=== PATIENT | male | born 1955 | race American Indian/Alaskan Native ===

== ENCOUNTER 2016-09-28 12:39 | Observation (INO) | payer MEDICAID ==
[2016-09-28 12:40] VITALS: BMI 20.2
--- NOTE | 2016-09-28 14:39 | C.PDOC ---
History Of Present Illness 60 y/o male is sent to the ED from senior care for evaluation of urine leaking around right nephrostomy tube. Tube was reportedly placed by Dr. Bud Tabares for underlying cancer process. Patient denies chest pain, shortness of breath, abdominal pain, or fever. Time Seen by Provider: 09/28/16 13:43 Chief Complaint (Nursing): Male Genitourinary History Per: Patient History/Exam Limitations: no limitations Onset/Duration Of Symptoms: Persistent Current Symptoms Are (Timing): Still Present Recent travel outside of the [place]: No Additional History Per: [facility] Past Medical History Reviewed: Historical Data, Nursing Documentation, Vital Signs Vital Signs: Last Vital Signs Temp 98.2 F 09/28/16 17:28 Pulse 112 H 09/28/16 17:28 Resp 20 09/28/16 17:28 BP 105/77 09/28/16 17:28 Pulse Ox 100 09/28/16 18:13 - Medical History PMH: Back Problems, HTN, Malignancy (Prostate, Pancreatic), Chronic Kidney Disease, Chronic Pain (Back) Surgical History: No Surg Hx - [facility] Procedures CHANGE DRAINAGE DEVICE IN KIDNEY, EXTERNAL APPROACH (03/02/16) CYSTOSCOPY NEC (11/08/14) DILATION OF DUODENUM, ENDO (06/12/15) DILATION OF RIGHT URETER WITH INTRALUMINAL DEVICE, ENDO (06/12/15) DX ULTRASOUND NEC (10/22/14) INSERTION OF ENDOTRACHEAL AIRWAY INTO TRACHEA, VIA OPENING (08/30/15) INSERTION OF INFUSION DEV INTO SUP VENA CAVA, PERC APPROACH (08/30/15) INTRODUCTION OF NUTRITIONAL INTO PERIPH VEIN, PERC APPROACH (06/12/15) LYMPHATIC STRUCT BIOPSY (11/08/14) PERCU NEPHROSTM W/O FRAG (11/08/14) PERCUTAN NEEDLE BIOPSY OF PROSTATE (11/08/14) PERCUTANEOUS PYELOGRAM (01/18/15) REMOVE VAD RESERVOIR FROM UP EXTREM SUBCU/FASCIA, PERC (08/30/15) RESPIRATORY VENTILATION, GREATER THAN 96 CONSECUTIVE HOURS (08/30/15) TRANSFUSE NONAUT RED BLOOD CELLS IN PERIPH VEIN, PERC (06/12/15) URETERAL CATHETERIZATION (01/18/15) VACCINATION NEC (10/22/14) Family History: States: Unknown Family Hx - Social History Hx Tobacco Use: Yes Hx Alcohol Use: No Hx Substance Use: No - Immunization History Hx Tetanus Toxoid Vaccination: No Hx Influenza Vaccination: No Hx Pneumococcal Vaccination: No Review Of Systems Except As Marked, All Systems Reviewed And Found Negative. Constitutional: Negative for: Fever Cardiovascular: Negative for: Chest Pain Respiratory: Negative for: Shortness of Breath Gastrointestinal: Negative for: Abdominal Pain Genitourinary: Positive for: Other (urine leaking around right nephrostomy tube) Physical Exam - Physical Exam Appears: Non-toxic, No Acute Distress, Other (thin) Skin: Normal Color, Warm, Dry Head: Normacephalic, Other (bitemporal wasting) Eye(s): bilateral: Normal Inspection, PERRL, EOMI Oral Mucosa: Moist Neck: Normal ROM, Supple Chest: Symmetrical Cardiovascular: Rhythm Regular Respiratory: Normal Breath Sounds, No Rales, No Rhonchi, No Wheezing Gastrointestinal/Abdominal: Normal Exam, Soft, No Tenderness Back: Other (fentanyl patch; right nephrostomy tube in good position, foul smelling urine leaking) Extremity: Normal ROM, No Swelling Neurological/Psych: Oriented x3, Normal Speech, Normal Cognition ED Course And Treatment - Laboratory Results Result Diagrams: 09/28/16 14:06 09/28/16 16:04 Lab Interpretation: Abnormal (UA 71 WBC's) ECG: Interpreted By Me ECG Rhythm: Sinus Tachycardia ECG Interpretation: Abnormal Rate From EC O2 Sat by Pulse Oximetry: 100 (ra) Pulse Ox Interpretation: Normal - Radiology CXR: Interpreted by Me CXR Interpretation: Yes: Other (? small R effusion). No: Pnemothorax (or pneumonia) - Other Rad X-Ray, Abdomen X-Ray: Viewed By Me, Read By Radiologist (Soha Jones MD) Interpretation: IMPRESSION: Gaseous distension of the stomach. Nonspecific bowel gas pattern, with overall paucity of bowel gas within the mid to distal abdomen. Right nephro ureterostomy catheter. Stent re-identified within the mid abdomen. head CT X-Ray: Read By Radiologist (no acute findings.) KUB X-Ray: Interpreted by Me (good R nephrostomy tube placement.) Reevaluation Time: 17:54 Reassessment Condition: Improved - Physician Consult Information Outcome Of Conversation: 1415, and 1800: d/w Dr. Anirudh Gonzalez- PMD- ok to med/surg Obs. aware of hypocalcemia, will treat. 1350:d/w Dr. Bud Tabares- IR- plan for R nephrostomy tube replacement tomorrow (Wed 09/29) @ 11A Medical Decision Making Medical Decision Making: Plan: * Chest X-Ray * X-Ray, Abdomen * Blood Work * Urinalysis clogged R nephrostomy tube, good placement confirmed by KUB Case d/w Dr. Bud Tabares at 13:50, states will replace nephrostomy tube tomorrow with interventional radiology at 11 am. Case d/w Dr. Gonzalez at 14:15, agrees with plan. Hypocalcemia- may be related to neoplastic dz. repleation begun in ED Endocrine w/u in AM Disposition Doctor Will See Patient In The: Hospital Counseled Patient/Family Regarding: Studies Performed, Diagnosis - Disposition Disposition: HOSPITALIZED Disposition Time: 17:30 Condition: GOOD - Clinical Impression Clinical Impression: Obstructed nephrostomy tube, UTI (urinary tract infection), Hypocalcemia - Scribe Statement The provider has reviewed the documentation as recorded by the Scribe (Aury Liu) Provider Attestation: All medical record entries made by the Scribe were at my direction and personally dictated by me. I have reviewed the chart and agree that the record accurately reflects my personal performance of the history, physical exam, medical decision making, and the department course for this patient. I have also personally directed, reviewed, and agree with the discharge instructions and disposition.
--- NOTE | 2016-09-28 14:53 | RAD ---
HISTORY: KUB t confirm R nephrostomy placement COMPARISON: Abdominal radiograph performed 08/31/15, CT abdomen and pelvis with IV contrast performed 08/04/16 FINDINGS: Gaseous distension of the stomach. Nonspecific bowel gas pattern, with overall paucity of bowel gas within the mid to distal abdomen. Right nephro ureterostomy catheter. Stent re-identified within the mid abdomen, previously demonstrated to reside within the duodenum. Degenerative changes of the spine and bilateral hips/ pelvis. IMPRESSION: Gaseous distension of the stomach. Nonspecific bowel gas pattern, with overall paucity of bowel gas within the mid to distal abdomen. Right nephro ureterostomy catheter. Stent re-identified within the mid abdomen.
--- NOTE | 2016-09-28 16:11 | RAD ---
HISTORY: SOB COMPARISON: Chest x-ray performed 08/04/16 TECHNIQUE: Chest, one view. FINDINGS: Examination limited by habitus and patient obliquity. LUNGS: Right basilar atelectasis or infiltrate and small pleural effusion. Left basilar atelectasis. No definite pneumothorax. Please note that chest x-ray has limited sensitivity for the detection of pulmonary masses. CARDIOVASCULAR: Stable with prominence of the mediastinum and right peritracheal opacity, possibly tortuous vasculature exaggerated by patient obliquity. OSSEOUS STRUCTURES: Degenerative changes. Osseous demineralization. VISUALIZED UPPER ABDOMEN: Unremarkable. OTHER FINDINGS: None. IMPRESSION: Right basilar atelectasis or infiltrate and small pleural effusion. Left basilar atelectasis. Stable cardiomediastinal silhouette with prominence of the mediastinum and right peritracheal opacity, possibly tortuous vasculature exaggerated by patient obliquity.
[2016-09-28 16:15] LABS: CHLORIDE 111 mmol/L (98-107); POTASSIUM 3.2 mmol/L (3.6-5.2); SODIUM 133 mmol/L (132-148)
[2016-09-28 16:17] LABS: GFR AFRICAN-AMERICAN > 60; INR 1.2
[2016-09-28 16:18] LABS: ALB/GLOB RATIO 0.7 (1.0-2.1); ALKALINE PHOSPHATASE 52 U/L (38-126); ALT/SGPT 16 U/L (21-72); AST/SGOT 22 U/L (17-59); BILIRUBIN,TOTAL 0.5 mg/dL (0.2-1.3); BLOOD UREA NITROGEN 13 mg/dL (9-20); CARBON DIOXIDE 12 mmol/L (22-30)
[2016-09-28 16:21] LABS: URINE BACTERIA MOD (<OCC); URINE BILIRUBIN NEGATIVE (NEGATIVE); URINE BLOOD NEGATIVE (NEGATIVE); URINE COLOR Amber (YELLOW); URINE GLUCOSE (UA) NORMAL (Normal); URINE KETONE NEGATIVE (NEGATIVE); URINE LEUKOCYTE ESTERASE 3+ Leu/uL (Negative); URINE PROTEIN 3+ mg/dL (NEGATIVE); URINE TRIPLE PHOSPHATE CRYSTAL MOD /hpf (<OCC); URINE UROBILINOGEN NORMAL mg/dL (0.2-1.0); WBC URINE 71 /hpf (0-5)
[2016-09-28 16:32] LABS: GLUCOSE,RANDOM 46 mg/dL (75-110)
[2016-09-28 16:54] LABS: BASO % 0.6 % (0.0-2.0); EOS % 0.7 % (0.0-4.0); LYMPH # 0.2 K/uL (1.0-4.3); LYMPH % 4.1 % (20.0-40.0); MEAN CORPUSCULAR HEMOGLOBIN 30.7 pg (27.0-31.0); MEAN CORPUSCULAR HGB CONC 31.5 g/dL (33.0-37.0); MEAN PLATELET VOLUME 8.5 fL (7.2-11.7); MONO # 0.3 K/uL (0.0-0.8); RED CELL DISTRIBUTION WIDTH 17.5 % (11.5-14.5); WHITE BLOOD COUNT 5.4 K/uL (4.8-10.8)
[2016-09-28 16:55] LABS: MEAN CELL VOLUME 97.5 fL (80.0-94.0); PLATELET COUNT 224 K/uL (130-400)
[2016-09-28] MEDS ORDERED: cefTRIAXone IV 1 gm in Dextros 50 ML IV ONE (17:29)
[2016-09-28] MEDS ORDERED: Dextrose 50% SYRINGE Inj (50 ml) IV STA (17:29)
[2016-09-28] MEDS ORDERED: Dextrose 50% SYRINGE Inj (50 ml) ONE (17:32)
[2016-09-28] MEDS ORDERED: cefTRIAXone IV 1 gm in Dextros 50 ML IVPB ONE (17:36)
[2016-09-28 17:56] LABS: BASOPHIL 1 % (0-2); EOSINOPHIL 1 % (0-4); NEUTROPHIL 89 % (50-75); TOTAL CELLS COUNTED 100
[2016-09-28 17:57] LABS: LARGE PLATELETS PRESENT
[2016-09-28] MEDS ORDERED: Calcium Gluconate 4.65 MEQ in Dextrose 5% In Water 100 ML IV ONE (18:14)
[2016-09-28] MEDS: Sodium Chloride 0.9% 1,000 ML IV SCH (18:20)
[2016-09-28] MEDS ORDERED: Sodium Chloride 0.9% 1,000 ML ONE (18:22)
[2016-09-28] MEDS ORDERED: Home Med 1 UNIT (Meropenem [Merrem Iv] 1 GM) IVPB SCH (22:00)
[2016-09-28] MEDS: Meropenem 1 GM in Sodium Chloride 0.9% 100 ML IVPB SCH (22:34)
--- NOTE | 2016-09-28 23:02 | CP.PCM.HP ---
History of Present Illness - History of Present Illness History of Present Illness: 60-year-old male is sent to the ED from [facility] for evaluation of urine leaking around the right nephrostomy tube. Tube was reportedly placed by Dr. Bud Tabares for underlying cancer process. Patient denies chest pain, SOB, abdominal pain or fever. Present on Admission - Present on Admission Any Indicators Present on Admission: No Past Patient History - Infectious Disease Hx of Infectious Diseases: None - Past Medical History & Family History Past Medical History?: Yes - Past Social History Smoking Status: Former Smoker - CARDIAC Hx Hypertension: Yes - PULMONARY Hx Respiratory Disorders: No - NEUROLOGICAL Hx Neurological Disorder: No Hx Paralysis: No - HEENT Hx HEENT Problems: No - RENAL Hx Chronic Kidney Disease: Yes - ENDOCRINE/METABOLIC Hx Diabetes Mellitus Type 2: Yes (pt denies.) - HEMATOLOGICAL/ONCOLOGICAL Hx Cancer: Yes (Prostate, Stomach.) - INTEGUMENTARY Hx Dermatological Problems: No - MUSCULOSKELETAL/RHEUMATOLOGICAL Hx Falls: Yes - GASTROINTESTINAL Hx Gastrointestinal Disorders: Yes Other/Comment: Stomach Ca. - GENITOURINARY/GYNECOLOGICAL Hx Genitourinary Disorders: Yes Hx Prostate Cancer: Yes Hx Prostate Problems: Yes - PSYCHIATRIC Hx Substance Use: No - SURGICAL HISTORY Other/Comment: nephrostomy tube. - ANESTHESIA Hx Anesthesia: Yes Hx Anesthesia Reactions: No Hx Malignant Hyperthermia: No Meds Allergies/Adverse Reactions: Allergies Allergy/AdvReac Type Severity Reaction Status Date / Time No Known Allergies Allergy Verified 10/06/16 10:16 Results - Vital Signs Recent Vital Signs: Last Vital Signs Temp 98.6 F 09/28/16 18:51 Pulse 119 H 09/28/16 18:51 Resp 20 09/28/16 18:51 BP 102/72 09/28/16 18:51 Pulse Ox 99 09/28/16 18:51 - Labs Result Diagrams: 09/30/16 08:03 09/30/16 08:03 Labs: Laboratory Results - last 24 hr 09/28/16 09/28/16 18:07 18:54 POC Glucose (mg/dL) 64 L 94 Assessment & Plan (1) Abdominal pain Status: Acute Priority: Low (2) Abnormal PSA Status: Acute (3) Acute kidney injury Status: Acute Priority: Low (4) Bacteremia Status: Acute (5) CHF (congestive heart failure) Status: Acute (6) Cardiac arrest Status: Acute (7) Dehydration Status: Acute Priority: Low (8) Dyspnea Status: Acute (9) Encounter for dressing change or suture removal Status: Acute (10) GI bleed Status: Acute (11) Hypocalcemia Status: Acute (12) Hypoglycemia Status: Acute (13) Hypoglycemia Status: Acute (14) Hypokalemia Status: Acute (15) Hypomagnesemia Status: Acute (16) Hyponatremia Status: Acute (17) Hypotension Status: Acute (18) Hypotension Status: Acute (19) Hypothermia Status: Acute (20) Ileus, unspecified Status: Acute Priority: Low (21) Leg edema Status: Acute (22) Lymphadenopathy Status: Acute (23) Malfunction of nephrostomy tube Status: Acute (24) Medical assessment Status: Acute (25) Nephrostomy complication Status: Acute (26) Nephrostomy status Status: Acute (27) Nephrostomy tube displaced Status: Acute (28) Obstructed nephrostomy tube Status: Acute (29) Obstructive uropathy Status: Acute Priority: Medium (30) Pneumatosis intestinalis Status: Acute (31) Prophylactic measure Status: Acute (32) Prophylactic measure Status: Acute (33) Pyelonephritis Status: Acute (34) Renewing dressing Status: Acute (35) Respiratory distress Status: Acute (36) Sepsis Status: Acute (37) Septic shock Status: Acute (38) UTI (urinary tract infection) Status: Acute (39) UTI (urinary tract infection) Status: Acute (40) Vomiting Status: Acute (41) Yeast UTI Status: Acute (42) Duodenal obstruction, acquired Status: Chronic (43) Prostate cancer Status: Chronic Priority: Medium - Assessment and Plan (Free Text) Plan: Consult nephrology Clogged right nephrostomy tube KUB confirmed good placement of nephrostomy tube Dr. Farrell will replace nephrostomy tube tomorrow
[2016-09-28] MEDS ORDERED: Potassium Chloride 20 mEq ER Tab PO STA (23:05)
[2016-09-29] MEDS: Sodium Chloride 0.9% 1,000 ML IV SCH (03:25)
[2016-09-29] MEDS ORDERED: Dextrose 50% SYRINGE Inj (50 ml) IV PRN (03:36)
[2016-09-29] MEDS ORDERED: Glucagon Recombinant 1 mg Inj IM PRN (03:36)
[2016-09-29] MEDS: Meropenem 1 GM in Sodium Chloride 0.9% 100 ML IVPB SCH ×3 (05:30→21:47)
[2016-09-29] MEDS ORDERED: Dextrose 50% SYRINGE Inj (50 ml) IV STA ×3 (07:24→16:30)
[2016-09-29] MEDS ORDERED: Dextrose 5%/0.45% NS 1,000 ML IV SCH (07:30)
[2016-09-29 08:15] LABS: BASO % 0.3 % (0.0-2.0); EOS % 0.1 % (0.0-4.0); HEMATOCRIT 46.5 % (35.0-51.0); LYMPH # 0.2 K/uL (1.0-4.3); LYMPH % 1.6 % (20.0-40.0); MEAN CORPUSCULAR HEMOGLOBIN 30.4 pg (27.0-31.0); MEAN CORPUSCULAR HGB CONC 31.7 g/dL (33.0-37.0); MEAN PLATELET VOLUME 9.1 fL (7.2-11.7); MONO # 0.3 K/uL (0.0-0.8); MONO % 2.8 % (0.0-10.0); PLATELET COUNT 233 K/uL (130-400); WHITE BLOOD COUNT 9.8 K/uL (4.8-10.8)
[2016-09-29 08:26] LABS: POTASSIUM 5.1 mmol/L (3.6-5.2)
[2016-09-29 08:28] LABS: ALB/GLOB RATIO 0.8 (1.0-2.1); BILIRUBIN,TOTAL 0.5 mg/dL (0.2-1.3); CALCIUM 6.9 mg/dl (8.6-10.4); TOTAL PROTEIN 5.7 g/dL (6.3-8.3)
[2016-09-29 08:29] LABS: INR 1.4
[2016-09-29] MEDS ORDERED: EPOETIN ALFA 10,000 UNIT/ML ML SC SCH (10:00)
[2016-09-29] MEDS ORDERED: ENZALUTAMIDE 40 MG PO SCH (10:00)
[2016-09-29] MEDS ORDERED: Enoxaparin 40 mg Syringe SC SCH (10:00)
[2016-09-29 10:06] LABS: BASOPHIL 1 % (0-2); NEUTROPHIL 80 % (50-75); TOTAL CELLS COUNTED 100
[2016-09-29 10:08] LABS: LARGE PLATELETS PRESENT
[2016-09-29] MEDS: Lactobacillus Acidophilus 500 MU Cap PO SCH ×2 (10:27→17:41)
[2016-09-29] MEDS: Pantoprazole 40 mg EC Tab PO SCH (10:29)
[2016-09-29] MEDS ORDERED: Dextrose 5%/0.9% NS 1,000 ML IV ONE (11:26)
[2016-09-29] MEDS ORDERED: Dextrose 50% SYRINGE Inj (50 ml) ONE (11:30)
[2016-09-29] MEDS ORDERED: Propofol 10 mg/ml Inj (20 ML) ONE (12:36)
[2016-09-29] MEDS ORDERED: Iodixanol 320 MG/ML 100 ML BOTTLE IV ONE (12:51)
--- NOTE | 2016-09-29 12:59 | PCM.SURG1 ---
Surgeon's Initial Post Op Note - Surgeon's Notes Surgeon: Bud Tabares MD Textbook Associate: NONE Type of Anesthesia: IV Sedation Pre-Operative Diagnosis: Prostate cancer, leaking nephroureteral stent. Operative Findings: Obstructed NU stent, hydronephrosis. Post-Operative Diagnosis: Prostate cancer, leaking nephroureteral stent. Operation Performed: Right NU stent change. A new 8 fr NU stent placed. Specimen/Specimens Removed: none Estimated Blood Loss: EBL {In ML}: 0 Blood Products Given: N/A Drains Used: No Drains Post-Op Condition: Poor Date of Surgery/Procedure: 09/29/16 Time of Surgery/Procedure: 12:55
--- NOTE | 2016-09-29 14:43 | CARD ---
APPROVED REPORT EKG Measurement Heart [id number] <Conclusion> Sinus tachycardia Nonspecific T wave abnormality Abnormal ECG
--- NOTE | 2016-09-29 16:44 | CP.PCM.PN ---
Subjective - Date & Time of Evaluation Date of Evaluation: 09/29/16 Time of Evaluation: 10:40 - Subjective Subjective: clinically same Objective - Vital Signs/Intake and Output Vital Signs (last 24 hours): Temp Pulse Resp BP Pulse Ox 97.5 F L 121 H 21 87/63 L 86 L 09/29/16 15:00 09/29/16 15:00 09/29/16 15:00 09/29/16 15:00 09/29/16 15:00 Intake and Output: 09/29/16 09/29/16 06:59 18:59 Intake Total 1685 780 Output Total 0 0 Balance 1685 780 - Medications Medications: Current Medications Acetaminophen (Tylenol 325mg Tab) 650 mg PO Q4H PRN PRN Reason: Fever >100.4 F Enoxaparin Sodium (Lovenox) 40 mg SC DAILY [facility] Epoetin Florian (Procrit) 10,000 unit SC MWF [facility] Last Admin: 09/29/16 10:50 Dose: 10,000 unit Fentanyl (Duragesic) 1 patch TD Q72 [facility] Last Admin: 09/28/16 22:35 Dose: 1 patch Home Med (Enzalutamide [Xtandi]) 40 mg PO DAILY [facility] Meropenem 1 gm/ Sodium (Chloride) 100 mls @ 200 mls/hr IVPB Q8 [facility] Last Admin: 09/29/16 15:02 Dose: 200 mls/hr Dextrose/Sodium Chloride (Dextrose 5%/0.9% Ns 1000 Ml) 1,000 mls @ 80 mls/hr IV .[id number] ONE Stop: 09/29/16 23:55 Last Admin: 09/29/16 11:40 Dose: 80 mls/hr Lactobacillus Acidophilus (Bacid Acidophilus) 1 cap PO BID [facility] Last Admin: 09/29/16 10:27 Dose: Not Given Pantoprazole Sodium (Protonix Ec Tab) 40 mg PO DAILY [facility] Last Admin: 09/29/16 10:29 Dose: Not Given Tramadol HCl (Ultram) 50 mg PO Q8H PRN PRN Reason: Pain, moderate (4-7) - Labs Labs: 09/29/16 08:12 09/29/16 08:12 PT 16.0 SECONDS (9.7-12.2) H 09/29/16 08:12 INR 1.4 09/29/16 08:12 APTT 44 SECONDS (21-34) H 09/29/16 08:12 - Constitutional Appears: Well - Head Exam Head Exam: ATRAUMATIC, NORMAL INSPECTION, NORMOCEPHALIC - Eye Exam Eye Exam: EOMI, Normal appearance, PERRL Pupil Exam: NORMAL ACCOMODATION, PERRL - ENT Exam ENT Exam: Mucous Membranes Moist, Normal Exam - Neck Exam Neck Exam: Full ROM, Normal Inspection. absent: Lymphadenopathy - Respiratory Exam Respiratory Exam: Decreased Breath Sounds - Cardiovascular Exam Cardiovascular Exam: REGULAR RHYTHM, +S1, +S2 - GI/Abdominal Exam GI & Abdominal Exam: Soft, Diminished Bowel Sounds - Rectal Exam Rectal Exam: Deferred Assessment and Plan - Assessment and Plan (Free Text) Plan: gm negative kandace id pending conit as ordered
--- NOTE | 2016-09-29 19:03 | CP.PCM.CON ---
History of Present Illness - History of Present Illness History of Present Illness: 60 y/o male is [facility] ED [facility] for evaluation of urine leaking around right nephrostomy tube. Tube was reportedly placed by Dr. Bud Tabares for underlying cancer process. Patient denies chest pain, shortness of breath, abdominal pain, or fever. started on IV antibiotics rx to cont cultures pending urology on board hx of MDRO in the past T - Medical History PMH: Back Problems, HTN, Malignancy (Prostate, Pancreatic), Chronic Kidney Disease, Chronic Pain (Back) Surgical History: No Surg Hx Past Patient History - Infectious Disease Hx of Infectious Diseases: None - Past Medical History & Family History Past Medical History?: Yes - Past Social History Smoking Status: Former Smoker - CARDIAC Hx Hypertension: Yes - PULMONARY Hx Respiratory Disorders: No - NEUROLOGICAL Hx Neurological Disorder: No Hx Paralysis: No - HEENT Hx HEENT Problems: No - RENAL Hx Chronic Kidney Disease: Yes - ENDOCRINE/METABOLIC Hx Diabetes Mellitus Type 2: Yes (pt denies.) - HEMATOLOGICAL/ONCOLOGICAL Hx Cancer: Yes (Prostate, Stomach.) - INTEGUMENTARY Hx Dermatological Problems: No - MUSCULOSKELETAL/RHEUMATOLOGICAL Hx Falls: Yes - GASTROINTESTINAL Hx Gastrointestinal Disorders: Yes Other/Comment: Stomach Ca. - GENITOURINARY/GYNECOLOGICAL Hx Genitourinary Disorders: Yes Hx Prostate Cancer: Yes Hx Prostate Problems: Yes - PSYCHIATRIC Hx Substance Use: No - SURGICAL HISTORY Other/Comment: nephrostomy tube. - ANESTHESIA Hx Anesthesia: Yes Hx Anesthesia Reactions: No Hx Malignant Hyperthermia: No Meds Allergies/Adverse Reactions: Allergies Allergy/AdvReac Type Severity Reaction Status Date / Time No Known Allergies Allergy Verified 09/28/16 14:34 - Medications Medications: Current Medications Acetaminophen (Tylenol 325mg Tab) 650 mg PO Q4H PRN PRN Reason: Fever >100.4 F Enoxaparin Sodium (Lovenox) 40 mg SC DAILY [facility] Epoetin Florian (Procrit) 10,000 unit SC MWF [facility] Last Admin: 09/29/16 10:50 Dose: 10,000 unit Fentanyl (Duragesic) 1 patch TD Q72 [facility] Last Admin: 09/28/16 22:35 Dose: 1 patch Home Med (Enzalutamide [Xtandi]) 40 mg PO DAILY [facility] Meropenem 1 gm/ Sodium (Chloride) 100 mls @ 200 mls/hr IVPB Q8 [facility] Last Admin: 09/29/16 15:02 Dose: 200 mls/hr Dextrose/Sodium Chloride (Dextrose 5%/0.9% Ns 1000 Ml) 1,000 mls @ 80 mls/hr IV .[id number] ONE Stop: 09/29/16 23:55 Last Admin: 09/29/16 11:40 Dose: 80 mls/hr Lactobacillus Acidophilus (Bacid Acidophilus) 1 cap PO BID [facility] Last Admin: 09/29/16 17:41 Dose: 1 cap Pantoprazole Sodium (Protonix Ec Tab) 40 mg PO DAILY [facility] Last Admin: 09/29/16 10:29 Dose: Not Given Tramadol HCl (Ultram) 50 mg PO Q8H PRN PRN Reason: Pain, moderate (4-7) Results - Vital Signs Recent Vital Signs: Last Vital Signs Temp 97.5 F L 09/29/16 15:00 Pulse 121 H 09/29/16 17:19 Resp 21 09/29/16 15:00 BP 87/63 L 09/29/16 15:00 Pulse Ox 86 L 09/29/16 15:00 - Labs Result Diagrams: 09/29/16 08:12 09/29/16 08:12 Labs: Laboratory Results - last 24 hr 09/28/16 09/29/16 09/29/16 21:15 03:07 03:27 WBC RBC Hgb Hct MCV MCH MCHC RDW Plt Count MPV Neut % (Auto) Lymph % (Auto) [place] % (Auto) Eos % (Auto) Baso % (Auto) Neut # Lymph # [place] # Eos # Baso # Neutrophils % (Manual) Band Neutrophils % Lymphocytes % (Manual) Monocytes % (Manual) Basophils % (Manual) Platelet Estimate Large Platelets Poikilocytosis (manual Anisocytosis (manual) Fortescue Cells PT INR APTT Sodium Potassium Chloride Carbon Dioxide Anion Gap BUN Creatinine Est GFR ( Amer) Est GFR (Non-Af Amer) POC Glucose (mg/dL) 86 65 76 Random Glucose Calcium Total Bilirubin AST ALT Alkaline Phosphatase Total Protein Albumin Globulin Albumin/Globulin Ratio 09/29/16 09/29/16 09/29/16 07:05 08:09 08:12 WBC 9.8 D RBC 4.84 Hgb 14.7 Hct 46.5 MCV 96.0 H MCH 30.4 MCHC 31.7 L RDW 17.0 H Plt Count 233 MPV 9.1 Neut % (Auto) 95.2 H Lymph % (Auto) 1.6 L [place] % (Auto) 2.8 Eos % (Auto) 0.1 Baso % (Auto) 0.3 Neut # 9.3 H Lymph # 0.2 L [place] # 0.3 Eos # 0.0 Baso # 0.0 Neutrophils % (Manual) 80 H Band Neutrophils % 13 H* Lymphocytes % (Manual) 1 L Monocytes % (Manual) 5 Basophils % (Manual) 1 Platelet Estimate Normal Large Platelets Present Poikilocytosis (manual Slight Anisocytosis (manual) Slight [place] Cells Slight PT 16.0 H INR 1.4 APTT 44 H Sodium 128 L Potassium 5.1 Chloride 98 Carbon Dioxide 18 L Anion Gap 17 BUN 22 H Creatinine 1.7 H Est GFR ( Amer) 50 Est GFR (Non-Af Amer) 41 POC Glucose (mg/dL) 68 138 H Random Glucose 112 H Calcium 6.9 L Total Bilirubin 0.5 AST 12 L D ALT 12 L D Alkaline Phosphatase 96 Total Protein 5.7 L Albumin 2.6 L D Globulin 3.1 Albumin/Globulin Ratio 0.8 L 09/29/16 09/29/16 09/29/16 11:13 11:57 13:24 WBC RBC Hgb Hct MCV MCH MCHC RDW Plt Count MPV Neut % (Auto) Lymph % (Auto) [place] % (Auto) Eos % (Auto) Baso % (Auto) Neut # Lymph # [place] # Eos # Baso # Neutrophils % (Manual) Band Neutrophils % Lymphocytes % (Manual) Monocytes % (Manual) Basophils % (Manual) Platelet Estimate Large Platelets Poikilocytosis (manual Anisocytosis (manual) Fortescue Cells PT INR APTT Sodium Potassium Chloride Carbon Dioxide Anion Gap BUN Creatinine Est GFR ( Amer) Est GFR (Non-Af Amer) POC Glucose (mg/dL) 55 L 101 100 Random Glucose Calcium Total Bilirubin AST ALT Alkaline Phosphatase Total Protein Albumin Globulin Albumin/Globulin Ratio 09/29/16 09/29/16 09/29/16 16:04 16:24 17:11 WBC RBC Hgb Hct MCV MCH MCHC RDW Plt Count MPV Neut % (Auto) Lymph % (Auto) [place] % (Auto) Eos % (Auto) Baso % (Auto) Neut # Lymph # [place] # Eos # Baso # Neutrophils % (Manual) Band Neutrophils % Lymphocytes % (Manual) Monocytes % (Manual) Basophils % (Manual) Platelet Estimate Large Platelets Poikilocytosis (manual Anisocytosis (manual) Fortescue Cells PT INR APTT Sodium Potassium Chloride Carbon Dioxide Anion Gap BUN Creatinine Est GFR ( Amer) Est GFR (Non-Af Amer) POC Glucose (mg/dL) 66 65 116 H Random Glucose Calcium Total Bilirubin AST ALT Alkaline Phosphatase Total Protein Albumin Globulin Albumin/Globulin Ratio
[2016-09-29] MEDS ORDERED: Meropenem 500 MG in Sodium Chloride 0.9% 100 ML IVPB SCH (22:00)
[2016-09-30 01:14] VITALS: O2SAT 98
[2016-09-30] MEDS: Meropenem 1 GM in Sodium Chloride 0.9% 100 ML IVPB SCH (05:32)
[2016-09-30 08:16] LABS: BASO % 0.4 % (0.0-2.0); EOS # 0.1 K/uL (0.0-0.7); EOS % 1.3 % (0.0-4.0); LYMPH # 0.3 K/uL (1.0-4.3); LYMPH % 3.6 % (20.0-40.0); MEAN CELL VOLUME 96.4 fL (80.0-94.0); MEAN CORPUSCULAR HEMOGLOBIN 30.5 pg (27.0-31.0); MEAN CORPUSCULAR HGB CONC 31.7 g/dL (33.0-37.0); MEAN PLATELET VOLUME 8.6 fL (7.2-11.7); MONO # 0.4 K/uL (0.0-0.8); MONO % 4.3 % (0.0-10.0); PLATELET COUNT 214 K/uL (130-400); RED CELL DISTRIBUTION WIDTH 17.3 % (11.5-14.5); WHITE BLOOD COUNT 8.7 K/uL (4.8-10.8)
[2016-09-30 08:32] LABS: CHLORIDE 104 mmol/L (98-107); POTASSIUM 4.5 mmol/L (3.6-5.2); SODIUM 130 mmol/L (132-148)
[2016-09-30 08:35] LABS: ALB/GLOB RATIO 0.8 (1.0-2.1); ALKALINE PHOSPHATASE 99 U/L (38-126); ALT/SGPT 10 U/L (21-72); AST/SGOT 16 U/L (17-59); BILIRUBIN,TOTAL 0.4 mg/dL (0.2-1.3); BLOOD UREA NITROGEN 21 mg/dL (9-20); CALCIUM 6.3 mg/dl (8.6-10.4); CARBON DIOXIDE 17 mmol/L (22-30); GFR AFRICAN-AMERICAN > 60; GLUCOSE,RANDOM 64 mg/dL (75-110); TOTAL PROTEIN 5.7 g/dL (6.3-8.3)
[2016-09-30 09:53] LABS: EOSINOPHIL 1 % (0-4); NEUTROPHIL 83 % (50-75); TOTAL CELLS COUNTED 100
[2016-09-30 09:54] LABS: LARGE PLATELETS PRESENT
[2016-09-30] MEDS: Lactobacillus Acidophilus 500 MU Cap PO SCH (10:41)
[2016-09-30] MEDS: Pantoprazole 40 mg EC Tab PO SCH (10:41)
--- NOTE | 2016-09-30 11:11 | CP.PCM.PN ---
Subjective - Date & Time of Evaluation Date of Evaluation: 09/30/16 Time of Evaluation: 09:45 - Subjective Subjective: Medicine Note- Dr. Gonzalez's service Patient was seen and examined at bedside. Patient reports no acute complaints today. Patient states that he was told he would be going back to [facility] today. No events overnight, per nursing. Objective - Vital Signs/Intake and Output Vital Signs (last 24 hours): Temp Pulse Resp BP Pulse Ox 97.7 F 100 H 22 91/67 L 98 09/30/16 07:49 09/30/16 07:49 09/30/16 07:49 09/30/16 07:49 09/30/16 07:49 Intake and Output: 09/30/16 09/30/16 06:59 18:59 Intake Total 1500 Output Total 205 Balance 1295 - Medications Medications: Current Medications Acetaminophen (Tylenol 325mg Tab) 650 mg PO Q4H PRN PRN Reason: Fever >100.4 F Enoxaparin Sodium (Lovenox) 40 mg SC DAILY [facility] Epoetin Florian (Procrit) 10,000 unit SC MWF [facility] Last Admin: 09/29/16 10:50 Dose: 10,000 unit Fentanyl (Duragesic) 1 patch TD Q72 [facility] Last Admin: 09/28/16 22:35 Dose: 1 patch Home Med (Enzalutamide [Xtandi]) 40 mg PO DAILY [facility] Meropenem 1 gm/ Sodium (Chloride) 100 mls @ 100 mls/hr IVPB Q8 [facility] Last Admin: 09/30/16 05:32 Dose: 100 mls/hr Lactobacillus Acidophilus (Bacid Acidophilus) 1 cap PO BID [facility] Last Admin: 09/30/16 10:41 Dose: 1 cap Pantoprazole Sodium (Protonix Ec Tab) 40 mg PO DAILY [facility] Last Admin: 09/30/16 10:41 Dose: 40 mg Tramadol HCl (Ultram) 50 mg PO Q8H PRN PRN Reason: Pain, moderate (4-7) - Labs Labs: 09/30/16 08:03 09/30/16 08:03 PT 16.0 SECONDS (9.7-12.2) H 09/29/16 08:12 INR 1.4 09/29/16 08:12 APTT 44 SECONDS (21-34) H 09/29/16 08:12 - Constitutional Appears: Non-toxic, No Acute Distress - Head Exam Head Exam: ATRAUMATIC, NORMAL INSPECTION, NORMOCEPHALIC - Eye Exam Pupil Exam: NORMAL ACCOMODATION, PERRL - ENT Exam ENT Exam: Mucous Membranes Moist - Respiratory Exam Respiratory Exam: Clear to Ausculation Bilateral, NORMAL BREATHING PATTERN. absent: Prolonged Expiratory Phase, Rales, Rhonchi, Wheezes - Cardiovascular Exam Cardiovascular Exam: REGULAR RHYTHM, +S1, +S2 - GI/Abdominal Exam GI & Abdominal Exam: Distended, Firm, Normal Bowel Sounds - Extremities Exam Extremities Exam: Normal Capillary Refill, Pedal Edema - Neurological Exam Neurological Exam: Alert, Awake, Oriented x3 - Psychiatric Exam Psychiatric exam: Normal Affect, Normal Mood - Skin Skin Exam: Dry, Intact, Normal Color, Warm Assessment and Plan - Assessment and Plan (Free Text) Assessment: Leaking Nephrostomy Consult Uro- Dr. Wilman Durant s/p nephrostomy change by IR on 09/29/16 Continue Meropenem 500mg IVPB Q8h UTI Consult ID- Dr. Garrison Started on Meropenem 1gm Q8h PAOLA on 09/29/16 Continue Florastor 1 cap PO BID Prostate Ca On Tramadol 50mg PO Q8h Fentanyl 50mcg Q72h Chronic anemia Secondary to kidney disease Procrit [id number] SC MWF Hgb Stable Prophylactic Measure Lovenox 40mg SC Daily Protonix 40mg PO Daily As per Dr. Anirudh Gonzalez, patient is to be discharged to [facility]. Patient is to continue Meropenem 1gm Q8h for 5 additional days.
[2016-09-30] MEDS: Cefepime IV 1 gm in Dextrose 50 ML IVPB SCH ×2 (14:39→14:41)
--- NOTE | 2016-09-30 16:37 | CP.PCM.PN ---
Subjective - Date & Time of Evaluation Date of Evaluation: 09/30/16 Time of Evaluation: 07:00 - Subjective Subjective: no new complaints rx in progress Objective - Vital Signs/Intake and Output Vital Signs (last 24 hours): Temp Pulse Resp BP Pulse Ox 97.7 F 100 H 22 91/67 L 98 09/30/16 07:49 09/30/16 07:49 09/30/16 07:49 09/30/16 07:49 09/30/16 07:49 Intake and Output: 09/30/16 09/30/16 06:59 18:59 Intake Total 1500 Output Total 205 Balance 1295 - Medications Medications: Current Medications Acetaminophen (Tylenol 325mg Tab) 650 mg PO Q4H PRN PRN Reason: Fever >100.4 F Enoxaparin Sodium (Lovenox) 40 mg SC DAILY [facility] Epoetin Florian (Procrit) 10,000 unit SC MWF [facility] Last Admin: 09/29/16 10:50 Dose: 10,000 unit Fentanyl (Duragesic) 1 patch TD Q72 [facility] Last Admin: 09/28/16 22:35 Dose: 1 patch Home Med (Enzalutamide [Xtandi]) 40 mg PO DAILY [facility] Cefepime HCl (Maxipime Iv 1 Gm Premix) 50 mls @ 100 mls/hr IVPB Q12H [facility] Last Admin: 09/30/16 14:41 Dose: 100 mls/hr Lactobacillus Acidophilus (Bacid Acidophilus) 1 cap PO BID [facility] Last Admin: 09/30/16 10:41 Dose: 1 cap Pantoprazole Sodium (Protonix Ec Tab) 40 mg PO DAILY [facility] Last Admin: 09/30/16 10:41 Dose: 40 mg Tramadol HCl (Ultram) 50 mg PO Q8H PRN PRN Reason: Pain, moderate (4-7) - Labs Labs: 09/30/16 08:03 09/30/16 08:03 PT 16.0 SECONDS (9.7-12.2) H 09/29/16 08:12 INR 1.4 09/29/16 08:12 APTT 44 SECONDS (21-34) H 09/29/16 08:12 - Constitutional Appears: Non-toxic, Cachectic, Chronically Ill - Head Exam Head Exam: NORMOCEPHALIC - Eye Exam Eye Exam: absent: Scleral icterus - ENT Exam ENT Exam: Mucous Membranes Dry - Neck Exam Neck Exam: absent: Lymphadenopathy - Respiratory Exam Respiratory Exam: Decreased Breath Sounds - Cardiovascular Exam Cardiovascular Exam: REGULAR RHYTHM - GI/Abdominal Exam GI & Abdominal Exam: Distended, Soft Assessment and Plan (1) Obstructed nephrostomy tube Status: Acute (2) UTI (urinary tract infection) Status: Acute
--- NOTE | 2016-09-30 16:57 | CP.PCM.PN ---
Subjective - Date & Time of Evaluation Date of Evaluation: 09/30/16 Time of Evaluation: 11:00 - Subjective Subjective: awake, alert, NAD. Objective - Vital Signs/Intake and Output Vital Signs (last 24 hours): Temp Pulse Resp BP Pulse Ox 97.7 F 100 H 22 91/67 L 98 09/30/16 07:49 09/30/16 07:49 09/30/16 07:49 09/30/16 07:49 09/30/16 07:49 Intake and Output: 09/30/16 09/30/16 06:59 18:59 Intake Total 1500 Output Total 205 Balance 1295 - Medications Medications: Current Medications Acetaminophen (Tylenol 325mg Tab) 650 mg PO Q4H PRN PRN Reason: Fever >100.4 F Enoxaparin Sodium (Lovenox) 40 mg SC DAILY [facility] Epoetin Florian (Procrit) 10,000 unit SC MWF [facility] Last Admin: 09/29/16 10:50 Dose: 10,000 unit Fentanyl (Duragesic) 1 patch TD Q72 [facility] Last Admin: 09/28/16 22:35 Dose: 1 patch Home Med (Enzalutamide [Xtandi]) 40 mg PO DAILY [facility] Cefepime HCl (Maxipime Iv 1 Gm Premix) 50 mls @ 100 mls/hr IVPB Q12H [facility] Last Admin: 09/30/16 14:41 Dose: 100 mls/hr Lactobacillus Acidophilus (Bacid Acidophilus) 1 cap PO BID [facility] Last Admin: 09/30/16 10:41 Dose: 1 cap Pantoprazole Sodium (Protonix Ec Tab) 40 mg PO DAILY [facility] Last Admin: 09/30/16 10:41 Dose: 40 mg Tramadol HCl (Ultram) 50 mg PO Q8H PRN PRN Reason: Pain, moderate (4-7) - Labs Labs: 09/30/16 08:03 09/30/16 08:03 PT 16.0 SECONDS (9.7-12.2) H 09/29/16 08:12 INR 1.4 09/29/16 08:12 APTT 44 SECONDS (21-34) H 09/29/16 08:12 Assessment and Plan - Assessment and Plan (Free Text) Assessment: Patiient is discharge back to half-way on iv cefepime 1gm q12h fror 7days as per DR Garrison. D/W DR Lilia Gonzalez.
[2016-09-30 17:25] VITALS: BP 106/71; PULSE 106; RESP 20; TEMP 98
[2016-10-01] MEDS ORDERED: ENZALUTAMIDE 40 MG PO SCH (10:00)
== END 2016-09-30 17:25 ==
LOC: C.ER 12:39 → C.9E 17:33 → UNDOADMOB 18:00 → C.3T 18:41
PROVIDERS: ADMIT Internal Medicine Nephrology; ATTEND Internal Medicine Nephrology
DX: N99.522 Malfunction of incontinent external stoma of urinary tract (principal); C61 Malignant neoplasm of prostate; N13.30 Unspecified hydronephrosis; I12.9 Hypertensive chronic kidney disease with stage 1 through stage 4 chronic kidney disease, or unspecified chronic kidney disease; N39.0 Urinary tract infection, site not specified; N18.9 Chronic kidney disease, unspecified
CPT/HCPCS: 36415; 50435; 71010; 74000; 75984; 80053; 81001; 82948; 84484; 85025; 85610; 85730; 87086; 87181; 93005; 94770; 96360; 97110; 97162; 99285; C2617; G0378; G8978; G8979; J0610; J0692; J0696; J1644; J2001; J2185; J2405; J2704; J3010; J7040; J7042; Q4081; Q9967

== ENCOUNTER 2016-10-01 15:42 | Emergency (ER) | payer MEDICAID ==
[2016-10-01 15:43] VITALS: BMI 20.2
[2016-10-01 15:57] VITALS: RESP 20
--- NOTE | 2016-10-01 16:29 | C.PDOC ---
History Of Present Illness The patient, a 60 y/o male, presents to the ED via EMS after being sent from his long term for evaluation of a leaking urostomy site. Patient has a history of prostate cancer and had his tube replaced a few days ago. Since then , patient has been experiencing mild leakage. Patient denies fever, chills, abdominal pain. Time Seen by Provider: 10/01/16 16:02 Chief Complaint (Nursing): Male Genitourinary History Per: Patient History/Exam Limitations: no limitations Onset/Duration Of Symptoms: Hrs Current Symptoms Are (Timing): Still Present Quality Of Discomfort: denies: "Pain" Associated Symptoms: denies: Fever, Chills Additional History Per: Patient, Prison Past Medical History Reviewed: Historical Data, Nursing Documentation, Vital Signs Vital Signs: Last Vital Signs Temp 97.6 F 10/01/16 15:53 Pulse 102 H 10/01/16 15:53 Resp 20 10/01/16 15:53 BP 96/67 L 10/01/16 15:53 Pulse Ox 97 10/01/16 18:33 - Medical History PMH: Back Problems, HTN, Malignancy (Prostate, Pancreatic), Chronic Kidney Disease, Chronic Pain (Back) Denies: Peripheral Edema Surgical History: No Surg Hx Denies: Pacemaker - [facility] Procedures CHANGE DRAINAGE DEVICE IN KIDNEY, EXTERNAL APPROACH (03/02/16) CYSTOSCOPY NEC (11/08/14) DILATION OF DUODENUM, ENDO (06/12/15) DILATION OF RIGHT URETER WITH INTRALUMINAL DEVICE, ENDO (06/12/15) DX ULTRASOUND NEC (10/22/14) INSERTION OF ENDOTRACHEAL AIRWAY INTO TRACHEA, VIA OPENING (08/30/15) INSERTION OF INFUSION DEV INTO SUP VENA CAVA, PERC APPROACH (08/30/15) INTRODUCTION OF NUTRITIONAL INTO PERIPH VEIN, PERC APPROACH (06/12/15) LYMPHATIC STRUCT BIOPSY (11/08/14) PERCU NEPHROSTM W/O FRAG (11/08/14) PERCUTAN NEEDLE BIOPSY OF PROSTATE (11/08/14) PERCUTANEOUS PYELOGRAM (01/18/15) REMOVE VAD RESERVOIR FROM UP EXTREM SUBCU/FASCIA, PERC (08/30/15) RESPIRATORY VENTILATION, GREATER THAN 96 CONSECUTIVE HOURS (08/30/15) TRANSFUSE NONAUT RED BLOOD CELLS IN PERIPH VEIN, PERC (06/12/15) URETERAL CATHETERIZATION (01/18/15) VACCINATION NEC (10/22/14) Family History: States: Unknown Family Hx - Social History Hx Tobacco Use: Yes Hx Alcohol Use: No Hx Substance Use: No - Immunization History Hx Tetanus Toxoid Vaccination: No Hx Influenza Vaccination: No Hx Pneumococcal Vaccination: No Review Of Systems Except As Marked, All Systems Reviewed And Found Negative. Constitutional: Negative for: Fever, Chills Gastrointestinal: Negative for: Abdominal Pain Genitourinary: Positive for: Other (+leaking urostomy site ) Physical Exam - Physical Exam Appears: Non-toxic, No Acute Distress Skin: Normal Color, Warm, Dry Head: Atraumatic, Normacephalic, Other (+bitemporal wasting ) Eye(s): bilateral: Normal Inspection Oral Mucosa: Moist Neck: Supple Chest: Symmetrical, No Deformity, No Tenderness Cardiovascular: Rhythm Regular, No Murmur Respiratory: Normal Breath Sounds, No Rales, No Rhonchi, No Wheezing Gastrointestinal/Abdominal: No Soft (firm ), Distention, No Guarding, No Rebound , Other (+urine is draining properly into urostomy bag. no foul smell noted. ) Back: Normal Inspection, No Vertebral Tenderness, No Paraspinal Tenderness Extremity: Normal ROM, Capillary Refill (less than 2 seconds ) Neurological/Psych: Oriented x3, Normal Speech, Normal Cognition Gait: Steady ED Course And Treatment O2 Sat by Pulse Oximetry: 97 (on RA) Pulse Ox Interpretation: Normal - Physician Consult Information Outcome Of Conversation: d/w Dr. Bud Tabares- IR- @ [phone], recommends he will d/w pt on Tuesday to plan for cathter replacement on Tuesday. Medical Decision Making Medical Decision Making: nephrostomy tube prob leaking around cath at the skin. otherwide cath draining properly. Disposition Doctor Will See Patient In The: Office Counseled Patient/Family Regarding: Studies Performed, Diagnosis - Disposition Referrals: Bud Tabares MD [Staff Provider] - Gee Gonzalez MD [Staff Provider] - Disposition: HOME/ ROUTINE Disposition Time: 16:28 Condition: GOOD Additional Instructions: Call to d/w Dr. Tabares on Tuesday to plan for replacement of the Urostomy tube on Tuesday. Instructions: Nephrostomy Tube Care (ED) - Clinical Impression Clinical Impression: Nephrostomy complication - Scribe Statement The provider has reviewed the documentation as recorded by the Scribe (Carleen Gonzalez) Provider Attestation: All medical record entries made by the Scribe were at my direction and personally dictated by me. I have reviewed the chart and agree that the record accurately reflects my personal performance of the history, physical exam, medical decision making, and the department course for this patient. I have also personally directed, reviewed, and agree with the discharge instructions and disposition.
[2016-10-01 19:26] VITALS: BP 102/73; PULSE 73; TEMP 98.7; O2SAT 95
== END 2016-10-01 20:15 | disposition home or self-care (01) ==
LOC: C.ER 15:42
DX: N99.522 Malfunction of incontinent external stoma of urinary tract (principal); Y84.8 Other medical procedures as the cause of abnormal reaction of the patient, or of later complication, without mention of misadventure at the time of the procedure

== ENCOUNTER 2016-10-06 10:05 | Inpatient (IN) | payer MEDICAID ==
[2016-10-06 10:18] VITALS: BMI 26.6
[2016-10-06] MEDS ORDERED: Dextrose 50% SYRINGE Inj (50 ml) IV STA ×4 (11:06→18:20)
[2016-10-06] MEDS ORDERED: Dextrose 50% SYRINGE Inj (50 ml) ONE ×3 (11:07→18:18)
[2016-10-06] MEDS ORDERED: Glucagon Recombinant 1 mg Inj ONE (11:09)
[2016-10-06 11:36] LABS: BASO % 1.3 % (0.0-2.0); EOS # 0.1 K/uL (0.0-0.7); HEMATOCRIT 43.7 % (35.0-51.0); LYMPH # 0.5 K/uL (1.0-4.3); LYMPH % 16.2 % (20.0-40.0); MEAN CELL VOLUME 95.6 fL (80.0-94.0); MEAN CORPUSCULAR HEMOGLOBIN 30.1 pg (27.0-31.0); MEAN CORPUSCULAR HGB CONC 31.5 g/dL (33.0-37.0); MEAN PLATELET VOLUME 8.5 fL (7.2-11.7); MONO # 0.3 K/uL (0.0-0.8); MONO % 10.4 % (0.0-10.0); NRBC % 0.4 % (0.0-2.0); RED CELL DISTRIBUTION WIDTH 17.2 % (11.5-14.5); WHITE BLOOD COUNT 3.1 K/uL (4.8-10.8)
[2016-10-06 11:39] LABS: VENOUS BLOOD GAS BASE EXCESS -13.9 mmol/L (0.0-2.0); VENOUS BLOOD GAS PCO2 32 mmHg (40-60); VENOUS BLOOD PH 7.21 (7.32-7.43)
[2016-10-06 11:44] LABS: INR 1.5
--- NOTE | 2016-10-06 12:23 | RAD ---
HISTORY: Sepsis Patient COMPARISON: 09/28/2016 FINDINGS: LUNGS: Hazy opacities the lung bases right greater than left. PLEURA: Layering pleural effusion on the right moderate to large in size. Small effusion on the left. CARDIOVASCULAR: Suboptimal evaluation. OSSEOUS STRUCTURES: The osseous structures demonstrate degenerative changes. VISUALIZED UPPER ABDOMEN: Upper abdomen is suboptimally evaluated. OTHER FINDINGS: None. IMPRESSION: Hazy opacity in the lung bases right greater than left. Pleural effusion right greater than left.
[2016-10-06 12:26] LABS: CHLORIDE 106 mmol/L (98-107)
[2016-10-06 12:27] LABS: POTASSIUM 4.3 mmol/L (3.6-5.2); SODIUM 131 mmol/L (132-148)
[2016-10-06 12:29] LABS: ALB/GLOB RATIO 0.8 (1.0-2.1); ALKALINE PHOSPHATASE 107 U/L (38-126); ALT/SGPT 14 U/L (21-72); AST/SGOT 16 U/L (17-59); BILIRUBIN,TOTAL 0.4 mg/dL (0.2-1.3); BLOOD UREA NITROGEN 27 mg/dL (9-20); CARBON DIOXIDE 17 mmol/L (22-30); GFR AFRICAN-AMERICAN > 60; GLUCOSE,RANDOM 126 mg/dL (75-110); TOTAL PROTEIN 5.1 g/dL (6.3-8.3)
[2016-10-06 12:30] LABS: CALCIUM 6.3 mg/dl (8.6-10.4); MAGNESIUM 1.9 mg/dL (1.6-2.3); PHOSPHOROUS 3.5 mg/dL (2.5-4.5)
[2016-10-06] MEDS ORDERED: cefTRIAXone IV 1 gm in Dextros 50 ML IVPB ONE (13:09)
--- NOTE | 2016-10-06 13:17 | C.PDOC ---
History Of Present Illness 60 y/o male sent from same day surgery for change in mental status. alf and transportation states patient was brought to same day surgery for nephrostomy tube replacement, on arrival patient continued to have change in mental status so they brought him to the ED for evaluation. On arrival to ED, pt was found to be hypothermic at 91 degrees with BGL <20. 2 amps of D50 given IV with positive result. No reported fever from skilled nursing. Chief Complaint (Nursing): Altered Mental Status History Per: Patient History/Exam Limitations: no limitations Onset/Duration Of Symptoms: Hrs Current Symptoms Are (Timing): Better Severity: Moderate Recent travel outside of the [place]: No Past Medical History Reviewed: Historical Data, Nursing Documentation, Vital Signs Vital Signs: Last Vital Signs Temp 95.3 F L 10/06/16 16:00 Pulse 100 H 10/06/16 16:54 Resp 20 10/06/16 16:54 BP 102/69 10/06/16 16:54 Pulse Ox 99 10/06/16 16:54 - Medical History PMH: Back Problems, HTN, Malignancy (Prostate, Pancreatic), Chronic Kidney Disease, Chronic Pain (Back) - [facility] Procedures CHANGE DRAINAGE DEVICE IN KIDNEY, EXTERNAL APPROACH (03/02/16) CYSTOSCOPY NEC (11/08/14) DILATION OF DUODENUM, ENDO (06/12/15) DILATION OF RIGHT URETER WITH INTRALUMINAL DEVICE, ENDO (06/12/15) DX ULTRASOUND NEC (10/22/14) INSERTION OF ENDOTRACHEAL AIRWAY INTO TRACHEA, VIA OPENING (08/30/15) INSERTION OF INFUSION DEV INTO SUP VENA CAVA, PERC APPROACH (08/30/15) INTRODUCTION OF NUTRITIONAL INTO PERIPH VEIN, PERC APPROACH (06/12/15) LYMPHATIC STRUCT BIOPSY (11/08/14) PERCU NEPHROSTM W/O FRAG (11/08/14) PERCUTAN NEEDLE BIOPSY OF PROSTATE (11/08/14) PERCUTANEOUS PYELOGRAM (01/18/15) REMOVE VAD RESERVOIR FROM UP EXTREM SUBCU/FASCIA, PERC (08/30/15) RESPIRATORY VENTILATION, GREATER THAN 96 CONSECUTIVE HOURS (08/30/15) TRANSFUSE NONAUT RED BLOOD CELLS IN PERIPH VEIN, PERC (06/12/15) URETERAL CATHETERIZATION (01/18/15) VACCINATION NEC (10/22/14) Family History: States: Unknown Family Hx - Social History Hx Tobacco Use: Yes Hx Alcohol Use: No Hx Substance Use: No - Immunization History Hx Tetanus Toxoid Vaccination: No Hx Influenza Vaccination: No Hx Pneumococcal Vaccination: No Review Of Systems Except As Marked, All Systems Reviewed And Found Negative. Constitutional: Negative for: Fever Neurological: Positive for: Altered Mental Status Physical Exam - Physical Exam Appears: Non-toxic, No Acute Distress, Other (thin) Skin: No Warm (cool to touch), Dry, No Rash Head: Atraumatic, Normacephalic Chest: Symmetrical Cardiovascular: Rhythm Regular, No Murmur Respiratory: Normal Breath Sounds, No Accessory Muscle Use, No Rales, No Rhonchi , No Wheezing Gastrointestinal/Abdominal: Normal Exam, Soft, No Tenderness, Other (right nephrostomy tube) Extremity: Bilateral: Atraumatic Neurological/Psych: Other (Altered prior to D50, post administration patient awake and alert. ) ED Course And Treatment - Laboratory Results Result Diagrams: 10/06/16 11:31 10/06/16 12:08 O2 Sat by Pulse Oximetry: 100 (on room air) Pulse Ox Interpretation: Normal Medical Decision Making Medical Decision Making: Plan: EKG, labs, CXR, dextrose, gentamicin, UA, swallow test Spoke to Anirudh Gonzalez, will be admitted to tele/obs under his service. Disposition - Disposition Disposition: HOSPITALIZED Disposition Time: 12:50 Condition: FAIR - Clinical Impression Clinical Impression: UTI (urinary tract infection), Sepsis, Hypothermia, Hypoglycemia - Scribe Statement The provider has reviewed the documentation as recorded by the Rob Ann Provider Attestation: All medical record entries made by the Rob were at my direction and personally dictated by me. I have reviewed the chart and agree that the record accurately reflects my personal performance of the history, physical exam, medical decision making, and the department course for this patient. I have also personally directed, reviewed, and agree with the discharge instructions and disposition.
[2016-10-06 13:35] LABS: RBC URINE 45 /hpf (0-3); URINE BACTERIA RARE (<OCC); URINE BILIRUBIN NEGATIVE (NEGATIVE); URINE BLOOD 3+ (NEGATIVE); URINE COLOR Amber (YELLOW); URINE GLUCOSE (UA) NORMAL (Normal); URINE KETONE NEGATIVE (NEGATIVE); URINE LEUKOCYTE ESTERASE 3+ Leu/uL (Negative); URINE PROTEIN 1+ mg/dL (NEGATIVE); URINE URIC ACID CRYSTALS OCC /hpf (<OCC); URINE UROBILINOGEN NORMAL mg/dL (0.2-1.0); WBC URINE 295 /hpf (0-5)
[2016-10-06 14:30] LABS: VENOUS BLOOD GAS BASE EXCESS -13.7 mmol/L (0.0-2.0); VENOUS BLOOD GAS PCO2 37 mmHg (40-60); VENOUS BLOOD PH 7.18 (7.32-7.43)
[2016-10-06] MEDS ORDERED: Sodium Chloride 23.4% 38.5 MEQ in Dextrose 10% In Water 1,000 ML IV SCH (18:30)
[2016-10-06] MEDS: Vancomycin 125 MG/5 ML SOLN (ORAL/RECTAL) PO SCH ×2 (18:55→23:50)
--- NOTE | 2016-10-06 19:01 | CP.PCM.HP ---
History of Present Illness - History of Present Illness History of Present Illness: 60-year-old male sent from same day surgery for change in mental status. retirement and transportation states patient was brought to same-day surgery for nephrostomy tube replacement, on arrival patient continued to have a change in mental status so they brought him to the ED for evaluation. On arrival to ED , patient was found to be hypothermic at 91F with BGL less than 20. 2 ampules of D50 given IV with positive result. No reported fever from correction. Present on Admission - Present on Admission Any Indicators Present on Admission: No Past Patient History - Infectious Disease Hx of Infectious Diseases: C.diff - Past Medical History & Family History Past Medical History?: Yes - Past Social History Smoking Status: Former Smoker - CARDIAC Hx Hypertension: Yes - PULMONARY Hx Respiratory Disorders: No - NEUROLOGICAL Hx Neurological Disorder: No Hx Paralysis: No - HEENT Hx HEENT Problems: No - RENAL Hx Chronic Kidney Disease: Yes - ENDOCRINE/METABOLIC Hx Endocrine Disorders: Yes Hx Diabetes Mellitus Type 2: Yes (pt denies.) - HEMATOLOGICAL/ONCOLOGICAL Hx Blood Disorders: Yes Hx Blood Transfusions: Yes Hx Blood Transfusion Reaction: No Hx Cancer: Yes (Prostate, Stomach.) - INTEGUMENTARY Hx Dermatological Problems: No - MUSCULOSKELETAL/RHEUMATOLOGICAL Hx Falls: No - GASTROINTESTINAL Hx Gastrointestinal Disorders: Yes Other/Comment: Stomach Ca. - GENITOURINARY/GYNECOLOGICAL Hx Genitourinary Disorders: Yes Hx Prostate Cancer: Yes Hx Prostate Problems: Yes - PSYCHIATRIC Hx Substance Use: No - SURGICAL HISTORY Hx Surgeries: Yes Other/Comment: nephrostomy tube. - ANESTHESIA Hx Anesthesia: Yes Hx Anesthesia Reactions: No Hx Malignant Hyperthermia: No Meds Allergies/Adverse Reactions: Allergies Allergy/AdvReac Type Severity Reaction Status Date / Time No Known Allergies Allergy Verified 10/06/16 10:16 Physical Exam - Constitutional Appears: Well - Head Exam Head Exam: ATRAUMATIC, NORMAL INSPECTION, NORMOCEPHALIC - Eye Exam Eye Exam: EOMI, Normal appearance, PERRL Pupil Exam: NORMAL ACCOMODATION, PERRL - ENT Exam ENT Exam: Mucous Membranes Moist, Normal Exam - Neck Exam Neck exam: Positive for: Normal Inspection - Respiratory Exam Respiratory Exam: Clear to Auscultation Bilateral, NORMAL BREATHING PATTERN - Cardiovascular Exam Cardiovascular Exam: REGULAR RHYTHM, +S1, +S2 - GI/Abdominal Exam GI & Abdominal Exam: Diminished Bowel Sounds, Soft - Rectal Exam Rectal Exam: Deferred Results - Vital Signs Recent Vital Signs: Last Vital Signs Temp 95.3 F L 10/06/16 16:00 Pulse 104 H 10/06/16 18:00 Resp 17 10/06/16 18:00 BP 102/72 10/06/16 18:00 Pulse Ox 100 10/06/16 18:10 - Labs Result Diagrams: 10/09/16 06:19 10/09/16 06:19 Labs: Laboratory Results - last 24 hr 10/06/16 10/06/16 10/06/16 13:18 14:25 17:45 pO2 32 VBG pH 7.18 L* VBG pCO2 37 L VBG HCO3 12.8 VBG Total CO2 14.9 L VBG O2 Sat (Calc) 53.4 VBG Base Excess -13.7 L VBG Potassium 3.7 Sodium 133.0 Chloride 107.0 Glucose 154 H Lactate 1.5 Crit Value Called To anupam [place] d Crit Value Called By Fabricio bee,jonatan Crit Value Read Back Y Blood Gas Notified Time 1435 POC Glucose (mg/dL) 31 L* Venous Blood Potassium 3.7 Urine Color Agnes Urine Clarity Hazy Urine pH 5.0 Ur Specific [place] 1.013 Urine Protein 1+ H Urine Glucose (UA) Normal Urine Ketones Negative Urine Blood 3+ H Urine Nitrate Positive H Urine Bilirubin Negative Urine Urobilinogen Normal Ur Leukocyte Esterase 3+ H Urine WBC (Auto) 295 H Urine RBC (Auto) 45 H Ur Squamous Epith Cells < 1 Uric Acid Crystals Occ H Urine Bacteria Rare 10/06/16 10/06/16 18:14 18:39 pO2 VBG pH VBG pCO2 VBG HCO3 VBG Total CO2 VBG O2 Sat (Calc) VBG Base Excess VBG Potassium Sodium Chloride Glucose Lactate Crit Value Called To Crit Value Called By Crit Value Read Back Blood Gas Notified Time POC Glucose (mg/dL) 33 L* 133 H Venous Blood Potassium Urine Color Urine Clarity Urine pH Ur Specific [place] Urine Protein Urine Glucose (UA) Urine Ketones Urine Blood Urine Nitrate Urine Bilirubin Urine Urobilinogen Ur Leukocyte Esterase Urine WBC (Auto) Urine RBC (Auto) Ur Squamous Epith Cells Uric Acid Crystals Urine Bacteria Assessment & Plan (1) Abdominal pain Status: Acute Priority: Low (2) Abnormal PSA Status: Acute (3) Acute kidney injury Status: Acute Priority: Low (4) Bacteremia Status: Acute (5) CHF (congestive heart failure) Status: Acute (6) Cardiac arrest Status: Acute (7) Dehydration Status: Acute Priority: Low (8) Dyspnea Status: Acute (9) Encounter for dressing change or suture removal Status: Acute (10) GI bleed Status: Acute (11) Hypocalcemia Status: Acute (12) Hypoglycemia Status: Acute (13) Hypoglycemia Status: Acute (14) Hypokalemia Status: Acute (15) Hypomagnesemia Status: Acute (16) Hyponatremia Status: Acute (17) Hypotension Status: Acute (18) Hypotension Status: Acute (19) Hypothermia Status: Acute (20) Ileus, unspecified Status: Acute Priority: Low (21) Leg edema Status: Acute (22) Lymphadenopathy Status: Acute (23) Malfunction of nephrostomy tube Status: Acute (24) Medical assessment Status: Acute (25) Nephrostomy complication Status: Acute (26) Nephrostomy status Status: Acute (27) Nephrostomy tube displaced Status: Acute (28) Obstructed nephrostomy tube Status: Acute (29) Obstructive uropathy Status: Acute Priority: Medium (30) Pneumatosis intestinalis Status: Acute (31) Prophylactic measure Status: Acute (32) Prophylactic measure Status: Acute (33) Pyelonephritis Status: Acute (34) Renewing dressing Status: Acute (35) Respiratory distress Status: Acute (36) Sepsis Status: Acute (37) Septic shock Status: Acute (38) UTI (urinary tract infection) Status: Acute (39) UTI (urinary tract infection) Status: Acute (40) Vomiting Status: Acute (41) Yeast UTI Status: Acute (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
[2016-10-06] MEDS ORDERED: HYDROmorphone 1 mg/ml ISec IVP PRN (21:32)
[2016-10-07] MEDS: Vancomycin 125 MG/5 ML SOLN (ORAL/RECTAL) PO SCH ×3 (06:41→17:24)
[2016-10-07 07:42] LABS: CHLORIDE 102 mmol/L (98-107); POTASSIUM 4.2 mmol/L (3.6-5.2); SODIUM 129 mmol/L (132-148)
[2016-10-07 07:44] LABS: ALB/GLOB RATIO 0.8 (1.0-2.1); ALKALINE PHOSPHATASE 141 U/L (38-126); AST/SGOT 17 U/L (17-59); BILIRUBIN,TOTAL 0.5 mg/dL (0.2-1.3); CARBON DIOXIDE 17 mmol/L (22-30); GFR AFRICAN-AMERICAN > 60; TOTAL PROTEIN 5.6 g/dL (6.3-8.3)
[2016-10-07 07:45] LABS: ALT/SGPT 11 U/L (21-72); BLOOD UREA NITROGEN 26 mg/dL (9-20); CALCIUM 6.3 mg/dl (8.6-10.4); GLUCOSE,RANDOM 173 mg/dL (75-110); MAGNESIUM 1.9 mg/dL (1.6-2.3); PHOSPHOROUS 3.1 mg/dL (2.5-4.5)
[2016-10-07 08:06] LABS: THYROID STIMULATING HORMONE 3.86 mIU/L (0.46-4.68)
[2016-10-07] MEDS ORDERED: Pantoprazole 40 mg EC Tab PO SCH (10:00)
[2016-10-07] MEDS: Cefepime 1 GM in Sodium Chloride 0.9% 100 ML IVPB SCH (10:40)
[2016-10-07] MEDS: Pantoprazole 40 mg EC Tab PO SCH (10:40)
[2016-10-07] MEDS: Enoxaparin 40 mg Syringe SC SCH (17:05)
--- NOTE | 2016-10-07 17:20 | CP.PCM.PN ---
Subjective - Date & Time of Evaluation Date of Evaluation: 10/07/16 Time of Evaluation: 14:40 - Subjective Subjective: clinically same Objective - Vital Signs/Intake and Output Vital Signs (last 24 hours): Temp Pulse Resp BP Pulse Ox 98 F 102 H 18 100/76 95 10/07/16 15:40 10/07/16 15:40 10/07/16 15:40 10/07/16 15:40 10/07/16 15:40 Intake and Output: 10/07/16 10/07/16 06:59 18:59 Intake Total 50 1170 Output Total 50 80 Balance 0 1090 - Medications Medications: Current Medications Enoxaparin Sodium (Lovenox) 40 mg SC DAILY [facility] Last Admin: 10/07/16 17:05 Dose: 40 mg Hydromorphone HCl (Dilaudid) 1 mg IVP Q8H PRN PRN Reason: Pain, moderate (4-7) Last Admin: 10/06/16 21:47 Dose: 1 mg Cefepime HCl 1 gm/ Sodium (Chloride) 100 mls @ 100 mls/hr IVPB DAILY [facility] Last Admin: 10/07/16 10:40 Dose: 100 mls/hr Dextrose (Dextrose 10% In Water) 500 mls @ 60 mls/hr IV .Q8H20M [facility] Stop: 10/08/16 01:19 Last Admin: 10/07/16 17:00 Dose: 60 mls/hr Metronidazole (Flagyl) 500 mg PO Q8 [facility] Last Admin: 10/07/16 16:09 Dose: 500 mg Pantoprazole Sodium (Protonix Ec Tab) 40 mg PO DAILY [facility] Last Admin: 10/07/16 10:40 Dose: 40 mg Vancomycin HCl (Vancocin (Oral Or Rectal Use)) 250 mg PO Q6H [facility] Last Admin: 10/07/16 14:50 Dose: 250 mg - Labs Labs: 10/07/16 07:05 PT 17.6 SECONDS (9.7-12.2) H 10/06/16 11:31 INR 1.5 10/06/16 11:31 APTT 79 SECONDS (21-34) H 10/06/16 11:31 - Constitutional Appears: Well - Head Exam Head Exam: ATRAUMATIC, NORMAL INSPECTION, NORMOCEPHALIC - Eye Exam Eye Exam: EOMI, Normal appearance, PERRL Pupil Exam: NORMAL ACCOMODATION, PERRL - ENT Exam ENT Exam: Mucous Membranes Moist, Normal Exam - Neck Exam Neck Exam: Full ROM, Normal Inspection. absent: Lymphadenopathy - Respiratory Exam Respiratory Exam: Decreased Breath Sounds - Cardiovascular Exam Cardiovascular Exam: REGULAR RHYTHM, +S1, +S2 - GI/Abdominal Exam GI & Abdominal Exam: Soft, Diminished Bowel Sounds - Rectal Exam Rectal Exam: Deferred Assessment and Plan (1) Abdominal pain Status: Acute (2) Abnormal PSA Status: Acute (3) Acute kidney injury Status: Acute (4) Bacteremia Status: Acute (5) CHF (congestive heart failure) Status: Acute (6) Cardiac arrest Status: Acute (7) Dehydration Status: Acute (8) Dyspnea Status: Acute (9) Encounter for dressing change or suture removal Status: Acute (10) GI bleed Status: Acute (11) Hypocalcemia Status: Acute (12) Hypoglycemia Status: Acute (13) Hypoglycemia Status: Acute (14) Hypokalemia Status: Acute (15) Hypomagnesemia Status: Acute (16) Hyponatremia Status: Acute (17) Hypotension Status: Acute (18) Hypotension Status: Acute (19) Hypothermia Status: Acute (20) Ileus, unspecified Status: Acute (21) Leg edema Status: Acute (22) Lymphadenopathy Status: Acute (23) Malfunction of nephrostomy tube Status: Acute (24) Medical assessment Status: Acute (25) Nephrostomy complication Status: Acute (26) Nephrostomy status Status: Acute (27) Nephrostomy tube displaced Status: Acute (28) Obstructed nephrostomy tube Status: Acute (29) Obstructive uropathy Status: Acute (30) Pneumatosis intestinalis Status: Acute (31) Prophylactic measure Status: Acute (32) Prophylactic measure Status: Acute (33) Pyelonephritis Status: Acute (34) Renewing dressing Status: Acute (35) Respiratory distress Status: Acute (36) Sepsis Status: Acute (37) Septic shock Status: Acute (38) UTI (urinary tract infection) Status: Acute (39) UTI (urinary tract infection) Status: Acute (40) Vomiting Status: Acute (41) Yeast UTI Status: Acute (42) Duodenal obstruction, acquired Status: Chronic (43) Prostate cancer Status: Chronic - Assessment and Plan (Free Text) Plan: Continue same Antibiotics Dr. Nair Labs reviewed [employer] Attorney consult Dietitian referral
--- NOTE | 2016-10-08 00:35 | CON ---
DATE: 10/07/2016 LOCATION: ICU room 10. HISTORY OF PRESENT ILLNESS: This is a 60-year-old male with known history of metastatic prostate car cinoma admitted here for altered mental status related to marked symptomatic hypoglycemia and associa rika hypothermia, and is now being referred for endocrine evaluation and management. PAST MEDICAL HISTORY: As mentioned above, history of metastatic prostate carcinoma and was actually being admitted for nephrostomy tube replacement, but, because of altered mental status and increasing confusion and agitation, was admitted to the acute medical floor and ICU for closer evaluation and m anagement. History of hypertensive cardiovascular disease and dyslipidemia, history of multiple epis odes of bacteremia and infections including ESBL, producing Escherichia coli and also C. difficile co litis, history of multiple admissions for obstructive uropathy and recurrent urinary tract infections . FAMILY HISTORY: Positive for hypertension and heart disease. SOCIAL HISTORY: The patient is a long-term resident at this time, but has a very supportive famil y otherwise, previous remote history of smoking as noted. REVIEW OF SYSTEMS: Not possible at this time, but, as per the staff, has been noted to have increasi ng hypersomnolence and lethargy with generalized body weakness and episodic dizziness and lightheaded ness, worse on the day of admission. No chest pains or palpitations or PNDs. His oral intake has be en variable and suboptimal with nausea, dyspepsia and diffuse, vague abdominal pain and pelvic pain a nd also has lower back pain and diffuse polymyalgia as noted. PHYSICAL EXAMINATION: GENERAL: This is a male in no apparent distress. VITAL SIGNS: Blood pressure of 110/70, pulse of 100 beats per minute and regular, temperature 95, re spirations 20, height is 5 feet 8 inches, weight is 145 pounds. HEENT: Head normocephalic. Eyes anicteric with pink conjunctivae. Fundoscopy not possible at this time. Ears, nose and throat otherwise normal. NECK: Supple. Thyroid gland is normal size. No carotid bruits. No cervical adenopathy. CARDIOPULMONARY: Some adynamic precordium. S1, S2 is rapid and regular. LUNGS: Show scattered rhonchi. ABDOMEN: Flat, soft with positive bowel sounds. EXTREMITIES: No peripheral edema. Pulses are +2 bilaterally. LABORATORY DATA: The initial chemistries showed a BUN of 27, sodium 131, potassium 4.3, chloride 106 , CO2 17, glucose 126 and creatinine 1.3. The initial glucose was less than 20 and has had recurrent hypoglycemic episodes with glucose values ranging from 31 to 33 and 93 mg/dL. Albumin level is 2.4, calcium is 6.3. ASSESSMENT: This is a 60-year-old male with marked symptomatic hypoglycemia related to possible live r metastases and impaired glycol enterolysis and gluconeogenesis contributing to the hypoglycemia wit h also concomitant undernutrition and suboptimal meal portions at this time. He has significant meta static prostate carcinoma as noted thereof. Moreover, we also have to exclude any underlying hypoadr enalism with mental status with mets to the adrenal gland, which would also contribute to hypoadrenal ism from hypocortisolism. PLAN OF MANAGEMENT: We will start him on dextrose D10W infusion to run 60 mL per hour and switch him over to D5 and half normal saline at 100 mL per hour because of persistent prerenal azotemia and deh ydration and spurious hyponatremia as noted. We will obtain serial chemistries and supplement accord ingly as needed. We will also obtain a baseline serum cortisol and ACTH level with a T4 and TSH valu e as ordered. A hemoglobin A1c will be done to confirm his prior glycemic control and will also cons ider enteral tube feedings or peripheral hyperalimentation as indicated. Palliative care would be hi ghly recommended at this time also. We will follow and advise accordingly. Keira Dolan MD cc: [phone] TT: 10/08/2016 00:34:58 Confirmation # [id number] Dictation # [id number] odilia
[2016-10-08] MEDS: Dextrose 5%/0.45% NS 1,000 ML IV SCH ×2 (01:26→14:30)
[2016-10-08] MEDS: Vancomycin 125 MG/5 ML SOLN (ORAL/RECTAL) PO SCH ×4 (05:57→19:05)
[2016-10-08 06:24] LABS: POTASSIUM 4.9 mmol/L (3.6-5.2)
[2016-10-08 06:27] LABS: ALB/GLOB RATIO 0.8 (1.0-2.1); BILIRUBIN,TOTAL 0.7 mg/dL (0.2-1.3); TOTAL PROTEIN 5.3 g/dL (6.3-8.3)
[2016-10-08 06:57] LABS: THYROID STIMULATING HORMONE 3.56 mIU/L (0.46-4.68)
[2016-10-08 07:24] LABS: CORTISOL AM 15.3 ug/dL (4.46-22.7)
[2016-10-08 07:28] LABS: CA 19-9 25.7 U/mL (0-37)
[2016-10-08] MEDS: Cefepime 1 GM in Sodium Chloride 0.9% 100 ML IVPB SCH (10:03)
[2016-10-08] MEDS: Pantoprazole 40 mg EC Tab PO SCH (10:04)
[2016-10-08] MEDS ORDERED: Lidocaine 2% Inj (20ml) ONE (10:09)
[2016-10-08] MEDS ORDERED: Iodixanol 320 MG/ML 100 ML BOTTLE IV ONE (10:09)
[2016-10-08] MEDS ORDERED: Dextrose 50% SYRINGE Inj (50 ml) ONE ×2 (10:34→16:38)
[2016-10-08] MEDS ORDERED: Dextrose 50% SYRINGE Inj (50 ml) IV STA ×2 (10:35→16:48)
[2016-10-08] MEDS ORDERED: Midazolam 2 MG/2 ML VIAL ONE (11:53)
[2016-10-08] MEDS ORDERED: Iodixanol 320 MG/ML 200 ML BOTTLE IV ONE (12:01)
[2016-10-08] MEDS ORDERED: Propofol 10 mg/ml Inj (20 ML) ONE (12:03)
--- NOTE | 2016-10-08 12:28 | PCM.SURG1 ---
Surgeon's Initial Post Op Note - Surgeon's Notes Surgeon: Bud Tabares MD Customs Compliance Director: NONE Type of Anesthesia: IV Sedation Pre-Operative Diagnosis: Right Nephroureteral stent change, nephrostogram. Operative Findings: Hydronephrostis, ureteral filling defect probably mass. Post-Operative Diagnosis: Right Nephroureteral stent change, nephrostogram. Operation Performed: Nephrouretera stent change, nephrostogram. Specimen/Specimens Removed: NONE Estimated Blood Loss: EBL {In ML}: 0 Blood Products Given: N/A Drains Used: No Drains Post-Op Condition: Fair Date of Surgery/Procedure: 10/08/16 Time of Surgery/Procedure: 12:20
[2016-10-08] MEDS: Enoxaparin 40 mg Syringe SC SCH (15:35)
--- NOTE | 2016-10-08 18:28 | CP.PCM.PN ---
Subjective - Date & Time of Evaluation Date of Evaluation: 10/08/16 Time of Evaluation: 15:40 - Subjective Subjective: clinically same Objective - Vital Signs/Intake and Output Vital Signs (last 24 hours): Temp Pulse Resp BP Pulse Ox 98 F 117 H 18 89/53 L 98 10/08/16 16:00 10/08/16 18:10 10/08/16 18:10 10/08/16 18:11 10/08/16 18:12 Intake and Output: 10/08/16 10/08/16 06:59 18:59 Intake Total 1260 1240 Output Total 300 520 Balance 960 720 - Medications Medications: Current Medications Dextrose (Dextrose 50% Inj) 50 ml IV ACHS [facility] Enoxaparin Sodium (Lovenox) 40 mg SC DAILY [facility] Last Admin: 10/08/16 15:35 Dose: 40 mg Hydromorphone HCl (Dilaudid) 1 mg IVP Q8H PRN PRN Reason: Pain, moderate (4-7) Last Admin: 10/06/16 21:47 Dose: 1 mg Cefepime HCl 1 gm/ Sodium (Chloride) 100 mls @ 100 mls/hr IVPB DAILY [facility] Last Admin: 10/08/16 10:03 Dose: 100 mls/hr Dextrose/Sodium Chloride (Dextrose 5%/0.45% Ns 1000 Ml) 1,000 mls @ 100 mls/hr IV .Q10H [facility] Last Admin: 10/08/16 14:30 Dose: 100 mls/hr Metronidazole (Flagyl) 500 mg PO Q8 [facility] Last Admin: 10/08/16 15:35 Dose: 500 mg Pantoprazole Sodium (Protonix Ec Tab) 40 mg PO DAILY [facility] Last Admin: 10/08/16 10:04 Dose: 40 mg Vancomycin HCl (Vancocin (Oral Or Rectal Use)) 250 mg PO Q6H [facility] Last Admin: 10/08/16 15:35 Dose: 250 mg - Labs Labs: 10/08/16 06:05 PT 17.6 SECONDS (9.7-12.2) H 10/06/16 11:31 INR 1.5 10/06/16 11:31 APTT 79 SECONDS (21-34) H 10/06/16 11:31 - Constitutional Appears: Well - Head Exam Head Exam: ATRAUMATIC, NORMAL INSPECTION, NORMOCEPHALIC - Eye Exam Eye Exam: EOMI, Normal appearance, PERRL Pupil Exam: NORMAL ACCOMODATION, PERRL - ENT Exam ENT Exam: Mucous Membranes Moist, Normal Exam - Neck Exam Neck Exam: Full ROM, Normal Inspection. absent: Lymphadenopathy - Respiratory Exam Respiratory Exam: Decreased Breath Sounds - Cardiovascular Exam Cardiovascular Exam: REGULAR RHYTHM, +S1, +S2 - GI/Abdominal Exam GI & Abdominal Exam: Soft, Diminished Bowel Sounds - Rectal Exam Rectal Exam: Deferred Assessment and Plan (1) Abdominal pain Status: Acute (2) Abnormal PSA Status: Acute (3) Acute kidney injury Status: Acute (4) Bacteremia Status: Acute (5) CHF (congestive heart failure) Status: Acute (6) Cardiac arrest Status: Acute (7) Dehydration Status: Acute (8) Dyspnea Status: Acute (9) Encounter for dressing change or suture removal Status: Acute (10) GI bleed Status: Acute (11) Hypocalcemia Status: Acute (12) Hypoglycemia Status: Acute (13) Hypoglycemia Status: Acute (14) Hypokalemia Status: Acute (15) Hypomagnesemia Status: Acute (16) Hyponatremia Status: Acute (17) Hypotension Status: Acute (18) Hypotension Status: Acute (19) Hypothermia Status: Acute (20) Ileus, unspecified Status: Acute (21) Leg edema Status: Acute (22) Lymphadenopathy Status: Acute (23) Malfunction of nephrostomy tube Status: Acute (24) Medical assessment Status: Acute (25) Nephrostomy complication Status: Acute (26) Nephrostomy status Status: Acute (27) Nephrostomy tube displaced Status: Acute (28) Obstructed nephrostomy tube Status: Acute (29) Obstructive uropathy Status: Acute (30) Pneumatosis intestinalis Status: Acute (31) Prophylactic measure Status: Acute (32) Prophylactic measure Status: Acute (33) Pyelonephritis Status: Acute (34) Renewing dressing Status: Acute (35) Respiratory distress Status: Acute (36) Sepsis Status: Acute (37) Septic shock Status: Acute (38) UTI (urinary tract infection) Status: Acute (39) UTI (urinary tract infection) Status: Acute (40) Vomiting Status: Acute (41) Yeast UTI Status: Acute (42) Duodenal obstruction, acquired Status: Chronic (43) Prostate cancer Status: Chronic - Assessment and Plan (Free Text) Plan: Continue vancomycin cefepime Flagyl Consults on board IV fluids Awaiting culture reports Monitor fluid input output Hemato-oncology consult
[2016-10-08] MEDS ORDERED: Dextrose 50% SYRINGE Inj (50 ml) IV SCH (22:00)
[2016-10-09] MEDS: Vancomycin 125 MG/5 ML SOLN (ORAL/RECTAL) PO SCH ×3 (00:23→18:30)
[2016-10-09] MEDS ORDERED: Dextrose 50% SYRINGE Inj (50 ml) IV PRN (02:00)
[2016-10-09 06:25] LABS: HEMATOCRIT 42.1 % (35.0-51.0); MEAN CELL VOLUME 94.5 fL (80.0-94.0); MEAN CORPUSCULAR HEMOGLOBIN 30.2 pg (27.0-31.0); MEAN CORPUSCULAR HGB CONC 31.9 g/dL (33.0-37.0); RED CELL DISTRIBUTION WIDTH 17.4 % (11.5-14.5); WHITE BLOOD COUNT 5.9 K/uL (4.8-10.8)
[2016-10-09 06:43] LABS: CHLORIDE 102 mmol/L (98-107)
[2016-10-09 06:44] LABS: SODIUM 128 mmol/L (132-148)
[2016-10-09 06:45] LABS: POTASSIUM 4.6 mmol/L (3.6-5.2)
[2016-10-09 06:47] LABS: ALB/GLOB RATIO 0.7 (1.0-2.1); ALKALINE PHOSPHATASE 121 U/L (38-126); AST/SGOT 29 U/L (17-59); BILIRUBIN,TOTAL 0.4 mg/dL (0.2-1.3); BLOOD UREA NITROGEN 22 mg/dL (9-20); CARBON DIOXIDE 14 mmol/L (22-30); GFR AFRICAN-AMERICAN > 60; GLUCOSE,RANDOM 70 mg/dL (75-110); TOTAL PROTEIN 5.4 g/dL (6.3-8.3)
[2016-10-09 06:55] LABS: ALT/SGPT < 6 U/L (21-72); CALCIUM 5.8 mg/dl (8.6-10.4)
[2016-10-09] MEDS: Enoxaparin 40 mg Syringe SC SCH (10:36)
[2016-10-09] MEDS: Pantoprazole 40 mg EC Tab PO SCH (10:36)
[2016-10-09] MEDS: Cefepime 1 GM in Sodium Chloride 0.9% 100 ML IVPB SCH (10:37)
--- NOTE | 2016-10-09 10:51 | PN ---
DATE: 10/09/2016 LOCATION: ICU room 10. SUBJECTIVE: This is a 60-year-old male with metastatic prostate carcinoma and diffuse abdominal pain , underwent a nephrostomy replacement procedure and is also now being followed closely for metabolic management because of persistent symptomatic hypoglycemia. There are also episodic bouts of neurogly copenia and hyper adrenergic manifestations related to the aforementioned hypoglycemic episodes relie callie by D50 bolus injections and D10W dextrose infusions as given. His latest glucose levels have ran ged from 107 to 111 and 128 mg/dL. It went down to 46 at bedtime last night. The latest chemistry s howed a BUN of 22, sodium 128, potassium 4.6, chloride 102, CO2 is 14. Glucose is 70 and creatinine is 1.2 with a calcium level is 5.8 and albumin level of 2.3 and corrected calcium of 7.3 mg/dL. So a t this time, we will continue the D10W dextrose infusion as given to temporarily raise his glucose le vels to a more optimal goal as noted. However, he may need long-term enteral and/or PEG/gastrostomy tube feedings to optimize his caloric and protein requirements. We will discuss with the primary phy sician regarding the aforementioned plan of care. We will follow. Keira Dolan MD cc: [phone] TT: 10/09/2016 10:50:25 Confirmation # [id number] Dictation # [id number] [place]
--- NOTE | 2016-10-09 14:21 | CP.PCM.PN ---
Subjective - Date & Time of Evaluation Date of Evaluation: 10/09/16 Time of Evaluation: 15:00 - Subjective Subjective: clinically same Objective - Vital Signs/Intake and Output Vital Signs (last 24 hours): Temp Pulse Resp BP Pulse Ox 97.7 F 119 H 19 100/69 97 10/09/16 08:00 10/09/16 08:00 10/09/16 08:00 10/09/16 08:00 10/09/16 08:00 Intake and Output: 10/09/16 10/09/16 06:59 18:59 Intake Total 160 1300 Output Total 500 1550 Balance -340 -250 - Medications Medications: Current Medications Dextrose (Dextrose 50% Inj) 50 ml IV Q4H PRN PRN Reason: blood sugar less than 70 Enoxaparin Sodium (Lovenox) 40 mg SC DAILY [facility] Last Admin: 10/09/16 10:36 Dose: 40 mg Hydromorphone HCl (Dilaudid) 1 mg IVP Q8H PRN PRN Reason: Pain, moderate (4-7) Last Admin: 10/06/16 21:47 Dose: 1 mg Cefepime HCl 1 gm/ Sodium (Chloride) 100 mls @ 100 mls/hr IVPB DAILY [facility] Last Admin: 10/09/16 10:37 Dose: 100 mls/hr Dextrose (Dextrose 10% In Water) 500 mls @ 60 mls/hr IV .Q8H20M [facility] Last Admin: 10/09/16 04:45 Dose: 60 mls/hr Metronidazole (Flagyl) 500 mg PO Q8 [facility] Last Admin: 10/09/16 06:15 Dose: 500 mg Pantoprazole Sodium (Protonix Ec Tab) 40 mg PO DAILY [facility] Last Admin: 10/09/16 10:36 Dose: 40 mg Vancomycin HCl (Vancocin (Oral Or Rectal Use)) 250 mg PO Q6H [facility] Last Admin: 10/09/16 06:15 Dose: 250 mg - Labs Labs: 10/09/16 06:19 10/09/16 06:19 PT 17.6 SECONDS (9.7-12.2) H 10/06/16 11:31 INR 1.5 10/06/16 11:31 APTT 79 SECONDS (21-34) H 10/06/16 11:31 - Constitutional Appears: Well - Head Exam Head Exam: ATRAUMATIC, NORMAL INSPECTION, NORMOCEPHALIC - Eye Exam Eye Exam: EOMI, Normal appearance, PERRL Pupil Exam: NORMAL ACCOMODATION, PERRL - ENT Exam ENT Exam: Mucous Membranes Moist, Normal Exam - Neck Exam Neck Exam: Full ROM, Normal Inspection. absent: Lymphadenopathy - Respiratory Exam Respiratory Exam: Decreased Breath Sounds - Cardiovascular Exam Cardiovascular Exam: REGULAR RHYTHM, +S1 - GI/Abdominal Exam GI & Abdominal Exam: Soft, Diminished Bowel Sounds - Rectal Exam Rectal Exam: Deferred Assessment and Plan (1) Abdominal pain Status: Acute (2) Abnormal PSA Status: Acute (3) Acute kidney injury Status: Acute (4) Bacteremia Status: Acute (5) CHF (congestive heart failure) Status: Acute (6) Cardiac arrest Status: Acute (7) Dehydration Status: Acute (8) Dyspnea Status: Acute (9) Encounter for dressing change or suture removal Status: Acute (10) GI bleed Status: Acute (11) Hypocalcemia Status: Acute (12) Hypoglycemia Status: Acute (13) Hypoglycemia Status: Acute (14) Hypokalemia Status: Acute (15) Hypomagnesemia Status: Acute (16) Hyponatremia Status: Acute (17) Hypotension Status: Acute (18) Hypotension Status: Acute (19) Hypothermia Status: Acute (20) Ileus, unspecified Status: Acute (21) Leg edema Status: Acute (22) Lymphadenopathy Status: Acute (23) Malfunction of nephrostomy tube Status: Acute (24) Medical assessment Status: Acute (25) Nephrostomy complication Status: Acute (26) Nephrostomy status Status: Acute (27) Nephrostomy tube displaced Status: Acute (28) Obstructed nephrostomy tube Status: Acute (29) Obstructive uropathy Status: Acute (30) Pneumatosis intestinalis Status: Acute (31) Prophylactic measure Status: Acute (32) Prophylactic measure Status: Acute (33) Pyelonephritis Status: Acute (34) Renewing dressing Status: Acute (35) Respiratory distress Status: Acute (36) Sepsis Status: Acute (37) Septic shock Status: Acute (38) UTI (urinary tract infection) Status: Acute (39) UTI (urinary tract infection) Status: Acute (40) Vomiting Status: Acute (41) Yeast UTI Status: Acute (42) Duodenal obstruction, acquired Status: Chronic (43) Prostate cancer Status: Chronic - Assessment and Plan (Free Text) Assessment: Continue same DVT prophylaxis Consults on board Meds reviewed Labs next a.m.
--- NOTE | 2016-10-09 21:57 | CP.PCM.CON ---
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 The patient was found to be hypothermic and hypoglycemic on arrival and require D50 and antibiotics. He is currently feeling better. In regards to his prostate cancer, he has been receiving Zytiga 1000mg daily with prednisone 5mg BID. 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 Past surgical history: None Family history: Denies hematologic and oncologic problems Social history: Denies tobacco, alcohol, and illiicit drug use. Allergies: NKA Review of systems: All remaining review of systems including HEENT, cardiovascular, respiratory, gastrointestinal, genitourinary, musculoskeletal, dermatologic, neurologic, and psychiatric are negative unless mentioned in the HPI. Past Patient History - Infectious Disease Hx of Infectious Diseases: C.diff - Past Medical History & Family History Past Medical History?: Yes - Past Social History Smoking Status: Former Smoker - CARDIAC Hx Hypertension: Yes - PULMONARY Hx Respiratory Disorders: No - NEUROLOGICAL Hx Neurological Disorder: No Hx Paralysis: No - HEENT Hx HEENT Problems: No - RENAL Hx Chronic Kidney Disease: Yes - ENDOCRINE/METABOLIC Hx Endocrine Disorders: Yes Hx Diabetes Mellitus Type 2: Yes (pt denies.) - HEMATOLOGICAL/ONCOLOGICAL Hx Blood Disorders: Yes Hx Blood Transfusions: Yes Hx Blood Transfusion Reaction: No Hx Cancer: Yes (Prostate, Stomach.) - INTEGUMENTARY Hx Dermatological Problems: No - MUSCULOSKELETAL/RHEUMATOLOGICAL Hx Falls: No - GASTROINTESTINAL Hx Gastrointestinal Disorders: Yes Other/Comment: Stomach Ca. - GENITOURINARY/GYNECOLOGICAL Hx Genitourinary Disorders: Yes Hx Prostate Cancer: Yes Hx Prostate Problems: Yes - PSYCHIATRIC Hx Substance Use: No - SURGICAL HISTORY Hx Surgeries: Yes Other/Comment: nephrostomy tube. - ANESTHESIA Hx Anesthesia: Yes Hx Anesthesia Reactions: No Hx Malignant Hyperthermia: No Meds Allergies/Adverse Reactions: Allergies Allergy/AdvReac Type Severity Reaction Status Date / Time No Known Allergies Allergy Verified 10/06/16 10:16 - Medications Medications: Current Medications Dextrose (Dextrose 50% Inj) 50 ml IV Q4H PRN PRN Reason: blood sugar less than 70 Last Admin: 10/09/16 18:06 Dose: 50 ml Enoxaparin Sodium (Lovenox) 40 mg SC DAILY [facility] Last Admin: 10/09/16 10:36 Dose: 40 mg Hydromorphone HCl (Dilaudid) 1 mg IVP Q8H PRN PRN Reason: Pain, moderate (4-7) Last Admin: 10/06/16 21:47 Dose: 1 mg Cefepime HCl 1 gm/ Sodium (Chloride) 100 mls @ 100 mls/hr IVPB DAILY [facility] Last Admin: 10/09/16 10:37 Dose: 100 mls/hr Dextrose (Dextrose 10% In Water) 500 mls @ 60 mls/hr IV .Q8H20M [facility] Last Admin: 10/09/16 17:59 Dose: 60 mls/hr Metronidazole (Flagyl) 500 mg PO Q8 [facility] Last Admin: 10/09/16 06:15 Dose: 500 mg Pantoprazole Sodium (Protonix Ec Tab) 40 mg PO DAILY [facility] Last Admin: 10/09/16 10:36 Dose: 40 mg Vancomycin HCl (Vancocin (Oral Or Rectal Use)) 250 mg PO Q6H [facility] Last Admin: 10/09/16 06:15 Dose: 250 mg Physical Exam - Head Exam Head Exam: ATRAUMATIC - Eye Exam Eye Exam: Normal appearance - ENT Exam ENT Exam: Mucous Membranes Dry - Respiratory Exam Respiratory Exam: NORMAL BREATHING PATTERN - Cardiovascular Exam Cardiovascular Exam: +S1, +S2 - GI/Abdominal Exam GI & Abdominal Exam: Normal Bowel Sounds - Extremities Exam Extremities exam: Positive for: normal inspection - Neurological Exam Neurological exam: Oriented x3 - Psychiatric Exam Psychiatric exam: Normal Affect, Normal Mood - Skin Skin Exam: Warm Results - Vital Signs Recent Vital Signs: Last Vital Signs Temp 98.5 F 10/09/16 15:28 Pulse 123 H 10/09/16 15:28 Resp 20 10/09/16 15:28 BP 94/67 L 10/09/16 15:28 Pulse Ox 95 10/09/16 15:28 - Labs Result Diagrams: 10/09/16 06:19 10/09/16 06:19 Labs: Laboratory Results - last 24 hr 10/08/16 10/08/16 10/08/16 20:30 22:27 23:24 WBC RBC Hgb Hct MCV MCH MCHC RDW Plt Count MPV Sodium Potassium Chloride Carbon Dioxide Anion Gap BUN Creatinine Est GFR ( Amer) Est GFR (Non-Af Amer) POC Glucose (mg/dL) 46 L 128 H Random Glucose Calcium Total Bilirubin AST ALT Alkaline Phosphatase Total Protein Albumin Globulin Albumin/Globulin Ratio C. difficile Ag & Toxin Negative 10/09/16 10/09/16 10/09/16 02:00 05:57 06:19 WBC 5.9 D RBC 4.45 Hgb 13.4 Hct 42.1 MCV 94.5 H MCH 30.2 MCHC 31.9 L RDW 17.4 H Plt Count 195 MPV 9.0 Sodium 128 L Potassium 4.6 Chloride 102 Carbon Dioxide 14 L Anion Gap 17 BUN 22 H Creatinine 1.2 Est GFR ( Amer) > 60 Est GFR (Non-Af Amer) > 60 POC Glucose (mg/dL) 111 H 107 Random Glucose 70 L Calcium 5.8 L* Total Bilirubin 0.4 AST 29 ALT < 6 L D Alkaline Phosphatase 121 Total Protein 5.4 L Albumin 2.3 L Globulin 3.1 Albumin/Globulin Ratio 0.7 L C. difficile Ag & Toxin 10/09/16 10/09/16 10:46 18:01 WBC RBC Hgb Hct MCV MCH MCHC RDW Plt Count MPV Sodium Potassium Chloride Carbon Dioxide Anion Gap BUN Creatinine Est GFR ( Amer) Est GFR (Non-Af Amer) POC Glucose (mg/dL) 82 61 L Random Glucose Calcium Total Bilirubin AST ALT Alkaline Phosphatase Total Protein Albumin Globulin Albumin/Globulin Ratio C. difficile Ag & Toxin Assessment & Plan (1) Prostate cancer Assessment and Plan: castrate resistant LN and bone metastasis will restart prednisone 5mg BID as he has been on steroids chronically with Zytiga repeat PSA outpatient treatment Thank you for this interesting consult. Status: Chronic Priority: Medium
[2016-10-10] MEDS: Vancomycin 125 MG/5 ML SOLN (ORAL/RECTAL) PO SCH ×4 (00:30→17:28)
[2016-10-10] MEDS: Pantoprazole 40 mg EC Tab PO SCH (10:07)
[2016-10-10] MEDS: Cefepime 1 GM in Sodium Chloride 0.9% 100 ML IVPB SCH (10:07)
[2016-10-10] MEDS: Enoxaparin 40 mg Syringe SC SCH (10:07)
--- NOTE | 2016-10-10 11:41 | CP.PCM.PN ---
Subjective - Date & Time of Evaluation Date of Evaluation: 10/10/16 Time of Evaluation: 13:00 - Subjective Subjective: clinically same Objective - Vital Signs/Intake and Output Vital Signs (last 24 hours): Temp Pulse Resp BP Pulse Ox 98.1 F 111 H 20 76/61 L 98 10/10/16 07:00 10/10/16 07:00 10/10/16 07:00 10/10/16 07:00 10/10/16 07:00 Intake and Output: 10/10/16 10/10/16 06:59 18:59 Intake Total 1500 Output Total 1230 Balance 270 - Medications Medications: Current Medications Dextrose (Dextrose 50% Inj) 50 ml IV Q4H PRN PRN Reason: blood sugar less than 70 Last Admin: 10/09/16 18:06 Dose: 50 ml Enoxaparin Sodium (Lovenox) 40 mg SC DAILY [facility] Last Admin: 10/10/16 10:07 Dose: 40 mg Hydromorphone HCl (Dilaudid) 1 mg IVP Q8H PRN PRN Reason: Pain, moderate (4-7) Last Admin: 10/06/16 21:47 Dose: 1 mg Cefepime HCl 1 gm/ Sodium (Chloride) 100 mls @ 100 mls/hr IVPB DAILY [facility] Last Admin: 10/10/16 10:07 Dose: 100 mls/hr Dextrose (Dextrose 10% In Water) 500 mls @ 60 mls/hr IV .Q8H20M [facility] Last Admin: 10/10/16 10:57 Dose: 60 mls/hr Metronidazole (Flagyl) 500 mg PO Q8 [facility] Last Admin: 10/10/16 06:18 Dose: 500 mg Pantoprazole Sodium (Protonix Ec Tab) 40 mg PO DAILY [facility] Last Admin: 10/10/16 10:07 Dose: 40 mg Prednisone (Prednisone Tab) 5 mg PO BID [facility] Last Admin: 10/10/16 10:07 Dose: 5 mg Vancomycin HCl (Vancocin (Oral Or Rectal Use)) 250 mg PO Q6H [facility] Last Admin: 10/10/16 06:18 Dose: 250 mg - Labs Labs: 10/09/16 06:19 10/09/16 06:19 PT 17.6 SECONDS (9.7-12.2) H 10/06/16 11:31 INR 1.5 10/06/16 11:31 APTT 79 SECONDS (21-34) H 10/06/16 11:31 - Constitutional Appears: Well - Head Exam Head Exam: ATRAUMATIC, NORMAL INSPECTION, NORMOCEPHALIC - Eye Exam Eye Exam: EOMI, Normal appearance, PERRL Pupil Exam: NORMAL ACCOMODATION, PERRL - ENT Exam ENT Exam: Mucous Membranes Moist, Normal Exam - Neck Exam Neck Exam: Full ROM, Normal Inspection. absent: Lymphadenopathy - Respiratory Exam Respiratory Exam: Decreased Breath Sounds - Cardiovascular Exam Cardiovascular Exam: REGULAR RHYTHM, +S1, +S2 - GI/Abdominal Exam GI & Abdominal Exam: Soft, Diminished Bowel Sounds - Rectal Exam Rectal Exam: Deferred Assessment and Plan (1) Abdominal pain Status: Acute (2) Abnormal PSA Status: Acute (3) Acute kidney injury Status: Acute (4) Bacteremia Status: Acute (5) CHF (congestive heart failure) Status: Acute (6) Cardiac arrest Status: Acute (7) Dehydration Status: Acute (8) Dyspnea Status: Acute (9) Encounter for dressing change or suture removal Status: Acute (10) GI bleed Status: Acute (11) Hypocalcemia Status: Acute (12) Hypoglycemia Status: Acute (13) Hypoglycemia Status: Acute (14) Hypokalemia Status: Acute (15) Hypomagnesemia Status: Acute (16) Hyponatremia Status: Acute (17) Hypotension Status: Acute (18) Hypotension Status: Acute (19) Hypothermia Status: Acute (20) Ileus, unspecified Status: Acute (21) Leg edema Status: Acute (22) Lymphadenopathy Status: Acute (23) Malfunction of nephrostomy tube Status: Acute (24) Medical assessment Status: Acute (25) Nephrostomy complication Status: Acute (26) Nephrostomy status Status: Acute (27) Nephrostomy tube displaced Status: Acute (28) Obstructed nephrostomy tube Status: Acute (29) Obstructive uropathy Status: Acute (30) Pneumatosis intestinalis Status: Acute (31) Prophylactic measure Status: Acute (32) Prophylactic measure Status: Acute (33) Pyelonephritis Status: Acute (34) Renewing dressing Status: Acute (35) Respiratory distress Status: Acute (36) Sepsis Status: Acute (37) Septic shock Status: Acute (38) UTI (urinary tract infection) Status: Acute (39) UTI (urinary tract infection) Status: Acute (40) Vomiting Status: Acute (41) Yeast UTI Status: Acute (42) Duodenal obstruction, acquired Status: Chronic (43) Prostate cancer Status: Chronic - Assessment and Plan (Free Text) Plan: Labs noted Continue as ordered Continue antibiotics Consults on board
--- NOTE | 2016-10-10 12:32 | PN ---
DATE: 10/10/2016 ENDO FOLLOWUP NOTE LOCATION: ICU, room 10. SUBJECTIVE: This is a 60-year-old male with recent symptomatic hypoglycemia and associated neuroglyc openic and hyperadrenergic manifestations of the same, despite a ____ satisfactory oral intake, and i s now being followed closely for metabolic management. He also has metastatic prostate carcinoma and continues to have very poor and variable oral intake at this time. He has received multiple D50 brittany us injections for glucose levels below 60, and has ongoing dextrose D10W infusion to optimize his georgette oric and protein requirements thereof. However, the dextrose infusion should only be a temporizing m easure to control his glycemic profile on the inpatient. LABORATORY DATA: His latest chemistries showed a BUN of 22, sodium 128, potassium 4.6, chloride 102. CO2 is 14. Glucose is 70, and creatinine is 1.2. His calcium is 5.8 with an albumin of 2.3, and a corrected calcium of 7.5 mg/dL. So at this time, we will continue the dextrose infusion with D10W running at 60 mL per hour, but if l ow-normal glycemic levels persist, then we will highly recommend enteral tube feedings if again agree d upon by him or his advance order by his medical proxy and advanced directives as noted thereof. We will follow and advise accordingly. Keira Dolan MD cc: [phone] TT: 10/10/2016 12:31:58 Confirmation # [id number] Dictation # [id number] jn
[2016-10-11] MEDS: Vancomycin 125 MG/5 ML SOLN (ORAL/RECTAL) PO SCH ×4 (00:15→17:57)
[2016-10-11] MEDS: Enoxaparin 40 mg Syringe SC SCH (09:16)
[2016-10-11] MEDS: Pantoprazole 40 mg EC Tab PO SCH (09:16)
[2016-10-11] MEDS: Cefepime 1 GM in Sodium Chloride 0.9% 100 ML IVPB SCH (10:00)
--- NOTE | 2016-10-11 15:42 | CP.PCM.PN ---
Subjective - Date & Time of Evaluation Date of Evaluation: 10/11/16 Time of Evaluation: 15:42 - Subjective Subjective: 60 Y/O MALE SEEN AND EXAMINED BY DR Anirudh BRAVO, PT ADMITTED FOR PROSTATE CANCER, NEPHROSTOMY TUBE EXCHANGE, AMS, SEPSIS, BCX2 NEGATIVE, PT D/C TO [facility] PER DR BRAVO, MED REC DONE, FLAGYL AND CEFEPIME CONTINUE FOR 7 MORE DAYS, PT CLEARED FOR D/C PER DR LOPEZ AND DR DR MIRZA. PT STABLE, RESP EASY AND UNLABORED. NAD Objective - Vital Signs/Intake and Output Vital Signs (last 24 hours): Temp Pulse Resp BP Pulse Ox 97.3 F L 103 H 20 92/65 L 100 10/11/16 07:15 10/11/16 11:45 10/11/16 07:15 10/11/16 07:15 10/11/16 07:15 Intake and Output: 10/11/16 10/11/16 06:59 18:59 Intake Total 1920 Output Total 2550 Balance -630 - Medications Medications: Current Medications Dextrose (Dextrose 50% Inj) 50 ml IV Q4H PRN PRN Reason: blood sugar less than 70 Last Admin: 10/09/16 18:06 Dose: 50 ml Enoxaparin Sodium (Lovenox) 40 mg SC DAILY [facility] Last Admin: 10/11/16 09:16 Dose: 40 mg Cefepime HCl 1 gm/ Sodium (Chloride) 100 mls @ 100 mls/hr IVPB DAILY [facility] Last Admin: 10/11/16 10:00 Dose: 100 mls/hr Dextrose (Dextrose 10% In Water) 500 mls @ 60 mls/hr IV .Q8H20M [facility] Last Admin: 10/11/16 03:00 Dose: Not Given Metronidazole (Flagyl) 500 mg PO Q8 [facility] Last Admin: 10/11/16 13:23 Dose: 500 mg Pantoprazole Sodium (Protonix Ec Tab) 40 mg PO DAILY [facility] Last Admin: 10/11/16 09:16 Dose: 40 mg Prednisone (Prednisone Tab) 5 mg PO BID [facility] Last Admin: 10/11/16 09:16 Dose: 5 mg Vancomycin HCl (Vancocin (Oral Or Rectal Use)) 250 mg PO Q6H [facility] Last Admin: 10/11/16 13:00 Dose: 250 mg - Labs Labs: 10/09/16 06:19 10/09/16 06:19 PT 17.6 SECONDS (9.7-12.2) H 10/06/16 11:31 INR 1.5 10/06/16 11:31 APTT 79 SECONDS (21-34) H 10/06/16 11:31
[2016-10-11 15:47] VITALS: BP 101/69; TEMP 99.1
[2016-10-11 16:05] VITALS: RESP 20; O2SAT 95
--- NOTE | 2016-10-11 16:24 | PN ---
DATE: 10/11/2016 ROOM: 654 This is a 60-year-old male with recent symptomatic hypoglycemia and associated neuroglycopenic and hy peradrenergic manifestations of the same with ongoing dextrose infusion as noted thereof. His oral i ntake is still quite variable, but has improved accordingly and the latest glucose levels have ranged from 121-123 and 124 mg/dL. His latest chemistries include a BUN of 22, sodium 128, potassium 4.6, chloride 102, CO2 of 14, glucose 70 and creatinine 1.2. His glucose values have ranged from 82-107 a nd 111 mg/dL. His PSA level done was extremely elevated at 1410 units as noted. So, at this time, we will continue the frequent small feedings and preferably a high protein food pre ference than a high carbohydrate food preference accordingly, especially upon discharge, which is sheridan ng planned for today as noted. He has metastatic prostate carcinoma and is being planned for possibl e discharge and even possible hospice care on the outpatient. We will follow and advise accordingly. Keira Dolan MD cc: [phone] TT: 10/11/2016 16:23:36 Confirmation # [id number] Dictation # [id number]
[2016-10-11 16:47] VITALS: PULSE 109
--- NOTE | 2016-10-11 18:01 | CP.PCM.PN ---
Subjective - Date & Time of Evaluation Date of Evaluation: 10/11/16 Time of Evaluation: 13:00 - Subjective Subjective: clinically same Objective - Vital Signs/Intake and Output Vital Signs (last 24 hours): Temp Pulse Resp BP Pulse Ox 99.1 F 109 H 20 101/69 95 10/11/16 15:37 10/11/16 16:45 10/11/16 15:37 10/11/16 15:37 10/11/16 15:37 Intake and Output: 10/11/16 10/11/16 06:59 18:59 Intake Total 1920 980 Output Total 2550 1350 Balance -630 -370 - Medications Medications: Current Medications Dextrose (Dextrose 50% Inj) 50 ml IV Q4H PRN PRN Reason: blood sugar less than 70 Last Admin: 10/09/16 18:06 Dose: 50 ml Enoxaparin Sodium (Lovenox) 40 mg SC DAILY [facility] Last Admin: 10/11/16 09:16 Dose: 40 mg Cefepime HCl 1 gm/ Sodium (Chloride) 100 mls @ 100 mls/hr IVPB DAILY [facility] Last Admin: 10/11/16 10:00 Dose: 100 mls/hr Metronidazole (Flagyl) 500 mg PO Q8 [facility] Last Admin: 10/11/16 13:23 Dose: 500 mg Pantoprazole Sodium (Protonix Ec Tab) 40 mg PO DAILY [facility] Last Admin: 10/11/16 09:16 Dose: 40 mg Prednisone (Prednisone Tab) 5 mg PO BID [facility] Last Admin: 10/11/16 17:57 Dose: 5 mg Vancomycin HCl (Vancocin (Oral Or Rectal Use)) 250 mg PO Q6H [facility] Last Admin: 10/11/16 13:00 Dose: 250 mg - Labs Labs: 10/09/16 06:19 10/09/16 06:19 PT 17.6 SECONDS (9.7-12.2) H 10/06/16 11:31 INR 1.5 10/06/16 11:31 APTT 79 SECONDS (21-34) H 10/06/16 11:31 - Constitutional Appears: Well - Head Exam Head Exam: ATRAUMATIC, NORMAL INSPECTION, NORMOCEPHALIC - Eye Exam Eye Exam: EOMI, Normal appearance, PERRL Pupil Exam: NORMAL ACCOMODATION, PERRL - ENT Exam ENT Exam: Mucous Membranes Moist, Normal Exam - Neck Exam Neck Exam: Full ROM, Normal Inspection. absent: Lymphadenopathy - Respiratory Exam Respiratory Exam: Decreased Breath Sounds - Cardiovascular Exam Cardiovascular Exam: REGULAR RHYTHM, +S1, +S2 - GI/Abdominal Exam GI & Abdominal Exam: Soft, Diminished Bowel Sounds - Rectal Exam Rectal Exam: Deferred Assessment and Plan (1) Abdominal pain Status: Acute (2) Abnormal PSA Status: Acute (3) Acute kidney injury Status: Acute (4) Bacteremia Status: Acute (5) CHF (congestive heart failure) Status: Acute (6) Cardiac arrest Status: Acute (7) Dehydration Status: Acute (8) Dyspnea Status: Acute (9) Encounter for dressing change or suture removal Status: Acute (10) GI bleed Status: Acute (11) Hypocalcemia Status: Acute (12) Hypoglycemia Status: Acute (13) Hypoglycemia Status: Acute (14) Hypokalemia Status: Acute (15) Hypomagnesemia Status: Acute (16) Hyponatremia Status: Acute (17) Hypotension Status: Acute (18) Hypotension Status: Acute (19) Hypothermia Status: Acute (20) Ileus, unspecified Status: Acute (21) Leg edema Status: Acute (22) Lymphadenopathy Status: Acute (23) Malfunction of nephrostomy tube Status: Acute (24) Medical assessment Status: Acute (25) Nephrostomy complication Status: Acute (26) Nephrostomy status Status: Acute (27) Nephrostomy tube displaced Status: Acute (28) Obstructed nephrostomy tube Status: Acute (29) Obstructive uropathy Status: Acute (30) Pneumatosis intestinalis Status: Acute (31) Prophylactic measure Status: Acute (32) Prophylactic measure Status: Acute (33) Pyelonephritis Status: Acute (34) Renewing dressing Status: Acute (35) Respiratory distress Status: Acute (36) Sepsis Status: Acute (37) Septic shock Status: Acute (38) UTI (urinary tract infection) Status: Acute (39) UTI (urinary tract infection) Status: Acute (40) Vomiting Status: Acute (41) Yeast UTI Status: Acute (42) Duodenal obstruction, acquired Status: Chronic (43) Prostate cancer Status: Chronic - Assessment and Plan (Free Text) Plan: Patient cleared for discharge Continue antibiotics Discharge to [facility] Nephrostomy tube care Continue home medications Physical therapy
--- NOTE | 2016-10-11 18:09 | CARD ---
APPROVED REPORT EKG Measurement Heart [id number] CO 118P54 [id number] <Conclusion> Sinus tachycardia Low voltage QRS Nonspecific T wave abnormality Abnormal ECG
--- NOTE | 2016-10-18 08:23 | PN ---
DATE: 10/08/2016 ___ glucose levels ____ as noted. We will continue ____ hypoalimentation to optimize ____ supplem ent accordingly ____ Keira Dolan MD cc: [phone] TT: 10/08/2016 18:41:04 Confirmation # [id number] Dictation # [id number]
--- NOTE | 2016-10-18 23:29 | CARD ---
APPROVED REPORT EKG Measurement Heart [id number] SD 122P48 [id number] <Conclusion> Sinus tachycardia Low voltage QRS Nonspecific T wave abnormality Prolonged QT Abnormal ECG
== END 2016-10-11 22:15 | DRG 320 ==
LOC: C.ER 10:05 → C.9E 13:01 → C.9I 15:09 → C.6T 10-09 14:36
PROVIDERS: ADMIT Internal Medicine Nephrology; ATTEND Internal Medicine Nephrology
PROC: BT01ZZZ Plain Radiography of Right Kidney (ICD-10-PCS; 2016-10-08)
PROC: 0T25X0Z Change Drainage Device in Kidney, External Approach (ICD-10-PCS; principal; 2016-10-08 12:00)
DX: N39.0 Urinary tract infection, site not specified (principal); C77.9 Secondary and unspecified malignant neoplasm of lymph node, unspecified; C79.51 Secondary malignant neoplasm of bone; N13.30 Unspecified hydronephrosis; E11.22 Type 2 diabetes mellitus with diabetic chronic kidney disease; E11.649 Type 2 diabetes mellitus with hypoglycemia without coma; N18.9 Chronic kidney disease, unspecified; C61 Malignant neoplasm of prostate; R41.82 Altered mental status, unspecified; I12.9 Hypertensive chronic kidney disease with stage 1 through stage 4 chronic kidney disease, or unspecified chronic kidney disease; R68.0 Hypothermia, not associated with low environmental temperature

== ENCOUNTER 2016-11-12 11:28 | Inpatient (IN) | payer MEDICAID ==
[2016-11-12 11:28] VITALS: BMI 26.6
[2016-11-12] MEDS ORDERED: Piperacill/Tazo 3.375gm in Dex 3.375 GM/50 ML BAG IVPB STA (11:52)
[2016-11-12] MEDS ORDERED: Vancomycin 1 gm/NS 200 ml 1 GM/200 ML BAG IVPB STA (11:52)
--- NOTE | 2016-11-12 11:52 | C.PDOC ---
History Of Present Illness 61 y/o male sent to ED from assisted for evaluation of low blood pressure. Pt reports feeling dizzy this morning and chest pain yesterday (none today). Pt also reports intermittent diarrhea. Denies cough, fever, vomiting, SOB, headache or any other complaints. Time Seen by Provider: 11/12/16 11:51 History Per: Patient History/Exam Limitations: no limitations Onset/Duration Of Symptoms: Hrs Current Symptoms Are (Timing): Still Present Severity: Mild Recent travel outside of the [place]: No Past Medical History Reviewed: Historical Data, Nursing Documentation, Vital Signs Vital Signs: Last Vital Signs Temp 96.2 F L 11/13/16 07:00 Pulse 102 H 11/13/16 08:30 Resp 20 11/13/16 07:00 BP 90/60 L 11/13/16 07:00 Pulse Ox 100 11/13/16 07:00 - Medical History PMH: Back Problems, HTN, Malignancy (Prostate, Pancreatic), Chronic Kidney Disease, Chronic Pain (Back) - [facility] Procedures CHANGE DRAINAGE DEVICE IN KIDNEY, EXTERNAL APPROACH (10/06/16) CYSTOSCOPY NEC (11/08/14) DILATION OF DUODENUM, ENDO (06/12/15) DILATION OF RIGHT URETER WITH INTRALUMINAL DEVICE, ENDO (06/12/15) DX ULTRASOUND NEC (10/22/14) INSERTION OF ENDOTRACHEAL AIRWAY INTO TRACHEA, VIA OPENING (08/30/15) INSERTION OF INFUSION DEV INTO SUP VENA CAVA, PERC APPROACH (08/30/15) INTRODUCTION OF NUTRITIONAL INTO PERIPH VEIN, PERC APPROACH (06/12/15) LYMPHATIC STRUCT BIOPSY (11/08/14) PERCU NEPHROSTM W/O FRAG (11/08/14) PERCUTAN NEEDLE BIOPSY OF PROSTATE (11/08/14) PERCUTANEOUS PYELOGRAM (01/18/15) PLAIN RADIOGRAPHY OF RIGHT KIDNEY (10/06/16) REMOVE VAD RESERVOIR FROM UP EXTREM SUBCU/FASCIA, PERC (08/30/15) RESPIRATORY VENTILATION, GREATER THAN 96 CONSECUTIVE HOURS (08/30/15) TRANSFUSE NONAUT RED BLOOD CELLS IN PERIPH VEIN, PERC (06/12/15) URETERAL CATHETERIZATION (01/18/15) VACCINATION NEC (10/22/14) Family History: States: Unknown Family Hx - Social History Hx Tobacco Use: Yes Hx Alcohol Use: No Hx Substance Use: No - Immunization History Hx Tetanus Toxoid Vaccination: No Hx Influenza Vaccination: No Hx Pneumococcal Vaccination: No Review Of Systems Except As Marked, All Systems Reviewed And Found Negative. Constitutional: Negative for: Fever Cardiovascular: Positive for: Chest Pain (resolved) Respiratory: Negative for: Cough, Shortness of Breath Gastrointestinal: Positive for: Diarrhea. Negative for: Vomiting Neurological: Positive for: Dizziness. Negative for: Headache Physical Exam - Physical Exam Appears: Non-toxic, No Acute Distress, Chronically Ill, Other (cachectic) Skin: Warm, Dry, No Rash Head: Atraumatic, Normacephalic Neck: Normal, Normal ROM, Supple Chest: Symmetrical Cardiovascular: Rhythm Regular, No Murmur Respiratory: Normal Breath Sounds, No Rales, No Rhonchi, No Wheezing Gastrointestinal/Abdominal: Tenderness (mild diffuse), Distention, No Guarding, No Rebound Extremity: Normal ROM, No Calf Tenderness, Other (PICC line right arm; 1+ pitting edema bilateral lower extremities) Pulses: Left Dorsalis Pedis: Normal, Right Dorsalis Pedis: Normal Neurological/Psych: Oriented x3, Normal Speech, Normal Motor, Normal Sensation ED Course And Treatment - Laboratory Results Result Diagrams: 11/12/16 12:01 11/12/16 12:59 ECG: Interpreted By Me, Viewed By Me ECG Rhythm: Sinus Rhythm ECG Interpretation: Normal Interpretation Of ECG: Nonspecific ST/T wave changes, no STEMI Rate From EC (BPM) - Other Rad CXR X-Ray: Viewed By Me, Read By Radiologist Interpretation: Accession No. : [id number]. Patient Name / ID : CHARMAINE FUNES / [id number]. Exam Date : 11/12/2016 12:01:40 ( Approved ). Study Comment : Sex / Age : M / 61Y. Creator : William Burton MD. Dictator : William Burton MD. Reimbursement Auditor : Preparation Plant Repairer : William Burton MD. Approver2 : Report Date : 11/12/2016 12:37:31. My Comment : . HISTORY: Sepsis Patient. COMPARISON: 10/06/2016. FINDINGS: LUNGS: No active pulmonary disease. PLEURA: No significant pleural effusion identified, no pneumothorax apparent. CARDIOVASCULAR: Normal. OSSEOUS STRUCTURES: No significant abnormalities. VISUALIZED UPPER ABDOMEN: Normal. OTHER FINDINGS: None. IMPRESSION: No active disease. - CT Scan/US CT abdomen Other Rad Studies (CT/US): Read By Radiologist, Radiology Report Reviewed CT/US Interpretation: Accession No. : [id number]. Patient Name / ID : CHARMAINE FUNES / [id number]. Exam Date : 11/12/2016 14:00:47 ( Approved ). Study Comment : Sex / Age : M / 61Y. Creator : ender garcia. Dictator : William Burton MD. Reimbursement Auditor : Preparation Plant Repairer : William Burton MD. Approver2 : Report Date : 11/12/2016 14:11:06. My Comment : . PROCEDURE: CT Abdomen and Pelvis with contrast. HISTORY: abdominal pain. COMPARISON: 08/04/2016. TECHNIQUE: Contrast dose: 100 mL Visipaque 320. Radiation dose: Total exam DLP = 322.05 mGy-cm. This CT exam was performed using one or more of the following dose reduction techniques: Automated exposure control, adjustment of the mA and/or kV according to patient size, and/or use of iterative reconstruction technique. FINDINGS: Examination limited by extensive anasarca and cachexia. Examination was obtained during the early arterial phase of enhancement. LOWER THORAX: Small right pleural effusion. Right lower lobe compressive atelectasis. Subsegmental atelectasis left lower lobe. Questionable nodes or soft tissue density in superior mediastinum (series 3, image 1 through 6). LIVER: Mild intrahepatic biliary dilatation. No dilatation of common bile duct. No mass. GALLBLADDER AND BILE DUCTS: Cholelithiasis. No definite mural thickening. PANCREAS: Limited evaluation. No mass or pancreatic ductal dilatation. SPLEEN: Unremarkable. ADRENALS: Extensive retroperitoneal lymphadenopathy obscures evaluation of adrenal glands. KIDNEYS AND URETERS: Left hydroureteronephrosis. Dilated left ureter can be traced to the inferior pelvis. Right percutaneous nephro ureterostomy. Ureterostomy tube extends to the urinary bladder. No renal mass. No calculus. VASCULATURE: Unremarkable. No aortic aneurysm. BOWEL: Grossly limited evaluation of bowel. No evidence of bowel obstruction. Distended stomach filled with fluid and particulate matter. Stent in 3rd portion of duodenum again identified. Markedly thickened rectal wall again identified. Suspicious for mass along right lateral aspect of rectum (series 3, image 165. Please note that evaluation is grossly limited. APPENDIX: Not identified. PERITONEUM: Ascites. Amorphous soft tissue density seen within the peritoneal cavity suspicious for omental metastasis. However, evaluation grossly limited. LYMPH NODES: Extensive retroperitoneal lymphadenopathy, mildly improved compared to prior CT examination. BLADDER: Nondistended. REPRODUCTIVE: Prostate suboptimally evaluated. BONES: Widespread sclerotic metastasis. This involves thoracic and lumbar vertebrae. OTHER FINDINGS: None. IMPRESSION: Limited examination. Suboptimal timing of scan relative to contrast. Cachexia and anasarca. Possible ascites. . No evidence of bowel obstruction. Suspicious for omental metastasis as described above. Suspicious for mediastinal soft tissue density/nodes. Biliary dilatation. Please correlate with laboratory evaluation. Left hydroureteronephrosis. Right nephro ureterostomy. Stent in 3rd duodenum. Sclerotic bony metastasis in thoracic and lumbar vertebrae. Progress Note: Plan: CT abdomen, EKG, labs, CXR, vancomycin, zofran, zosyn Disposition - Disposition Disposition: HOSPITALIZED Disposition Time: 13:15 Condition: GUARDED - Clinical Impression Clinical Impression: Hypotension - Scribe Statement The provider has reviewed the documentation as recorded by the Rob Ann Provider Attestation: All medical record entries made by the Rob were at my direction and personally dictated by me. I have reviewed the chart and agree that the record accurately reflects my personal performance of the history, physical exam, medical decision making, and the department course for this patient. I have also personally directed, reviewed, and agree with the discharge instructions and disposition.
[2016-11-12 12:07] LABS: BASO # 0.1 K/uL (0.0-0.2); BASO % 1.2 % (0.0-2.0); EOS # 0.1 K/uL (0.0-0.7); EOS % 1.4 % (0.0-4.0); LYMPH # 0.8 K/uL (1.0-4.3); LYMPH % 14.2 % (20.0-40.0); MEAN CELL VOLUME 93.5 fL (80.0-94.0); MEAN CORPUSCULAR HEMOGLOBIN 29.9 pg (27.0-31.0); MEAN PLATELET VOLUME 8.5 fL (7.2-11.7); MONO # 0.6 K/uL (0.0-0.8); MONO % 10.4 % (0.0-10.0); NRBC % 0.1 % (0.0-2.0); WHITE BLOOD COUNT 5.4 K/uL (4.8-10.8)
[2016-11-12 12:07] LABS: VENOUS BLOOD GAS BASE EXCESS 3.6 mmol/L (0.0-2.0); VENOUS BLOOD GAS PCO2 63 mmHg (40-60); VENOUS BLOOD PH 7.31 (7.32-7.43)
[2016-11-12 12:12] LABS: INR 1.1
--- NOTE | 2016-11-12 12:38 | RAD ---
HISTORY: Sepsis Patient COMPARISON: 10/06/2016 FINDINGS: LUNGS: No active pulmonary disease. PLEURA: No significant pleural effusion identified, no pneumothorax apparent. CARDIOVASCULAR: Normal. OSSEOUS STRUCTURES: No significant abnormalities. VISUALIZED UPPER ABDOMEN: Normal. OTHER FINDINGS: None. IMPRESSION: No active disease.
[2016-11-12] MEDS ORDERED: Piperacillin/Tazobact 3.375 gm 100 ML IVPB ONE (12:46)
[2016-11-12 13:16] LABS: CHLORIDE 102 mmol/L (98-107); POTASSIUM 3.4 mmol/L (3.6-5.2); SODIUM 136 mmol/L (132-148)
[2016-11-12 13:18] LABS: ALB/GLOB RATIO 0.7 (1.0-2.1); ALKALINE PHOSPHATASE 173 U/L (38-126); AST/SGOT 12 U/L (17-59); BILIRUBIN,TOTAL 0.6 mg/dL (0.2-1.3); CARBON DIOXIDE 24 mmol/L (22-30); GFR AFRICAN-AMERICAN > 60; TOTAL PROTEIN 5.8 g/dL (6.3-8.3)
[2016-11-12 13:19] LABS: ALT/SGPT 16 U/L (21-72); BLOOD UREA NITROGEN 23 mg/dL (9-20); GLUCOSE,RANDOM 70 mg/dL (75-110); PHOSPHOROUS 2.6 mg/dL (2.5-4.5)
[2016-11-12 13:23] LABS: CALCIUM 5.7 mg/dl (8.6-10.4)
[2016-11-12] MEDS ORDERED: Calcium Gluconate 4.65 mEq/10 ml Inj IVP ONE (13:26)
[2016-11-12] MEDS ORDERED: Sodium Chloride 0.9% 1,000 ML ONE (13:35)
[2016-11-12] MEDS ORDERED: Calcium Gluconate 4.65 mEq/10 ml Inj ONE (13:35)
[2016-11-12] MEDS: Sodium Chloride 0.9% 1,000 ML IV SCH (13:45)
[2016-11-12] MEDS ORDERED: Iodixanol 320 MG/ML 100 ML BOTTLE IV ONE (13:50)
[2016-11-12 14:22] LABS: RBC URINE 124 /hpf (0-3); URINE BACTERIA RARE (<OCC); URINE BILIRUBIN NEGATIVE (NEGATIVE); URINE BLOOD 3+ (NEGATIVE); URINE CALCIUM OXALATE CRYSTALS MOD /hpf (<OCC); URINE COLOR Yellow (YELLOW); URINE GLUCOSE (UA) NORMAL (Normal); URINE KETONE NEGATIVE (NEGATIVE); URINE LEUKOCYTE ESTERASE 3+ Leu/uL (Negative); URINE PROTEIN 1+ mg/dL (NEGATIVE); URINE UROBILINOGEN NORMAL mg/dL (0.2-1.0); WBC URINE 171 /hpf (0-5)
--- NOTE | 2016-11-12 14:43 | CT ---
PROCEDURE: CT Abdomen and Pelvis with contrast HISTORY: abdominal pain COMPARISON: 08/04/2016 TECHNIQUE: Contrast dose: 100 mL Visipaque 320 Radiation dose: Total exam DLP = 322.05 mGy-cm. This CT exam was performed using one or more of the following dose reduction techniques: Automated exposure control, adjustment of the mA and/or kV according to patient size, and/or use of iterative reconstruction technique. FINDINGS: Examination limited by extensive anasarca and cachexia. Examination was obtained during the early arterial phase of enhancement. LOWER THORAX: Small right pleural effusion. Right lower lobe compressive atelectasis. Subsegmental atelectasis left lower lobe. Questionable nodes or soft tissue density in superior mediastinum (series 3, image 1 through 6) LIVER: Mild intrahepatic biliary dilatation. No dilatation of common bile duct. No mass. GALLBLADDER AND BILE DUCTS: Cholelithiasis. No definite mural thickening. PANCREAS: Limited evaluation. No mass or pancreatic ductal dilatation. SPLEEN: Unremarkable. ADRENALS: Extensive retroperitoneal lymphadenopathy obscures evaluation of adrenal glands. KIDNEYS AND URETERS: Left hydroureteronephrosis. Dilated left ureter can be traced to the inferior pelvis. Right percutaneous nephro ureterostomy. Ureterostomy tube extends to the urinary bladder. No renal mass. No calculus. VASCULATURE: Unremarkable. No aortic aneurysm. BOWEL: Grossly limited evaluation of bowel. No evidence of bowel obstruction. Distended stomach filled with fluid and particulate matter. Stent in 3rd portion of duodenum again identified. Markedly thickened rectal wall again identified. Suspicious for mass along right lateral aspect of rectum (series 3, image 165. Please note that evaluation is grossly limited. APPENDIX: Not identified PERITONEUM: Ascites. Amorphous soft tissue density seen within the peritoneal cavity suspicious for omental metastasis. However, evaluation grossly limited. LYMPH NODES: Extensive retroperitoneal lymphadenopathy, mildly improved compared to prior CT examination. BLADDER: Nondistended REPRODUCTIVE: Prostate suboptimally evaluated. BONES: Widespread sclerotic metastasis. This involves thoracic and lumbar vertebrae. OTHER FINDINGS: None. IMPRESSION: Limited examination. Suboptimal timing of scan relative to contrast. Cachexia and anasarca. Possible ascites. . No evidence of bowel obstruction. Suspicious for omental metastasis as described above. Suspicious for mediastinal soft tissue density/nodes. Biliary dilatation. Please correlate with laboratory evaluation. Left hydroureteronephrosis. Right nephro ureterostomy. Stent in 3rd duodenum. Sclerotic bony metastasis in thoracic and lumbar vertebrae.
[2016-11-12] MEDS: Calcium-Vit D 500 mg-200 Units Tab UD PO SCH (17:51)
[2016-11-12 19:49] LABS: VENOUS BLOOD GAS BASE EXCESS 1.8 mmol/L (0.0-2.0); VENOUS BLOOD GAS PCO2 53 mmHg (40-60); VENOUS BLOOD PH 7.34 (7.32-7.43)
[2016-11-12] MEDS ORDERED: Potassium Chloride 10 mEq ER Tab PO STA (21:04)
--- NOTE | 2016-11-12 21:07 | CP.PCM.HP ---
Past Patient History - Infectious Disease Hx of Infectious Diseases: None - Past Medical History & Family History Past Medical History?: Yes - Past Social History Smoking Status: Current Some Days Smoker - CARDIAC Hx Hypertension: Yes - PULMONARY Hx Respiratory Disorders: No - NEUROLOGICAL Hx Neurological Disorder: No Hx Paralysis: No - HEENT Hx HEENT Problems: No - RENAL Hx Chronic Kidney Disease: Yes - ENDOCRINE/METABOLIC Hx Endocrine Disorders: Yes Hx Diabetes Mellitus Type 2: Yes (pt denies.) - HEMATOLOGICAL/ONCOLOGICAL Hx Blood Disorders: Yes Hx Blood Transfusions: Yes Hx Blood Transfusion Reaction: No Hx Cancer: Yes (Prostate, Stomach.) - INTEGUMENTARY Hx Dermatological Problems: No - MUSCULOSKELETAL/RHEUMATOLOGICAL Hx Falls: No - GASTROINTESTINAL Hx Gastrointestinal Disorders: Yes Other/Comment: Stomach Ca. - GENITOURINARY/GYNECOLOGICAL Hx Genitourinary Disorders: Yes Hx Prostate Cancer: Yes Hx Prostate Problems: Yes - PSYCHIATRIC Hx Substance Use: No - SURGICAL HISTORY Hx Surgeries: Yes Other/Comment: nephrostomy tube. - ANESTHESIA Hx Anesthesia: Yes Hx Anesthesia Reactions: No Hx Malignant Hyperthermia: No Meds Allergies/Adverse Reactions: Allergies Allergy/AdvReac Type Severity Reaction Status Date / Time No Known Allergies Allergy Verified 10/06/16 10:16 Results - Vital Signs Recent Vital Signs: Last Vital Signs Temp 98.6 F 11/12/16 19:10 Pulse 106 H 11/12/16 19:10 Resp 19 11/12/16 19:10 BP 100/70 11/12/16 19:10 Pulse Ox 99 11/12/16 19:10 - Labs Result Diagrams: 11/12/16 12:01 11/12/16 12:59 Labs: Laboratory Results - last 24 hr 11/12/16 11/12/16 14:10 19:45 pO2 33 VBG pH 7.34 VBG pCO2 53 VBG HCO3 25.3 VBG Total CO2 30.2 H VBG O2 Sat (Calc) 62.1 VBG Base Excess 1.8 VBG Potassium 3.2 L Sodium 136.0 Chloride 104.0 Glucose 80 Lactate 0.9 Venous Blood Potassium 3.2 L Urine Color Yellow Urine Clarity Hazy Urine pH 6.0 Ur Specific [place] 1.013 Urine Protein 1+ H Urine Glucose (UA) Normal Urine Ketones Negative Urine Blood 3+ H Urine Nitrate Negative Urine Bilirubin Negative Urine Urobilinogen Normal Ur Leukocyte Esterase 3+ H Urine WBC (Auto) 171 H Urine RBC (Auto) 124 H Ur Squamous Epith Cells < 1 Calcium Oxalate Crystal Mod H Urine Bacteria Rare Urine Yeast (Budding) Occ H Assessment & Plan - Assessment and Plan (Free Text) Plan: iv atrust hem oncurology id consult uc/s ivf
[2016-11-13] MEDS: Enoxaparin 40 mg Syringe SC SCH (09:18)
[2016-11-13] MEDS: Pantoprazole 40 mg EC Tab PO SCH (09:18)
[2016-11-13] MEDS: Calcium-Vit D 500 mg-200 Units Tab UD PO SCH ×2 (09:19→17:45)
[2016-11-13] MEDS: Sodium Chloride 0.9% 1,000 ML IV SCH ×4 (09:19→21:53)
--- NOTE | 2016-11-13 14:00 | CP.PCM.PN ---
Subjective - Date & Time of Evaluation Date of Evaluation: 11/13/16 Time of Evaluation: 13:00 - Subjective Subjective: clinically same Objective - Vital Signs/Intake and Output Vital Signs (last 24 hours): Temp Pulse Resp BP Pulse Ox 96.2 F L 102 H 20 90/60 L 100 11/13/16 07:00 11/13/16 08:30 11/13/16 07:00 11/13/16 07:00 11/13/16 07:00 Intake and Output: 11/13/16 11/13/16 06:59 18:59 Intake Total 120 Output Total 850 Balance -730 - Medications Medications: Current Medications Calcium/Vitamin D (Oyster Shell Calcium/Vitamin D 500 Mg-200 Iu) 1 tab PO BID [facility] Stop: 11/16/16 20:00 Last Admin: 11/13/16 09:19 Dose: 1 tab Enoxaparin Sodium (Lovenox) 40 mg SC DAILY [facility] Last Admin: 11/13/16 09:18 Dose: 40 mg Sodium Chloride (Sodium Chloride 0.9%) 1,000 mls @ 100 mls/hr IV .Q10H [facility] Last Admin: 11/13/16 09:19 Dose: Not Given Imipenem/Cilastatin Sodium 500 (mg/ Sodium Chloride) 100 mls @ 100 mls/hr IVPB Q6H [facility] Last Admin: 11/13/16 11:42 Dose: 100 mls/hr Pantoprazole Sodium (Protonix Ec Tab) 40 mg PO DAILY [facility] Last Admin: 11/13/16 09:18 Dose: 40 mg - Labs Labs: PT 12.0 SECONDS (9.7-12.2) 11/12/16 12:01 INR 1.1 11/12/16 12:01 APTT 39 SECONDS (21-34) H 11/12/16 12:01 - Constitutional Appears: Well - Head Exam Head Exam: ATRAUMATIC, NORMAL INSPECTION, NORMOCEPHALIC - Eye Exam Eye Exam: EOMI, Normal appearance, PERRL Pupil Exam: NORMAL ACCOMODATION, PERRL - ENT Exam ENT Exam: Mucous Membranes Moist, Normal Exam - Neck Exam Neck Exam: Full ROM, Normal Inspection. absent: Lymphadenopathy - Respiratory Exam Respiratory Exam: Decreased Breath Sounds - Cardiovascular Exam Cardiovascular Exam: REGULAR RHYTHM, +S1, +S2 - GI/Abdominal Exam GI & Abdominal Exam: Soft, Diminished Bowel Sounds - Rectal Exam Rectal Exam: Deferred
[2016-11-13] MEDS: Potassium Chloride 10 mEq ER Tab PO SCH (14:30)
[2016-11-14] MEDS: Sodium Chloride 0.9% 1,000 ML IV SCH ×3 (06:06→21:37)
[2016-11-14] MEDS: Potassium Chloride 10 mEq ER Tab PO SCH (09:00)
[2016-11-14] MEDS: Calcium-Vit D 500 mg-200 Units Tab UD PO SCH ×2 (09:03→19:00)
[2016-11-14] MEDS: Enoxaparin 40 mg Syringe SC SCH (09:03)
[2016-11-14] MEDS: Pantoprazole 40 mg EC Tab PO SCH (09:03)
--- NOTE | 2016-11-14 12:54 | PCM.URO ---
Urology Progress Note - Objective Intake & Output: Intake & Output 11/13/16 11/14/16 11/14/16 18:59 06:59 18:59 Intake Total 1220 1290 Output Total 600 800 Balance 620 490 Intake: Intake, IV Amount 800 750 Left Antecubital 800 750 Oral 420 540 Output: Drainage 600 800 right Nephrostomy tube 600 800 Other: # Bowel Movements 0 1 Vital Signs: Vital Signs - 24 hr 11/13/16 11/13/16 11/14/16 16:00 23:50 08:30 Temperature 97.9 F 98 F Pulse Rate 96 H 95 H 95 H Respiratory 20 20 Rate Blood Pressure 108/76 105/71 O2 Sat by Pulse 94 L 97 Oximetry 11/14/16 08:31 Temperature 97.5 F L Pulse Rate 101 H Respiratory 20 Rate Blood Pressure 106/72 O2 Sat by Pulse 97 Oximetry
--- NOTE | 2016-11-14 13:30 | CP.PCM.PN ---
Subjective - Date & Time of Evaluation Date of Evaluation: 11/14/16 Time of Evaluation: 13:40 - Subjective Subjective: clinically same Objective - Vital Signs/Intake and Output Vital Signs (last 24 hours): Temp Pulse Resp BP Pulse Ox 97.5 F L 101 H 20 106/72 97 11/14/16 08:31 11/14/16 08:31 11/14/16 08:31 11/14/16 08:31 11/14/16 08:31 Intake and Output: 11/14/16 11/14/16 06:59 18:59 Intake Total 1290 Output Total 800 Balance 490 - Medications Medications: Current Medications Calcium/Vitamin D (Oyster Shell Calcium/Vitamin D 500 Mg-200 Iu) 1 tab PO BID [facility] Stop: 11/16/16 20:00 Last Admin: 11/14/16 09:03 Dose: 1 tab Enoxaparin Sodium (Lovenox) 40 mg SC DAILY [facility] Last Admin: 11/14/16 09:03 Dose: 40 mg Sodium Chloride (Sodium Chloride 0.9%) 1,000 mls @ 100 mls/hr IV .Q10H [facility] Last Admin: 11/14/16 06:06 Dose: 100 mls/hr Imipenem/Cilastatin Sodium 500 (mg/ Sodium Chloride) 100 mls @ 100 mls/hr IVPB Q6H [facility] Last Admin: 11/14/16 11:32 Dose: 100 mls/hr Pantoprazole Sodium (Protonix Ec Tab) 40 mg PO DAILY [facility] Last Admin: 11/14/16 09:03 Dose: 40 mg Potassium Chloride (Klor-Con 10) 10 meq PO BRK [facility] Last Admin: 11/14/16 09:00 Dose: 10 meq - Labs Labs: PT 12.0 SECONDS (9.7-12.2) 11/12/16 12:01 INR 1.1 11/12/16 12:01 APTT 39 SECONDS (21-34) H 11/12/16 12:01 - Constitutional Appears: Well - Head Exam Head Exam: ATRAUMATIC, NORMAL INSPECTION, NORMOCEPHALIC - Eye Exam Eye Exam: EOMI, Normal appearance, PERRL Pupil Exam: NORMAL ACCOMODATION, PERRL - ENT Exam ENT Exam: Mucous Membranes Moist, Normal Exam - Neck Exam Neck Exam: Full ROM, Normal Inspection. absent: Lymphadenopathy - Respiratory Exam Respiratory Exam: Decreased Breath Sounds - Cardiovascular Exam Cardiovascular Exam: REGULAR RHYTHM, +S1, +S2 - GI/Abdominal Exam GI & Abdominal Exam: Soft, Diminished Bowel Sounds - Rectal Exam Rectal Exam: Deferred Assessment and Plan - Assessment and Plan (Free Text) Plan: uc/s multple species s/p vs stable contis farhat
--- NOTE | 2016-11-14 16:34 | CP.PCM.CON ---
History of Present Illness - History of Present Illness History of Present Illness: 61 y/o male sent to ED from [facility] for evaluation of low blood pressure. Pt reports feeling dizzy this morning and chest pain yesterday (none today). Pt also reports intermittent diarrhea. Denies cough, fever, vomiting, SOB, headache or any other complaints. admitted to r/o sepsis - Medical History PMH: Back Problems, HTN, Malignancy (Prostate, Pancreatic), Chronic Kidney Disease, Chronic Pain (Back) - [facility] Procedures CHANGE DRAINAGE DEVICE IN KIDNEY, EXTERNAL APPROACH (10/06/16) CYSTOSCOPY NEC (11/08/14) DILATION OF DUODENUM, ENDO (06/12/15) DILATION OF RIGHT URETER WITH INTRALUMINAL DEVICE, ENDO (06/12/15) DX ULTRASOUND NEC (10/22/14) INSERTION OF ENDOTRACHEAL AIRWAY INTO TRACHEA, VIA OPENING (08/30/15) INSERTION OF INFUSION DEV INTO SUP VENA CAVA, PERC APPROACH (08/30/15) INTRODUCTION OF NUTRITIONAL INTO PERIPH VEIN, PERC APPROACH (06/12/15) LYMPHATIC STRUCT BIOPSY (11/08/14) PERCU NEPHROSTM W/O FRAG (11/08/14) PERCUTAN NEEDLE BIOPSY OF PROSTATE (11/08/14) PERCUTANEOUS PYELOGRAM (01/18/15) PLAIN RADIOGRAPHY OF RIGHT KIDNEY (10/06/16) REMOVE VAD RESERVOIR FROM UP EXTREM SUBCU/FASCIA, PERC (08/30/15) RESPIRATORY VENTILATION, GREATER THAN 96 CONSECUTIVE HOURS (08/30/15) TRANSFUSE NONAUT RED BLOOD CELLS IN PERIPH VEIN, PERC (06/12/15) URETERAL CATHETERIZATION (01/18/15) VACCINATION NEC (10/22/14) Review of Systems - Constitutional Constitutional: As Per HPI, Chills - EENT Eyes: absent: As Per HPI, Blind Spots, Blurred Vision, Change in Vision, Decreased Night Vision, Diplopia, Discharge, Dry Eye, Exophthalmos, Floaters, Irritation, Itchy Eyes, Loss of Peripheral Vision, Pain, Photophobia, Requires Corrective Lenses, Sees Flashes, Spots in Vision, Tunnel Vision, Other Visual Disturbances, Loss of Vision, Other Ears: absent: As Per HPI, Decreased Hearing, Ear Discharge, Ear Pain, Tinnitus, Abnormal Hearing, Disequilibrium, Dizziness, Other Nose/Mouth/Throat: absent: As Per HPI, Epistaxis, Nasal Congestion, Nasal Discharge, Nasal Obstruction, Nasal Trauma, Nose Pain, Post Nasal Drip, Sinus Pain, Sinus Pressure, Bleeding Gums, Change in Voice, Dental Pain, Dry Mouth, Dysphagia, Halitosis, Hoarsness, Lip Swelling, Mouth Lesions, Mouth Pain, Odynophagia, Sore Throat, Throat Swelling, Tongue Swelling, Facial Pain, Neck Pain, Neck Mass, Other - Cardiovascular Cardiovascular: absent: As Per HPI, Acrocyanosis, Chest Pain, Chest Pain at Rest , Chest Pain with Activity, Claudication, Diaphoresis, Dyspnea, Dyspnea on Exertion, Edema, Irregular Heart Rhythm, Pain Radiating to Arm/Neck/Jaw, Leg Edema, Leg Ulcers, Lightheadedness, Orthopnea, Palpitations, Paroxysmal Nocturnal Dyspnea, Pedal Edema, Radiating Pain, Rapid Heart Rate, Slow Heart Rate, Syncope, Other - Respiratory Respiratory: absent: As Per HPI, Cough, Dyspnea, Hemoptysis, Dyspnea on Exertion , Wheezing, Snoring, Stridor, Pain on Inspiration, Chest Congestion, Excessive Mucous Production, Change in Mucous Color, Pain with Coughing, Other - Gastrointestinal Gastrointestinal: absent: As Per HPI, Abdominal Pain, Belching, Bloating, Change in Bowel Habits, Change in Stool Character, Coffee Ground Emesis, Constipation, Cramping, Diarrhea, Dyspepsia, Dysphagia, Early Satiety, Excessive Flatus, Fecal Incontinence, Heartburn, Hematemesis, Hematochezia, Loose Stools, Melena, Nausea, Odynophagia, Temesmus, Vomiting, Other - Genitourinary Genitourinary: As Per HPI - Musculoskeletal Musculoskeletal: absent: As Per HPI, Abnormal Gait, Arthralgias, Atrophy, Back Pain, Deformity, Joint Swelling, Limited Range of Motion, Loss of Height, Muscle Cramps, Muscle Weakness, Myalgias, Neck Pain, Numbness, Radiating Pain into Limb, Stiffness, Tingling, Other - Integumentary Integumentary: absent: As Per HPI, Acne, Alopecia, Bleeding Lesions, Change in Hair, Change in Nails, Change in Pigmentation, Changing Lesions, Dry Skin, Erythema, Furuncle, Hirsutism, Lesions, New Lesions, Non-Healing Lesions, Photosensitivity, Pruritus, Rash, Skin Pain, Skin Ulcer, Sores, Striae, Swelling , Unusual Bruising, Wounds, Jaundice, Other - Neurological Neurological: absent: As Per HPI, Abnormal Gait, Abnormal Hearing, Abnormal Movements, Abnormal Speech, Behavioral Changes, Burning Sensations, Confusion, Convulsions, Disequilibrium, Dizziness, Numbness, Focal Weakness, Frequent Falls , Headaches, Lack of Coordination, Loss of Vision, Memory Loss, Paresthesias, Radicular Pain, Restless Legs, Sensory Deficit, Syncope, Tingling, Tremor, Vertigo, Weakness, Other Visual Disturbances, Other - Psychiatric Psychiatric: absent: As Per HPI, Abnormal Sleep Pattern, Anhedonia, Anxiety, Auditory Hallucinations, Behavioral Changes, Change in Appetite, Change in Libido, Confusion, Depression, Difficulty Concentrating, Hallucinations, Homicidal Ideation, Hopelessness, Irritability, Memory Loss, Mood Swings, Panic Attacks, Paranoia, Suicidal Ideation, Visual Hallucinations, Tactile Hallucinations, Other - Endocrine Endocrine: absent: As Per HPI, Change in Body Appearance, Change in Libido, Cold Intolorance, Deepening of Voice, Excessive Sweating, Fatigue, Flushing, Heat Intolorance, Increase in Ring/Shoe/Hat Size, Palpitations, Polydipsia, Polyphagia, Polyuria, Other - Hematologic/Lymphatic Hematologic: absent: As Per HPI, Easy Bleeding, Easy Bruising, Lymphadenopathy, Other Past Patient History - Infectious Disease Hx of Infectious Diseases: None - Past Medical History & Family History Past Medical History?: Yes - Past Social History Smoking Status: Current Some Days Smoker - CARDIAC Hx Hypertension: Yes - PULMONARY Hx Respiratory Disorders: No - NEUROLOGICAL Hx Neurological Disorder: No Hx Paralysis: No - HEENT Hx HEENT Problems: No - RENAL Hx Chronic Kidney Disease: Yes - ENDOCRINE/METABOLIC Hx Endocrine Disorders: Yes Hx Diabetes Mellitus Type 2: Yes (pt denies.) - HEMATOLOGICAL/ONCOLOGICAL Hx Blood Disorders: Yes Hx Blood Transfusions: Yes Hx Blood Transfusion Reaction: No Hx Cancer: Yes (Prostate, Stomach.) - INTEGUMENTARY Hx Dermatological Problems: No - MUSCULOSKELETAL/RHEUMATOLOGICAL Hx Falls: No - GASTROINTESTINAL Hx Gastrointestinal Disorders: Yes Other/Comment: Stomach Ca. - GENITOURINARY/GYNECOLOGICAL Hx Genitourinary Disorders: Yes Hx Prostate Cancer: Yes Hx Prostate Problems: Yes - PSYCHIATRIC Hx Substance Use: No - SURGICAL HISTORY Hx Surgeries: Yes Other/Comment: nephrostomy tube. - ANESTHESIA Hx Anesthesia: Yes Hx Anesthesia Reactions: No Hx Malignant Hyperthermia: No Meds Allergies/Adverse Reactions: Allergies Allergy/AdvReac Type Severity Reaction Status Date / Time No Known Allergies Allergy Verified 10/06/16 10:16 - Medications Medications: Current Medications Calcium/Vitamin D (Oyster Shell Calcium/Vitamin D 500 Mg-200 Iu) 1 tab PO BID [facility] Stop: 11/16/16 20:00 Last Admin: 11/14/16 09:03 Dose: 1 tab Enoxaparin Sodium (Lovenox) 40 mg SC DAILY [facility] Last Admin: 11/14/16 09:03 Dose: 40 mg Sodium Chloride (Sodium Chloride 0.9%) 1,000 mls @ 100 mls/hr IV .Q10H [facility] Last Admin: 11/14/16 06:06 Dose: 100 mls/hr Imipenem/Cilastatin Sodium 500 (mg/ Sodium Chloride) 100 mls @ 100 mls/hr IVPB Q6H [facility] Last Admin: 11/14/16 11:32 Dose: 100 mls/hr Pantoprazole Sodium (Protonix Ec Tab) 40 mg PO DAILY [facility] Last Admin: 11/14/16 09:03 Dose: 40 mg Potassium Chloride (Klor-Con 10) 10 meq PO BRK [facility] Last Admin: 11/14/16 09:00 Dose: 10 meq Physical Exam - Constitutional Appears: Non-toxic, Cachectic, Chronically Ill - Head Exam Head Exam: ATRAUMATIC, NORMAL INSPECTION, NORMOCEPHALIC - Eye Exam Eye Exam: EOMI, PERRL. absent: Scleral icterus - ENT Exam ENT Exam: Mucous Membranes Dry, Normal External Ear Exam, Normal Oropharynx - Neck Exam Neck exam: Negative for: Lymphadenopathy - Respiratory Exam Respiratory Exam: Decreased Breath Sounds, Rhonchi - Cardiovascular Exam Cardiovascular Exam: REGULAR RHYTHM, +S1, +S2 - GI/Abdominal Exam GI & Abdominal Exam: Diminished Bowel Sounds, Soft. absent: Rigid, Tenderness - Rectal Exam Rectal Exam: Deferred - Exam Exam: NORMAL INSPECTION - Extremities Exam Extremities exam: Negative for: calf tenderness, pedal edema, tenderness, pedal pulses present - Back Exam Back exam: absent: CVA tenderness (L), CVA tenderness (R) - Neurological Exam Neurological exam: Alert, CN II-XII Intact, Oriented x3, Reflexes Normal - Psychiatric Exam Psychiatric exam: Normal Mood - Skin Skin Exam: Dry, Intact Results - Vital Signs Recent Vital Signs: Last Vital Signs Temp 97.5 F L 11/14/16 08:31 Pulse 101 H 11/14/16 08:31 Resp 20 11/14/16 08:31 BP 106/72 11/14/16 08:31 Pulse Ox 97 11/14/16 08:31 - Labs Result Diagrams: 11/12/16 12:01 11/12/16 12:59 Assessment & Plan (1) Hypotension Status: Acute (2) Abdominal pain Status: Acute Priority: Low (3) Abnormal PSA Status: Acute - Assessment and Plan (Free Text) Assessment: hx of urosepsis rx in progress] gu on board
[2016-11-15] MEDS: Sodium Chloride 0.9% 1,000 ML IV SCH ×2 (02:00→11:43)
[2016-11-15] MEDS: Potassium Chloride 10 mEq ER Tab PO SCH (08:13)
[2016-11-15] MEDS: Enoxaparin 40 mg Syringe SC SCH (09:51)
[2016-11-15] MEDS: Calcium-Vit D 500 mg-200 Units Tab UD PO SCH ×2 (09:51→17:14)
[2016-11-15] MEDS: Pantoprazole 40 mg EC Tab PO SCH (09:51)
--- NOTE | 2016-11-15 18:22 | CP.PCM.PN ---
Subjective - Date & Time of Evaluation Date of Evaluation: 11/15/16 Time of Evaluation: 13:00 - Subjective Subjective: clinically same Objective - Vital Signs/Intake and Output Vital Signs (last 24 hours): Temp Pulse Resp BP Pulse Ox 97.5 F L 114 H 20 122/83 99 11/15/16 15:39 11/15/16 15:39 11/15/16 15:39 11/15/16 15:39 11/15/16 15:39 Intake and Output: 11/15/16 11/15/16 06:59 18:59 Intake Total 1040 Output Total 200 Balance 840 - Medications Medications: Current Medications Calcium/Vitamin D (Oyster Shell Calcium/Vitamin D 500 Mg-200 Iu) 1 tab PO BID [facility] Stop: 11/16/16 20:00 Last Admin: 11/15/16 17:14 Dose: 1 tab Enoxaparin Sodium (Lovenox) 40 mg SC DAILY [facility] Last Admin: 11/15/16 09:51 Dose: 40 mg Imipenem/Cilastatin Sodium 500 (mg/ Sodium Chloride) 100 mls @ 100 mls/hr IVPB Q6H [facility] Last Admin: 11/15/16 17:40 Dose: 100 mls/hr Pantoprazole Sodium (Protonix Ec Tab) 40 mg PO DAILY [facility] Last Admin: 11/15/16 09:51 Dose: 40 mg Potassium Chloride (Klor-Con 10) 10 meq PO BRK [facility] Last Admin: 11/15/16 08:13 Dose: 10 meq - Labs Labs: PT 12.0 SECONDS (9.7-12.2) 11/12/16 12:01 INR 1.1 11/12/16 12:01 APTT 39 SECONDS (21-34) H 11/12/16 12:01 - Constitutional Appears: Well - Head Exam Head Exam: ATRAUMATIC, NORMAL INSPECTION, NORMOCEPHALIC - Eye Exam Eye Exam: EOMI, Normal appearance, PERRL Pupil Exam: NORMAL ACCOMODATION, PERRL - ENT Exam ENT Exam: Mucous Membranes Moist, Normal Exam - Neck Exam Neck Exam: Full ROM, Normal Inspection. absent: Lymphadenopathy - Respiratory Exam Respiratory Exam: Decreased Breath Sounds - Cardiovascular Exam Cardiovascular Exam: REGULAR RHYTHM, +S1, +S2 - GI/Abdominal Exam GI & Abdominal Exam: Soft, Diminished Bowel Sounds - Rectal Exam Rectal Exam: Deferred
[2016-11-16] MEDS: Potassium Chloride 10 mEq ER Tab PO SCH (08:12)
[2016-11-16] MEDS: Pantoprazole 40 mg EC Tab PO SCH (09:38)
[2016-11-16] MEDS: Calcium-Vit D 500 mg-200 Units Tab UD PO SCH ×2 (09:38→18:45)
[2016-11-16] MEDS: Enoxaparin 40 mg Syringe SC SCH (09:39)
--- NOTE | 2016-11-16 12:50 | CARD ---
APPROVED REPORT EKG Measurement Heart [id number] <Conclusion> Normal sinus rhythm Nonspecific ST and T wave abnormality Abnormal ECG
[2016-11-16 13:48] LABS: BASO # 0.1 K/uL (0.0-0.2); BASO % 1.9 % (0.0-2.0); EOS # 0.1 K/uL (0.0-0.7); HEMATOCRIT 37.9 % (35.0-51.0); LYMPH # 0.6 K/uL (1.0-4.3); LYMPH % 12.9 % (20.0-40.0); MEAN CELL VOLUME 91.9 fL (80.0-94.0); MEAN CORPUSCULAR HEMOGLOBIN 29.9 pg (27.0-31.0); MEAN CORPUSCULAR HGB CONC 32.6 g/dL (33.0-37.0); MEAN PLATELET VOLUME 8.2 fL (7.2-11.7); MONO # 0.4 K/uL (0.0-0.8); MONO % 7.8 % (0.0-10.0); NRBC % 0.1 % (0.0-2.0); RED CELL DISTRIBUTION WIDTH 17.5 % (11.5-14.5); WHITE BLOOD COUNT 4.6 K/uL (4.8-10.8)
[2016-11-16 13:56] LABS: CHLORIDE 103 mmol/L (98-107); SODIUM 130 mmol/L (132-148)
[2016-11-16 13:57] LABS: POTASSIUM 4.8 mmol/L (3.6-5.2)
[2016-11-16 13:59] LABS: ALB/GLOB RATIO 0.6 (1.0-2.1); AST/SGOT 23 U/L (17-59); BILIRUBIN,TOTAL 0.6 mg/dL (0.2-1.3); BLOOD UREA NITROGEN 14 mg/dL (9-20); CARBON DIOXIDE 22 mmol/L (22-30); GFR AFRICAN-AMERICAN > 60; GLUCOSE,RANDOM 64 mg/dL (75-110); TOTAL PROTEIN 5.5 g/dL (6.3-8.3)
[2016-11-16 14:00] LABS: ALKALINE PHOSPHATASE 185 U/L (38-126); ALT/SGPT 17 U/L (21-72); CALCIUM 7.9 mg/dl (8.6-10.4)
--- NOTE | 2016-11-16 15:45 | PCM.URO ---
Urology Progress Note - Objective Lab Results Last 24 Hours: Laboratory Results - last 24 hr 11/16/16 11/16/16 13:38 13:38 WBC 4.6 L RBC 4.12 L Hgb 12.3 Hct 37.9 MCV 91.9 MCH 29.9 MCHC 32.6 L RDW 17.5 H Plt Count 274 MPV 8.2 Neut % (Auto) 75.4 H Lymph % (Auto) 12.9 L [place] % (Auto) 7.8 Eos % (Auto) 2.0 Baso % (Auto) 1.9 Neut # 3.5 Lymph # 0.6 L [place] # 0.4 Eos # 0.1 Baso # 0.1 Sodium 130 L Potassium 4.8 Chloride 103 Carbon Dioxide 22 Anion Gap 10 BUN 14 Creatinine 0.7 L Est GFR ( Amer) > 60 Est GFR (Non-Af Amer) > 60 Random Glucose 64 L Calcium 7.9 L Total Bilirubin 0.6 AST 23 ALT 17 L Alkaline Phosphatase 185 H Total Protein 5.5 L Albumin 2.0 L Globulin 3.5 Albumin/Globulin Ratio 0.6 L Intake & Output: Intake & Output 11/15/16 11/16/16 11/16/16 18:59 06:59 18:59 Intake Total 1720 Output Total 750 Balance 970 Intake: Intake, IV Amount 1600 Left Antecubital 1600 Oral 120 Output: Drainage 750 right Nephrostomy tube 750 Other: # Bowel Movements 4 Vital Signs: Vital Signs - 24 hr 11/15/16 11/16/16 11/16/16 23:40 08:38 08:44 Temperature 97.9 F 97.2 F L Pulse Rate 105 H 115 H 105 H Respiratory 20 20 Rate Blood Pressure 107/75 115/81 O2 Sat by Pulse 94 L 96 Oximetry
--- NOTE | 2016-11-16 15:51 | CP.PCM.PN ---
Subjective - Date & Time of Evaluation Date of Evaluation: 11/16/16 Time of Evaluation: 12:40 - Subjective Subjective: clinically same Objective - Vital Signs/Intake and Output Vital Signs (last 24 hours): Temp Pulse Resp BP Pulse Ox 98.8 F 114 H 20 94/70 L 98 11/16/16 15:40 11/16/16 15:40 11/16/16 15:40 11/16/16 15:40 11/16/16 15:40 Intake and Output: 11/16/16 11/16/16 06:59 18:59 Intake Total 1720 Output Total 750 Balance 970 - Medications Medications: Current Medications Calcium/Vitamin D (Oyster Shell Calcium/Vitamin D 500 Mg-200 Iu) 1 tab PO BID [facility] Stop: 11/16/16 20:00 Last Admin: 11/16/16 09:38 Dose: 1 tab Enoxaparin Sodium (Lovenox) 40 mg SC DAILY [facility] Last Admin: 11/16/16 09:39 Dose: 40 mg Imipenem/Cilastatin Sodium 500 (mg/ Sodium Chloride) 100 mls @ 100 mls/hr IVPB Q6H [facility] Last Admin: 11/16/16 11:58 Dose: 100 mls/hr Pantoprazole Sodium (Protonix Ec Tab) 40 mg PO DAILY [facility] Last Admin: 11/16/16 09:38 Dose: 40 mg Potassium Chloride (Klor-Con 10) 10 meq PO BRK [facility] Last Admin: 11/16/16 08:12 Dose: 10 meq - Labs Labs: 11/16/16 13:38 11/16/16 13:38 PT 12.0 SECONDS (9.7-12.2) 11/12/16 12:01 INR 1.1 11/12/16 12:01 APTT 39 SECONDS (21-34) H 11/12/16 12:01 - Constitutional Appears: Well - Head Exam Head Exam: ATRAUMATIC, NORMAL INSPECTION, NORMOCEPHALIC - Eye Exam Eye Exam: EOMI, Normal appearance, PERRL Pupil Exam: NORMAL ACCOMODATION, PERRL - ENT Exam ENT Exam: Mucous Membranes Moist, Normal Exam - Neck Exam Neck Exam: Full ROM, Normal Inspection. absent: Lymphadenopathy - Respiratory Exam Respiratory Exam: Decreased Breath Sounds - Cardiovascular Exam Cardiovascular Exam: REGULAR RHYTHM, +S1, +S2 - GI/Abdominal Exam GI & Abdominal Exam: Soft, Diminished Bowel Sounds - Rectal Exam Rectal Exam: Deferred
[2016-11-17] MEDS ORDERED: Dextrose 50% SYRINGE Inj (50 ml) ONE ×3 (04:41→17:33)
[2016-11-17] MEDS ORDERED: Dextrose 50% SYRINGE Inj (50 ml) IV STA ×6 (04:45→21:52)
[2016-11-17] MEDS ORDERED: Propofol 10 mg/ml Inj (20 ML) IV ONE (05:15)
[2016-11-17] MEDS ORDERED: Propofol 10 mg/ml Inj (20 ML) ONE (05:18)
[2016-11-17] MEDS ORDERED: Sodium Chloride 0.9% 1,000 ML IV ONE (05:21)
[2016-11-17 05:30] LABS: ABG MECHANICAL RATE 16; ATERIAL BLOOD GAS PEEP 5
[2016-11-17] MEDS ORDERED: Dextrose 5%/0.9% NS 1,000 ML IV SCH (05:30)
--- NOTE | 2016-11-17 06:01 | CP.PCM.PN ---
<SharonpascualGrant powell - Last Filed: 11/17/16 06:04> Subjective - Date & Time of Evaluation Date of Evaluation: 11/17/16 Time of Evaluation: 04:35 - Subjective Subjective: Responded to Code Blue at 4:35 AM Patient found unresponsive, pulseless. About 35 minutes before code was called patient was sitting up and responding to nurse without any difficulty. Patient' s extremities were cold to touch. Oxygen saturation was unable to be obtained initially. ACLS protocol was initiated. Patient was intubated orally with MAC 4 blade. Size 8 ET tube was secured to lip at 23 inches and OG tube placed. He was found to be hypoglycemic. D50 was given. Repeat blood glucose was still low so d50 was given again. Patient transferred to ICU and placed on vent support ( 450, 5, 20, 50%). CXR was ordered to confirm positioning of ET tube and OG tube. ABG shock panel was done. Propofol was given because patient biting on tube. Vitals signs now stable. A liter bolus of NS was given while D5NS was ordered for maintenance fluid. Repeat ABG ordered for the morning along with EEG. NOK was called but no answer. Another friend was also listed as person to notify, they answered and came to the hospital. Nursing notified Dr. Gonzalez's service to make him aware. Objective - Vital Signs/Intake and Output Vital Signs (last 24 hours): Temp Pulse Resp BP Pulse Ox 97.8 F 109 H 20 106/76 98 11/16/16 23:20 11/17/16 02:00 11/16/16 23:20 11/16/16 23:20 11/16/16 23:20 Intake and Output: 11/16/16 11/17/16 18:59 06:59 Intake Total 600 Output Total 250 852 Balance -250 -252 - Medications Medications: Current Medications Enoxaparin Sodium (Lovenox) 40 mg SC DAILY [facility] Last Admin: 11/16/16 09:39 Dose: 40 mg Imipenem/Cilastatin Sodium 500 (mg/ Sodium Chloride) 100 mls @ 100 mls/hr IVPB Q6H [facility] Last Admin: 11/17/16 00:35 Dose: 100 mls/hr Sodium Chloride (Sodium Chloride 0.9%) 1,000 mls @ 1,000 mls/hr IV .Q1H [facility] Stop: 11/17/16 06:20 Dextrose/Sodium Chloride (Dextrose 5%/0.9% Ns 1000 Ml) 1,000 mls @ 100 mls/hr IV .Q10H [facility] Pantoprazole Sodium (Protonix Inj) 40 mg IVP DAILY [facility] Potassium Chloride (Klor-Con 10) 10 meq PO BRK [facility] Last Admin: 11/16/16 08:12 Dose: 10 meq - Labs Labs: 11/16/16 13:38 11/16/16 13:38 PT 12.0 SECONDS (9.7-12.2) 11/12/16 12:01 INR 1.1 11/12/16 12:01 APTT 39 SECONDS (21-34) H 11/12/16 12:01 <Jared Mcnulty P - Last Filed: 11/20/16 23:25> Objective - Vital Signs/Intake and Output Vital Signs (last 24 hours): Temp Pulse Resp BP Pulse Ox 97.8 F 100 H 17 116/53 L 100 11/20/16 20:00 11/20/16 22:00 11/20/16 22:00 11/20/16 21:46 11/20/16 22:00 Intake and Output: 11/20/16 11/21/16 18:59 06:59 Intake Total 970 200 Output Total 2180 850 Balance -1210 -650 - Medications Medications: Current Medications Enoxaparin Sodium (Lovenox) 40 mg SC DAILY [facility] Last Admin: 11/20/16 09:14 Dose: 40 mg Furosemide (Lasix) 20 mg IVP Q12 [facility] Last Admin: 11/20/16 21:34 Dose: 20 mg Hydrocortisone Sodium Succinate (Solu-Cortef) 50 mg IV Q8H [facility] Last Admin: 11/20/16 21:31 Dose: 50 mg Cefepime HCl 1 gm/ Dextrose 50 mls @ 100 mls/hr IVPB Q12H [facility] Last Admin: 11/20/16 18:37 Dose: 100 mls/hr Pantoprazole Sodium (Protonix Inj) 40 mg IVP DAILY [facility] Last Admin: 11/20/16 09:14 Dose: 40 mg - Labs Labs: 11/20/16 06:30 11/20/16 06:30 PT 13.7 SECONDS (9.7-12.2) H 11/17/16 06:33 INR 1.2 05/31/17 06:33 APTT 37 SECONDS (21-34) H 11/17/16 06:33 Attending/Attestation - Attestation I have personally seen and examined this patient.: Yes I have fully participated in the care of the patient.: Yes I have reviewed all pertinent clinical information, including history, physical exam and plan: Yes
--- NOTE | 2016-11-17 06:07 | PCM.PROC ---
<Grant Rodriguez - Last Filed: 11/17/16 06:06> Procedures Attestation:: I certify that I have explained the specified Operation(s) or Procedure(s), risks, benefits and reasonable alternatives to the Patient and/or other person responsible. The opportunity was given to ask questions and all questions answered - Intubation Time Out Performed: Yes Sedative: None Laryngoscope: Isreal ET Tube Size: 8.0 ET Tube Uncuffed: No ET Tube Secured at Depth: 23 in ET Tube Secured Locarion: Lips ET Tube Placement Confirmation: Visualized Passing Through Cords, Breath Sounds Equal Bilaterally, No Breath Sounds Over Epigastrum, Confirmation w/Capnometry Patient Tolerated Procedure: Well Procedure Immediate Complications: None Additional comments: Intubation was performed by the attending, Dr. Mcnulty. <Jared Mcnulty - Last Filed: 11/20/16 23:26> Attending/Attestation - Attestation I have personally seen and examined this patient.: Yes I have fully participated in the care of the patient.: Yes I have reviewed all pertinent clinical information, including history, physical exam and plan: Yes
[2016-11-17 06:51] LABS: CHLORIDE 101 mmol/L (98-107); POTASSIUM 4.4 mmol/L (3.6-5.2); SODIUM 126 mmol/L (132-148)
[2016-11-17 06:53] LABS: AST/SGOT 105 U/L (17-59); BILIRUBIN,TOTAL 0.7 mg/dL (0.2-1.3); CARBON DIOXIDE 17 mmol/L (22-30); GFR AFRICAN-AMERICAN > 60
[2016-11-17 06:54] LABS: ALB/GLOB RATIO 0.6 (1.0-2.1); ALKALINE PHOSPHATASE 172 U/L (38-126); ALT/SGPT 38 U/L (21-72); BASO # 0.1 K/uL (0.0-0.2); BASO % 1.2 % (0.0-2.0); BLOOD UREA NITROGEN 15 mg/dL (9-20); CALCIUM 7.4 mg/dl (8.6-10.4); EOS # 0.1 K/uL (0.0-0.7); EOS % 1.9 % (0.0-4.0); GLUCOSE,RANDOM 210 mg/dL (75-110); LYMPH # 0.6 K/uL (1.0-4.3); LYMPH % 15.3 % (20.0-40.0); MAGNESIUM 1.9 mg/dL (1.6-2.3); MEAN CELL VOLUME 94.1 fL (80.0-94.0); MEAN CORPUSCULAR HEMOGLOBIN 30.7 pg (27.0-31.0); MEAN CORPUSCULAR HGB CONC 32.7 g/dL (33.0-37.0); MEAN PLATELET VOLUME 8.5 fL (7.2-11.7); MONO # 0.2 K/uL (0.0-0.8); MONO % 4.7 % (0.0-10.0); RED CELL DISTRIBUTION WIDTH 16.9 % (11.5-14.5); TOTAL PROTEIN 5.1 g/dL (6.3-8.3); WHITE BLOOD COUNT 4.1 K/uL (4.8-10.8)
[2016-11-17 07:00] LABS: INR 1.2
[2016-11-17] MEDS: Sodium Bicarbonate 8.4% 150 MEQ in Sodium Chloride 0.45% 850 ML IV SCH ×2 (08:27→18:29)
--- NOTE | 2016-11-17 09:27 | CON ---
DATE: 11/17/2016 REASON FOR CONSULTATION: History of prostate cancer. HISTORY OF PRESENT ILLNESS: A 61-year-old male sent to the Emergency Room from the halfway for evaluation of hypertension. He felt dizzy, had had a chest pain a day before the admission. Also re ports intermittent diarrhea, but no fever, no chills, no cough, or sputum. Admitted, and I am called on a consult because he has a history of prostate cancer. PAST MEDICAL HISTORY: Significant for chronic back problem, hypertension, prostate cancer, maybe boo creatic cancer - I doubt it. Chronic kidney disease, chronic back pain, nephrostomy tube. LIST OF MEDICATIONS: Reviewed. ALLERGIES: ____ list of allergies with other documentation. SOCIAL HISTORY: [facility] resident. REVIEW OF SYSTEMS: Intubated at present time. PHYSICAL EXAMINATION: GENERAL: A little more awake now. VITAL SIGNS: Temperature was 92.3, pulse 90, respirations ____, blood pressure 115/83 intubated. HEENT: Normocephalic, atraumatic. The patient is cachectic. LUNGS: Decreased breath sounds bilaterally. HEART: S1, S2, regular, tachycardia. ABDOMEN: Soft, not distended. Mild tenderness. No hepatosplenomegaly. CENTRAL NERVOUS SYSTEM: No gross motor or sensory deficit. Moves all 4 extremities. LYMPH NODES: No cervical or axillary lymph nodes palpable. LABORATORY DATA: WBC 4100, hemoglobin 11.8, hematocrit 94.1. Platelet count is 219,000. Serum chem istry: Sodium 126, BUN 15, creatinine 0.7. Serum calcium is 7.4. Alkaline phosphatase 172. Albumi n is 2. IMPRESSION: 1. History of carcinoma of the prostate. 2. Anemia. 3. Rule out carcinoma of the rectum, metastases to the abdomen and omentum. PLAN: The patient is intubated at present time. The patient has a poor prognosis. The patient is a ppropriate candidate for the palliative care. Supportive care and comfort should be the main goal. We will discuss with Dr. Geneva Gonzalez. Overall prognosis is poor. Thank you for letting me participate in the care of this patient, and I will follow up the patient wi th you p.r.n. Diana Mejia MD cc: [phone] TT: 11/17/2016 09:27:03 Confirmation # [id number] Dictation # [id number]
--- NOTE | 2016-11-17 09:38 | RAD ---
Chest x-ray single frontal view History: Intubated. Comparison: 11/12/2016 Findings: Endotracheal tube extending into the mid thoracic trachea. NG tube extending into the stomach. Diffuse confluent airspace opacifications throughout both lungs with associated bilateral pleural effusions. Right paratracheal airspace opacity. Scoliotic curvature of the spine. Mild cardiomegaly. Degenerative changes in the spine and shoulders. Impression: Diffuse confluent airspace opacifications throughout both lungs with associated bilateral pleural effusions. Right paratracheal airspace opacity.
[2016-11-17] MEDS ORDERED: Sodium Chloride 0.9% 500 ML IV ONE (09:57)
[2016-11-17] MEDS ORDERED: DOPamine 400mg/250ml D5W 400 MG/250 ML BAG IV PRN (09:58)
[2016-11-17] MEDS ORDERED: Midazolam 2 MG/2 ML VIAL IVP ONE (10:40)
--- NOTE | 2016-11-17 11:11 | CP.PCM.CON ---
<Jorge Alberto Farrell - Last Filed: 11/17/16 13:24> History of Present Illness - History of Present Illness History of Present Illness: ICU consult note This is a 61 yo M with PMH of HTN, CKD, nephrostomy tube placement, and prostate cancer that was sent from [place] for evaluation for hypotension. The pt had associated dizziness and was admitted. Last night around 04:30, pt was found to be pulselss and unresponsive. Code blue was called and ACLS initiated with ROSC after 2 amps of D50, epi x2 and intubation. Pt then transferred to ICU for further management. Pt on Primaxin (11/12) and found to be very acidemic - started on bicarb drip. No other ROS obtainable at this time. PMH: as per HPI Meds: Leapfactor reviewed Allergies: NKDA Review of Systems - Review of Systems Systems not reviewed;Unavailable: Intubated Past Patient History - Infectious Disease Hx of Infectious Diseases: None - Past Medical History & Family History Past Medical History?: Yes - Past Social History Smoking Status: Current Some Days Smoker - CARDIAC Hx Hypertension: Yes - PULMONARY Hx Respiratory Disorders: No - NEUROLOGICAL Hx Neurological Disorder: No Hx Paralysis: No - HEENT Hx HEENT Problems: No - RENAL Hx Chronic Kidney Disease: Yes - ENDOCRINE/METABOLIC Hx Endocrine Disorders: Yes Hx Diabetes Mellitus Type 2: Yes (pt denies.) - HEMATOLOGICAL/ONCOLOGICAL Hx Blood Disorders: Yes Hx Blood Transfusions: Yes Hx Blood Transfusion Reaction: No Hx Cancer: Yes (Prostate, Stomach.) - INTEGUMENTARY Hx Dermatological Problems: No - MUSCULOSKELETAL/RHEUMATOLOGICAL Hx Falls: No - GASTROINTESTINAL Hx Gastrointestinal Disorders: Yes Other/Comment: Stomach Ca. - GENITOURINARY/GYNECOLOGICAL Hx Genitourinary Disorders: Yes Hx Prostate Cancer: Yes Hx Prostate Problems: Yes - PSYCHIATRIC Hx Substance Use: No - SURGICAL HISTORY Hx Surgeries: Yes Other/Comment: nephrostomy tube. - ANESTHESIA Hx Anesthesia: Yes Hx Anesthesia Reactions: No Hx Malignant Hyperthermia: No Meds Allergies/Adverse Reactions: Allergies Allergy/AdvReac Type Severity Reaction Status Date / Time No Known Allergies Allergy Verified 10/06/16 10:16 - Medications Medications: Current Medications Enoxaparin Sodium (Lovenox) 40 mg SC DAILY [facility] Last Admin: 11/16/16 09:39 Dose: 40 mg Imipenem/Cilastatin Sodium 500 (mg/ Sodium Chloride) 100 mls @ 100 mls/hr IVPB Q6H [facility] Last Admin: 11/17/16 06:20 Dose: 100 mls/hr Sodium Bicarbonate 150 meq/ (Sodium Chloride) 1,000 mls @ 100 mls/hr IV .Q10H [facility] Last Admin: 11/17/16 08:27 Dose: 100 mls/hr Albumin Human (Albumin Human 25% (12.5 Gm/50 Ml)) 50 mls @ 1 mls/min IVPB ONCE ONE Stop: 11/17/16 10:46 Dopamine HCl/Dextrose (Dopamine 400mg/250ml D5w) 400 mg in 250 mls @ 4.838 mls/ hr IV .Q24H PRN; Protocol; 2 MCG/KG/MIN PRN Reason: TITRATE PER MD ORDER Sodium Chloride (Sodium Chloride 0.9%) 500 mls @ 1,000 mls/hr IV .Q30M ONE Stop: 11/17/16 10:26 Pantoprazole Sodium (Protonix Inj) 40 mg IVP DAILY [facility] Potassium Chloride (Klor-Con 10) 10 meq PO BRK [facility] Last Admin: 11/16/16 08:12 Dose: 10 meq Physical Exam - Constitutional Appears: Other (intubated) - Head Exam Head Exam: ATRAUMATIC, NORMOCEPHALIC - Eye Exam Eye Exam: EOMI Pupil Exam: PERRL - ENT Exam ENT Exam: Mucous Membranes Moist - Respiratory Exam Respiratory Exam: Clear to Auscultation Bilateral Additional comments: intubated on mechanical ventilation - Cardiovascular Exam Cardiovascular Exam: +S1, +S2 - GI/Abdominal Exam GI & Abdominal Exam: Normal Bowel Sounds, Soft - Neurological Exam Additional comments: intubated - Skin Skin Exam: Dry, Warm Results - Vital Signs Recent Vital Signs: Last Vital Signs Temp 93.3 F L 11/17/16 08:00 Pulse 113 H 11/17/16 10:00 Resp 26 H 11/17/16 10:00 BP 106/87 11/17/16 10:00 Pulse Ox 98 11/17/16 10:00 - Labs Result Diagrams: 11/17/16 06:33 11/17/16 06:33 Labs: Laboratory Results - last 24 hr 11/16/16 11/16/16 11/17/16 13:38 13:38 04:38 WBC 4.6 L RBC 4.12 L Hgb 12.3 Hct 37.9 MCV 91.9 MCH 29.9 MCHC 32.6 L RDW 17.5 H Plt Count 274 MPV 8.2 Neut % (Auto) 75.4 H Lymph % (Auto) 12.9 L [place] % (Auto) 7.8 Eos % (Auto) 2.0 Baso % (Auto) 1.9 Neut # 3.5 Lymph # 0.6 L [place] # 0.4 Eos # 0.1 Baso # 0.1 PT INR APTT Puncture Site pCO2 pO2 HCO3 ABG pH ABG Total CO2 ABG Base Excess Josh Test ABG Potassium A-a O2 Difference Respiratory Index Glucose Lactate Mechanical Rate FiO2 Tidal Volume PEEP Crit Value Called To Crit Value Called By Crit Value Read Back Blood Gas Notified Time Sodium 130 L Potassium 4.8 Chloride 103 Carbon Dioxide 22 Anion Gap 10 BUN 14 Creatinine 0.7 L Est GFR ( Amer) > 60 Est GFR (Non-Af Amer) > 60 POC Glucose (mg/dL) 28 L* Random Glucose 64 L Calcium 7.9 L Phosphorus Magnesium Total Bilirubin 0.6 AST 23 ALT 17 L Alkaline Phosphatase 185 H Total Creatine Kinase CK-MB (Mass) Troponin I, Quant Total Protein 5.5 L Albumin 2.0 L Globulin 3.5 Albumin/Globulin Ratio 0.6 L Arterial Blood Potassium 11/17/16 11/17/16 11/17/16 04:48 05:23 05:25 WBC RBC Hgb Hct MCV MCH MCHC RDW Plt Count MPV Neut % (Auto) Lymph % (Auto) [place] % (Auto) Eos % (Auto) Baso % (Auto) Neut # Lymph # [place] # Eos # Baso # PT INR APTT Puncture Site Rb/rn ada pCO2 43 pO2 286 H HCO3 13.4 L ABG pH 7.12 L* ABG Total CO2 15.3 L ABG Base Excess -14.9 L Josh Test Na ABG Potassium 4.2 A-a O2 Difference 373.0 Respiratory Index 1.3 Glucose 259 H Lactate 2.5 H Mechanical Rate 16 FiO2 100.0 Tidal Volume 450 PEEP 5 Crit Value Called To Dr rosenbaum Crit Value Called By Hollis carver/rt Crit Value Read Back Y Blood Gas Notified Time 535 Sodium 125.0 L Potassium Chloride 102.0 Carbon Dioxide Anion Gap BUN Creatinine Est GFR ( Amer) Est GFR (Non-Af Amer) POC Glucose (mg/dL) 38 L* 155 H Random Glucose Calcium Phosphorus Magnesium Total Bilirubin AST ALT Alkaline Phosphatase Total Creatine Kinase CK-MB (Mass) Troponin I, Quant Total Protein Albumin Globulin Albumin/Globulin Ratio Arterial Blood Potassium 4.2 11/17/16 11/17/16 11/17/16 06:33 06:33 06:33 WBC 4.1 L RBC 3.83 L Hgb 11.8 L Hct 36.0 MCV 94.1 H D MCH 30.7 MCHC 32.7 L RDW 16.9 H Plt Count 219 MPV 8.5 Neut % (Auto) 76.9 H Lymph % (Auto) 15.3 L [place] % (Auto) 4.7 Eos % (Auto) 1.9 Baso % (Auto) 1.2 Neut # 3.2 Lymph # 0.6 L [place] # 0.2 Eos # 0.1 Baso # 0.1 PT 13.7 H INR 1.2 APTT 37 H Puncture Site pCO2 pO2 HCO3 ABG pH ABG Total CO2 ABG Base Excess Josh Test ABG Potassium A-a O2 Difference Respiratory Index Glucose Lactate Mechanical Rate FiO2 Tidal Volume PEEP Crit Value Called To Crit Value Called By Crit Value Read Back Blood Gas Notified Time Sodium 126 L Potassium 4.4 Chloride 101 Carbon Dioxide 17 L Anion Gap 12 BUN 15 Creatinine 0.7 L Est GFR ( Amer) > 60 Est GFR (Non-Af Amer) > 60 POC Glucose (mg/dL) Random Glucose 210 H Calcium 7.4 L Phosphorus 4.0 Magnesium 1.9 Total Bilirubin 0.7 AST 105 H D ALT 38 Alkaline Phosphatase 172 H Total Creatine Kinase 46 L CK-MB (Mass) 0.57 Troponin I, Quant < 0.0120 Total Protein 5.1 L Albumin 2.0 L Globulin 3.1 Albumin/Globulin Ratio 0.6 L Arterial Blood Potassium Assessment & Plan - Assessment and Plan (Free Text) Assessment: This is a 61 yo M s/p cardiopulmonary arrest with unclear cause. Plan: Neuro: Intubated, more alert now Continue to monitor Cardiovascular: Hemodynamically stable No acute issues Pulmonary: Intubated Saturating well CXR - Diffuse confluent airspace opacifications throughout both lungs with associated bilateral pleural effusions. Right paratracheal airspace opacity. Maintain saturations above 90% Gastrointestinal: NG tube in place, hold feeding for now Albumin low - repleted Hematology: No acute issues Endocrine: Pt found to be severely hypoglycemic on floor, given 2 amps of D50 Accuchecks q6h Renal: Put on bicarb drip, acidemia resolved Continue to monitor labs/electrolytes Good urine output Infectious Disease: No leukocytosis, afebrile Primaxin since 11/12 GI Prophylaxis: Protonix DVT Prophylaxis: Lovenox <Kraig Leslie S - Last Filed: 11/17/16 18:18> Meds - Medications Medications: Current Medications Enoxaparin Sodium (Lovenox) 40 mg SC DAILY [facility] Last Admin: 11/17/16 14:00 Dose: 40 mg Sodium Bicarbonate 150 meq/ (Sodium Chloride) 1,000 mls @ 100 mls/hr IV .Q10H [facility] Last Admin: 11/17/16 08:27 Dose: 100 mls/hr Dopamine HCl/Dextrose (Dopamine 400mg/250ml D5w) 400 mg in 250 mls @ 4.838 mls/ hr IV .Q24H PRN; Protocol; 2 MCG/KG/MIN PRN Reason: TITRATE PER MD ORDER Dextrose (Dextrose 10% In Water) 1,000 mls @ 75 mls/hr IV .[id number] [facility] Last Admin: 11/17/16 12:20 Dose: 75 mls/hr Vancomycin HCl 1 gm/ Sodium (Chloride) 250 mls @ 166.7 mls/hr IVPB STAT STA Stop: 11/17/16 18:51 Cefepime HCl 1 gm/ Dextrose 50 mls @ 100 mls/hr IVPB Q12H [facility] Pantoprazole Sodium (Protonix Inj) 40 mg IVP DAILY [facility] Last Admin: 11/17/16 10:51 Dose: 40 mg Results - Vital Signs Recent Vital Signs: Last Vital Signs Temp 97.4 F L 11/17/16 16:00 Pulse 105 H 11/17/16 16:00 Resp 21 11/17/16 16:00 BP 105/79 11/17/16 16:00 Pulse Ox 98 11/17/16 16:00 - Labs Result Diagrams: 11/17/16 06:33 11/17/16 06:33 Labs: Laboratory Results - last 24 hr 11/17/16 11/17/16 11/17/16 04:38 04:48 05:23 WBC RBC Hgb Hct MCV MCH MCHC RDW Plt Count MPV Neut % (Auto) Lymph % (Auto) [place] % (Auto) Eos % (Auto) Baso % (Auto) Neut # Lymph # [place] # Eos # Baso # PT INR APTT Puncture Site pCO2 pO2 HCO3 ABG pH ABG Total CO2 ABG O2 Saturation ABG Base Excess ABG Hemoglobin ABG Carboxyhemoglobin POC ABG HHb (Measured) ABG Methemoglobin Josh Test ABG Potassium A-a O2 Difference Respiratory Index Hgb O2 Saturation Sodium Chloride Glucose Lactate Mechanical Rate FiO2 Tidal Volume PEEP Crit Value Called To Crit Value Called By Crit Value Read Back Blood Gas Notified Time Potassium Carbon Dioxide Anion Gap BUN Creatinine Est GFR ( Amer) Est GFR (Non-Af Amer) POC Glucose (mg/dL) 28 L* 38 L* 155 H Random Glucose Calcium Phosphorus Magnesium Total Bilirubin AST ALT Alkaline Phosphatase Total Creatine Kinase CK-MB (Mass) Troponin I, Quant Total Protein Albumin Globulin Albumin/Globulin Ratio Arterial Blood Potassium 11/17/16 11/17/16 11/17/16 05:25 06:33 06:33 WBC 4.1 L RBC 3.83 L Hgb 11.8 L Hct 36.0 MCV 94.1 H D MCH 30.7 MCHC 32.7 L RDW 16.9 H Plt Count 219 MPV 8.5 Neut % (Auto) 76.9 H Lymph % (Auto) 15.3 L [place] % (Auto) 4.7 Eos % (Auto) 1.9 Baso % (Auto) 1.2 Neut # 3.2 Lymph # 0.6 L [place] # 0.2 Eos # 0.1 Baso # 0.1 PT INR APTT Puncture Site Rb/rn ada pCO2 43 pO2 286 H HCO3 13.4 L ABG pH 7.12 L* ABG Total CO2 15.3 L ABG O2 Saturation ABG Base Excess -14.9 L ABG Hemoglobin ABG Carboxyhemoglobin POC ABG HHb (Measured) ABG Methemoglobin Josh Test Na ABG Potassium 4.2 A-a O2 Difference 373.0 Respiratory Index 1.3 Hgb O2 Saturation Sodium 125.0 L 126 L Chloride 102.0 101 Glucose 259 H Lactate 2.5 H Mechanical Rate 16 FiO2 100.0 Tidal Volume 450 PEEP 5 Crit Value Called To Dr rosenbaum Crit Value Called By Hollis carver/rt Crit Value Read Back Y Blood Gas Notified Time 535 Potassium 4.4 Carbon Dioxide 17 L Anion Gap 12 BUN 15 Creatinine 0.7 L Est GFR ( Amer) > 60 Est GFR (Non-Af Amer) > 60 POC Glucose (mg/dL) Random Glucose 210 H Calcium 7.4 L Phosphorus 4.0 Magnesium 1.9 Total Bilirubin 0.7 AST 105 H D ALT 38 Alkaline Phosphatase 172 H Total Creatine Kinase 46 L CK-MB (Mass) 0.57 Troponin I, Quant < 0.0120 Total Protein 5.1 L Albumin 2.0 L Globulin 3.1 Albumin/Globulin Ratio 0.6 L Arterial Blood Potassium 4.2 11/17/16 11/17/16 11/17/16 06:33 12:14 12:52 WBC RBC Hgb Hct MCV MCH MCHC RDW Plt Count MPV Neut % (Auto) Lymph % (Auto) [place] % (Auto) Eos % (Auto) Baso % (Auto) Neut # Lymph # [place] # Eos # Baso # PT 13.7 H INR 1.2 APTT 37 H Puncture Site pCO2 pO2 HCO3 ABG pH ABG Total CO2 ABG O2 Saturation ABG Base Excess ABG Hemoglobin ABG Carboxyhemoglobin POC ABG HHb (Measured) ABG Methemoglobin Josh Test ABG Potassium A-a O2 Difference Respiratory Index Hgb O2 Saturation Sodium Chloride Glucose Lactate Mechanical Rate FiO2 Tidal Volume PEEP Crit Value Called To Crit Value Called By Crit Value Read Back Blood Gas Notified Time Potassium Carbon Dioxide Anion Gap BUN Creatinine Est GFR ( Amer) Est GFR (Non-Af Amer) POC Glucose (mg/dL) 64 L 182 H Random Glucose Calcium Phosphorus Magnesium Total Bilirubin AST ALT Alkaline Phosphatase Total Creatine Kinase CK-MB (Mass) Troponin I, Quant Total Protein Albumin Globulin Albumin/Globulin Ratio Arterial Blood Potassium 11/17/16 11/17/16 13:11 17:29 WBC RBC Hgb Hct MCV MCH MCHC RDW Plt Count MPV Neut % (Auto) Lymph % (Auto) [place] % (Auto) Eos % (Auto) Baso % (Auto) Neut # Lymph # [place] # Eos # Baso # PT INR APTT Puncture Site Rr pCO2 26 L pO2 168 H HCO3 21.7 ABG pH 7.46 H ABG Total CO2 19.3 L ABG O2 Saturation 99.6 H ABG Base Excess -4.2 L ABG Hemoglobin 10.5 L ABG Carboxyhemoglobin 1.4 POC ABG HHb (Measured) 0.4 ABG Methemoglobin 0.9 Josh Test Pos ABG Potassium A-a O2 Difference 156.0 Respiratory Index 0.9 Hgb O2 Saturation 97.3 Sodium Chloride Glucose Lactate Mechanical Rate 20 FiO2 50.0 Tidal Volume 450 PEEP 5 Crit Value Called To Crit Value Called By Crit Value Read Back Blood Gas Notified Time Potassium Carbon Dioxide Anion Gap BUN Creatinine Est GFR ( Amer) Est GFR (Non-Af Amer) POC Glucose (mg/dL) 30 L* Random Glucose Calcium Phosphorus Magnesium Total Bilirubin AST ALT Alkaline Phosphatase Total Creatine Kinase CK-MB (Mass) Troponin I, Quant Total Protein Albumin Globulin Albumin/Globulin Ratio Arterial Blood Potassium Attending/Attestation - Attestation I have personally seen and examined this patient.: Yes I have fully participated in the care of the patient.: Yes I have reviewed all pertinent clinical information: Yes Notes (Text): 11/17/16 18:14 Patient seen and examined. Patient was transferred to ICU during night post cardiac arrest status post resuscitation. Found patient intubated on ventilatory support, hypotensive and hypoglycemic Triple-lumen catheter inserted into right internal jugular vein under aseptic conditions Patient started on pressors and D10 IV fluids On antibiotics Patient very cachectic with metastatic cancer Palliative care CONSULT Prognosis poor
--- NOTE | 2016-11-17 13:08 | RAD ---
HISTORY: central line placement . Portable study 12:06. COMPARISON: November 17, 2016. At 5 05:00. FINDINGS: LUNGS: Persistent lower lobe infiltrates right greater than left PLEURA: Stable bilateral pleural effusions. CARDIOVASCULAR: No significant interval change compared to the prior examination(s).Venous access catheter in satisfactory position. OSSEOUS STRUCTURES: No significant abnormalities. VISUALIZED UPPER ABDOMEN: Normal. OTHER FINDINGS: Satisfactory position ventilatory, vascular and nasogastric apparatus. IMPRESSION: Recently placed right IJ catheter tip in the SVC. No pneumothorax. Otherwise stable examination.
[2016-11-17 13:15] LABS: ABG ALLEN TEST POS; ABG MECHANICAL RATE 20; ARTERIAL BLOOD HGB O2 SAT 97.3 % (95.0-98.0); ATERIAL BLOOD GAS PEEP 5; CARBOXYHEMOGLOBIN 1.4 % (0.5-1.5); DRAW SITE RR; HHB 0.4 % (0.0-5.0); METHEMOGLOBIN 0.9 % (0.0-3.0)
--- NOTE | 2016-11-17 13:59 | PCM.PROC ---
Procedures Attestation:: I certify that I have explained the specified Operation(s) or Procedure(s), risks, benefits and reasonable alternatives to the Patient and/or other person responsible. The opportunity was given to ask questions and all questions answered - Central Line Placement Right Internal Jugular Triple Lumen Catheter Aseptic technique was employed throughout the procedure: Hand Hygiene done prior to procedure, Full sterile barriers (mask, hair cover, sterile gown, sterile gloves), Full body sterile drape, Chloraprep Antiseptic: 30 second prep for IJ or SC sites Central Line Prep: Chlorhexidine-Alcohol Combination Local Anesthesia Used: Lidocaine 1% Ultrasound Used for Placement: Yes Central Line Lumen Inserted: triple Central Line Length: 16 cm Post Procedure: Sutured in Place, Good Blood Return, All Ports Aspirated, Flushed, Capped, Sterile Dressing Applied Secured by: Suture Post procedure dressing: Chlorhexidine disc (Biopatch) Post Procedure X-Ray: Yes Patient Tolerated Procedure: Well Immediate Complications: None
[2016-11-17] MEDS: Enoxaparin 40 mg Syringe SC SCH (14:00)
--- NOTE | 2016-11-17 14:51 | CP.PCM.CON ---
History of Present Illness - History of Present Illness History of Present Illness: Palliative consult Requested by Jorge Alberto HIDALGO Reason: Goals of care Patient is a 61 yo male admitted [place] with complaints of dizziness, weakens, low BP and diarrhea. Patient has a known Hx of pancreatic CA. Upon admission Ct abd and chest was significant for metastases to thoracic and lumbar spine and to a rectum. No SBO was noted. On the night of 11/16/2016 patient was found pulsless and without respirations. Code Blue protocol fallowed. Patient required MV support, and was transferred to ICU for further care. Na Bicarbs started for acidosis and Albumin IV for hypoalbuminemia. Overall prognosis was seen as poor. PMH: pancreas CA, HTN, CKD, back pain, DM, UTI Soc. hx: from [place], sister and brother close family, its not known if patient has a children Fam Hx. Unknown Review of Systems - Review of Systems Systems not reviewed;Unavailable: Intubated Past Patient History - Infectious Disease Hx of Infectious Diseases: None - Past Medical History & Family History Past Medical History?: Yes - Past Social History Smoking Status: Current Some Days Smoker - CARDIAC Hx Hypertension: Yes - PULMONARY Hx Respiratory Disorders: No - NEUROLOGICAL Hx Neurological Disorder: No Hx Paralysis: No - HEENT Hx HEENT Problems: No - RENAL Hx Chronic Kidney Disease: Yes - ENDOCRINE/METABOLIC Hx Endocrine Disorders: Yes Hx Diabetes Mellitus Type 2: Yes (pt denies.) - HEMATOLOGICAL/ONCOLOGICAL Hx Blood Disorders: Yes Hx Blood Transfusions: Yes Hx Blood Transfusion Reaction: No Hx Cancer: Yes (Prostate, Stomach.) - INTEGUMENTARY Hx Dermatological Problems: No - MUSCULOSKELETAL/RHEUMATOLOGICAL Hx Falls: No - GASTROINTESTINAL Hx Gastrointestinal Disorders: Yes Other/Comment: Stomach Ca. - GENITOURINARY/GYNECOLOGICAL Hx Genitourinary Disorders: Yes Hx Prostate Cancer: Yes Hx Prostate Problems: Yes - PSYCHIATRIC Hx Substance Use: No - SURGICAL HISTORY Hx Surgeries: Yes Other/Comment: nephrostomy tube. - ANESTHESIA Hx Anesthesia: Yes Hx Anesthesia Reactions: No Hx Malignant Hyperthermia: No Meds Allergies/Adverse Reactions: Allergies Allergy/AdvReac Type Severity Reaction Status Date / Time No Known Allergies Allergy Verified 10/06/16 10:16 - Medications Medications: Current Medications Enoxaparin Sodium (Lovenox) 40 mg SC DAILY [facility] Last Admin: 11/16/16 09:39 Dose: 40 mg Imipenem/Cilastatin Sodium 500 (mg/ Sodium Chloride) 100 mls @ 100 mls/hr IVPB Q6H [facility] Last Admin: 11/17/16 06:20 Dose: 100 mls/hr Sodium Bicarbonate 150 meq/ (Sodium Chloride) 1,000 mls @ 100 mls/hr IV .Q10H [facility] Last Admin: 11/17/16 08:27 Dose: 100 mls/hr Dopamine HCl/Dextrose (Dopamine 400mg/250ml D5w) 400 mg in 250 mls @ 4.838 mls/ hr IV .Q24H PRN; Protocol; 2 MCG/KG/MIN PRN Reason: TITRATE PER MD ORDER Dextrose (Dextrose 10% In Water) 1,000 mls @ 75 mls/hr IV .[id number] [facility] Pantoprazole Sodium (Protonix Inj) 40 mg IVP DAILY [facility] Last Admin: 11/17/16 10:51 Dose: 40 mg Physical Exam - Constitutional Appears: Chronically Ill - Head Exam Head Exam: ATRAUMATIC, NORMAL INSPECTION - Eye Exam Eye Exam: Normal appearance Pupil Exam: NORMAL ACCOMODATION - ENT Exam ENT Exam: Mucous Membranes Moist Additional comments: ET tube - Neck Exam Neck exam: Positive for: Normal Inspection - Respiratory Exam Respiratory Exam: NORMAL BREATHING PATTERN Additional comments: On MV - Cardiovascular Exam Cardiovascular Exam: Tachycardia, Irregular Rhythm - GI/Abdominal Exam GI & Abdominal Exam: Hypoactive Bowel Sounds - Rectal Exam Rectal Exam: Deferred - Exam Additional comments: Turcios cath - Extremities Exam Extremities exam: Positive for: pedal edema - Back Exam Back exam: NORMAL INSPECTION - Neurological Exam Neurological exam: Motor Sensory Deficit - Psychiatric Exam Psychiatric exam: Flat Affect - Skin Skin Exam: Normal Color Results - Vital Signs Recent Vital Signs: Last Vital Signs Temp 97.8 F 11/17/16 12:00 Pulse 109 H 11/17/16 13:00 Resp 24 11/17/16 13:00 BP 121/79 11/17/16 13:00 Pulse Ox 97 11/17/16 13:00 - Labs Result Diagrams: 11/17/16 06:33 11/17/16 06:33 Labs: Laboratory Results - last 24 hr 11/17/16 11/17/16 11/17/16 04:38 04:48 05:23 WBC RBC Hgb Hct MCV MCH MCHC RDW Plt Count MPV Neut % (Auto) Lymph % (Auto) [place] % (Auto) Eos % (Auto) Baso % (Auto) Neut # Lymph # [place] # Eos # Baso # PT INR APTT Puncture Site pCO2 pO2 HCO3 ABG pH ABG Total CO2 ABG O2 Saturation ABG Base Excess ABG Hemoglobin ABG Carboxyhemoglobin POC ABG HHb (Measured) ABG Methemoglobin Josh Test ABG Potassium A-a O2 Difference Respiratory Index Hgb O2 Saturation Sodium Chloride Glucose Lactate Mechanical Rate FiO2 Tidal Volume PEEP Crit Value Called To Crit Value Called By Crit Value Read Back Blood Gas Notified Time Potassium Carbon Dioxide Anion Gap BUN Creatinine Est GFR ( Amer) Est GFR (Non-Af Amer) POC Glucose (mg/dL) 28 L* 38 L* 155 H Random Glucose Calcium Phosphorus Magnesium Total Bilirubin AST ALT Alkaline Phosphatase Total Creatine Kinase CK-MB (Mass) Troponin I, Quant Total Protein Albumin Globulin Albumin/Globulin Ratio Arterial Blood Potassium 11/17/16 11/17/16 11/17/16 05:25 06:33 06:33 WBC 4.1 L RBC 3.83 L Hgb 11.8 L Hct 36.0 MCV 94.1 H D MCH 30.7 MCHC 32.7 L RDW 16.9 H Plt Count 219 MPV 8.5 Neut % (Auto) 76.9 H Lymph % (Auto) 15.3 L [place] % (Auto) 4.7 Eos % (Auto) 1.9 Baso % (Auto) 1.2 Neut # 3.2 Lymph # 0.6 L [place] # 0.2 Eos # 0.1 Baso # 0.1 PT INR APTT Puncture Site Rb/rn ada pCO2 43 pO2 286 H HCO3 13.4 L ABG pH 7.12 L* ABG Total CO2 15.3 L ABG O2 Saturation ABG Base Excess -14.9 L ABG Hemoglobin ABG Carboxyhemoglobin POC ABG HHb (Measured) ABG Methemoglobin Josh Test Na ABG Potassium 4.2 A-a O2 Difference 373.0 Respiratory Index 1.3 Hgb O2 Saturation Sodium 125.0 L 126 L Chloride 102.0 101 Glucose 259 H Lactate 2.5 H Mechanical Rate 16 FiO2 100.0 Tidal Volume 450 PEEP 5 Crit Value Called To Dr rosenbaum Crit Value Called By Hollis carver/rt Crit Value Read Back Y Blood Gas Notified Time 535 Potassium 4.4 Carbon Dioxide 17 L Anion Gap 12 BUN 15 Creatinine 0.7 L Est GFR ( Amer) > 60 Est GFR (Non-Af Amer) > 60 POC Glucose (mg/dL) Random Glucose 210 H Calcium 7.4 L Phosphorus 4.0 Magnesium 1.9 Total Bilirubin 0.7 AST 105 H D ALT 38 Alkaline Phosphatase 172 H Total Creatine Kinase 46 L CK-MB (Mass) 0.57 Troponin I, Quant < 0.0120 Total Protein 5.1 L Albumin 2.0 L Globulin 3.1 Albumin/Globulin Ratio 0.6 L Arterial Blood Potassium 4.2 11/17/16 11/17/16 11/17/16 06:33 12:14 12:52 WBC RBC Hgb Hct MCV MCH MCHC RDW Plt Count MPV Neut % (Auto) Lymph % (Auto) [place] % (Auto) Eos % (Auto) Baso % (Auto) Neut # Lymph # [place] # Eos # Baso # PT 13.7 H INR 1.2 APTT 37 H Puncture Site pCO2 pO2 HCO3 ABG pH ABG Total CO2 ABG O2 Saturation ABG Base Excess ABG Hemoglobin ABG Carboxyhemoglobin POC ABG HHb (Measured) ABG Methemoglobin Josh Test ABG Potassium A-a O2 Difference Respiratory Index Hgb O2 Saturation Sodium Chloride Glucose Lactate Mechanical Rate FiO2 Tidal Volume PEEP Crit Value Called To Crit Value Called By Crit Value Read Back Blood Gas Notified Time Potassium Carbon Dioxide Anion Gap BUN Creatinine Est GFR ( Amer) Est GFR (Non-Af Amer) POC Glucose (mg/dL) 64 L 182 H Random Glucose Calcium Phosphorus Magnesium Total Bilirubin AST ALT Alkaline Phosphatase Total Creatine Kinase CK-MB (Mass) Troponin I, Quant Total Protein Albumin Globulin Albumin/Globulin Ratio Arterial Blood Potassium 11/17/16 13:11 WBC RBC Hgb Hct MCV MCH MCHC RDW Plt Count MPV Neut % (Auto) Lymph % (Auto) [place] % (Auto) Eos % (Auto) Baso % (Auto) Neut # Lymph # [place] # Eos # Baso # PT INR APTT Puncture Site Rr pCO2 26 L pO2 168 H HCO3 21.7 ABG pH 7.46 H ABG Total CO2 19.3 L ABG O2 Saturation 99.6 H ABG Base Excess -4.2 L ABG Hemoglobin 10.5 L ABG Carboxyhemoglobin 1.4 POC ABG HHb (Measured) 0.4 ABG Methemoglobin 0.9 Josh Test Pos ABG Potassium A-a O2 Difference 156.0 Respiratory Index 0.9 Hgb O2 Saturation 97.3 Sodium Chloride Glucose Lactate Mechanical Rate 20 FiO2 50.0 Tidal Volume 450 PEEP 5 Crit Value Called To Crit Value Called By Crit Value Read Back Blood Gas Notified Time Potassium Carbon Dioxide Anion Gap BUN Creatinine Est GFR ( Amer) Est GFR (Non-Af Amer) POC Glucose (mg/dL) Random Glucose Calcium Phosphorus Magnesium Total Bilirubin AST ALT Alkaline Phosphatase Total Creatine Kinase CK-MB (Mass) Troponin I, Quant Total Protein Albumin Globulin Albumin/Globulin Ratio Arterial Blood Potassium Assessment & Plan - Assessment and Plan (Free Text) Assessment: Palliative consult Code status Full Code, no advance directive on the chart, ROS unobtainable due to condition, PPS 0%. I reviewed medical records, all diagnostic studies, examined patient in the bed and discussed his presentation with ICU staff. Phone call made to Next of Kin, patient's sister Ms.Stokes Lafleur and voice mail left. ROS obtained from the nursing. Patient is intubated on MV support and on Dopamine for cardiac support. Neuro exam is very poor. Patient is unresponsive to stimuli. There is some hypoalbumenia being corrected with IV Albumin. There is generalized edema. In the face of CT scan findings patient's prognosis is deemed to be very poor. Patient is unable to advocate for him self and his wishes for the end of life care are not known. I tried to get in touch with patient's sister flauqita, who was listed as next of Kin for goals of care discussion. Impression * Patient is critically ill man on full life support * Wide spread metastatic disease * Quality of life is negatively impacted by the progression of disease * Patient's wishes for the end of life care are not known. based on documents from [place], patient was presented with opportunity to decide on his code status, what he declined. Suggestion * Palliative care will continue reaching out to family for family meeting to be scheduled * Goals of care to be discussed Thank you for including me in care of this patient.
--- NOTE | 2016-11-17 14:59 | CP.PCM.PN ---
Subjective - Date & Time of Evaluation Date of Evaluation: 11/17/16 Time of Evaluation: 12:20 - Subjective Subjective: clinically same Objective - Vital Signs/Intake and Output Vital Signs (last 24 hours): Temp Pulse Resp BP Pulse Ox 97.8 F 102 H 23 122/84 98 11/17/16 12:00 11/17/16 14:00 11/17/16 14:00 11/17/16 14:00 11/17/16 14:00 Intake and Output: 11/17/16 11/17/16 06:59 18:59 Intake Total 1700 850 Output Total 1052 Balance 648 850 - Medications Medications: Current Medications Enoxaparin Sodium (Lovenox) 40 mg SC DAILY [facility] Last Admin: 11/16/16 09:39 Dose: 40 mg Imipenem/Cilastatin Sodium 500 (mg/ Sodium Chloride) 100 mls @ 100 mls/hr IVPB Q6H [facility] Last Admin: 11/17/16 13:00 Dose: 100 mls/hr Sodium Bicarbonate 150 meq/ (Sodium Chloride) 1,000 mls @ 100 mls/hr IV .Q10H [facility] Last Admin: 11/17/16 08:27 Dose: 100 mls/hr Dopamine HCl/Dextrose (Dopamine 400mg/250ml D5w) 400 mg in 250 mls @ 4.838 mls/ hr IV .Q24H PRN; Protocol; 2 MCG/KG/MIN PRN Reason: TITRATE PER MD ORDER Dextrose (Dextrose 10% In Water) 1,000 mls @ 75 mls/hr IV .[id number] [facility] Last Admin: 11/17/16 12:20 Dose: 75 mls/hr Pantoprazole Sodium (Protonix Inj) 40 mg IVP DAILY [facility] Last Admin: 11/17/16 10:51 Dose: 40 mg - Labs Labs: 11/17/16 06:33 11/17/16 06:33 PT 13.7 SECONDS (9.7-12.2) H 11/17/16 06:33 INR 1.2 11/17/16 06:33 APTT 37 SECONDS (21-34) H 11/17/16 06:33 - Constitutional Appears: Well - Head Exam Head Exam: ATRAUMATIC, NORMAL INSPECTION, NORMOCEPHALIC - Eye Exam Eye Exam: EOMI, Normal appearance, PERRL Pupil Exam: NORMAL ACCOMODATION, PERRL - ENT Exam ENT Exam: Mucous Membranes Moist, Normal Exam - Neck Exam Neck Exam: Full ROM, Normal Inspection. absent: Lymphadenopathy - Respiratory Exam Respiratory Exam: Decreased Breath Sounds - Cardiovascular Exam Cardiovascular Exam: REGULAR RHYTHM, +S1, +S2 - GI/Abdominal Exam GI & Abdominal Exam: Soft, Diminished Bowel Sounds - Rectal Exam Rectal Exam: Deferred
--- NOTE | 2016-11-17 17:21 | CP.PCM.PN ---
Subjective - Date & Time of Evaluation Date of Evaluation: 11/17/16 Time of Evaluation: 08:00 - Subjective Subjective: 61 yo male admitted from [place] with complaints of dizziness, weakens, low BP and diarrhea. Patient has a known Hx of pancreatic CA. Upon admission Ct abd and chest was significant for metastases to thoracic and lumbar spine and to a rectum. No SBO was noted. On the night of 11/16/2016 patient was found pulsless and without respirations. Code Blue protocol fallowed. Patient required MV support, and was transferred to ICU for further care. Na Bicarbs started for acidosis and Albumin IV for hypoalbuminemia. Overall prognosis was seen as poor. currently awake ion vent afebrile no new positive cultures Objective - Vital Signs/Intake and Output Vital Signs (last 24 hours): Temp Pulse Resp BP Pulse Ox 97.4 F L 105 H 21 105/79 98 11/17/16 16:00 11/17/16 16:00 11/17/16 16:00 11/17/16 16:00 11/17/16 16:00 Intake and Output: 11/17/16 11/17/16 06:59 18:59 Intake Total 1700 1335 Output Total 1052 485 Balance 648 850 - Medications Medications: Current Medications Enoxaparin Sodium (Lovenox) 40 mg SC DAILY [facility] Last Admin: 11/17/16 14:00 Dose: 40 mg Imipenem/Cilastatin Sodium 500 (mg/ Sodium Chloride) 100 mls @ 100 mls/hr IVPB Q6H [facility] Last Admin: 11/17/16 13:00 Dose: 100 mls/hr Sodium Bicarbonate 150 meq/ (Sodium Chloride) 1,000 mls @ 100 mls/hr IV .Q10H [facility] Last Admin: 11/17/16 08:27 Dose: 100 mls/hr Dopamine HCl/Dextrose (Dopamine 400mg/250ml D5w) 400 mg in 250 mls @ 4.838 mls/ hr IV .Q24H PRN; Protocol; 2 MCG/KG/MIN PRN Reason: TITRATE PER MD ORDER Dextrose (Dextrose 10% In Water) 1,000 mls @ 75 mls/hr IV .[id number] [facility] Last Admin: 11/17/16 12:20 Dose: 75 mls/hr Pantoprazole Sodium (Protonix Inj) 40 mg IVP DAILY [facility] Last Admin: 11/17/16 10:51 Dose: 40 mg - Labs Labs: 11/17/16 06:33 11/17/16 06:33 PT 13.7 SECONDS (9.7-12.2) H 11/17/16 06:33 INR 1.2 11/17/16 06:33 APTT 37 SECONDS (21-34) H 11/17/16 06:33 - Constitutional Appears: Non-toxic, Cachectic - Head Exam Head Exam: NORMOCEPHALIC - Eye Exam Eye Exam: absent: Scleral icterus - ENT Exam ENT Exam: Mucous Membranes Dry - Neck Exam Neck Exam: absent: Lymphadenopathy - Respiratory Exam Respiratory Exam: Decreased Breath Sounds - Cardiovascular Exam Cardiovascular Exam: Tachycardia, REGULAR RHYTHM, +S1, +S2 - GI/Abdominal Exam GI & Abdominal Exam: Distended, Soft. absent: Tenderness Assessment and Plan (1) Hypotension Status: Acute (2) Abdominal pain Status: Acute (3) Abnormal PSA Status: Acute - Assessment and Plan (Free Text) Plan: cont iv rx will repeat cultures weaning as toleerated
[2016-11-17] MEDS ORDERED: MethylPREDNISolone 40 mg Vial IVP STA ×2 (19:31→21:28)
[2016-11-17 20:33] LABS: RBC URINE 5 /hpf (0-3); URINE BACTERIA FEW (<OCC); URINE BILIRUBIN NEGATIVE (NEGATIVE); URINE BLOOD 1+ (NEGATIVE); URINE CALCIUM OXALATE CRYSTALS RARE /hpf (<OCC); URINE COLOR Yellow (YELLOW); URINE GLUCOSE (UA) 3+ mg/dL (Normal); URINE KETONE TRACE mg/dL (NEGATIVE); URINE LEUKOCYTE ESTERASE 3+ Leu/uL (Negative); URINE PROTEIN 1+ mg/dL (NEGATIVE); WBC URINE 20 /hpf (0-5)
[2016-11-18] MEDS: Sodium Bicarbonate 8.4% 150 MEQ in Sodium Chloride 0.45% 850 ML IV SCH (03:29)
[2016-11-18 04:31] LABS: ABG ALLEN TEST POS; ABG MECHANICAL RATE 20; ATERIAL BLOOD GAS PEEP 5; CARBOXYHEMOGLOBIN 1.3 % (0.5-1.5); DRAW SITE RR; HHB 0.4 % (0.0-5.0); METHEMOGLOBIN 1.3 % (0.0-3.0)
[2016-11-18 06:38] LABS: CHLORIDE 98 mmol/L (98-107)
[2016-11-18 06:39] LABS: POTASSIUM 3.7 mmol/L (3.6-5.2); SODIUM 127 mmol/L (132-148)
[2016-11-18 06:41] LABS: ALB/GLOB RATIO 0.8 (1.0-2.1); ALKALINE PHOSPHATASE 155 U/L (38-126); ALT/SGPT 26 U/L (21-72); AST/SGOT 40 U/L (17-59); BILIRUBIN,TOTAL 0.6 mg/dL (0.2-1.3); BLOOD UREA NITROGEN 12 mg/dL (9-20); CALCIUM 6.8 mg/dl (8.6-10.4); CARBON DIOXIDE 21 mmol/L (22-30); GFR AFRICAN-AMERICAN > 60; GLUCOSE,RANDOM 107 mg/dL (75-110); TOTAL PROTEIN 4.7 g/dL (6.3-8.3)
[2016-11-18 06:42] LABS: MAGNESIUM 1.7 mg/dL (1.6-2.3)
[2016-11-18 07:07] LABS: BASO % 0.4 % (0.0-2.0); EOS % 0.2 % (0.0-4.0); HEMATOCRIT 33.6 % (35.0-51.0); LYMPH # 0.5 K/uL (1.0-4.3); LYMPH % 8.4 % (20.0-40.0); MEAN CORPUSCULAR HEMOGLOBIN 30.3 pg (27.0-31.0); MEAN CORPUSCULAR HGB CONC 33.3 g/dL (33.0-37.0); MEAN PLATELET VOLUME 8.7 fL (7.2-11.7); MONO # 0.1 K/uL (0.0-0.8); MONO % 2.6 % (0.0-10.0); PLATELET COUNT 216 K/uL (130-400); WHITE BLOOD COUNT 5.5 K/uL (4.8-10.8)
--- NOTE | 2016-11-18 08:18 | RAD ---
Chest x-ray single frontal view History: Pneumonia. Comparison: None available. Findings: Lines and tubes in stable position. Consolidative airspace opacities in the mid to lower lung zones bilaterally with associated moderate bilateral pleural effusions. Biapical pleural thickening with upper lobe granulomatous changes. Tortuous ectatic aorta. Cardiomegaly. Scoliotic curvature in degenerative changes in the spine. Degenerative changes of the left shoulder. Impression: No significant interval change.
[2016-11-18] MEDS: MethylPREDNISolone 40 mg Vial IVP SCH ×3 (08:30→18:38)
[2016-11-18 08:41] LABS: EOSINOPHIL 1 % (0-4); NEUTROPHIL 90 % (50-75); TOTAL CELLS COUNTED 100
[2016-11-18] MEDS: Enoxaparin 40 mg Syringe SC SCH (09:05)
--- NOTE | 2016-11-18 10:43 | CP.PCM.PN ---
Subjective - Date & Time of Evaluation Date of Evaluation: 11/18/16 Time of Evaluation: 11:00 - Subjective Subjective: clinically same Objective - Vital Signs/Intake and Output Vital Signs (last 24 hours): Temp Pulse Resp BP Pulse Ox 97.8 F 103 H 19 108/75 100 11/18/16 08:00 11/18/16 10:00 11/18/16 10:00 11/18/16 09:53 11/18/16 10:00 Intake and Output: 11/18/16 11/18/16 06:59 18:59 Intake Total 2150 500 Output Total 1240 Balance 910 500 - Medications Medications: Current Medications Enoxaparin Sodium (Lovenox) 40 mg SC DAILY [facility] Last Admin: 11/18/16 09:05 Dose: 40 mg Furosemide (Lasix) 40 mg IVP Q12 [facility] Dopamine HCl/Dextrose (Dopamine 400mg/250ml D5w) 400 mg in 250 mls @ 4.838 mls/ hr IV .Q24H PRN; Protocol; 2 MCG/KG/MIN PRN Reason: TITRATE PER MD ORDER Dextrose (Dextrose 10% In Water) 1,000 mls @ 75 mls/hr IV .[id number] [facility] Last Admin: 11/18/16 03:05 Dose: 75 mls/hr Cefepime HCl 1 gm/ Dextrose 50 mls @ 100 mls/hr IVPB Q12H [facility] Last Admin: 11/18/16 06:17 Dose: 100 mls/hr Methylprednisolone (Solu-Medrol) 50 mg IVP Q6H [facility] Last Admin: 11/18/16 08:30 Dose: 50 mg Pantoprazole Sodium (Protonix Inj) 40 mg IVP DAILY [facility] Last Admin: 11/18/16 09:03 Dose: 40 mg - Labs Labs: 11/18/16 06:20 11/18/16 06:20 PT 13.7 SECONDS (9.7-12.2) H 11/17/16 06:33 INR 1.2 11/17/16 06:33 APTT 37 SECONDS (21-34) H 11/17/16 06:33 - Constitutional Appears: Well - Head Exam Head Exam: ATRAUMATIC, NORMAL INSPECTION, NORMOCEPHALIC - Eye Exam Eye Exam: EOMI, Normal appearance, PERRL Pupil Exam: NORMAL ACCOMODATION, PERRL - ENT Exam ENT Exam: Mucous Membranes Moist, Normal Exam - Neck Exam Neck Exam: Full ROM, Normal Inspection. absent: Lymphadenopathy - Respiratory Exam Respiratory Exam: Decreased Breath Sounds - Cardiovascular Exam Cardiovascular Exam: REGULAR RHYTHM, +S1, +S2 - GI/Abdominal Exam GI & Abdominal Exam: Soft, Diminished Bowel Sounds - Rectal Exam Rectal Exam: Deferred
[2016-11-18] MEDS ORDERED: Dextrose 50% SYRINGE Inj (50 ml) ONE (11:55)
--- NOTE | 2016-11-18 12:08 | CP.CCUPN ---
<Jorge Alberto Farrell - Last Filed: 11/18/16 12:15> CCU Subjective - Physician Review Subjective (Free Text): 11/18/16 12:06 PGY-1 ICU progress note Pt seen and examined at bedside. Pt having episodes of hypoglycemia. Pt intubated but alert. Critical Care Time Spent (in minutes): 35 CCU Objective - Vital Signs / Intake & Output Vital Signs (Last 4 hours): Vital Signs Pulse Resp BP Pulse Ox 11/18/16 10:53 101 H 16 103/72 98 11/18/16 10:42 108/75 11/18/16 10:00 103 H 19 100 11/18/16 09:53 103 H 22 108/75 100 Intake and Output (Last 8hrs): Intake & Output 11/17/16 11/18/16 11/18/16 22:59 06:59 14:59 Intake Total 1700 1400 575 Output Total 845 640 600 Balance 855 760 -25 Weight 148 lb 12.992 oz Intake: Intake, IV Amount 1700 1400 575 Right Distal Port 600 600 375 External Jugular Right Medial Port 300 Internal Jugular Right PICC 800 800 200 Output: Gastric Amount 200 300 Stomach 200 300 Drainage 645 340 600 Right Nephrostomy Tube 645 340 600 Other: # Bowel Movements 1 1 0 - Physical Exam Head: Positive for: Atraumatic, Normocephalic Pupils: Positive for: PERRL Mouth: Positive for: Moist Mucous Membranes Respiratory/Chest: Positive for: Clear to Auscultation, Good Air Exchange, Other (On vent) Cardiovascular: Positive for: Normal S1, S2 Abdomen: Positive for: Normal Bowel Sounds. Negative for: Tenderness, Distention Upper Extremity: Positive for: NORMAL PULSES Lower Extremity: Positive for: NORMAL PULSES Neurological: Positive for: Motor Func Grossly Intact Skin: Positive for: Warm, Dry Psychiatric: Positive for: Alert, Other (intubated) - Medications Active Medications: Active Medications Generic Name Dose Route Start Last Admin Trade Name Freq PRN Reason Stop Dose Admin Enoxaparin Sodium 40 mg 11/13/16 10:00 11/18/16 09:05 Lovenox SC 40 mg DAILY PAOLA Administration Furosemide 40 mg 11/18/16 10:30 11/18/16 10:42 Lasix IVP 40 mg Q12 PAOLA Administration Dopamine HCl/Dextrose 400 mg in 250 mls @ 4.838 mls/hr 11/17/16 09:58 Dopamine 400mg/250ml D5w IV .Q24H PRN TITRATE PER MD ORDER Protocol 2 MCG/KG/MIN Dextrose 1,000 mls @ 75 mls/hr 11/17/16 12:19 11/18/16 03:05 Dextrose 10% In Water IV 75 mls/hr .[id number] PAOLA Administration Cefepime HCl 1 gm/ Dextrose 50 mls @ 100 mls/hr 11/17/16 19:00 11/18/16 06:17 IVPB 100 mls/hr Q12H PAOLA Administration Methylprednisolone 50 mg 11/18/16 07:30 11/18/16 08:30 Solu-Medrol IVP 50 mg Q6H PAOLA Administration Pantoprazole Sodium 40 mg 11/17/16 10:00 11/18/16 09:03 Protonix Inj IVP 40 mg DAILY PAOLA Administration - Patient Studies Lab Studies: Lab Studies 11/18/16 11/18/16 11/18/16 Range/Units 07:31 06:20 06:20 WBC 5.5 (4.8-10.8) K/uL RBC 3.70 L (4.40-5.90) Mil/uL Hgb 11.2 L (12.0-18.0) g/dL Hct 33.6 L (35.0-51.0) % MCV 91.0 D (80.0-94.0) fL MCH 30.3 (27.0-31.0) pg MCHC 33.3 (33.0-37.0) g/dL RDW 17.0 H (11.5-14.5) % Plt Count 216 (130-400) K/uL MPV 8.7 (7.2-11.7) fL Neut % (Auto) 88.4 H (50.0-75.0) % Lymph % (Auto) 8.4 L (20.0-40.0) % [place] % (Auto) 2.6 (0.0-10.0) % Eos % (Auto) 0.2 (0.0-4.0) % Baso % (Auto) 0.4 (0.0-2.0) % Neut # 4.9 (1.8-7.0) K/uL Lymph # 0.5 L (1.0-4.3) K/uL [place] # 0.1 (0.0-0.8) K/uL Eos # 0.0 (0.0-0.7) K/uL Baso # 0.0 (0.0-0.2) K/uL Neutrophils % (Manual) 90 H (50-75) % Lymphocytes % (Manual) 6 L (20-40) % Monocytes % (Manual) 3 (0-10) % Eosinophils % (Manual) 1 (0-4) % Platelet Estimate Normal (NORMAL) Hypochromasia (manual) Slight Poikilocytosis (manual Slight Anisocytosis (manual) Slight Puncture Site pCO2 (35-45) mm/Hg pO2 (80-100) mm/Hg HCO3 (21-28) mmol/L ABG pH (7.35-7.45) ABG Total CO2 (22-28) mmol/L ABG O2 Saturation (95-98) % ABG Base Excess (-2.0-3.0) mmol/L ABG Hemoglobin (11.7-17.4) g/dL ABG Carboxyhemoglobin (0.5-1.5) % POC ABG HHb (Measured) (0.0-5.0) % ABG Methemoglobin (0.0-3.0) % Josh Test A-a O2 Difference mm/Hg Respiratory Index Hgb O2 Saturation (95.0-98.0) % Mechanical Rate FiO2 % Tidal Volume PEEP Sodium 127 L (132-148) mmol/L Potassium 3.7 (3.6-5.2) mmol/L Chloride 98 (98-107) mmol/L Carbon Dioxide 21 L (22-30) mmol/L Anion Gap 12 (10-20) BUN 12 (9-20) mg/dL Creatinine 0.5 L (0.8-1.5) MG/DL Est GFR ( Amer) > 60 Est GFR (Non-Af Amer) > 60 POC Glucose (mg/dL) 97 (65-110) mg/dL Random Glucose 107 (75-110) mg/dL Calcium 6.8 L (8.6-10.4) mg/dl Magnesium 1.7 (1.6-2.3) mg/dL Total Bilirubin 0.6 (0.2-1.3) mg/dL AST 40 (17-59) U/L ALT 26 (21-72) U/L Alkaline Phosphatase 155 H (38-126) U/L Total Protein 4.7 L (6.3-8.3) g/dL Albumin 2.1 L (3.5-5.0) g/dL Globulin 2.6 (2.2-3.9) gm/dL Albumin/Globulin Ratio 0.8 L (1.0-2.1) Urine Color (YELLOW) Urine Clarity (Clear) Urine pH (5.0-8.0) Ur Specific [place] (1.003-1.030) Urine Protein (NEGATIVE) mg/dL Urine Glucose (UA) (Normal) mg/dL Urine Ketones (NEGATIVE) mg/dL Urine Blood (NEGATIVE) Urine Nitrate (NEGATIVE) Urine Bilirubin (NEGATIVE) Urine Urobilinogen (0.2-1.0) mg/dL Ur Leukocyte Esterase (Negative) Veronique/uL Urine WBC (Auto) (0-5) /hpf Urine RBC (Auto) (0-3) /hpf Calcium Oxalate Crystal (<OCC) /hpf Urine Bacteria (<OCC) 11/18/16 11/18/16 11/17/16 Range/Units 04:25 04:02 23:55 WBC (4.8-10.8) K/uL RBC (4.40-5.90) Mil/uL Hgb (12.0-18.0) g/dL Hct (35.0-51.0) % MCV (80.0-94.0) fL MCH (27.0-31.0) pg MCHC (33.0-37.0) g/dL RDW (11.5-14.5) % Plt Count (130-400) K/uL MPV (7.2-11.7) fL Neut % (Auto) (50.0-75.0) % Lymph % (Auto) (20.0-40.0) % [place] % (Auto) (0.0-10.0) % Eos % (Auto) (0.0-4.0) % Baso % (Auto) (0.0-2.0) % Neut # (1.8-7.0) K/uL Lymph # (1.0-4.3) K/uL [place] # (0.0-0.8) K/uL Eos # (0.0-0.7) K/uL Baso # (0.0-0.2) K/uL Neutrophils % (Manual) (50-75) % Lymphocytes % (Manual) (20-40) % Monocytes % (Manual) (0-10) % Eosinophils % (Manual) (0-4) % Platelet Estimate (NORMAL) Hypochromasia (manual) Poikilocytosis (manual Anisocytosis (manual) Puncture Site Rr pCO2 26 L (35-45) mm/Hg pO2 181 H (80-100) mm/Hg HCO3 25.4 (21-28) mmol/L ABG pH 7.54 H (7.35-7.45) ABG Total CO2 23.0 (22-28) mmol/L ABG O2 Saturation 99.6 H (95-98) % ABG Base Excess 0.6 (-2.0-3.0) mmol/L ABG Hemoglobin 11.3 L (11.7-17.4) g/dL ABG Carboxyhemoglobin 1.3 (0.5-1.5) % POC ABG HHb (Measured) 0.4 (0.0-5.0) % ABG Methemoglobin 1.3 (0.0-3.0) % Josh Test Pos A-a O2 Difference 143.0 mm/Hg Respiratory Index 0.8 Hgb O2 Saturation 97.0 (95.0-98.0) % Mechanical Rate 20 FiO2 50.0 % Tidal Volume 450 PEEP 5 Sodium (132-148) mmol/L Potassium (3.6-5.2) mmol/L Chloride (98-107) mmol/L Carbon Dioxide (22-30) mmol/L Anion Gap (10-20) BUN (9-20) mg/dL Creatinine (0.8-1.5) MG/DL Est GFR ( Amer) Est GFR (Non-Af Amer) POC Glucose (mg/dL) 77 72 (65-110) mg/dL Random Glucose (75-110) mg/dL Calcium (8.6-10.4) mg/dl Magnesium (1.6-2.3) mg/dL Total Bilirubin (0.2-1.3) mg/dL AST (17-59) U/L ALT (21-72) U/L Alkaline Phosphatase (38-126) U/L Total Protein (6.3-8.3) g/dL Albumin (3.5-5.0) g/dL Globulin (2.2-3.9) gm/dL Albumin/Globulin Ratio (1.0-2.1) Urine Color (YELLOW) Urine Clarity (Clear) Urine pH (5.0-8.0) Ur Specific [place] (1.003-1.030) Urine Protein (NEGATIVE) mg/dL Urine Glucose (UA) (Normal) mg/dL Urine Ketones (NEGATIVE) mg/dL Urine Blood (NEGATIVE) Urine Nitrate (NEGATIVE) Urine Bilirubin (NEGATIVE) Urine Urobilinogen (0.2-1.0) mg/dL Ur Leukocyte Esterase (Negative) [place]on[place]/uL Urine WBC (Auto) (0-5) /hpf Urine RBC (Auto) (0-3) /hpf Calcium Oxalate Crystal (<OCC) /hpf Urine Bacteria (<OCC) 11/17/16 11/17/16 11/17/16 Range/Units 21:49 20:05 18:01 WBC (4.8-10.8) K/uL RBC (4.40-5.90) Mil/uL Hgb (12.0-18.0) g/dL Hct (35.0-51.0) % MCV (80.0-94.0) fL MCH (27.0-31.0) pg MCHC (33.0-37.0) g/dL RDW (11.5-14.5) % Plt Count (130-400) K/uL MPV (7.2-11.7) fL Neut % (Auto) (50.0-75.0) % Lymph % (Auto) (20.0-40.0) % [place] % (Auto) (0.0-10.0) % Eos % (Auto) (0.0-4.0) % Baso % (Auto) (0.0-2.0) % Neut # (1.8-7.0) K/uL Lymph # (1.0-4.3) K/uL [place] # (0.0-0.8) K/uL Eos # (0.0-0.7) K/uL Baso # (0.0-0.2) K/uL Neutrophils % (Manual) (50-75) % Lymphocytes % (Manual) (20-40) % Monocytes % (Manual) (0-10) % Eosinophils % (Manual) (0-4) % Platelet Estimate (NORMAL) Hypochromasia (manual) Poikilocytosis (manual Anisocytosis (manual) Puncture Site pCO2 (35-45) mm/Hg pO2 (80-100) mm/Hg HCO3 (21-28) mmol/L ABG pH (7.35-7.45) ABG Total CO2 (22-28) mmol/L ABG O2 Saturation (95-98) % ABG Base Excess (-2.0-3.0) mmol/L ABG Hemoglobin (11.7-17.4) g/dL ABG Carboxyhemoglobin (0.5-1.5) % POC ABG HHb (Measured) (0.0-5.0) % ABG Methemoglobin (0.0-3.0) % Josh Test A-a O2 Difference mm/Hg Respiratory Index Hgb O2 Saturation (95.0-98.0) % Mechanical Rate FiO2 % Tidal Volume PEEP Sodium (132-148) mmol/L Potassium (3.6-5.2) mmol/L Chloride (98-107) mmol/L Carbon Dioxide (22-30) mmol/L Anion Gap (10-20) BUN (9-20) mg/dL Creatinine (0.8-1.5) MG/DL Est GFR ( Amer) Est GFR (Non-Af Amer) POC Glucose (mg/dL) 68 78 (65-110) mg/dL Random Glucose (75-110) mg/dL Calcium (8.6-10.4) mg/dl Magnesium (1.6-2.3) mg/dL Total Bilirubin (0.2-1.3) mg/dL AST (17-59) U/L ALT (21-72) U/L Alkaline Phosphatase (38-126) U/L Total Protein (6.3-8.3) g/dL Albumin (3.5-5.0) g/dL Globulin (2.2-3.9) gm/dL Albumin/Globulin Ratio (1.0-2.1) Urine Color Yellow (YELLOW) Urine Clarity Clear (Clear) Urine pH 6.0 (5.0-8.0) Ur Specific [place] 1.015 (1.003-1.030) Urine Protein 1+ H (NEGATIVE) mg/dL Urine Glucose (UA) 3+ H (Normal) mg/dL Urine Ketones Trace (NEGATIVE) mg/dL Urine Blood 1+ H (NEGATIVE) Urine Nitrate Negative (NEGATIVE) Urine Bilirubin Negative (NEGATIVE) Urine Urobilinogen 2.0 (0.2-1.0) mg/dL Ur Leukocyte Esterase 3+ H (Negative) [place]/uL Urine WBC (Auto) 20 H (0-5) /hpf Urine RBC (Auto) 5 H (0-3) /hpf Calcium Oxalate Crystal Rare (<OCC) /hpf Urine Bacteria Few H (<OCC) 11/17/16 11/17/16 11/17/16 Range/Units 17:29 13:11 12:52 WBC (4.8-10.8) K/uL RBC (4.40-5.90) Mil/uL Hgb (12.0-18.0) g/dL Hct (35.0-51.0) % MCV (80.0-94.0) fL MCH (27.0-31.0) pg MCHC (33.0-37.0) g/dL RDW (11.5-14.5) % Plt Count (130-400) K/uL MPV (7.2-11.7) fL Neut % (Auto) (50.0-75.0) % Lymph % (Auto) (20.0-40.0) % [place] % (Auto) (0.0-10.0) % Eos % (Auto) (0.0-4.0) % Baso % (Auto) (0.0-2.0) % Neut # (1.8-7.0) K/uL Lymph # (1.0-4.3) K/uL [place] # (0.0-0.8) K/uL Eos # (0.0-0.7) K/uL Baso # (0.0-0.2) K/uL Neutrophils % (Manual) (50-75) % Lymphocytes % (Manual) (20-40) % Monocytes % (Manual) (0-10) % Eosinophils % (Manual) (0-4) % Platelet Estimate (NORMAL) Hypochromasia (manual) Poikilocytosis (manual Anisocytosis (manual) Puncture Site Rr pCO2 26 L (35-45) mm/Hg pO2 168 H (80-100) mm/Hg HCO3 21.7 (21-28) mmol/L ABG pH 7.46 H (7.35-7.45) ABG Total CO2 19.3 L (22-28) mmol/L ABG O2 Saturation 99.6 H (95-98) % ABG Base Excess -4.2 L (-2.0-3.0) mmol/L ABG Hemoglobin 10.5 L (11.7-17.4) g/dL ABG Carboxyhemoglobin 1.4 (0.5-1.5) % POC ABG HHb (Measured) 0.4 (0.0-5.0) % ABG Methemoglobin 0.9 (0.0-3.0) % Josh Test Pos A-a O2 Difference 156.0 mm/Hg Respiratory Index 0.9 Hgb O2 Saturation 97.3 (95.0-98.0) % Mechanical Rate 20 FiO2 50.0 % Tidal Volume 450 PEEP 5 Sodium (132-148) mmol/L Potassium (3.6-5.2) mmol/L Chloride (98-107) mmol/L Carbon Dioxide (22-30) mmol/L Anion Gap (10-20) BUN (9-20) mg/dL Creatinine (0.8-1.5) MG/DL Est GFR ( Amer) Est GFR (Non-Af Amer) POC Glucose (mg/dL) 30 L* 182 H (65-110) mg/dL Random Glucose (75-110) mg/dL Calcium (8.6-10.4) mg/dl Magnesium (1.6-2.3) mg/dL Total Bilirubin (0.2-1.3) mg/dL AST (17-59) U/L ALT (21-72) U/L Alkaline Phosphatase (38-126) U/L Total Protein (6.3-8.3) g/dL Albumin (3.5-5.0) g/dL Globulin (2.2-3.9) gm/dL Albumin/Globulin Ratio (1.0-2.1) Urine Color (YELLOW) Urine Clarity (Clear) Urine pH (5.0-8.0) Ur Specific [place] (1.003-1.030) Urine Protein (NEGATIVE) mg/dL Urine Glucose (UA) (Normal) mg/dL Urine Ketones (NEGATIVE) mg/dL Urine Blood (NEGATIVE) Urine Nitrate (NEGATIVE) Urine Bilirubin (NEGATIVE) Urine Urobilinogen (0.2-1.0) mg/dL Ur Leukocyte Esterase (Negative) [place]/uL Urine WBC (Auto) (0-5) /hpf Urine RBC (Auto) (0-3) /hpf Calcium Oxalate Crystal (<OCC) /hpf Urine Bacteria (<OCC) 11/17/16 Range/Units 12:14 WBC (4.8-10.8) K/uL RBC (4.40-5.90) Mil/uL Hgb (12.0-18.0) g/dL Hct (35.0-51.0) % MCV (80.0-94.0) fL MCH (27.0-31.0) pg MCHC (33.0-37.0) g/dL RDW (11.5-14.5) % Plt Count (130-400) K/uL MPV (7.2-11.7) fL Neut % (Auto) (50.0-75.0) % Lymph % (Auto) (20.0-40.0) % [place] % (Auto) (0.0-10.0) % Eos % (Auto) (0.0-4.0) % Baso % (Auto) (0.0-2.0) % Neut # (1.8-7.0) K/uL Lymph # (1.0-4.3) K/uL [place] # (0.0-0.8) K/uL Eos # (0.0-0.7) K/uL Baso # (0.0-0.2) K/uL Neutrophils % (Manual) (50-75) % Lymphocytes % (Manual) (20-40) % Monocytes % (Manual) (0-10) % Eosinophils % (Manual) (0-4) % Platelet Estimate (NORMAL) Hypochromasia (manual) Poikilocytosis (manual Anisocytosis (manual) Puncture Site pCO2 (35-45) mm/Hg pO2 (80-100) mm/Hg HCO3 (21-28) mmol/L ABG pH (7.35-7.45) ABG Total CO2 (22-28) mmol/L ABG O2 Saturation (95-98) % ABG Base Excess (-2.0-3.0) mmol/L ABG Hemoglobin (11.7-17.4) g/dL ABG Carboxyhemoglobin (0.5-1.5) % POC ABG HHb (Measured) (0.0-5.0) % ABG Methemoglobin (0.0-3.0) % Josh Test A-a O2 Difference mm/Hg Respiratory Index Hgb O2 Saturation (95.0-98.0) % Mechanical Rate FiO2 % Tidal Volume PEEP Sodium (132-148) mmol/L Potassium (3.6-5.2) mmol/L Chloride (98-107) mmol/L Carbon Dioxide (22-30) mmol/L Anion Gap (10-20) BUN (9-20) mg/dL Creatinine (0.8-1.5) MG/DL Est GFR ( Amer) Est GFR (Non-Af Amer) POC Glucose (mg/dL) 64 L (65-110) mg/dL Random Glucose (75-110) mg/dL Calcium (8.6-10.4) mg/dl Magnesium (1.6-2.3) mg/dL Total Bilirubin (0.2-1.3) mg/dL AST (17-59) U/L ALT (21-72) U/L Alkaline Phosphatase (38-126) U/L Total Protein (6.3-8.3) g/dL Albumin (3.5-5.0) g/dL Globulin (2.2-3.9) gm/dL Albumin/Globulin Ratio (1.0-2.1) Urine Color (YELLOW) Urine Clarity (Clear) Urine pH (5.0-8.0) Ur Specific [place] (1.003-1.030) Urine Protein (NEGATIVE) mg/dL Urine Glucose (UA) (Normal) mg/dL Urine Ketones (NEGATIVE) mg/dL Urine Blood (NEGATIVE) Urine Nitrate (NEGATIVE) Urine Bilirubin (NEGATIVE) Urine Urobilinogen (0.2-1.0) mg/dL Ur Leukocyte Esterase (Negative) Veronique/uL Urine WBC (Auto) (0-5) /hpf Urine RBC (Auto) (0-3) /hpf Calcium Oxalate Crystal (<OCC) /hpf Urine Bacteria (<OCC) Laboratory Results - last 24 hr 11/17/16 11/17/16 11/17/16 12:14 12:52 13:11 WBC RBC Hgb Hct MCV MCH MCHC RDW Plt Count MPV Neut % (Auto) Lymph % (Auto) [place] % (Auto) Eos % (Auto) Baso % (Auto) Neut # Lymph # [place] # Eos # Baso # Neutrophils % (Manual) Lymphocytes % (Manual) Monocytes % (Manual) Eosinophils % (Manual) Platelet Estimate Hypochromasia (manual) Poikilocytosis (manual Anisocytosis (manual) Puncture Site Rr pCO2 26 L pO2 168 H HCO3 21.7 ABG pH 7.46 H ABG Total CO2 19.3 L ABG O2 Saturation 99.6 H ABG Base Excess -4.2 L ABG Hemoglobin 10.5 L ABG Carboxyhemoglobin 1.4 POC ABG HHb (Measured) 0.4 ABG Methemoglobin 0.9 Josh Test Pos A-a O2 Difference 156.0 Respiratory Index 0.9 Hgb O2 Saturation 97.3 Mechanical Rate 20 FiO2 50.0 Tidal Volume 450 PEEP 5 Sodium Potassium Chloride Carbon Dioxide Anion Gap BUN Creatinine Est GFR ( Amer) Est GFR (Non-Af Amer) POC Glucose (mg/dL) 64 L 182 H Random Glucose Calcium Magnesium Total Bilirubin AST ALT Alkaline Phosphatase Total Protein Albumin Globulin Albumin/Globulin Ratio Urine Color Urine Clarity Urine pH Ur Specific [place] Urine Protein Urine Glucose (UA) Urine Ketones Urine Blood Urine Nitrate Urine Bilirubin Urine Urobilinogen Ur Leukocyte Esterase Urine WBC (Auto) Urine RBC (Auto) Calcium Oxalate Crystal Urine Bacteria 11/17/16 11/17/16 11/17/16 17:29 18:01 20:05 WBC RBC Hgb Hct MCV MCH MCHC RDW Plt Count MPV Neut % (Auto) Lymph % (Auto) [place] % (Auto) Eos % (Auto) Baso % (Auto) Neut # Lymph # [place] # Eos # Baso # Neutrophils % (Manual) Lymphocytes % (Manual) Monocytes % (Manual) Eosinophils % (Manual) Platelet Estimate Hypochromasia (manual) Poikilocytosis (manual Anisocytosis (manual) Puncture Site pCO2 pO2 HCO3 ABG pH ABG Total CO2 ABG O2 Saturation ABG Base Excess ABG Hemoglobin ABG Carboxyhemoglobin POC ABG HHb (Measured) ABG Methemoglobin Josh Test A-a O2 Difference Respiratory Index Hgb O2 Saturation Mechanical Rate FiO2 Tidal Volume PEEP Sodium Potassium Chloride Carbon Dioxide Anion Gap BUN Creatinine Est GFR ( Amer) Est GFR (Non-Af Amer) POC Glucose (mg/dL) 30 L* 78 Random Glucose Calcium Magnesium Total Bilirubin AST ALT Alkaline Phosphatase Total Protein Albumin Globulin Albumin/Globulin Ratio Urine Color Yellow Urine Clarity Clear Urine pH 6.0 Ur Specific [place] 1.015 Urine Protein 1+ H Urine Glucose (UA) 3+ H Urine Ketones Trace Urine Blood 1+ H Urine Nitrate Negative Urine Bilirubin Negative Urine Urobilinogen 2.0 Ur Leukocyte Esterase 3+ H Urine WBC (Auto) 20 H Urine RBC (Auto) 5 H Calcium Oxalate Crystal Rare Urine Bacteria Few H 11/17/16 11/17/16 11/18/16 21:49 23:55 04:02 WBC RBC Hgb Hct MCV MCH MCHC RDW Plt Count MPV Neut % (Auto) Lymph % (Auto) [place] % (Auto) Eos % (Auto) Baso % (Auto) Neut # Lymph # [place] # Eos # Baso # Neutrophils % (Manual) Lymphocytes % (Manual) Monocytes % (Manual) Eosinophils % (Manual) Platelet Estimate Hypochromasia (manual) Poikilocytosis (manual Anisocytosis (manual) Puncture Site pCO2 pO2 HCO3 ABG pH ABG Total CO2 ABG O2 Saturation ABG Base Excess ABG Hemoglobin ABG Carboxyhemoglobin POC ABG HHb (Measured) ABG Methemoglobin Josh Test A-a O2 Difference Respiratory Index Hgb O2 Saturation Mechanical Rate FiO2 Tidal Volume PEEP Sodium Potassium Chloride Carbon Dioxide Anion Gap BUN Creatinine Est GFR ( Amer) Est GFR (Non-Af Amer) POC Glucose (mg/dL) 68 72 77 Random Glucose Calcium Magnesium Total Bilirubin AST ALT Alkaline Phosphatase Total Protein Albumin Globulin Albumin/Globulin Ratio Urine Color Urine Clarity Urine pH Ur Specific [place] Urine Protein Urine Glucose (UA) Urine Ketones Urine Blood Urine Nitrate Urine Bilirubin Urine Urobilinogen Ur Leukocyte Esterase Urine WBC (Auto) Urine RBC (Auto) Calcium Oxalate Crystal Urine Bacteria 11/18/16 11/18/16 11/18/16 04:25 06:20 06:20 WBC 5.5 RBC 3.70 L Hgb 11.2 L Hct 33.6 L MCV 91.0 D MCH 30.3 MCHC 33.3 RDW 17.0 H Plt Count 216 MPV 8.7 Neut % (Auto) 88.4 H Lymph % (Auto) 8.4 L [place] % (Auto) 2.6 Eos % (Auto) 0.2 Baso % (Auto) 0.4 Neut # 4.9 Lymph # 0.5 L [place] # 0.1 Eos # 0.0 Baso # 0.0 Neutrophils % (Manual) 90 H Lymphocytes % (Manual) 6 L Monocytes % (Manual) 3 Eosinophils % (Manual) 1 Platelet Estimate Normal Hypochromasia (manual) Slight Poikilocytosis (manual Slight Anisocytosis (manual) Slight Puncture Site Rr pCO2 26 L pO2 181 H HCO3 25.4 ABG pH 7.54 H ABG Total CO2 23.0 ABG O2 Saturation 99.6 H ABG Base Excess 0.6 ABG Hemoglobin 11.3 L ABG Carboxyhemoglobin 1.3 POC ABG HHb (Measured) 0.4 ABG Methemoglobin 1.3 Josh Test Pos A-a O2 Difference 143.0 Respiratory Index 0.8 Hgb O2 Saturation 97.0 Mechanical Rate 20 FiO2 50.0 Tidal Volume 450 PEEP 5 Sodium 127 L Potassium 3.7 Chloride 98 Carbon Dioxide 21 L Anion Gap 12 BUN 12 Creatinine 0.5 L Est GFR ( Amer) > 60 Est GFR (Non-Af Amer) > 60 POC Glucose (mg/dL) Random Glucose 107 Calcium 6.8 L Magnesium 1.7 Total Bilirubin 0.6 AST 40 ALT 26 Alkaline Phosphatase 155 H Total Protein 4.7 L Albumin 2.1 L Globulin 2.6 Albumin/Globulin Ratio 0.8 L Urine Color Urine Clarity Urine pH Ur Specific [place] Urine Protein Urine Glucose (UA) Urine Ketones Urine Blood Urine Nitrate Urine Bilirubin Urine Urobilinogen Ur Leukocyte Esterase Urine WBC (Auto) Urine RBC (Auto) Calcium Oxalate Crystal Urine Bacteria 11/18/16 07:31 WBC RBC Hgb Hct MCV MCH MCHC RDW Plt Count MPV Neut % (Auto) Lymph % (Auto) [place] % (Auto) Eos % (Auto) Baso % (Auto) Neut # Lymph # [place] # Eos # Baso # Neutrophils % (Manual) Lymphocytes % (Manual) Monocytes % (Manual) Eosinophils % (Manual) Platelet Estimate Hypochromasia (manual) Poikilocytosis (manual Anisocytosis (manual) Puncture Site pCO2 pO2 HCO3 ABG pH ABG Total CO2 ABG O2 Saturation ABG Base Excess ABG Hemoglobin ABG Carboxyhemoglobin POC ABG HHb (Measured) ABG Methemoglobin Josh Test A-a O2 Difference Respiratory Index Hgb O2 Saturation Mechanical Rate FiO2 Tidal Volume PEEP Sodium Potassium Chloride Carbon Dioxide Anion Gap BUN Creatinine Est GFR ( Amer) Est GFR (Non-Af Amer) POC Glucose (mg/dL) 97 Random Glucose Calcium Magnesium Total Bilirubin AST ALT Alkaline Phosphatase Total Protein Albumin Globulin Albumin/Globulin Ratio Urine Color Urine Clarity Urine pH Ur Specific [place] Urine Protein Urine Glucose (UA) Urine Ketones Urine Blood Urine Nitrate Urine Bilirubin Urine Urobilinogen Ur Leukocyte Esterase Urine WBC (Auto) Urine RBC (Auto) Calcium Oxalate Crystal Urine Bacteria Fingerstick Blood Sugar Results: 98 Review of Systems - Review of Systems Systems not reviewed;Unavailable: Intubated Assessment/Plan - Assessment and Plan (Free Text) Assessment: This is a 61 yo M with hx of metastatic cancer s/p cardiopulmonary arrest with unclear cause now on vent with episodes of hypoglycemia. Plan: Neuro: Intubated, alert Continue to monitor Cardiovascular: Relative hypotension Cont IVF No acute issues Pulmonary: Intubated Saturating well CXR - Consolidative airspace opacities in the mid to lower lung zones bilaterally with associated moderate bilateral pleural effusions. Biapical pleural thickening with upper lobe granulomatous changes. Start Lasix Maintain saturations above 90% Gastrointestinal: Tube feeds started [employer] referral Hematology: No acute issues Endocrine: Repeat episodes of hypoglycemia Cont D10 IVF Starting IV steroids for possible adrenal insufficiency Accuchecks q6h Renal: Cont IVF Continue to monitor labs/electrolytes Good urine output Infectious Disease: No leukocytosis, afebrile but there is a left shift Primaxin since 11/12 GI Prophylaxis: Protonix DVT Prophylaxis: Lovenox <Abel Lafleur - Last Filed: 11/18/16 13:08> CCU Objective - Vital Signs / Intake & Output Vital Signs (Last 4 hours): Vital Signs Pulse Resp BP Pulse Ox 11/18/16 12:00 108 H 20 100 11/18/16 11:54 111 H 15 92/59 L 98 11/18/16 10:53 101 H 16 103/72 98 11/18/16 10:42 108/75 11/18/16 10:00 103 H 19 100 11/18/16 09:53 103 H 22 108/75 100 Intake and Output (Last 8hrs): Intake & Output 11/17/16 11/18/16 11/18/16 22:59 06:59 14:59 Intake Total 1700 1400 650 Output Total 014 786 9333 Balance 855 760 -500 Weight 148 lb 12.992 oz Intake: Intake, IV Amount 1700 1400 650 Right Distal Port 600 600 450 External Jugular Right Medial Port 300 Internal Jugular Right PICC 800 800 200 Output: Gastric Amount 200 300 Stomach 200 300 Drainage [phone] Right Nephrostomy Tube [phone] Other: # Bowel Movements 1 1 1 - Medications Active Medications: Active Medications Generic Name Dose Route Start Last Admin Trade Name Freq PRN Reason Stop Dose Admin Enoxaparin Sodium 40 mg 11/13/16 10:00 11/18/16 09:05 Lovenox SC 40 mg DAILY PAOLA Administration Furosemide 40 mg 11/18/16 10:30 11/18/16 10:42 Lasix IVP 40 mg Q12 PAOLA Administration Dopamine HCl/Dextrose 400 mg in 250 mls @ 4.838 mls/hr 11/17/16 09:58 Dopamine 400mg/250ml D5w IV .Q24H PRN TITRATE PER MD ORDER Protocol 2 MCG/KG/MIN Dextrose 1,000 mls @ 75 mls/hr 11/17/16 12:19 11/18/16 03:05 Dextrose 10% In Water IV 75 mls/hr .[id number] PAOLA Administration Cefepime HCl 1 gm/ Dextrose 50 mls @ 100 mls/hr 11/17/16 19:00 11/18/16 06:17 IVPB 100 mls/hr Q12H PAOLA Administration Methylprednisolone 50 mg 11/18/16 07:30 11/18/16 08:30 Solu-Medrol IVP 50 mg Q6H PAOLA Administration Pantoprazole Sodium 40 mg 11/17/16 10:00 11/18/16 09:03 Protonix Inj IVP 40 mg DAILY PAOLA Administration - Patient Studies Lab Studies: Microbiology Studies 11/17/16 05:13 MRSA Culture (Admit) - Final Nose MRSA NOT DETECTED Lab Studies 11/18/16 11/18/16 11/18/16 Range/Units 07:31 06:20 06:20 WBC 5.5 (4.8-10.8) K/uL RBC 3.70 L (4.40-5.90) Mil/uL Hgb 11.2 L (12.0-18.0) g/dL Hct 33.6 L (35.0-51.0) % MCV 91.0 D (80.0-94.0) fL MCH 30.3 (27.0-31.0) pg MCHC 33.3 (33.0-37.0) g/dL RDW 17.0 H (11.5-14.5) % Plt Count 216 (130-400) K/uL MPV 8.7 (7.2-11.7) fL Neut % (Auto) 88.4 H (50.0-75.0) % Lymph % (Auto) 8.4 L (20.0-40.0) % [place] % (Auto) 2.6 (0.0-10.0) % Eos % (Auto) 0.2 (0.0-4.0) % Baso % (Auto) 0.4 (0.0-2.0) % Neut # 4.9 (1.8-7.0) K/uL Lymph # 0.5 L (1.0-4.3) K/uL [place] # 0.1 (0.0-0.8) K/uL Eos # 0.0 (0.0-0.7) K/uL Baso # 0.0 (0.0-0.2) K/uL Neutrophils % (Manual) 90 H (50-75) % Lymphocytes % (Manual) 6 L (20-40) % Monocytes % (Manual) 3 (0-10) % Eosinophils % (Manual) 1 (0-4) % Platelet Estimate Normal (NORMAL) Hypochromasia (manual) Slight Poikilocytosis (manual Slight Anisocytosis (manual) Slight Puncture Site pCO2 (35-45) mm/Hg pO2 (80-100) mm/Hg HCO3 (21-28) mmol/L ABG pH (7.35-7.45) ABG Total CO2 (22-28) mmol/L ABG O2 Saturation (95-98) % ABG Base Excess (-2.0-3.0) mmol/L ABG Hemoglobin (11.7-17.4) g/dL ABG Carboxyhemoglobin (0.5-1.5) % POC ABG HHb (Measured) (0.0-5.0) % ABG Methemoglobin (0.0-3.0) % Josh Test A-a O2 Difference mm/Hg Respiratory Index Hgb O2 Saturation (95.0-98.0) % Mechanical Rate FiO2 % Tidal Volume PEEP Sodium 127 L (132-148) mmol/L Potassium 3.7 (3.6-5.2) mmol/L Chloride 98 (98-107) mmol/L Carbon Dioxide 21 L (22-30) mmol/L Anion Gap 12 (10-20) BUN 12 (9-20) mg/dL Creatinine 0.5 L (0.8-1.5) MG/DL Est GFR ( Amer) > 60 Est GFR (Non-Af Amer) > 60 POC Glucose (mg/dL) 97 (65-110) mg/dL Random Glucose 107 (75-110) mg/dL Calcium 6.8 L (8.6-10.4) mg/dl Magnesium 1.7 (1.6-2.3) mg/dL Total Bilirubin 0.6 (0.2-1.3) mg/dL AST 40 (17-59) U/L ALT 26 (21-72) U/L Alkaline Phosphatase 155 H (38-126) U/L Total Protein 4.7 L (6.3-8.3) g/dL Albumin 2.1 L (3.5-5.0) g/dL Globulin 2.6 (2.2-3.9) gm/dL Albumin/Globulin Ratio 0.8 L (1.0-2.1) Urine Color (YELLOW) Urine Clarity (Clear) Urine pH (5.0-8.0) Ur Specific [place] (1.003-1.030) Urine Protein (NEGATIVE) mg/dL Urine Glucose (UA) (Normal) mg/dL Urine Ketones (NEGATIVE) mg/dL Urine Blood (NEGATIVE) Urine Nitrate (NEGATIVE) Urine Bilirubin (NEGATIVE) Urine Urobilinogen (0.2-1.0) mg/dL Ur Leukocyte Esterase (Negative) Veronique/uL Urine WBC (Auto) (0-5) /hpf Urine RBC (Auto) (0-3) /hpf Calcium Oxalate Crystal (<OCC) /hpf Urine Bacteria (<OCC) 11/18/16 11/18/16 11/17/16 Range/Units 04:25 04:02 23:55 WBC (4.8-10.8) K/uL RBC (4.40-5.90) Mil/uL Hgb (12.0-18.0) g/dL Hct (35.0-51.0) % MCV (80.0-94.0) fL MCH (27.0-31.0) pg MCHC (33.0-37.0) g/dL RDW (11.5-14.5) % Plt Count (130-400) K/uL MPV (7.2-11.7) fL Neut % (Auto) (50.0-75.0) % Lymph % (Auto) (20.0-40.0) % [place] % (Auto) (0.0-10.0) % Eos % (Auto) (0.0-4.0) % Baso % (Auto) (0.0-2.0) % Neut # (1.8-7.0) K/uL Lymph # (1.0-4.3) K/uL [place] # (0.0-0.8) K/uL Eos # (0.0-0.7) K/uL Baso # (0.0-0.2) K/uL Neutrophils % (Manual) (50-75) % Lymphocytes % (Manual) (20-40) % Monocytes % (Manual) (0-10) % Eosinophils % (Manual) (0-4) % Platelet Estimate (NORMAL) Hypochromasia (manual) Poikilocytosis (manual Anisocytosis (manual) Puncture Site Rr pCO2 26 L (35-45) mm/Hg pO2 181 H (80-100) mm/Hg HCO3 25.4 (21-28) mmol/L ABG pH 7.54 H (7.35-7.45) ABG Total CO2 23.0 (22-28) mmol/L ABG O2 Saturation 99.6 H (95-98) % ABG Base Excess 0.6 (-2.0-3.0) mmol/L ABG Hemoglobin 11.3 L (11.7-17.4) g/dL ABG Carboxyhemoglobin 1.3 (0.5-1.5) % POC ABG HHb (Measured) 0.4 (0.0-5.0) % ABG Methemoglobin 1.3 (0.0-3.0) % Josh Test Pos A-a O2 Difference 143.0 mm/Hg Respiratory Index 0.8 Hgb O2 Saturation 97.0 (95.0-98.0) % Mechanical Rate 20 FiO2 50.0 % Tidal Volume 450 PEEP 5 Sodium (132-148) mmol/L Potassium (3.6-5.2) mmol/L Chloride (98-107) mmol/L Carbon Dioxide (22-30) mmol/L Anion Gap (10-20) BUN (9-20) mg/dL Creatinine (0.8-1.5) MG/DL Est GFR ( Amer) Est GFR (Non-Af Amer) POC Glucose (mg/dL) 77 72 (65-110) mg/dL Random Glucose (75-110) mg/dL Calcium (8.6-10.4) mg/dl Magnesium (1.6-2.3) mg/dL Total Bilirubin (0.2-1.3) mg/dL AST (17-59) U/L ALT (21-72) U/L Alkaline Phosphatase (38-126) U/L Total Protein (6.3-8.3) g/dL Albumin (3.5-5.0) g/dL Globulin (2.2-3.9) gm/dL Albumin/Globulin Ratio (1.0-2.1) Urine Color (YELLOW) Urine Clarity (Clear) Urine pH (5.0-8.0) Ur Specific [place] (1.003-1.030) Urine Protein (NEGATIVE) mg/dL Urine Glucose (UA) (Normal) mg/dL Urine Ketones (NEGATIVE) mg/dL Urine Blood (NEGATIVE) Urine Nitrate (NEGATIVE) Urine Bilirubin (NEGATIVE) Urine Urobilinogen (0.2-1.0) mg/dL Ur Leukocyte Esterase (Negative) Veronique/uL Urine WBC (Auto) (0-5) /hpf Urine RBC (Auto) (0-3) /hpf Calcium Oxalate Crystal (<OCC) /hpf Urine Bacteria (<OCC) 11/17/16 11/17/16 11/17/16 Range/Units 21:49 20:05 18:01 WBC (4.8-10.8) K/uL RBC (4.40-5.90) Mil/uL Hgb (12.0-18.0) g/dL Hct (35.0-51.0) % MCV (80.0-94.0) fL MCH (27.0-31.0) pg MCHC (33.0-37.0) g/dL RDW (11.5-14.5) % Plt Count (130-400) K/uL MPV (7.2-11.7) fL Neut % (Auto) (50.0-75.0) % Lymph % (Auto) (20.0-40.0) % [place] % (Auto) (0.0-10.0) % Eos % (Auto) (0.0-4.0) % Baso % (Auto) (0.0-2.0) % Neut # (1.8-7.0) K/uL Lymph # (1.0-4.3) K/uL [place] # (0.0-0.8) K/uL Eos # (0.0-0.7) K/uL Baso # (0.0-0.2) K/uL Neutrophils % (Manual) (50-75) % Lymphocytes % (Manual) (20-40) % Monocytes % (Manual) (0-10) % Eosinophils % (Manual) (0-4) % Platelet Estimate (NORMAL) Hypochromasia (manual) Poikilocytosis (manual Anisocytosis (manual) Puncture Site pCO2 (35-45) mm/Hg pO2 (80-100) mm/Hg HCO3 (21-28) mmol/L ABG pH (7.35-7.45) ABG Total CO2 (22-28) mmol/L ABG O2 Saturation (95-98) % ABG Base Excess (-2.0-3.0) mmol/L ABG Hemoglobin (11.7-17.4) g/dL ABG Carboxyhemoglobin (0.5-1.5) % POC ABG HHb (Measured) (0.0-5.0) % ABG Methemoglobin (0.0-3.0) % Josh Test A-a O2 Difference mm/Hg Respiratory Index Hgb O2 Saturation (95.0-98.0) % Mechanical Rate FiO2 % Tidal Volume PEEP Sodium (132-148) mmol/L Potassium (3.6-5.2) mmol/L Chloride (98-107) mmol/L Carbon Dioxide (22-30) mmol/L Anion Gap (10-20) BUN (9-20) mg/dL Creatinine (0.8-1.5) MG/DL Est GFR ( Amer) Est GFR (Non-Af Amer) POC Glucose (mg/dL) 68 78 (65-110) mg/dL Random Glucose (75-110) mg/dL Calcium (8.6-10.4) mg/dl Magnesium (1.6-2.3) mg/dL Total Bilirubin (0.2-1.3) mg/dL AST (17-59) U/L ALT (21-72) U/L Alkaline Phosphatase (38-126) U/L Total Protein (6.3-8.3) g/dL Albumin (3.5-5.0) g/dL Globulin (2.2-3.9) gm/dL Albumin/Globulin Ratio (1.0-2.1) Urine Color Yellow (YELLOW) Urine Clarity Clear (Clear) Urine pH 6.0 (5.0-8.0) Ur Specific [place] 1.015 (1.003-1.030) Urine Protein 1+ H (NEGATIVE) mg/dL Urine Glucose (UA) 3+ H (Normal) mg/dL Urine Ketones Trace (NEGATIVE) mg/dL Urine Blood 1+ H (NEGATIVE) Urine Nitrate Negative (NEGATIVE) Urine Bilirubin Negative (NEGATIVE) Urine Urobilinogen 2.0 (0.2-1.0) mg/dL Ur Leukocyte Esterase 3+ H (Negative) Veronique/uL Urine WBC (Auto) 20 H (0-5) /hpf Urine RBC (Auto) 5 H (0-3) /hpf Calcium Oxalate Crystal Rare (<OCC) /hpf Urine Bacteria Few H (<OCC) 11/17/16 11/17/16 Range/Units 17:29 13:11 WBC (4.8-10.8) K/uL RBC (4.40-5.90) Mil/uL Hgb (12.0-18.0) g/dL Hct (35.0-51.0) % MCV (80.0-94.0) fL MCH (27.0-31.0) pg MCHC (33.0-37.0) g/dL RDW (11.5-14.5) % Plt Count (130-400) K/uL MPV (7.2-11.7) fL Neut % (Auto) (50.0-75.0) % Lymph % (Auto) (20.0-40.0) % [place] % (Auto) (0.0-10.0) % Eos % (Auto) (0.0-4.0) % Baso % (Auto) (0.0-2.0) % Neut # (1.8-7.0) K/uL Lymph # (1.0-4.3) K/uL [place] # (0.0-0.8) K/uL Eos # (0.0-0.7) K/uL Baso # (0.0-0.2) K/uL Neutrophils % (Manual) (50-75) % Lymphocytes % (Manual) (20-40) % Monocytes % (Manual) (0-10) % Eosinophils % (Manual) (0-4) % Platelet Estimate (NORMAL) Hypochromasia (manual) Poikilocytosis (manual Anisocytosis (manual) Puncture Site Rr pCO2 26 L (35-45) mm/Hg pO2 168 H (80-100) mm/Hg HCO3 21.7 (21-28) mmol/L ABG pH 7.46 H (7.35-7.45) ABG Total CO2 19.3 L (22-28) mmol/L ABG O2 Saturation 99.6 H (95-98) % ABG Base Excess -4.2 L (-2.0-3.0) mmol/L ABG Hemoglobin 10.5 L (11.7-17.4) g/dL ABG Carboxyhemoglobin 1.4 (0.5-1.5) % POC ABG HHb (Measured) 0.4 (0.0-5.0) % ABG Methemoglobin 0.9 (0.0-3.0) % Josh Test Pos A-a O2 Difference 156.0 mm/Hg Respiratory Index 0.9 Hgb O2 Saturation 97.3 (95.0-98.0) % Mechanical Rate 20 FiO2 50.0 % Tidal Volume 450 PEEP 5 Sodium (132-148) mmol/L Potassium (3.6-5.2) mmol/L Chloride (98-107) mmol/L Carbon Dioxide (22-30) mmol/L Anion Gap (10-20) BUN (9-20) mg/dL Creatinine (0.8-1.5) MG/DL Est GFR ( Amer) Est GFR (Non-Af Amer) POC Glucose (mg/dL) 30 L* (65-110) mg/dL Random Glucose (75-110) mg/dL Calcium (8.6-10.4) mg/dl Magnesium (1.6-2.3) mg/dL Total Bilirubin (0.2-1.3) mg/dL AST (17-59) U/L ALT (21-72) U/L Alkaline Phosphatase (38-126) U/L Total Protein (6.3-8.3) g/dL Albumin (3.5-5.0) g/dL Globulin (2.2-3.9) gm/dL Albumin/Globulin Ratio (1.0-2.1) Urine Color (YELLOW) Urine Clarity (Clear) Urine pH (5.0-8.0) Ur Specific [place] (1.003-1.030) Urine Protein (NEGATIVE) mg/dL Urine Glucose (UA) (Normal) mg/dL Urine Ketones (NEGATIVE) mg/dL Urine Blood (NEGATIVE) Urine Nitrate (NEGATIVE) Urine Bilirubin (NEGATIVE) Urine Urobilinogen (0.2-1.0) mg/dL Ur Leukocyte Esterase (Negative) Veronique/uL Urine WBC (Auto) (0-5) /hpf Urine RBC (Auto) (0-3) /hpf Calcium Oxalate Crystal (<OCC) /hpf Urine Bacteria (<OCC) Laboratory Results - last 24 hr 11/17/16 11/17/16 11/17/16 13:11 17:29 18:01 WBC RBC Hgb Hct MCV MCH MCHC RDW Plt Count MPV Neut % (Auto) Lymph % (Auto) [place] % (Auto) Eos % (Auto) Baso % (Auto) Neut # Lymph # [place] # Eos # Baso # Neutrophils % (Manual) Lymphocytes % (Manual) Monocytes % (Manual) Eosinophils % (Manual) Platelet Estimate Hypochromasia (manual) Poikilocytosis (manual Anisocytosis (manual) Puncture Site Rr pCO2 26 L pO2 168 H HCO3 21.7 ABG pH 7.46 H ABG Total CO2 19.3 L ABG O2 Saturation 99.6 H ABG Base Excess -4.2 L ABG Hemoglobin 10.5 L ABG Carboxyhemoglobin 1.4 POC ABG HHb (Measured) 0.4 ABG Methemoglobin 0.9 Josh Test Pos A-a O2 Difference 156.0 Respiratory Index 0.9 Hgb O2 Saturation 97.3 Mechanical Rate 20 FiO2 50.0 Tidal Volume 450 PEEP 5 Sodium Potassium Chloride Carbon Dioxide Anion Gap BUN Creatinine Est GFR ( Amer) Est GFR (Non-Af Amer) POC Glucose (mg/dL) 30 L* 78 Random Glucose Calcium Magnesium Total Bilirubin AST ALT Alkaline Phosphatase Total Protein Albumin Globulin Albumin/Globulin Ratio Urine Color Urine Clarity Urine pH Ur Specific [place] Urine Protein Urine Glucose (UA) Urine Ketones Urine Blood Urine Nitrate Urine Bilirubin Urine Urobilinogen Ur Leukocyte Esterase Urine WBC (Auto) Urine RBC (Auto) Calcium Oxalate Crystal Urine Bacteria 11/17/16 11/17/16 11/17/16 20:05 21:49 23:55 WBC RBC Hgb Hct MCV MCH MCHC RDW Plt Count MPV Neut % (Auto) Lymph % (Auto) [place] % (Auto) Eos % (Auto) Baso % (Auto) Neut # Lymph # [place] # Eos # Baso # Neutrophils % (Manual) Lymphocytes % (Manual) Monocytes % (Manual) Eosinophils % (Manual) Platelet Estimate Hypochromasia (manual) Poikilocytosis (manual Anisocytosis (manual) Puncture Site pCO2 pO2 HCO3 ABG pH ABG Total CO2 ABG O2 Saturation ABG Base Excess ABG Hemoglobin ABG Carboxyhemoglobin POC ABG HHb (Measured) ABG Methemoglobin Josh Test A-a O2 Difference Respiratory Index Hgb O2 Saturation Mechanical Rate FiO2 Tidal Volume PEEP Sodium Potassium Chloride Carbon Dioxide Anion Gap BUN Creatinine Est GFR ( Amer) Est GFR (Non-Af Amer) POC Glucose (mg/dL) 68 72 Random Glucose Calcium Magnesium Total Bilirubin AST ALT Alkaline Phosphatase Total Protein Albumin Globulin Albumin/Globulin Ratio Urine Color Yellow Urine Clarity Clear Urine pH 6.0 Ur Specific [place] 1.015 Urine Protein 1+ H Urine Glucose (UA) 3+ H Urine Ketones Trace Urine Blood 1+ H Urine Nitrate Negative Urine Bilirubin Negative Urine Urobilinogen 2.0 Ur Leukocyte Esterase 3+ H Urine WBC (Auto) 20 H Urine RBC (Auto) 5 H Calcium Oxalate Crystal Rare Urine Bacteria Few H 11/18/16 11/18/16 11/18/16 04:02 04:25 06:20 WBC 5.5 RBC 3.70 L Hgb 11.2 L Hct 33.6 L MCV 91.0 D MCH 30.3 MCHC 33.3 RDW 17.0 H Plt Count 216 MPV 8.7 Neut % (Auto) 88.4 H Lymph % (Auto) 8.4 L [place] % (Auto) 2.6 Eos % (Auto) 0.2 Baso % (Auto) 0.4 Neut # 4.9 Lymph # 0.5 L [place] # 0.1 Eos # 0.0 Baso # 0.0 Neutrophils % (Manual) 90 H Lymphocytes % (Manual) 6 L Monocytes % (Manual) 3 Eosinophils % (Manual) 1 Platelet Estimate Normal Hypochromasia (manual) Slight Poikilocytosis (manual Slight Anisocytosis (manual) Slight Puncture Site Rr pCO2 26 L pO2 181 H HCO3 25.4 ABG pH 7.54 H ABG Total CO2 23.0 ABG O2 Saturation 99.6 H ABG Base Excess 0.6 ABG Hemoglobin 11.3 L ABG Carboxyhemoglobin 1.3 POC ABG HHb (Measured) 0.4 ABG Methemoglobin 1.3 Josh Test Pos A-a O2 Difference 143.0 Respiratory Index 0.8 Hgb O2 Saturation 97.0 Mechanical Rate 20 FiO2 50.0 Tidal Volume 450 PEEP 5 Sodium Potassium Chloride Carbon Dioxide Anion Gap BUN Creatinine Est GFR ( Amer) Est GFR (Non-Af Amer) POC Glucose (mg/dL) 77 Random Glucose Calcium Magnesium Total Bilirubin AST ALT Alkaline Phosphatase Total Protein Albumin Globulin Albumin/Globulin Ratio Urine Color Urine Clarity Urine pH Ur Specific [place] Urine Protein Urine Glucose (UA) Urine Ketones Urine Blood Urine Nitrate Urine Bilirubin Urine Urobilinogen Ur Leukocyte Esterase Urine WBC (Auto) Urine RBC (Auto) Calcium Oxalate Crystal Urine Bacteria 11/18/16 11/18/16 06:20 07:31 WBC RBC Hgb Hct MCV MCH MCHC RDW Plt Count MPV Neut % (Auto) Lymph % (Auto) [place] % (Auto) Eos % (Auto) Baso % (Auto) Neut # Lymph # [place] # Eos # Baso # Neutrophils % (Manual) Lymphocytes % (Manual) Monocytes % (Manual) Eosinophils % (Manual) Platelet Estimate Hypochromasia (manual) Poikilocytosis (manual Anisocytosis (manual) Puncture Site pCO2 pO2 HCO3 ABG pH ABG Total CO2 ABG O2 Saturation ABG Base Excess ABG Hemoglobin ABG Carboxyhemoglobin POC ABG HHb (Measured) ABG Methemoglobin Josh Test A-a O2 Difference Respiratory Index Hgb O2 Saturation Mechanical Rate FiO2 Tidal Volume PEEP Sodium 127 L Potassium 3.7 Chloride 98 Carbon Dioxide 21 L Anion Gap 12 BUN 12 Creatinine 0.5 L Est GFR ( Amer) > 60 Est GFR (Non-Af Amer) > 60 POC Glucose (mg/dL) 97 Random Glucose 107 Calcium 6.8 L Magnesium 1.7 Total Bilirubin 0.6 AST 40 ALT 26 Alkaline Phosphatase 155 H Total Protein 4.7 L Albumin 2.1 L Globulin 2.6 Albumin/Globulin Ratio 0.8 L Urine Color Urine Clarity Urine pH Ur Specific [place] Urine Protein Urine Glucose (UA) Urine Ketones Urine Blood Urine Nitrate Urine Bilirubin Urine Urobilinogen Ur Leukocyte Esterase Urine WBC (Auto) Urine RBC (Auto) Calcium Oxalate Crystal Urine Bacteria Attending/Attestation - Attestation I have personally seen and examined this patient.: Yes I have fully participated in the care of the patient.: Yes I have reviewed all pertinent clinical information: Yes Notes (Text): 11/18/16 13:06 I have seen and examined the patient. Medical records, lab studies, and imaging were reviewed by me and a management plan was formulated on multidisciplinary rounds with resident Dr. Farrell. I agree with their above documented assessment and plan. Patient is markedly fluid overloaded, will start diuresis. Patient is alert and following commands. PS trial started to move toward eventual extubation. Critical Care Time 35 minutes. Multi-disciplinary rounds were performed with house staff, nursing, speech therapy, respiratory therapy, pharmacy and nutrition with integrated input from the primary team/attending and other consulting services. The documented time is cumulative and includes review of patient data/exams/labs/chart review and examination of the patient on rounds and throughout the day; time is exclusive of any procedures or teaching time. 11/18/16 13:06
[2016-11-18] MEDS ORDERED: Dextrose 50% SYRINGE Inj (50 ml) IV ONE (12:22)
[2016-11-18] MEDS ORDERED: Dextrose 50% SYRINGE Inj (50 ml) IVP ONE (12:22)
--- NOTE | 2016-11-18 17:12 | CP.PCM.PN ---
Subjective - Date & Time of Evaluation Date of Evaluation: 11/18/16 Time of Evaluation: 09:00 - Subjective Subjective: currently awake ion vent afebrile + urine culture Objective - Vital Signs/Intake and Output Vital Signs (last 24 hours): Temp Pulse Resp BP Pulse Ox 97.8 F 109 H 24 110/76 99 11/18/16 08:00 11/18/16 16:00 11/18/16 16:00 11/18/16 15:53 11/18/16 16:00 Intake and Output: 11/18/16 11/18/16 06:59 18:59 Intake Total 2150 875 Output Total 1240 1510 Balance 910 -635 - Medications Medications: Current Medications Enoxaparin Sodium (Lovenox) 40 mg SC DAILY [facility] Last Admin: 11/18/16 09:05 Dose: 40 mg Furosemide (Lasix) 40 mg IVP Q12 [facility] Last Admin: 11/18/16 10:42 Dose: 40 mg Dopamine HCl/Dextrose (Dopamine 400mg/250ml D5w) 400 mg in 250 mls @ 4.838 mls/ hr IV .Q24H PRN; Protocol; 2 MCG/KG/MIN PRN Reason: TITRATE PER MD ORDER Dextrose (Dextrose 10% In Water) 1,000 mls @ 75 mls/hr IV .[id number] [facility] Last Admin: 11/18/16 13:56 Dose: 75 mls/hr Cefepime HCl 1 gm/ Dextrose 50 mls @ 100 mls/hr IVPB Q12H [facility] Last Admin: 11/18/16 06:17 Dose: 100 mls/hr Methylprednisolone (Solu-Medrol) 50 mg IVP Q6H [facility] Last Admin: 11/18/16 13:53 Dose: 50 mg Pantoprazole Sodium (Protonix Inj) 40 mg IVP DAILY [facility] Last Admin: 11/18/16 09:03 Dose: 40 mg - Labs Labs: 11/18/16 06:20 11/18/16 06:20 PT 13.7 SECONDS (9.7-12.2) H 11/17/16 06:33 INR 1.2 11/17/16 06:33 APTT 37 SECONDS (21-34) H 11/17/16 06:33 - Constitutional Appears: Non-toxic - Head Exam Head Exam: NORMOCEPHALIC - Eye Exam Eye Exam: absent: Scleral icterus - ENT Exam ENT Exam: Mucous Membranes Dry - Neck Exam Neck Exam: absent: Lymphadenopathy - Respiratory Exam Respiratory Exam: Decreased Breath Sounds, Rhonchi - Cardiovascular Exam Cardiovascular Exam: REGULAR RHYTHM - GI/Abdominal Exam GI & Abdominal Exam: Distended, Soft - Rectal Exam Rectal Exam: Deferred - Exam Exam: NORMAL INSPECTION Assessment and Plan (1) Hypotension Status: Acute (2) Abdominal pain Status: Acute (3) Abnormal PSA Status: Acute
[2016-11-19] MEDS: MethylPREDNISolone 40 mg Vial IVP SCH ×2 (00:30→06:30)
[2016-11-19 04:40] LABS: ARTERIAL BLOOD HGB O2 SAT 97.4 % (95.0-98.0); CARBOXYHEMOGLOBIN 1.3 % (0.5-1.5); DRAW SITE RB; HHB 0.2 % (0.0-5.0); METHEMOGLOBIN 1.1 % (0.0-3.0)
[2016-11-19 06:35] LABS: BASO % 0.1 % (0.0-2.0); HEMATOCRIT 36.3 % (35.0-51.0); LYMPH # 0.6 K/uL (1.0-4.3); MEAN CELL VOLUME 91.4 fL (80.0-94.0); MEAN CORPUSCULAR HEMOGLOBIN 29.9 pg (27.0-31.0); MEAN CORPUSCULAR HGB CONC 32.7 g/dL (33.0-37.0); MEAN PLATELET VOLUME 8.4 fL (7.2-11.7); MONO # 0.2 K/uL (0.0-0.8); MONO % 2.7 % (0.0-10.0); PLATELET COUNT 218 K/uL (130-400); WHITE BLOOD COUNT 6.4 K/uL (4.8-10.8)
[2016-11-19 06:42] LABS: CHLORIDE 94 mmol/L (98-107); SODIUM 122 mmol/L (132-148)
[2016-11-19 06:43] LABS: POTASSIUM 3.8 mmol/L (3.6-5.2)
[2016-11-19 06:44] LABS: GFR AFRICAN-AMERICAN > 60
[2016-11-19 06:45] LABS: ALB/GLOB RATIO 0.7 (1.0-2.1); ALKALINE PHOSPHATASE 176 U/L (38-126); ALT/SGPT 16 U/L (21-72); AST/SGOT 23 U/L (17-59); BILIRUBIN,TOTAL 0.5 mg/dL (0.2-1.3); BLOOD UREA NITROGEN 14 mg/dL (9-20); CARBON DIOXIDE 23 mmol/L (22-30); GLUCOSE,RANDOM 161 mg/dL (75-110); PHOSPHOROUS 2.7 mg/dL (2.5-4.5); TOTAL PROTEIN 5.3 g/dL (6.3-8.3)
[2016-11-19 06:46] LABS: CALCIUM 6.8 mg/dl (8.6-10.4); MAGNESIUM 1.7 mg/dL (1.6-2.3)
[2016-11-19 08:44] LABS: NEUTROPHIL 87 % (50-75); TOTAL CELLS COUNTED 100
[2016-11-19] MEDS: Enoxaparin 40 mg Syringe SC SCH (09:48)
--- NOTE | 2016-11-19 11:27 | PCM.SURG1 ---
Surgeon's Initial Post Op Note - Surgeon's Notes Surgeon: Bud Tabares MD Strip Tank Tender: NONE Type of Anesthesia: Local Pre-Operative Diagnosis: Bilateral pleural effusion Operative Findings: CT showed bilateral pleural effusion. Post-Operative Diagnosis: Bilateral pleural effusion Operation Performed: US guided right and left thoracentesis. Specimen/Specimens Removed: 1200 cc clear fluid right lung, 300 cc clear fluid left lung. Estimated Blood Loss: EBL {In ML}: 0 Blood Products Given: N/A Drains Used: No Drains Post-Op Condition: Poor Date of Surgery/Procedure: 11/19/16 Time of Surgery/Procedure: 11:20
--- NOTE | 2016-11-19 11:36 | CP.CCUPN ---
<Jorge Alberto Farrell - Last Filed: 11/19/16 11:07> CCU Subjective - Physician Review Subjective (Free Text): 11/19/16 11:07 PGY-1 ICU progress note Pt seen and examined at bedside. Pt intubated but alert. No events overnight. No episodes or hypoglycemia Critical Care Time Spent (in minutes): 35 CCU Objective - Vital Signs / Intake & Output Vital Signs (Last 4 hours): Vital Signs Temp Pulse Resp BP Pulse Ox 11/19/16 09:45 110/83 11/19/16 08:00 97.1 F L 99 H 15 104/76 99 Intake and Output (Last 8hrs): Intake & Output 11/18/16 11/19/16 11/19/16 22:59 06:59 14:59 Intake Total 822.5 735 285 Output Total 335 900 Balance 487.5 -165 285 Weight 151 lb 0.266 oz Intake: Intake, IV Amount 612.5 575 225 Right Distal Port 387.5 External Jugular Right Proximal Port 225 575 225 Internal Jugular Oral 50 Tube Feeding 160 160 60 Output: Drainage 335 900 Right Nephrostomy Tube 335 900 Other: # Bowel Movements 0 1 1 - Physical Exam Head: Positive for: Atraumatic, Normocephalic Pupils: Positive for: PERRL Mouth: Positive for: Moist Mucous Membranes Respiratory/Chest: Positive for: Clear to Auscultation, Good Air Exchange, Other (On vent) Cardiovascular: Positive for: Normal S1, S2 Abdomen: Positive for: Normal Bowel Sounds. Negative for: Tenderness, Distention Upper Extremity: Positive for: NORMAL PULSES Lower Extremity: Positive for: NORMAL PULSES Neurological: Positive for: Motor Func Grossly Intact Skin: Positive for: Warm, Dry Psychiatric: Positive for: Alert, Other (intubated) - Medications Active Medications: Active Medications Generic Name Dose Route Start Last Admin Trade Name Freq PRN Reason Stop Dose Admin Enoxaparin Sodium 40 mg 11/13/16 10:00 11/19/16 09:48 Lovenox SC 40 mg DAILY PAOLA Administration Furosemide 40 mg 11/18/16 10:30 11/19/16 09:45 Lasix IVP 40 mg Q12 PAOLA Administration Dopamine HCl/Dextrose 400 mg in 250 mls @ 4.838 mls/hr 11/17/16 09:58 Dopamine 400mg/250ml D5w IV .Q24H PRN TITRATE PER MD ORDER Protocol 2 MCG/KG/MIN Dextrose 1,000 mls @ 75 mls/hr 11/17/16 12:19 11/19/16 06:00 Dextrose 10% In Water IV 75 mls/hr .[id number] PAOLA Administration Cefepime HCl 1 gm/ Dextrose 50 mls @ 100 mls/hr 11/17/16 19:00 11/19/16 06:15 IVPB 100 mls/hr Q12H PAOLA Administration Pantoprazole Sodium 40 mg 11/17/16 10:00 11/19/16 09:45 Protonix Inj IVP 40 mg DAILY PAOLA Administration - Patient Studies Lab Studies: Microbiology Studies 11/17/16 Unknown Urine Culture - Preliminary Urine,Kidney Gram Negative Juarez 11/17/16 05:13 MRSA Culture (Admit) - Final Nose MRSA NOT DETECTED Lab Studies 11/19/16 11/19/16 11/19/16 Range/Units 07:55 06:28 06:28 WBC 6.4 (4.8-10.8) K/uL RBC 3.97 L (4.40-5.90) Mil/uL Hgb 11.9 L (12.0-18.0) g/dL Hct 36.3 (35.0-51.0) % MCV 91.4 (80.0-94.0) fL MCH 29.9 (27.0-31.0) pg MCHC 32.7 L (33.0-37.0) g/dL RDW 17.0 H (11.5-14.5) % Plt Count 218 (130-400) K/uL MPV 8.4 (7.2-11.7) fL Neut % (Auto) 88.2 H (50.0-75.0) % Lymph % (Auto) 9.0 L (20.0-40.0) % Gregg % (Auto) 2.7 (0.0-10.0) % Eos % (Auto) 0.0 (0.0-4.0) % Baso % (Auto) 0.1 (0.0-2.0) % Neut # 5.6 (1.8-7.0) K/uL Lymph # 0.6 L (1.0-4.3) K/uL Gregg # 0.2 (0.0-0.8) K/uL Eos # 0.0 (0.0-0.7) K/uL Baso # 0.0 (0.0-0.2) K/uL Neutrophils % (Manual) 87 H (50-75) % Band Neutrophils % 1 (0-2) % Lymphocytes % (Manual) 8 L (20-40) % Monocytes % (Manual) 4 (0-10) % Platelet Estimate Normal (NORMAL) Hypochromasia (manual) Slight Poikilocytosis (manual Slight Anisocytosis (manual) Slight Puncture Site pCO2 (35-45) mm/Hg pO2 (80-100) mm/Hg HCO3 (21-28) mmol/L ABG pH (7.35-7.45) ABG Total CO2 (22-28) mmol/L ABG O2 Saturation (95-98) % ABG Base Excess (-2.0-3.0) mmol/L ABG Hemoglobin (11.7-17.4) g/dL ABG Carboxyhemoglobin (0.5-1.5) % POC ABG HHb (Measured) (0.0-5.0) % ABG Methemoglobin (0.0-3.0) % Josh Test A-a O2 Difference mm/Hg Respiratory Index Hgb O2 Saturation (95.0-98.0) % FiO2 % Pressure Support CPAP Sodium 122 L (132-148) mmol/L Potassium 3.8 (3.6-5.2) mmol/L Chloride 94 L (98-107) mmol/L Carbon Dioxide 23 (22-30) mmol/L Anion Gap 9 L (10-20) BUN 14 (9-20) mg/dL Creatinine 0.7 L (0.8-1.5) MG/DL Est GFR ( Amer) > 60 Est GFR (Non-Af Amer) > 60 POC Glucose (mg/dL) 146 H (65-110) mg/dL Random Glucose 161 H (75-110) mg/dL Calcium 6.8 L (8.6-10.4) mg/dl Phosphorus 2.7 (2.5-4.5) mg/dL Magnesium 1.7 (1.6-2.3) mg/dL Total Bilirubin 0.5 (0.2-1.3) mg/dL AST 23 (17-59) U/L ALT 16 L D (21-72) U/L Alkaline Phosphatase 176 H (38-126) U/L Total Protein 5.3 L (6.3-8.3) g/dL Albumin 2.2 L (3.5-5.0) g/dL Globulin 3.2 (2.2-3.9) gm/dL Albumin/Globulin Ratio 0.7 L (1.0-2.1) 11/19/16 11/19/16 11/18/16 Range/Units 04:36 04:35 23:59 WBC (4.8-10.8) K/uL RBC (4.40-5.90) Mil/uL Hgb (12.0-18.0) g/dL Hct (35.0-51.0) % MCV (80.0-94.0) fL MCH (27.0-31.0) pg MCHC (33.0-37.0) g/dL RDW (11.5-14.5) % Plt Count (130-400) K/uL MPV (7.2-11.7) fL Neut % (Auto) (50.0-75.0) % Lymph % (Auto) (20.0-40.0) % Gregg % (Auto) (0.0-10.0) % Eos % (Auto) (0.0-4.0) % Baso % (Auto) (0.0-2.0) % Neut # (1.8-7.0) K/uL Lymph # (1.0-4.3) K/uL Gregg # (0.0-0.8) K/uL Eos # (0.0-0.7) K/uL Baso # (0.0-0.2) K/uL Neutrophils % (Manual) (50-75) % Band Neutrophils % (0-2) % Lymphocytes % (Manual) (20-40) % Monocytes % (Manual) (0-10) % Platelet Estimate (NORMAL) Hypochromasia (manual) Poikilocytosis (manual Anisocytosis (manual) Puncture Site Rb pCO2 27 L (35-45) mm/Hg pO2 156 H (80-100) mm/Hg HCO3 24.1 (21-28) mmol/L ABG pH 7.50 H (7.35-7.45) ABG Total CO2 21.9 L (22-28) mmol/L ABG O2 Saturation 99.8 H (95-98) % ABG Base Excess -1.1 (-2.0-3.0) mmol/L ABG Hemoglobin 11.3 L (11.7-17.4) g/dL ABG Carboxyhemoglobin 1.3 (0.5-1.5) % POC ABG HHb (Measured) 0.2 (0.0-5.0) % ABG Methemoglobin 1.1 (0.0-3.0) % Josh Test Na A-a O2 Difference 95.0 mm/Hg Respiratory Index 0.6 Hgb O2 Saturation 97.4 (95.0-98.0) % FiO2 40.0 % Pressure Support 10 CPAP 5 Sodium (132-148) mmol/L Potassium (3.6-5.2) mmol/L Chloride (98-107) mmol/L Carbon Dioxide (22-30) mmol/L Anion Gap (10-20) BUN (9-20) mg/dL Creatinine (0.8-1.5) MG/DL Est GFR ( Amer) Est GFR (Non-Af Amer) POC Glucose (mg/dL) 229 H 105 (65-110) mg/dL Random Glucose (75-110) mg/dL Calcium (8.6-10.4) mg/dl Phosphorus (2.5-4.5) mg/dL Magnesium (1.6-2.3) mg/dL Total Bilirubin (0.2-1.3) mg/dL AST (17-59) U/L ALT (21-72) U/L Alkaline Phosphatase (38-126) U/L Total Protein (6.3-8.3) g/dL Albumin (3.5-5.0) g/dL Globulin (2.2-3.9) gm/dL Albumin/Globulin Ratio (1.0-2.1) 11/18/16 11/18/16 11/18/16 Range/Units 19:52 16:05 12:23 WBC (4.8-10.8) K/uL RBC (4.40-5.90) Mil/uL Hgb (12.0-18.0) g/dL Hct (35.0-51.0) % MCV (80.0-94.0) fL MCH (27.0-31.0) pg MCHC (33.0-37.0) g/dL RDW (11.5-14.5) % Plt Count (130-400) K/uL MPV (7.2-11.7) fL Neut % (Auto) (50.0-75.0) % Lymph % (Auto) (20.0-40.0) % Gregg % (Auto) (0.0-10.0) % Eos % (Auto) (0.0-4.0) % Baso % (Auto) (0.0-2.0) % Neut # (1.8-7.0) K/uL Lymph # (1.0-4.3) K/uL Gregg # (0.0-0.8) K/uL Eos # (0.0-0.7) K/uL Baso # (0.0-0.2) K/uL Neutrophils % (Manual) (50-75) % Band Neutrophils % (0-2) % Lymphocytes % (Manual) (20-40) % Monocytes % (Manual) (0-10) % Platelet Estimate (NORMAL) Hypochromasia (manual) Poikilocytosis (manual Anisocytosis (manual) Puncture Site pCO2 (35-45) mm/Hg pO2 (80-100) mm/Hg HCO3 (21-28) mmol/L ABG pH (7.35-7.45) ABG Total CO2 (22-28) mmol/L ABG O2 Saturation (95-98) % ABG Base Excess (-2.0-3.0) mmol/L ABG Hemoglobin (11.7-17.4) g/dL ABG Carboxyhemoglobin (0.5-1.5) % POC ABG HHb (Measured) (0.0-5.0) % ABG Methemoglobin (0.0-3.0) % Josh Test A-a O2 Difference mm/Hg Respiratory Index Hgb O2 Saturation (95.0-98.0) % FiO2 % Pressure Support CPAP Sodium (132-148) mmol/L Potassium (3.6-5.2) mmol/L Chloride (98-107) mmol/L Carbon Dioxide (22-30) mmol/L Anion Gap (10-20) BUN (9-20) mg/dL Creatinine (0.8-1.5) MG/DL Est GFR ( Amer) Est GFR (Non-Af Amer) POC Glucose (mg/dL) 87 116 H 108 (65-110) mg/dL Random Glucose (75-110) mg/dL Calcium (8.6-10.4) mg/dl Phosphorus (2.5-4.5) mg/dL Magnesium (1.6-2.3) mg/dL Total Bilirubin (0.2-1.3) mg/dL AST (17-59) U/L ALT (21-72) U/L Alkaline Phosphatase (38-126) U/L Total Protein (6.3-8.3) g/dL Albumin (3.5-5.0) g/dL Globulin (2.2-3.9) gm/dL Albumin/Globulin Ratio (1.0-2.1) 11/18/16 Range/Units 11:49 WBC (4.8-10.8) K/uL RBC (4.40-5.90) Mil/uL Hgb (12.0-18.0) g/dL Hct (35.0-51.0) % MCV (80.0-94.0) fL MCH (27.0-31.0) pg MCHC (33.0-37.0) g/dL RDW (11.5-14.5) % Plt Count (130-400) K/uL MPV (7.2-11.7) fL Neut % (Auto) (50.0-75.0) % Lymph % (Auto) (20.0-40.0) % Gregg % (Auto) (0.0-10.0) % Eos % (Auto) (0.0-4.0) % Baso % (Auto) (0.0-2.0) % Neut # (1.8-7.0) K/uL Lymph # (1.0-4.3) K/uL Gregg # (0.0-0.8) K/uL Eos # (0.0-0.7) K/uL Baso # (0.0-0.2) K/uL Neutrophils % (Manual) (50-75) % Band Neutrophils % (0-2) % Lymphocytes % (Manual) (20-40) % Monocytes % (Manual) (0-10) % Platelet Estimate (NORMAL) Hypochromasia (manual) Poikilocytosis (manual Anisocytosis (manual) Puncture Site pCO2 (35-45) mm/Hg pO2 (80-100) mm/Hg HCO3 (21-28) mmol/L ABG pH (7.35-7.45) ABG Total CO2 (22-28) mmol/L ABG O2 Saturation (95-98) % ABG Base Excess (-2.0-3.0) mmol/L ABG Hemoglobin (11.7-17.4) g/dL ABG Carboxyhemoglobin (0.5-1.5) % POC ABG HHb (Measured) (0.0-5.0) % ABG Methemoglobin (0.0-3.0) % Josh Test A-a O2 Difference mm/Hg Respiratory Index Hgb O2 Saturation (95.0-98.0) % FiO2 % Pressure Support CPAP Sodium (132-148) mmol/L Potassium (3.6-5.2) mmol/L Chloride (98-107) mmol/L Carbon Dioxide (22-30) mmol/L Anion Gap (10-20) BUN (9-20) mg/dL Creatinine (0.8-1.5) MG/DL Est GFR ( Amer) Est GFR (Non-Af Amer) POC Glucose (mg/dL) 33 L* (65-110) mg/dL Random Glucose (75-110) mg/dL Calcium (8.6-10.4) mg/dl Phosphorus (2.5-4.5) mg/dL Magnesium (1.6-2.3) mg/dL Total Bilirubin (0.2-1.3) mg/dL AST (17-59) U/L ALT (21-72) U/L Alkaline Phosphatase (38-126) U/L Total Protein (6.3-8.3) g/dL Albumin (3.5-5.0) g/dL Globulin (2.2-3.9) gm/dL Albumin/Globulin Ratio (1.0-2.1) Laboratory Results - last 24 hr 06/07/0611/18/16 11/18/16 11:49 12:23 16:05 WBC RBC Hgb Hct MCV MCH MCHC RDW Plt Count MPV Neut % (Auto) Lymph % (Auto) Gregg % (Auto) Eos % (Auto) Baso % (Auto) Neut # Lymph # Gregg # Eos # Baso # Neutrophils % (Manual) Band Neutrophils % Lymphocytes % (Manual) Monocytes % (Manual) Platelet Estimate Hypochromasia (manual) Poikilocytosis (manual Anisocytosis (manual) Puncture Site pCO2 pO2 HCO3 ABG pH ABG Total CO2 ABG O2 Saturation ABG Base Excess ABG Hemoglobin ABG Carboxyhemoglobin POC ABG HHb (Measured) ABG Methemoglobin Josh Test A-a O2 Difference Respiratory Index Hgb O2 Saturation FiO2 Pressure Support CPAP Sodium Potassium Chloride Carbon Dioxide Anion Gap BUN Creatinine Est GFR ( Amer) Est GFR (Non-Af Amer) POC Glucose (mg/dL) 33 L* 108 116 H Random Glucose Calcium Phosphorus Magnesium Total Bilirubin AST ALT Alkaline Phosphatase Total Protein Albumin Globulin Albumin/Globulin Ratio 11/18/16 11/18/16 11/19/16 19:52 23:59 04:35 WBC RBC Hgb Hct MCV MCH MCHC RDW Plt Count MPV Neut % (Auto) Lymph % (Auto) Gregg % (Auto) Eos % (Auto) Baso % (Auto) Neut # Lymph # Gregg # Eos # Baso # Neutrophils % (Manual) Band Neutrophils % Lymphocytes % (Manual) Monocytes % (Manual) Platelet Estimate Hypochromasia (manual) Poikilocytosis (manual Anisocytosis (manual) Puncture Site Rb pCO2 27 L pO2 156 H HCO3 24.1 ABG pH 7.50 H ABG Total CO2 21.9 L ABG O2 Saturation 99.8 H ABG Base Excess -1.1 ABG Hemoglobin 11.3 L ABG Carboxyhemoglobin 1.3 POC ABG HHb (Measured) 0.2 ABG Methemoglobin 1.1 Josh Test Na A-a O2 Difference 95.0 Respiratory Index 0.6 Hgb O2 Saturation 97.4 FiO2 40.0 Pressure Support 10 CPAP 5 Sodium Potassium Chloride Carbon Dioxide Anion Gap BUN Creatinine Est GFR ( Amer) Est GFR (Non-Af Amer) POC Glucose (mg/dL) 87 105 Random Glucose Calcium Phosphorus Magnesium Total Bilirubin AST ALT Alkaline Phosphatase Total Protein Albumin Globulin Albumin/Globulin Ratio 11/19/16 11/19/16 11/19/16 04:36 06:28 06:28 WBC 6.4 RBC 3.97 L Hgb 11.9 L Hct 36.3 MCV 91.4 MCH 29.9 MCHC 32.7 L RDW 17.0 H Plt Count 218 MPV 8.4 Neut % (Auto) 88.2 H Lymph % (Auto) 9.0 L Gregg % (Auto) 2.7 Eos % (Auto) 0.0 Baso % (Auto) 0.1 Neut # 5.6 Lymph # 0.6 L Gregg # 0.2 Eos # 0.0 Baso # 0.0 Neutrophils % (Manual) 87 H Band Neutrophils % 1 Lymphocytes % (Manual) 8 L Monocytes % (Manual) 4 Platelet Estimate Normal Hypochromasia (manual) Slight Poikilocytosis (manual Slight Anisocytosis (manual) Slight Puncture Site pCO2 pO2 HCO3 ABG pH ABG Total CO2 ABG O2 Saturation ABG Base Excess ABG Hemoglobin ABG Carboxyhemoglobin POC ABG HHb (Measured) ABG Methemoglobin Josh Test A-a O2 Difference Respiratory Index Hgb O2 Saturation FiO2 Pressure Support CPAP Sodium 122 L Potassium 3.8 Chloride 94 L Carbon Dioxide 23 Anion Gap 9 L BUN 14 Creatinine 0.7 L Est GFR ( Amer) > 60 Est GFR (Non-Af Amer) > 60 POC Glucose (mg/dL) 229 H Random Glucose 161 H Calcium 6.8 L Phosphorus 2.7 Magnesium 1.7 Total Bilirubin 0.5 AST 23 ALT 16 L D Alkaline Phosphatase 176 H Total Protein 5.3 L Albumin 2.2 L Globulin 3.2 Albumin/Globulin Ratio 0.7 L 11/19/16 07:55 WBC RBC Hgb Hct MCV MCH MCHC RDW Plt Count MPV Neut % (Auto) Lymph % (Auto) Gregg % (Auto) Eos % (Auto) Baso % (Auto) Neut # Lymph # Gregg # Eos # Baso # Neutrophils % (Manual) Band Neutrophils % Lymphocytes % (Manual) Monocytes % (Manual) Platelet Estimate Hypochromasia (manual) Poikilocytosis (manual Anisocytosis (manual) Puncture Site pCO2 pO2 HCO3 ABG pH ABG Total CO2 ABG O2 Saturation ABG Base Excess ABG Hemoglobin ABG Carboxyhemoglobin POC ABG HHb (Measured) ABG Methemoglobin Josh Test A-a O2 Difference Respiratory Index Hgb O2 Saturation FiO2 Pressure Support CPAP Sodium Potassium Chloride Carbon Dioxide Anion Gap BUN Creatinine Est GFR ( Amer) Est GFR (Non-Af Amer) POC Glucose (mg/dL) 146 H Random Glucose Calcium Phosphorus Magnesium Total Bilirubin AST ALT Alkaline Phosphatase Total Protein Albumin Globulin Albumin/Globulin Ratio Fingerstick Blood Sugar Results: 146 Review of Systems - Review of Systems Systems not reviewed;Unavailable: Intubated Assessment/Plan - Assessment and Plan (Free Text) Assessment: This is a 61 yo M with hx of metastatic cancer s/p cardiopulmonary arrest with unclear cause now on vent with episodes of hypoglycemia. Plan: Neuro: Intubated, alert Continue to monitor Cardiovascular: Relative persistent hypotension Fluid overloaded - d/c fluids Monitor Pulmonary: Intubated Saturating well CXR - Persistent b/l pleural effusions, awaiting official read Ordered CT chest Thoracentesis Cont Lasix Maintain saturations above 90% Gastrointestinal: Tube feeds started [employer] referral - awaiting recommendations Hematology: No acute issues Endocrine: No repeat hypoglycemic episodes while on IV steroids Cont D10 IVF D/C IV steroids, monitor blood glucose levels Accuchecks q6h Consult endo - help appreciated Renal: Continue to monitor labs/electrolytes Good urine output Cont lasix Infectious Disease: No leukocytosis, afebrile but there is a left shift Primaxin since 11/12 GI Prophylaxis: Protonix DVT Prophylaxis: Lovenox <Abel Lafleur - Last Filed: 11/19/16 14:57> CCU Objective - Vital Signs / Intake & Output Vital Signs (Last 4 hours): Vital Signs Temp Pulse Resp BP Pulse Ox 11/19/16 12:00 97 F L 109 H 19 101/79 100 11/19/16 11:30 107 H 22 97/76 L 97 11/19/16 11:25 107 H 18 Intake and Output (Last 8hrs): Intake & Output 11/18/16 11/19/16 11/19/16 22:59 06:59 14:59 Intake Total 822.5 735 570 Output Total 335 900 700 Balance 487.5 -165 -130 Weight 151 lb 0.266 oz Intake: Intake, IV Amount 612.5 575 450 Right Distal Port 387.5 External Jugular Right Proximal Port 225 575 450 Internal Jugular Oral 50 Tube Feeding 160 160 120 Output: Drainage 335 900 700 Right Nephrostomy Tube 335 900 700 Stool 0 Other: # Bowel Movements 0 1 1 - Medications Active Medications: Active Medications Generic Name Dose Route Start Last Admin Trade Name Rachel PRN Reason Stop Dose Admin Enoxaparin Sodium 40 mg 11/13/16 10:00 11/19/16 09:48 Lovenox SC 40 mg DAILY PAOLA Administration Furosemide 40 mg 11/18/16 10:30 11/19/16 09:45 Lasix IVP 40 mg Q12 PAOLA Administration Hydrocortisone Sodium Succinate 50 mg 11/19/16 14:00 11/19/16 14:51 Solu-Cortef IV 50 mg Q8H PAOLA Administration Dextrose 1,000 mls @ 75 mls/hr 11/17/16 12:19 11/19/16 06:00 Dextrose 10% In Water IV 75 mls/hr .[id number] PAOLA Administration Cefepime HCl 1 gm/ Dextrose 50 mls @ 100 mls/hr 11/17/16 19:00 11/19/16 06:15 IVPB 100 mls/hr Q12H PAOLA Administration Pantoprazole Sodium 40 mg 11/17/16 10:00 11/19/16 09:45 Protonix Inj IVP 40 mg DAILY PAOLA Administration - Patient Studies Lab Studies: Microbiology Studies 11/17/16 05:13 MRSA Culture (Admit) - Final Nose MRSA NOT DETECTED 11/17/16 Unknown Urine Culture - Preliminary Urine,Kidney Pseudomonas Aeruginosa Lab Studies 11/19/16 11/19/16 11/19/16 Range/Units 12:19 07:55 06:28 WBC (4.8-10.8) K/uL RBC (4.40-5.90) Mil/uL Hgb (12.0-18.0) g/dL Hct (35.0-51.0) % MCV (80.0-94.0) fL MCH (27.0-31.0) pg MCHC (33.0-37.0) g/dL RDW (11.5-14.5) % Plt Count (130-400) K/uL MPV (7.2-11.7) fL Neut % (Auto) (50.0-75.0) % Lymph % (Auto) (20.0-40.0) % Gregg % (Auto) (0.0-10.0) % Eos % (Auto) (0.0-4.0) % Baso % (Auto) (0.0-2.0) % Neut # (1.8-7.0) K/uL Lymph # (1.0-4.3) K/uL Gregg # (0.0-0.8) K/uL Eos # (0.0-0.7) K/uL Baso # (0.0-0.2) K/uL Neutrophils % (Manual) (50-75) % Band Neutrophils % (0-2) % Lymphocytes % (Manual) (20-40) % Monocytes % (Manual) (0-10) % Platelet Estimate (NORMAL) Hypochromasia (manual) Poikilocytosis (manual Anisocytosis (manual) Puncture Site pCO2 (35-45) mm/Hg pO2 (80-100) mm/Hg HCO3 (21-28) mmol/L ABG pH (7.35-7.45) ABG Total CO2 (22-28) mmol/L ABG O2 Saturation (95-98) % ABG Base Excess (-2.0-3.0) mmol/L ABG Hemoglobin (11.7-17.4) g/dL ABG Carboxyhemoglobin (0.5-1.5) % POC ABG HHb (Measured) (0.0-5.0) % ABG Methemoglobin (0.0-3.0) % Josh Test A-a O2 Difference mm/Hg Respiratory Index Hgb O2 Saturation (95.0-98.0) % FiO2 % Pressure Support CPAP Sodium (132-148) mmol/L Potassium (3.6-5.2) mmol/L Chloride (98-107) mmol/L Carbon Dioxide (22-30) mmol/L Anion Gap (10-20) BUN (9-20) mg/dL Creatinine (0.8-1.5) MG/DL Est GFR ( Amer) Est GFR (Non-Af Amer) POC Glucose (mg/dL) 182 H 146 H (65-110) mg/dL Random Glucose (75-110) mg/dL Calcium (8.6-10.4) mg/dl Phosphorus (2.5-4.5) mg/dL Magnesium (1.6-2.3) mg/dL Total Bilirubin (0.2-1.3) mg/dL AST (17-59) U/L ALT (21-72) U/L Alkaline Phosphatase (38-126) U/L Total Protein (6.3-8.3) g/dL Albumin (3.5-5.0) g/dL Globulin (2.2-3.9) gm/dL Albumin/Globulin Ratio (1.0-2.1) Procalcitonin 0.45 (0.19-0.49) NG/ML 11/19/16 11/19/16 11/19/16 Range/Units 06:28 06:28 04:36 WBC 6.4 (4.8-10.8) K/uL RBC 3.97 L (4.40-5.90) Mil/uL Hgb 11.9 L (12.0-18.0) g/dL Hct 36.3 (35.0-51.0) % MCV 91.4 (80.0-94.0) fL MCH 29.9 (27.0-31.0) pg MCHC 32.7 L (33.0-37.0) g/dL RDW 17.0 H (11.5-14.5) % Plt Count 218 (130-400) K/uL MPV 8.4 (7.2-11.7) fL Neut % (Auto) 88.2 H (50.0-75.0) % Lymph % (Auto) 9.0 L (20.0-40.0) % Gregg % (Auto) 2.7 (0.0-10.0) % Eos % (Auto) 0.0 (0.0-4.0) % Baso % (Auto) 0.1 (0.0-2.0) % Neut # 5.6 (1.8-7.0) K/uL Lymph # 0.6 L (1.0-4.3) K/uL Gregg # 0.2 (0.0-0.8) K/uL Eos # 0.0 (0.0-0.7) K/uL Baso # 0.0 (0.0-0.2) K/uL Neutrophils % (Manual) 87 H (50-75) % Band Neutrophils % 1 (0-2) % Lymphocytes % (Manual) 8 L (20-40) % Monocytes % (Manual) 4 (0-10) % Platelet Estimate Normal (NORMAL) Hypochromasia (manual) Slight Poikilocytosis (manual Slight Anisocytosis (manual) Slight Puncture Site pCO2 (35-45) mm/Hg pO2 (80-100) mm/Hg HCO3 (21-28) mmol/L ABG pH (7.35-7.45) ABG Total CO2 (22-28) mmol/L ABG O2 Saturation (95-98) % ABG Base Excess (-2.0-3.0) mmol/L ABG Hemoglobin (11.7-17.4) g/dL ABG Carboxyhemoglobin (0.5-1.5) % POC ABG HHb (Measured) (0.0-5.0) % ABG Methemoglobin (0.0-3.0) % Josh Test A-a O2 Difference mm/Hg Respiratory Index Hgb O2 Saturation (95.0-98.0) % FiO2 % Pressure Support CPAP Sodium 122 L (132-148) mmol/L Potassium 3.8 (3.6-5.2) mmol/L Chloride 94 L (98-107) mmol/L Carbon Dioxide 23 (22-30) mmol/L Anion Gap 9 L (10-20) BUN 14 (9-20) mg/dL Creatinine 0.7 L (0.8-1.5) MG/DL Est GFR ( Amer) > 60 Est GFR (Non-Af Amer) > 60 POC Glucose (mg/dL) 229 H (65-110) mg/dL Random Glucose 161 H (75-110) mg/dL Calcium 6.8 L (8.6-10.4) mg/dl Phosphorus 2.7 (2.5-4.5) mg/dL Magnesium 1.7 (1.6-2.3) mg/dL Total Bilirubin 0.5 (0.2-1.3) mg/dL AST 23 (17-59) U/L ALT 16 L D (21-72) U/L Alkaline Phosphatase 176 H (38-126) U/L Total Protein 5.3 L (6.3-8.3) g/dL Albumin 2.2 L (3.5-5.0) g/dL Globulin 3.2 (2.2-3.9) gm/dL Albumin/Globulin Ratio 0.7 L (1.0-2.1) Procalcitonin (0.19-0.49) NG/ML 11/19/16 11/18/16 11/18/16 Range/Units 04:35 23:59 19:52 WBC (4.8-10.8) K/uL RBC (4.40-5.90) Mil/uL Hgb (12.0-18.0) g/dL Hct (35.0-51.0) % MCV (80.0-94.0) fL MCH (27.0-31.0) pg MCHC (33.0-37.0) g/dL RDW (11.5-14.5) % Plt Count (130-400) K/uL MPV (7.2-11.7) fL Neut % (Auto) (50.0-75.0) % Lymph % (Auto) (20.0-40.0) % Gregg % (Auto) (0.0-10.0) % Eos % (Auto) (0.0-4.0) % Baso % (Auto) (0.0-2.0) % Neut # (1.8-7.0) K/uL Lymph # (1.0-4.3) K/uL Gregg # (0.0-0.8) K/uL Eos # (0.0-0.7) K/uL Baso # (0.0-0.2) K/uL Neutrophils % (Manual) (50-75) % Band Neutrophils % (0-2) % Lymphocytes % (Manual) (20-40) % Monocytes % (Manual) (0-10) % Platelet Estimate (NORMAL) Hypochromasia (manual) Poikilocytosis (manual Anisocytosis (manual) Puncture Site Rb pCO2 27 L (35-45) mm/Hg pO2 156 H (80-100) mm/Hg HCO3 24.1 (21-28) mmol/L ABG pH 7.50 H (7.35-7.45) ABG Total CO2 21.9 L (22-28) mmol/L ABG O2 Saturation 99.8 H (95-98) % ABG Base Excess -1.1 (-2.0-3.0) mmol/L ABG Hemoglobin 11.3 L (11.7-17.4) g/dL ABG Carboxyhemoglobin 1.3 (0.5-1.5) % POC ABG HHb (Measured) 0.2 (0.0-5.0) % ABG Methemoglobin 1.1 (0.0-3.0) % Josh Test Na A-a O2 Difference 95.0 mm/Hg Respiratory Index 0.6 Hgb O2 Saturation 97.4 (95.0-98.0) % FiO2 40.0 % Pressure Support 10 CPAP 5 Sodium (132-148) mmol/L Potassium (3.6-5.2) mmol/L Chloride (98-107) mmol/L Carbon Dioxide (22-30) mmol/L Anion Gap (10-20) BUN (9-20) mg/dL Creatinine (0.8-1.5) MG/DL Est GFR ( Amer) Est GFR (Non-Af Amer) POC Glucose (mg/dL) 105 87 (65-110) mg/dL Random Glucose (75-110) mg/dL Calcium (8.6-10.4) mg/dl Phosphorus (2.5-4.5) mg/dL Magnesium (1.6-2.3) mg/dL Total Bilirubin (0.2-1.3) mg/dL AST (17-59) U/L ALT (21-72) U/L Alkaline Phosphatase (38-126) U/L Total Protein (6.3-8.3) g/dL Albumin (3.5-5.0) g/dL Globulin (2.2-3.9) gm/dL Albumin/Globulin Ratio (1.0-2.1) Procalcitonin (0.19-0.49) NG/ML 11/18/16 Range/Units 16:05 WBC (4.8-10.8) K/uL RBC (4.40-5.90) Mil/uL Hgb (12.0-18.0) g/dL Hct (35.0-51.0) % MCV (80.0-94.0) fL MCH (27.0-31.0) pg MCHC (33.0-37.0) g/dL RDW (11.5-14.5) % Plt Count (130-400) K/uL MPV (7.2-11.7) fL Neut % (Auto) (50.0-75.0) % Lymph % (Auto) (20.0-40.0) % Gregg % (Auto) (0.0-10.0) % Eos % (Auto) (0.0-4.0) % Baso % (Auto) (0.0-2.0) % Neut # (1.8-7.0) K/uL Lymph # (1.0-4.3) K/uL Gregg # (0.0-0.8) K/uL Eos # (0.0-0.7) K/uL Baso # (0.0-0.2) K/uL Neutrophils % (Manual) (50-75) % Band Neutrophils % (0-2) % Lymphocytes % (Manual) (20-40) % Monocytes % (Manual) (0-10) % Platelet Estimate (NORMAL) Hypochromasia (manual) Poikilocytosis (manual Anisocytosis (manual) Puncture Site pCO2 (35-45) mm/Hg pO2 (80-100) mm/Hg HCO3 (21-28) mmol/L ABG pH (7.35-7.45) ABG Total CO2 (22-28) mmol/L ABG O2 Saturation (95-98) % ABG Base Excess (-2.0-3.0) mmol/L ABG Hemoglobin (11.7-17.4) g/dL ABG Carboxyhemoglobin (0.5-1.5) % POC ABG HHb (Measured) (0.0-5.0) % ABG Methemoglobin (0.0-3.0) % Josh Test A-a O2 Difference mm/Hg Respiratory Index Hgb O2 Saturation (95.0-98.0) % FiO2 % Pressure Support CPAP Sodium (132-148) mmol/L Potassium (3.6-5.2) mmol/L Chloride (98-107) mmol/L Carbon Dioxide (22-30) mmol/L Anion Gap (10-20) BUN (9-20) mg/dL Creatinine (0.8-1.5) MG/DL Est GFR ( Amer) Est GFR (Non-Af Amer) POC Glucose (mg/dL) 116 H (65-110) mg/dL Random Glucose (75-110) mg/dL Calcium (8.6-10.4) mg/dl Phosphorus (2.5-4.5) mg/dL Magnesium (1.6-2.3) mg/dL Total Bilirubin (0.2-1.3) mg/dL AST (17-59) U/L ALT (21-72) U/L Alkaline Phosphatase (38-126) U/L Total Protein (6.3-8.3) g/dL Albumin (3.5-5.0) g/dL Globulin (2.2-3.9) gm/dL Albumin/Globulin Ratio (1.0-2.1) Procalcitonin (0.19-0.49) NG/ML Laboratory Results - last 24 hr 11/18/16 11/18/16 11/18/16 16:05 19:52 23:59 WBC RBC Hgb Hct MCV MCH MCHC RDW Plt Count MPV Neut % (Auto) Lymph % (Auto) Gregg % (Auto) Eos % (Auto) Baso % (Auto) Neut # Lymph # Gregg # Eos # Baso # Neutrophils % (Manual) Band Neutrophils % Lymphocytes % (Manual) Monocytes % (Manual) Platelet Estimate Hypochromasia (manual) Poikilocytosis (manual Anisocytosis (manual) Puncture Site pCO2 pO2 HCO3 ABG pH ABG Total CO2 ABG O2 Saturation ABG Base Excess ABG Hemoglobin ABG Carboxyhemoglobin POC ABG HHb (Measured) ABG Methemoglobin Josh Test A-a O2 Difference Respiratory Index Hgb O2 Saturation FiO2 Pressure Support CPAP Sodium Potassium Chloride Carbon Dioxide Anion Gap BUN Creatinine Est GFR ( Amer) Est GFR (Non-Af Amer) POC Glucose (mg/dL) 116 H 87 105 Random Glucose Calcium Phosphorus Magnesium Total Bilirubin AST ALT Alkaline Phosphatase Total Protein Albumin Globulin Albumin/Globulin Ratio Procalcitonin 11/19/16 11/19/16 11/19/16 04:35 04:36 06:28 WBC 6.4 RBC 3.97 L Hgb 11.9 L Hct 36.3 MCV 91.4 MCH 29.9 MCHC 32.7 L RDW 17.0 H Plt Count 218 MPV 8.4 Neut % (Auto) 88.2 H Lymph % (Auto) 9.0 L Gregg % (Auto) 2.7 Eos % (Auto) 0.0 Baso % (Auto) 0.1 Neut # 5.6 Lymph # 0.6 L Gregg # 0.2 Eos # 0.0 Baso # 0.0 Neutrophils % (Manual) 87 H Band Neutrophils % 1 Lymphocytes % (Manual) 8 L Monocytes % (Manual) 4 Platelet Estimate Normal Hypochromasia (manual) Slight Poikilocytosis (manual Slight Anisocytosis (manual) Slight Puncture Site Rb pCO2 27 L pO2 156 H HCO3 24.1 ABG pH 7.50 H ABG Total CO2 21.9 L ABG O2 Saturation 99.8 H ABG Base Excess -1.1 ABG Hemoglobin 11.3 L ABG Carboxyhemoglobin 1.3 POC ABG HHb (Measured) 0.2 ABG Methemoglobin 1.1 Josh Test Na A-a O2 Difference 95.0 Respiratory Index 0.6 Hgb O2 Saturation 97.4 FiO2 40.0 Pressure Support 10 CPAP 5 Sodium Potassium Chloride Carbon Dioxide Anion Gap BUN Creatinine Est GFR ( Amer) Est GFR (Non-Af Amer) POC Glucose (mg/dL) 229 H Random Glucose Calcium Phosphorus Magnesium Total Bilirubin AST ALT Alkaline Phosphatase Total Protein Albumin Globulin Albumin/Globulin Ratio Procalcitonin 11/19/16 11/19/16 11/19/16 06:28 06:28 07:55 WBC RBC Hgb Hct MCV MCH MCHC RDW Plt Count MPV Neut % (Auto) Lymph % (Auto) Gregg % (Auto) Eos % (Auto) Baso % (Auto) Neut # Lymph # Gregg # Eos # Baso # Neutrophils % (Manual) Band Neutrophils % Lymphocytes % (Manual) Monocytes % (Manual) Platelet Estimate Hypochromasia (manual) Poikilocytosis (manual Anisocytosis (manual) Puncture Site pCO2 pO2 HCO3 ABG pH ABG Total CO2 ABG O2 Saturation ABG Base Excess ABG Hemoglobin ABG Carboxyhemoglobin POC ABG HHb (Measured) ABG Methemoglobin Josh Test A-a O2 Difference Respiratory Index Hgb O2 Saturation FiO2 Pressure Support CPAP Sodium 122 L Potassium 3.8 Chloride 94 L Carbon Dioxide 23 Anion Gap 9 L BUN 14 Creatinine 0.7 L Est GFR ( Amer) > 60 Est GFR (Non-Af Amer) > 60 POC Glucose (mg/dL) 146 H Random Glucose 161 H Calcium 6.8 L Phosphorus 2.7 Magnesium 1.7 Total Bilirubin 0.5 AST 23 ALT 16 L D Alkaline Phosphatase 176 H Total Protein 5.3 L Albumin 2.2 L Globulin 3.2 Albumin/Globulin Ratio 0.7 L Procalcitonin 0.45 11/19/16 12:19 WBC RBC Hgb Hct MCV MCH MCHC RDW Plt Count MPV Neut % (Auto) Lymph % (Auto) Gregg % (Auto) Eos % (Auto) Baso % (Auto) Neut # Lymph # Gregg # Eos # Baso # Neutrophils % (Manual) Band Neutrophils % Lymphocytes % (Manual) Monocytes % (Manual) Platelet Estimate Hypochromasia (manual) Poikilocytosis (manual Anisocytosis (manual) Puncture Site pCO2 pO2 HCO3 ABG pH ABG Total CO2 ABG O2 Saturation ABG Base Excess ABG Hemoglobin ABG Carboxyhemoglobin POC ABG HHb (Measured) ABG Methemoglobin Josh Test A-a O2 Difference Respiratory Index Hgb O2 Saturation FiO2 Pressure Support CPAP Sodium Potassium Chloride Carbon Dioxide Anion Gap BUN Creatinine Est GFR ( Amer) Est GFR (Non-Af Amer) POC Glucose (mg/dL) 182 H Random Glucose Calcium Phosphorus Magnesium Total Bilirubin AST ALT Alkaline Phosphatase Total Protein Albumin Globulin Albumin/Globulin Ratio Procalcitonin Attending/Attestation - Attestation I have personally seen and examined this patient.: Yes I have fully participated in the care of the patient.: Yes I have reviewed all pertinent clinical information: Yes Notes (Text): 11/19/16 14:53 I have seen and examined the patient. Medical records, lab studies, and imaging were reviewed by me and a management plan was formulated on multidisciplinary rounds with resident Dr. Farrell. I agree with their above documented assessment and plan. Patient is tolerating PS support trials. Still had large bilateral effusions, had IR perform thoracentesis to optimize for extubation. 1L drained from the right and 300ml from the left. Unfortunately the left lung suffered a pneumothorax <40%, will place a pigtail catheter for reinflation of lung. Can extubate once pigtail in place. Patient was on chronic low dose prednisone prior to admission, for unknown reasons. 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 Dolan. Stopped stress dose steroids will taper down to lower dose. Critical Care Time 45 minutes. Multi-disciplinary rounds were performed with house staff, nursing, speech therapy, respiratory therapy, pharmacy and nutrition with integrated input from the primary team/attending and other consulting services. The documented time is cumulative and includes review of patient data/exams/labs/chart review and examination of the patient on rounds and throughout the day; time is exclusive of any procedures or teaching time.
--- NOTE | 2016-11-19 14:04 | RAD ---
PROCEDURE: CHEST RADIOGRAPH, 1 VIEW HISTORY: vent COMPARISON: 11/18/2016 FINDINGS: LUNGS: Clear. PLEURA: Bilateral pleural effusions. CARDIOVASCULAR: Normal. OSSEOUS STRUCTURES: No significant abnormalities. VISUALIZED UPPER ABDOMEN: Normal. OTHER FINDINGS: ETT above the homa.. right CVP line overlying the SVC. IMPRESSION: Bilateral pleural effusions with likely compressive atelectasis at the lung bases.
--- NOTE | 2016-11-19 14:53 | RAD ---
PROCEDURE: HISTORY: s/p bilateral thoracentesis COMPARISON: Chest x-ray 11/18/2006 TECHNIQUE: FINDINGS: Improved aeration of right lung following thoracentesis. There is a 25 percent left pneumothorax. There is no tension. ICU was notified. Lines and catheters and ET tube are unchanged. IMPRESSION: Improved aeration of the right lung with resolution of pleural effusion. 25 percent left pneumothorax. There is no mediastinal shift.
--- NOTE | 2016-11-19 14:56 | US ---
PROCEDURE: Date of procedure: 11/19/2016 Procedure: 1. Ultrasound-guided Right and Left thoracentesis, CPT 53081 Medications: 6cc 1% Lidocaine HISTORY: Right and left pleural effusion, shortness per TECHNIQUE: Informed consent was obtained. Limited ultrasound showed a large right effusion and a moderate left effusion. Procedure time-out was called. With the patient supine, the right and left chest were prepped and draped in the usual fashion. After right chest was anesthetized with 1 percent lidocaine, ultrasound-guided thoracentesis was performed. The Yueh catheter was advanced percutaneously into the right pleural space. 1200 cubic centimeters of clear fluid removed . Ultrasound-guided thoracentesis was then performed of the left chest. After the skin was then sized with 1 percent lidocaine, a Yueh catheter was advanced under ultrasound guidance into the pleural space. 300 cubic centimeters of clear fluid was removed removed without complication. A Xeroform dressing was applied. IMPRESSION: Ultrasound guided right and left thoracentesis.
--- NOTE | 2016-11-19 15:05 | CT ---
PROCEDURE: CT Chest without contrast HISTORY: b/l pleural effusion COMPARISON: None. TECHNIQUE: Contiguous axial images were obtained through the chest without intravenous contrast enhancement. Sagittal and coronal reconstructions were performed. Radiation dose (DLP): mGy-cm. This CT exam was performed using one or more of the following dose reduction techniques: Automated exposure control, adjustment of the mA and/or kV according to patient size, and/or use of iterative reconstruction technique. FINDINGS: LUNGS: Clear lungs. Visualized airway clear. MEDIASTINUM: Unremarkable thoracic aorta. No aneurysm. Normal sized heart. Main pulmonary artery unremarkable. No vascular congestion. No lymphadenopathy. Diffuse infiltration in the mediastinal fat compatible with anasarca/third-spacing. PLEURA: Large bilateral pleural effusions with compressive atelectasis at the lung bases. BONES: No fracture. No destructive lesion. UPPER ABDOMEN: Extensive ascites and anasarca. OTHER FINDINGS: ETT tip above the homa. Right CVP line tip extends to the SVC. NG tube in the stomach. IMPRESSION: Anasarca with large bilateral pleural effusions, abdominal ascites and subcutaneous fat and mesenteric fat "third-spacing". Compressive atelectasis at the lung bases. Tubes and catheters in place.
--- NOTE | 2016-11-19 15:12 | US ---
Date of procedure: 11/19/2016 Procedure: 1. Ultrasound-guided Right and Left thoracentesis, CPT 25027 Medications: 6cc 1% Lidocaine HISTORY: Right and left pleural effusion, shortness per TECHNIQUE: Informed consent was obtained. Limited ultrasound showed a large right effusion and a moderate left effusion. Procedure time-out was called. With the patient supine, the right and left chest were prepped and draped in the usual fashion. After right chest was anesthetized with 1 percent lidocaine, ultrasound-guided thoracentesis was performed. The Yueh catheter was advanced percutaneously into the right pleural space. 1200 cubic centimeters of clear fluid removed . Ultrasound-guided thoracentesis was then performed of the left chest. After the skin was then sized with 1 percent lidocaine, a Yueh catheter was advanced under ultrasound guidance into the pleural space. 300 cubic centimeters of clear fluid was removed removed without complication. A Xeroform dressing was applied. IMPRESSION: Ultrasound guided right and left thoracentesis.
[2016-11-19] MEDS ORDERED: Lidocaine 1% Inj (20ml) INFIL ONE (15:32)
[2016-11-19] MEDS ORDERED: Lidocaine 2% Inj (20ml) ONE (15:36)
[2016-11-19] MEDS ORDERED: Midazolam 2 MG/2 ML VIAL IVP ONE ×2 (15:42→16:14)
[2016-11-19] MEDS ORDERED: Midazolam 2 MG/2 ML VIAL ONE (16:18)
--- NOTE | 2016-11-19 17:05 | RAD ---
HISTORY: Status post chest tube insertion. COMPARISON: Comparison made with prior study 11/19/2016 at 1428 hours FINDINGS: LUNGS: The current study reveals interval placement left-sided pigtail chest tube catheter. Previously noted left-sided pneumothorax has markedly diminished though there appears to be a small residual left basilar pneumothorax seen along the left lateral chest wall. In situ ETT, tip of which lies approximately 4.05 cm above homa. NGT is present, the tip of which lies just to the left of midline left upper quadrant of the abdomen. Right IJ central venous line with tip in the SVC unchanged. Right lung is relatively clear. PLEURA: Questionable small effusion. CARDIOVASCULAR: Normal. OSSEOUS STRUCTURES: Sclerotic lesions seen throughout the thoracic spine. VISUALIZED UPPER ABDOMEN: Normal. OTHER FINDINGS: None. IMPRESSION: Interval placement left-sided pigtail chest tube catheter. Previously noted left-sided pneumothorax has markedly diminished though there appears to be a small residual left basilar pneumothorax seen along the left lateral chest wall. In situ ETT, tip of which lies approximately 4.05 cm above homa. NGT is present, the tip of which lies just to the left of midline left upper quadrant of the abdomen. Right IJ central venous line with tip in the SVC unchanged. Right lung is relatively clear. Sclerotic lesions seen scattered throughout the thoracic spine
--- NOTE | 2016-11-19 17:20 | PCM.PROC ---
<Jorge Alberto Farrell - Last Filed: 11/19/16 17:17> Procedures Attestation:: I certify that I have explained the specified Operation(s) or Procedure(s), risks, benefits and reasonable alternatives to the Patient and/or other person responsible. The opportunity was given to ask questions and all questions answered - Chest Tube Chest Tube Location: Mid-Axillary Left Chest Tube Procedure: Chlorhexidine Tube Sutured to Skin: Yes Sterile Dressing Applied: Yes Anesthesia: Lidocaine 1% Volume Anesthetic (mls): 10 Post Procedure: sutured to skin, sterile dressing applied, air occlusive dressing Post Procedure CXR?: Yes Patient Tolerated Procedure: Yes Progress: Pigtail insertion <Abel Lafleur - Last Filed: 11/19/16 18:19> Attending/Attestation - Attestation I have personally seen and examined this patient.: Yes I have fully participated in the care of the patient.: Yes I have reviewed all pertinent clinical information, including history, physical exam and plan: Yes Notes (Text): 11/19/16 18:16 The patient was explained the risks and benefits, but did not completely comprehend. The pneumothorax being life threatening, it was then decided to perform this procedure under urgent need in the best interest of the patient. The pigtail was placed and set to suction on [id number]-e-vac. Resident Dr. Farrell performed this procedure with my help and under my supervision. No complications were noted and the patient tolerated the procedure well. 11/19/16 18:18
--- NOTE | 2016-11-19 18:19 | CP.PCM.PN ---
Subjective - Date & Time of Evaluation Date of Evaluation: 11/19/16 Time of Evaluation: 09:00 - Subjective Subjective: mdr pseudomonas from urine' no fever or leukocytosis will repeat c/s contact iso Objective - Vital Signs/Intake and Output Vital Signs (last 24 hours): Temp Pulse Resp BP Pulse Ox 97.5 F L 108 H 16 126/75 99 11/19/16 16:00 11/19/16 16:19 11/19/16 16:19 11/19/16 16:19 11/19/16 16:19 Intake and Output: 11/19/16 11/19/16 06:59 18:59 Intake Total 1177.5 970 Output Total 1025 980 Balance 152.5 -10 - Medications Medications: Current Medications Enoxaparin Sodium (Lovenox) 40 mg SC DAILY [facility] Last Admin: 11/19/16 09:48 Dose: 40 mg Furosemide (Lasix) 40 mg IVP Q12 [facility] Last Admin: 11/19/16 09:45 Dose: 40 mg Hydrocortisone Sodium Succinate (Solu-Cortef) 50 mg IV Q8H [facility] Last Admin: 11/19/16 14:51 Dose: 50 mg Dextrose (Dextrose 10% In Water) 1,000 mls @ 75 mls/hr IV .[id number] [facility] Last Admin: 11/19/16 06:00 Dose: 75 mls/hr Cefepime HCl 1 gm/ Dextrose 50 mls @ 100 mls/hr IVPB Q12H [facility] Last Admin: 11/19/16 06:15 Dose: 100 mls/hr Pantoprazole Sodium (Protonix Inj) 40 mg IVP DAILY [facility] Last Admin: 11/19/16 09:45 Dose: 40 mg - Labs Labs: 11/19/16 06:28 11/19/16 06:28 PT 13.7 SECONDS (9.7-12.2) H 11/17/16 06:33 INR 1.2 11/17/16 06:33 APTT 37 SECONDS (21-34) H 11/17/16 06:33 Assessment and Plan (1) Hypotension Status: Acute (2) Abdominal pain Status: Acute (3) Abnormal PSA Status: Acute
[2016-11-19 18:21] LABS: ARTERIAL BLOOD HGB O2 SAT 96.9 % (95.0-98.0); CARBOXYHEMOGLOBIN 1.2 % (0.5-1.5); DRAW SITE RB; HHB 0.5 % (0.0-5.0); METHEMOGLOBIN 1.4 % (0.0-3.0)
--- NOTE | 2016-11-19 18:25 | CP.PCM.PN ---
Subjective - Date & Time of Evaluation Date of Evaluation: 11/19/16 Time of Evaluation: 12:20 - Subjective Subjective: clinically same Objective - Vital Signs/Intake and Output Vital Signs (last 24 hours): Temp Pulse Resp BP Pulse Ox 97.5 F L 108 H 16 126/75 99 11/19/16 16:00 11/19/16 16:19 11/19/16 16:19 11/19/16 16:19 11/19/16 16:19 Intake and Output: 11/19/16 11/19/16 06:59 18:59 Intake Total 1177.5 970 Output Total 1025 980 Balance 152.5 -10 - Medications Medications: Current Medications Enoxaparin Sodium (Lovenox) 40 mg SC DAILY [facility] Last Admin: 11/19/16 09:48 Dose: 40 mg Furosemide (Lasix) 40 mg IVP Q12 [facility] Last Admin: 11/19/16 09:45 Dose: 40 mg Hydrocortisone Sodium Succinate (Solu-Cortef) 50 mg IV Q8H [facility] Last Admin: 11/19/16 14:51 Dose: 50 mg Dextrose (Dextrose 10% In Water) 1,000 mls @ 75 mls/hr IV .[id number] [facility] Last Admin: 11/19/16 06:00 Dose: 75 mls/hr Cefepime HCl 1 gm/ Dextrose 50 mls @ 100 mls/hr IVPB Q12H [facility] Last Admin: 11/19/16 06:15 Dose: 100 mls/hr Pantoprazole Sodium (Protonix Inj) 40 mg IVP DAILY [facility] Last Admin: 11/19/16 09:45 Dose: 40 mg - Labs Labs: 11/19/16 06:28 11/19/16 06:28 PT 13.7 SECONDS (9.7-12.2) H 11/17/16 06:33 INR 1.2 11/17/16 06:33 APTT 37 SECONDS (21-34) H 11/17/16 06:33
[2016-11-20 06:43] LABS: RBC URINE < 1 /hpf (0-3); URINE BACTERIA MANY (<OCC); URINE BILIRUBIN NEGATIVE (NEGATIVE); URINE BLOOD 1+ (NEGATIVE); URINE COLOR Yellow (YELLOW); URINE GLUCOSE (UA) 1+ mg/dL (Normal); URINE KETONE NEGATIVE (NEGATIVE); URINE LEUKOCYTE ESTERASE 3+ Leu/uL (Negative); URINE PROTEIN NEGATIVE (NEGATIVE); URINE UROBILINOGEN NORMAL mg/dL (0.2-1.0); WBC URINE 26 /hpf (0-5)
[2016-11-20 06:46] LABS: CHLORIDE 94 mmol/L (98-107)
[2016-11-20 06:47] LABS: POTASSIUM 3.2 mmol/L (3.6-5.2); SODIUM 126 mmol/L (132-148)
[2016-11-20 06:49] LABS: ALB/GLOB RATIO 0.7 (1.0-2.1); ALKALINE PHOSPHATASE 166 U/L (38-126); AST/SGOT 18 U/L (17-59); BILIRUBIN,TOTAL 0.5 mg/dL (0.2-1.3); BLOOD UREA NITROGEN 16 mg/dL (9-20); CARBON DIOXIDE 26 mmol/L (22-30); GFR AFRICAN-AMERICAN > 60; GLUCOSE,RANDOM 109 mg/dL (75-110); PHOSPHOROUS 2.3 mg/dL (2.5-4.5); TOTAL PROTEIN 5.3 g/dL (6.3-8.3)
[2016-11-20 06:50] LABS: ALT/SGPT 17 U/L (21-72); CALCIUM 6.7 mg/dl (8.6-10.4); MAGNESIUM 1.9 mg/dL (1.6-2.3)
[2016-11-20 07:03] LABS: BASO % 0.1 % (0.0-2.0); HEMATOCRIT 34.5 % (35.0-51.0); LYMPH # 0.4 K/uL (1.0-4.3); LYMPH % 4.8 % (20.0-40.0); MEAN CELL VOLUME 90.9 fL (80.0-94.0); MEAN CORPUSCULAR HEMOGLOBIN 30.2 pg (27.0-31.0); MEAN CORPUSCULAR HGB CONC 33.2 g/dL (33.0-37.0); MEAN PLATELET VOLUME 8.5 fL (7.2-11.7); MONO # 0.3 K/uL (0.0-0.8); MONO % 3.5 % (0.0-10.0); PLATELET COUNT 184 K/uL (130-400); RED CELL DISTRIBUTION WIDTH 17.2 % (11.5-14.5); WHITE BLOOD COUNT 8.9 K/uL (4.8-10.8)
[2016-11-20 07:21] LABS: CORTISOL AM 19.5 ug/dL (4.46-22.7); THYROID STIMULATING HORMONE 2.86 mIU/L (0.46-4.68)
[2016-11-20 08:15] LABS: NEUTROPHIL 92 % (50-75); TOTAL CELLS COUNTED 100
[2016-11-20 08:16] LABS: LARGE PLATELETS PRESENT
--- NOTE | 2016-11-20 08:39 | CP.CCUPN ---
CCU Subjective - Physician Review Events Since Last Encounter (Free Text): 11/20/16 08:38 Is a 61-year-old male with history of hypertension chronic renal insufficiency bilateral hydronephrosis, status post nephrostomy tube, prostate cancer metastasis, complicated multiple times with the sepsis. Patient admitted to the hospital in the intensive care unit with portable, intubated. Patient developed a septic shock, severe hypertensive shock and hypoglycemia. Patient markedly improved in her condition. Now he is extubated, he is awake and responding. He is moving all 4 extremities. Leg swelling noted. Patient has a bilateral pleural effusion, and had a pigtail catheter on the left side. Large amount of thoracentesis was done yesterday. Now clinically he is stable otherwise. He has no chest pain, cough noted, poor intake noted, patient has a NG tube. On examination: Vital signs reviewed Chest bilateral rales and wheezing noted Regular heart sound, abdomen nontender extended is edema noted. Left-sided pigtail catheter noted, right-sided TLC noted Labs reviewed in Chest x-ray showing improvement in the CHF, as well as fluid. Pigtail noted, and a TLC on the right side noted CCU Objective - Vital Signs / Intake & Output Vital Signs (Last 4 hours): Vital Signs Pulse Resp BP Pulse Ox 11/20/16 07:00 92 H 16 94 L 11/20/16 06:46 95 H 18 119/78 98 11/20/16 06:00 93 H 19 100 11/20/16 05:46 94 H 16 121/85 99 11/20/16 05:00 95 H 20 119/84 94 L 11/20/16 04:45 99 H 18 119/84 100 Intake and Output (Last 8hrs): Intake & Output 11/19/16 11/20/16 11/20/16 22:59 06:59 14:59 Intake Total 830 840 105 Output Total 600 1890 300 Balance 230 -1050 -195 Weight 148 lb 5.938 oz Intake: Intake, IV Amount 600 600 75 Right Proximal Port 600 600 75 Internal Jugular Tube Feeding 230 240 30 Output: Chest Tube Drainage 190 Left Mid-Axillary Chest 190 Drainage 600 1700 300 Right Nephrostomy Tube 600 1700 300 Stool 0 Other: # Bowel Movements 0 0 0 - Physical Exam Head: Positive for: Atraumatic, Normocephalic Pupils: Positive for: PERRL Mouth: Positive for: Moist Mucous Membranes Respiratory/Chest: Positive for: Clear to Auscultation, Good Air Exchange, Other (On vent) Cardiovascular: Positive for: Normal S1, S2 Abdomen: Positive for: Normal Bowel Sounds. Negative for: Tenderness, Distention Upper Extremity: Positive for: NORMAL PULSES Lower Extremity: Positive for: NORMAL PULSES Neurological: Positive for: Motor Func Grossly Intact Skin: Positive for: Warm, Dry Psychiatric: Positive for: Alert, Other (intubated) - Medications Active Medications: Active Medications Generic Name Dose Route Start Last Admin Trade Name Freq PRN Reason Stop Dose Admin Enoxaparin Sodium 40 mg 11/13/16 10:00 11/19/16 09:48 Lovenox SC 40 mg DAILY PAOLA Administration Furosemide 20 mg 11/20/16 08:33 Lasix IVP Q12 PAOLA Hydrocortisone Sodium Succinate 50 mg 11/19/16 14:00 11/20/16 05:19 Solu-Cortef IV 50 mg Q8H PAOLA Administration Cefepime HCl 1 gm/ Dextrose 50 mls @ 100 mls/hr 11/17/16 19:00 11/20/16 06:33 IVPB 100 mls/hr Q12H PAOLA Administration Pantoprazole Sodium 40 mg 11/17/16 10:00 11/19/16 09:45 Protonix Inj IVP 40 mg DAILY PAOLA Administration - Patient Studies Lab Studies: Microbiology Studies 11/19/16 14:00 Gram Stain - Final Pleural Fluid 11/17/16 05:13 MRSA Culture (Admit) - Final Nose MRSA NOT DETECTED 11/17/16 Unknown Urine Culture - Preliminary Urine,Kidney Pseudomonas Aeruginosa Lab Studies 11/20/16 11/20/16 11/20/16 Range/Units 07:50 06:30 06:30 WBC 8.9 (4.8-10.8) K/uL RBC 3.80 L (4.40-5.90) Mil/uL Hgb 11.5 L (12.0-18.0) g/dL Hct 34.5 L (35.0-51.0) % MCV 90.9 (80.0-94.0) fL MCH 30.2 (27.0-31.0) pg MCHC 33.2 (33.0-37.0) g/dL RDW 17.2 H (11.5-14.5) % Plt Count 184 (130-400) K/uL MPV 8.5 (7.2-11.7) fL Neut % (Auto) 91.6 H (50.0-75.0) % Lymph % (Auto) 4.8 L (20.0-40.0) % [place] % (Auto) 3.5 (0.0-10.0) % Eos % (Auto) 0.0 (0.0-4.0) % Baso % (Auto) 0.1 (0.0-2.0) % Neut # 8.2 H (1.8-7.0) K/uL Lymph # 0.4 L (1.0-4.3) K/uL [place] # 0.3 (0.0-0.8) K/uL Eos # 0.0 (0.0-0.7) K/uL Baso # 0.0 (0.0-0.2) K/uL Neutrophils % (Manual) 92 H (50-75) % Band Neutrophils % (0-2) % Lymphocytes % (Manual) 3 L (20-40) % Monocytes % (Manual) 5 (0-10) % Platelet Estimate Normal (NORMAL) Large Platelets Present Polychromasia Slight Hypochromasia (manual) Slight Poikilocytosis (manual Slight Anisocytosis (manual) Slight [place] Cells Slight Puncture Site pCO2 (35-45) mm/Hg pO2 (80-100) mm/Hg HCO3 (21-28) mmol/L ABG pH (7.35-7.45) ABG Total CO2 (22-28) mmol/L ABG O2 Saturation (95-98) % ABG Base Excess (-2.0-3.0) mmol/L ABG Hemoglobin (11.7-17.4) g/dL ABG Carboxyhemoglobin (0.5-1.5) % POC ABG HHb (Measured) (0.0-5.0) % ABG Methemoglobin (0.0-3.0) % Josh Test A-a O2 Difference mm/Hg Respiratory Index Hgb O2 Saturation (95.0-98.0) % FiO2 % Pressure Support CPAP Sodium 126 L (132-148) mmol/L Potassium 3.2 L (3.6-5.2) mmol/L Chloride 94 L (98-107) mmol/L Carbon Dioxide 26 (22-30) mmol/L Anion Gap 9 L (10-20) BUN 16 (9-20) mg/dL Creatinine 0.6 L (0.8-1.5) MG/DL Est GFR ( Amer) > 60 Est GFR (Non-Af Amer) > 60 POC Glucose (mg/dL) 97 (65-110) mg/dL Random Glucose 109 (75-110) mg/dL Calcium 6.7 L (8.6-10.4) mg/dl Phosphorus 2.3 L (2.5-4.5) mg/dL Magnesium 1.9 (1.6-2.3) mg/dL Total Bilirubin 0.5 (0.2-1.3) mg/dL AST 18 (17-59) U/L ALT 17 L (21-72) U/L Alkaline Phosphatase 166 H (38-126) U/L Total Protein 5.3 L (6.3-8.3) g/dL Albumin 2.2 L (3.5-5.0) g/dL Globulin 3.0 (2.2-3.9) gm/dL Albumin/Globulin Ratio 0.7 L (1.0-2.1) Procalcitonin (0.19-0.49) NG/ML TSH 3rd Generation 2.86 (0.46-4.68) mIU/L Cortisol AM Sample 19.5 (4.46-22.7) ug/dL Urine Color (YELLOW) Urine Clarity (Clear) Urine pH (5.0-8.0) Ur Specific [place] (1.003-1.030) Urine Protein (NEGATIVE) mg/dL Urine Glucose (UA) (Normal) mg/dL Urine Ketones (NEGATIVE) mg/dL Urine Blood (NEGATIVE) Urine Nitrate (NEGATIVE) Urine Bilirubin (NEGATIVE) Urine Urobilinogen (0.2-1.0) mg/dL Ur Leukocyte Esterase (Negative) Veronique/uL Urine WBC (Auto) (0-5) /hpf Urine RBC (Auto) (0-3) /hpf Urine Bacteria (<OCC) Urine Yeast (Budding) (NEGATIVE) /hpf 11/20/16 11/20/16 11/19/16 Range/Units 06:30 04:49 23:44 WBC (4.8-10.8) K/uL RBC (4.40-5.90) Mil/uL Hgb (12.0-18.0) g/dL Hct (35.0-51.0) % MCV (80.0-94.0) fL MCH (27.0-31.0) pg MCHC (33.0-37.0) g/dL RDW (11.5-14.5) % Plt Count (130-400) K/uL MPV (7.2-11.7) fL Neut % (Auto) (50.0-75.0) % Lymph % (Auto) (20.0-40.0) % [place] % (Auto) (0.0-10.0) % Eos % (Auto) (0.0-4.0) % Baso % (Auto) (0.0-2.0) % Neut # (1.8-7.0) K/uL Lymph # (1.0-4.3) K/uL [place] # (0.0-0.8) K/uL Eos # (0.0-0.7) K/uL Baso # (0.0-0.2) K/uL Neutrophils % (Manual) (50-75) % Band Neutrophils % (0-2) % Lymphocytes % (Manual) (20-40) % Monocytes % (Manual) (0-10) % Platelet Estimate (NORMAL) Large Platelets Polychromasia Hypochromasia (manual) Poikilocytosis (manual Anisocytosis (manual) [place] Cells Puncture Site pCO2 (35-45) mm/Hg pO2 (80-100) mm/Hg HCO3 (21-28) mmol/L ABG pH (7.35-7.45) ABG Total CO2 (22-28) mmol/L ABG O2 Saturation (95-98) % ABG Base Excess (-2.0-3.0) mmol/L ABG Hemoglobin (11.7-17.4) g/dL ABG Carboxyhemoglobin (0.5-1.5) % POC ABG HHb (Measured) (0.0-5.0) % ABG Methemoglobin (0.0-3.0) % Josh Test A-a O2 Difference mm/Hg Respiratory Index Hgb O2 Saturation (95.0-98.0) % FiO2 % Pressure Support CPAP Sodium (132-148) mmol/L Potassium (3.6-5.2) mmol/L Chloride (98-107) mmol/L Carbon Dioxide (22-30) mmol/L Anion Gap (10-20) BUN (9-20) mg/dL Creatinine (0.8-1.5) MG/DL Est GFR ( Amer) Est GFR (Non-Af Amer) POC Glucose (mg/dL) 148 H 89 (65-110) mg/dL Random Glucose (75-110) mg/dL Calcium (8.6-10.4) mg/dl Phosphorus (2.5-4.5) mg/dL Magnesium (1.6-2.3) mg/dL Total Bilirubin (0.2-1.3) mg/dL AST (17-59) U/L ALT (21-72) U/L Alkaline Phosphatase (38-126) U/L Total Protein (6.3-8.3) g/dL Albumin (3.5-5.0) g/dL Globulin (2.2-3.9) gm/dL Albumin/Globulin Ratio (1.0-2.1) Procalcitonin (0.19-0.49) NG/ML TSH 3rd Generation (0.46-4.68) mIU/L Cortisol AM Sample (4.46-22.7) ug/dL Urine Color Yellow (YELLOW) Urine Clarity Clear (Clear) Urine pH 7.0 (5.0-8.0) Ur Specific [place] 1.008 (1.003-1.030) Urine Protein Negative (NEGATIVE) mg/dL Urine Glucose (UA) 1+ H (Normal) mg/dL Urine Ketones Negative (NEGATIVE) mg/dL Urine Blood 1+ H (NEGATIVE) Urine Nitrate Negative (NEGATIVE) Urine Bilirubin Negative (NEGATIVE) Urine Urobilinogen Normal (0.2-1.0) mg/dL Ur Leukocyte Esterase 3+ H (Negative) Veronique/uL Urine WBC (Auto) 26 H (0-5) /hpf Urine RBC (Auto) < 1 (0-3) /hpf Urine Bacteria Many H (<OCC) Urine Yeast (Budding) Few H (NEGATIVE) /hpf 11/19/16 11/19/16 11/19/16 Range/Units 19:46 18:18 16:20 WBC (4.8-10.8) K/uL RBC (4.40-5.90) Mil/uL Hgb (12.0-18.0) g/dL Hct (35.0-51.0) % MCV (80.0-94.0) fL MCH (27.0-31.0) pg MCHC (33.0-37.0) g/dL RDW (11.5-14.5) % Plt Count (130-400) K/uL MPV (7.2-11.7) fL Neut % (Auto) (50.0-75.0) % Lymph % (Auto) (20.0-40.0) % [place] % (Auto) (0.0-10.0) % Eos % (Auto) (0.0-4.0) % Baso % (Auto) (0.0-2.0) % Neut # (1.8-7.0) K/uL Lymph # (1.0-4.3) K/uL [place] # (0.0-0.8) K/uL Eos # (0.0-0.7) K/uL Baso # (0.0-0.2) K/uL Neutrophils % (Manual) (50-75) % Band Neutrophils % (0-2) % Lymphocytes % (Manual) (20-40) % Monocytes % (Manual) (0-10) % Platelet Estimate (NORMAL) Large Platelets Polychromasia Hypochromasia (manual) Poikilocytosis (manual Anisocytosis (manual) [place] Cells Puncture Site Rb pCO2 30 L (35-45) mm/Hg pO2 175 H (80-100) mm/Hg HCO3 23.6 (21-28) mmol/L ABG pH 7.46 H (7.35-7.45) ABG Total CO2 22.2 (22-28) mmol/L ABG O2 Saturation 99.5 H (95-98) % ABG Base Excess -1.7 (-2.0-3.0) mmol/L ABG Hemoglobin 12.1 (11.7-17.4) g/dL ABG Carboxyhemoglobin 1.2 (0.5-1.5) % POC ABG HHb (Measured) 0.5 (0.0-5.0) % ABG Methemoglobin 1.4 (0.0-3.0) % Josh Test Na A-a O2 Difference 73.0 mm/Hg Respiratory Index 0.4 Hgb O2 Saturation 96.9 (95.0-98.0) % FiO2 40.0 % Pressure Support 10 CPAP 5 Sodium (132-148) mmol/L Potassium (3.6-5.2) mmol/L Chloride (98-107) mmol/L Carbon Dioxide (22-30) mmol/L Anion Gap (10-20) BUN (9-20) mg/dL Creatinine (0.8-1.5) MG/DL Est GFR ( Amer) Est GFR (Non-Af Amer) POC Glucose (mg/dL) 71 142 H (65-110) mg/dL Random Glucose (75-110) mg/dL Calcium (8.6-10.4) mg/dl Phosphorus (2.5-4.5) mg/dL Magnesium (1.6-2.3) mg/dL Total Bilirubin (0.2-1.3) mg/dL AST (17-59) U/L ALT (21-72) U/L Alkaline Phosphatase (38-126) U/L Total Protein (6.3-8.3) g/dL Albumin (3.5-5.0) g/dL Globulin (2.2-3.9) gm/dL Albumin/Globulin Ratio (1.0-2.1) Procalcitonin (0.19-0.49) NG/ML TSH 3rd Generation (0.46-4.68) mIU/L Cortisol AM Sample (4.46-22.7) ug/dL Urine Color (YELLOW) Urine Clarity (Clear) Urine pH (5.0-8.0) Ur Specific [place] (1.003-1.030) Urine Protein (NEGATIVE) mg/dL Urine Glucose (UA) (Normal) mg/dL Urine Ketones (NEGATIVE) mg/dL Urine Blood (NEGATIVE) Urine Nitrate (NEGATIVE) Urine Bilirubin (NEGATIVE) Urine Urobilinogen (0.2-1.0) mg/dL Ur Leukocyte Esterase (Negative) Veronique/uL Urine WBC (Auto) (0-5) /hpf Urine RBC (Auto) (0-3) /hpf Urine Bacteria (<OCC) Urine Yeast (Budding) (NEGATIVE) /hpf 11/19/16 11/19/16 11/19/16 Range/Units 12:19 06:28 06:28 WBC (4.8-10.8) K/uL RBC (4.40-5.90) Mil/uL Hgb (12.0-18.0) g/dL Hct (35.0-51.0) % MCV (80.0-94.0) fL MCH (27.0-31.0) pg MCHC (33.0-37.0) g/dL RDW (11.5-14.5) % Plt Count (130-400) K/uL MPV (7.2-11.7) fL Neut % (Auto) (50.0-75.0) % Lymph % (Auto) (20.0-40.0) % [place] % (Auto) (0.0-10.0) % Eos % (Auto) (0.0-4.0) % Baso % (Auto) (0.0-2.0) % Neut # (1.8-7.0) K/uL Lymph # (1.0-4.3) K/uL [place] # (0.0-0.8) K/uL Eos # (0.0-0.7) K/uL Baso # (0.0-0.2) K/uL Neutrophils % (Manual) 87 H (50-75) % Band Neutrophils % 1 (0-2) % Lymphocytes % (Manual) 8 L (20-40) % Monocytes % (Manual) 4 (0-10) % Platelet Estimate Normal (NORMAL) Large Platelets Polychromasia Hypochromasia (manual) Slight Poikilocytosis (manual Slight Anisocytosis (manual) Slight [place] Cells Puncture Site pCO2 (35-45) mm/Hg pO2 (80-100) mm/Hg HCO3 (21-28) mmol/L ABG pH (7.35-7.45) ABG Total CO2 (22-28) mmol/L ABG O2 Saturation (95-98) % ABG Base Excess (-2.0-3.0) mmol/L ABG Hemoglobin (11.7-17.4) g/dL ABG Carboxyhemoglobin (0.5-1.5) % POC ABG HHb (Measured) (0.0-5.0) % ABG Methemoglobin (0.0-3.0) % Josh Test A-a O2 Difference mm/Hg Respiratory Index Hgb O2 Saturation (95.0-98.0) % FiO2 % Pressure Support CPAP Sodium (132-148) mmol/L Potassium (3.6-5.2) mmol/L Chloride (98-107) mmol/L Carbon Dioxide (22-30) mmol/L Anion Gap (10-20) BUN (9-20) mg/dL Creatinine (0.8-1.5) MG/DL Est GFR ( Amer) Est GFR (Non-Af Amer) POC Glucose (mg/dL) 182 H (65-110) mg/dL Random Glucose (75-110) mg/dL Calcium (8.6-10.4) mg/dl Phosphorus (2.5-4.5) mg/dL Magnesium (1.6-2.3) mg/dL Total Bilirubin (0.2-1.3) mg/dL AST (17-59) U/L ALT (21-72) U/L Alkaline Phosphatase (38-126) U/L Total Protein (6.3-8.3) g/dL Albumin (3.5-5.0) g/dL Globulin (2.2-3.9) gm/dL Albumin/Globulin Ratio (1.0-2.1) Procalcitonin 0.45 (0.19-0.49) NG/ML TSH 3rd Generation (0.46-4.68) mIU/L Cortisol AM Sample (4.46-22.7) ug/dL Urine Color (YELLOW) Urine Clarity (Clear) Urine pH (5.0-8.0) Ur Specific [place] (1.003-1.030) Urine Protein (NEGATIVE) mg/dL Urine Glucose (UA) (Normal) mg/dL Urine Ketones (NEGATIVE) mg/dL Urine Blood (NEGATIVE) Urine Nitrate (NEGATIVE) Urine Bilirubin (NEGATIVE) Urine Urobilinogen (0.2-1.0) mg/dL Ur Leukocyte Esterase (Negative) Veronique/uL Urine WBC (Auto) (0-5) /hpf Urine RBC (Auto) (0-3) /hpf Urine Bacteria (<OCC) Urine Yeast (Budding) (NEGATIVE) /hpf Laboratory Results - last 24 hr 11/19/16 11/19/16 11/19/16 06:28 06:28 12:19 WBC RBC Hgb Hct MCV MCH MCHC RDW Plt Count MPV Neut % (Auto) Lymph % (Auto) [place] % (Auto) Eos % (Auto) Baso % (Auto) Neut # Lymph # [place] # Eos # Baso # Neutrophils % (Manual) 87 H Band Neutrophils % 1 Lymphocytes % (Manual) 8 L Monocytes % (Manual) 4 Platelet Estimate Normal Large Platelets Polychromasia Hypochromasia (manual) Slight Poikilocytosis (manual Slight Anisocytosis (manual) Slight Yarelis Cells Puncture Site pCO2 pO2 HCO3 ABG pH ABG Total CO2 ABG O2 Saturation ABG Base Excess ABG Hemoglobin ABG Carboxyhemoglobin POC ABG HHb (Measured) ABG Methemoglobin Josh Test A-a O2 Difference Respiratory Index Hgb O2 Saturation FiO2 Pressure Support CPAP Sodium Potassium Chloride Carbon Dioxide Anion Gap BUN Creatinine Est GFR ( Amer) Est GFR (Non-Af Amer) POC Glucose (mg/dL) 182 H Random Glucose Calcium Phosphorus Magnesium Total Bilirubin AST ALT Alkaline Phosphatase Total Protein Albumin Globulin Albumin/Globulin Ratio Procalcitonin 0.45 TSH 3rd Generation Cortisol AM Sample Urine Color Urine Clarity Urine pH Ur Specific [place] Urine Protein Urine Glucose (UA) Urine Ketones Urine Blood Urine Nitrate Urine Bilirubin Urine Urobilinogen Ur Leukocyte Esterase Urine WBC (Auto) Urine RBC (Auto) Urine Bacteria Urine Yeast (Budding) 11/19/16 11/19/16 11/19/16 16:20 18:18 19:46 WBC RBC Hgb Hct MCV MCH MCHC RDW Plt Count MPV Neut % (Auto) Lymph % (Auto) [place] % (Auto) Eos % (Auto) Baso % (Auto) Neut # Lymph # [place] # Eos # Baso # Neutrophils % (Manual) Band Neutrophils % Lymphocytes % (Manual) Monocytes % (Manual) Platelet Estimate Large Platelets Polychromasia Hypochromasia (manual) Poikilocytosis (manual Anisocytosis (manual) [place] Cells Puncture Site Rb pCO2 30 L pO2 175 H HCO3 23.6 ABG pH 7.46 H ABG Total CO2 22.2 ABG O2 Saturation 99.5 H ABG Base Excess -1.7 ABG Hemoglobin 12.1 ABG Carboxyhemoglobin 1.2 POC ABG HHb (Measured) 0.5 ABG Methemoglobin 1.4 Josh Test Na A-a O2 Difference 73.0 Respiratory Index 0.4 Hgb O2 Saturation 96.9 FiO2 40.0 Pressure Support 10 CPAP 5 Sodium Potassium Chloride Carbon Dioxide Anion Gap BUN Creatinine Est GFR ( Amer) Est GFR (Non-Af Amer) POC Glucose (mg/dL) 142 H 71 Random Glucose Calcium Phosphorus Magnesium Total Bilirubin AST ALT Alkaline Phosphatase Total Protein Albumin Globulin Albumin/Globulin Ratio Procalcitonin TSH 3rd Generation Cortisol AM Sample Urine Color Urine Clarity Urine pH Ur Specific [place] Urine Protein Urine Glucose (UA) Urine Ketones Urine Blood Urine Nitrate Urine Bilirubin Urine Urobilinogen Ur Leukocyte Esterase Urine WBC (Auto) Urine RBC (Auto) Urine Bacteria Urine Yeast (Budding) 11/19/16 11/20/16 11/20/16 23:44 04:49 06:30 WBC RBC Hgb Hct MCV MCH MCHC RDW Plt Count MPV Neut % (Auto) Lymph % (Auto) [place] % (Auto) Eos % (Auto) Baso % (Auto) Neut # Lymph # [place] # Eos # Baso # Neutrophils % (Manual) Band Neutrophils % Lymphocytes % (Manual) Monocytes % (Manual) Platelet Estimate Large Platelets Polychromasia Hypochromasia (manual) Poikilocytosis (manual Anisocytosis (manual) [place] Cells Puncture Site pCO2 pO2 HCO3 ABG pH ABG Total CO2 ABG O2 Saturation ABG Base Excess ABG Hemoglobin ABG Carboxyhemoglobin POC ABG HHb (Measured) ABG Methemoglobin Josh Test A-a O2 Difference Respiratory Index Hgb O2 Saturation FiO2 Pressure Support CPAP Sodium Potassium Chloride Carbon Dioxide Anion Gap BUN Creatinine Est GFR ( Amer) Est GFR (Non-Af Amer) POC Glucose (mg/dL) 89 148 H Random Glucose Calcium Phosphorus Magnesium Total Bilirubin AST ALT Alkaline Phosphatase Total Protein Albumin Globulin Albumin/Globulin Ratio Procalcitonin TSH 3rd Generation Cortisol AM Sample Urine Color Yellow Urine Clarity Clear Urine pH 7.0 Ur Specific [place] 1.008 Urine Protein Negative Urine Glucose (UA) 1+ H Urine Ketones Negative Urine Blood 1+ H Urine Nitrate Negative Urine Bilirubin Negative Urine Urobilinogen Normal Ur Leukocyte Esterase 3+ H Urine WBC (Auto) 26 H Urine RBC (Auto) < 1 Urine Bacteria Many H Urine Yeast (Budding) Few H 11/20/16 11/20/16 11/20/16 06:30 06:30 07:50 WBC 8.9 RBC 3.80 L Hgb 11.5 L Hct 34.5 L MCV 90.9 MCH 30.2 MCHC 33.2 RDW 17.2 H Plt Count 184 MPV 8.5 Neut % (Auto) 91.6 H Lymph % (Auto) 4.8 L [place] % (Auto) 3.5 Eos % (Auto) 0.0 Baso % (Auto) 0.1 Neut # 8.2 H Lymph # 0.4 L [place] # 0.3 Eos # 0.0 Baso # 0.0 Neutrophils % (Manual) 92 H Band Neutrophils % Lymphocytes % (Manual) 3 L Monocytes % (Manual) 5 Platelet Estimate Normal Large Platelets Present Polychromasia Slight Hypochromasia (manual) Slight Poikilocytosis (manual Slight Anisocytosis (manual) Slight [place]arel[place] Cells Slight Puncture Site pCO2 pO2 HCO3 ABG pH ABG Total CO2 ABG O2 Saturation ABG Base Excess ABG Hemoglobin ABG Carboxyhemoglobin POC ABG HHb (Measured) ABG Methemoglobin Josh Test A-a O2 Difference Respiratory Index Hgb O2 Saturation FiO2 Pressure Support CPAP Sodium 126 L Potassium 3.2 L Chloride 94 L Carbon Dioxide 26 Anion Gap 9 L BUN 16 Creatinine 0.6 L Est GFR ( Amer) > 60 Est GFR (Non-Af Amer) > 60 POC Glucose (mg/dL) 97 Random Glucose 109 Calcium 6.7 L Phosphorus 2.3 L Magnesium 1.9 Total Bilirubin 0.5 AST 18 ALT 17 L Alkaline Phosphatase 166 H Total Protein 5.3 L Albumin 2.2 L Globulin 3.0 Albumin/Globulin Ratio 0.7 L Procalcitonin TSH 3rd Generation 2.86 Cortisol AM Sample 19.5 Urine Color Urine Clarity Urine pH Ur Specific [place] Urine Protein Urine Glucose (UA) Urine Ketones Urine Blood Urine Nitrate Urine Bilirubin Urine Urobilinogen Ur Leukocyte Esterase Urine WBC (Auto) Urine RBC (Auto) Urine Bacteria Urine Yeast (Budding) Fingerstick Blood Sugar Results: 141 Assessment/Plan (1) Septic shock Assessment and plan: Patient with metastatic prostate cancer, bilateral hydronephrosis status post a stent history of multiple septic shock in the past admitted with hypertensive shock, respiratory failure, cardiac arrest intubated and extubated. Patient is currently having left-sided pleural effusion, status post a pigtail catheter insertion. Currently patient is awake and responding. We will continue to currently monitor the patient. Output monitoring. Intake monitoring. Physical therapy. If the patient is stable possible discharge plan to the floor. Will follow the patient Current Visit: Yes Status: Acute (2) Dehydration Current Visit: No Status: Acute Priority: Low
[2016-11-20] MEDS: Enoxaparin 40 mg Syringe SC SCH (09:14)
--- NOTE | 2016-11-20 13:38 | CP.PCM.PN ---
Subjective - Date & Time of Evaluation Date of Evaluation: 11/20/16 Time of Evaluation: 12:40 - Subjective Subjective: Clinically same Objective - Vital Signs/Intake and Output Vital Signs (last 24 hours): Temp Pulse Resp BP Pulse Ox 97.5 F L 105 H 17 122/94 H 98 11/20/16 12:00 11/20/16 11:46 11/20/16 11:46 11/20/16 11:46 11/20/16 11:46 Intake and Output: 11/20/16 11/20/16 06:59 18:59 Intake Total 1260 370 Output Total 2390 1650 Balance -1130 -1280 - Medications Medications: Current Medications Enoxaparin Sodium (Lovenox) 40 mg SC DAILY [facility] Last Admin: 11/20/16 09:14 Dose: 40 mg Furosemide (Lasix) 20 mg IVP Q12 [facility] Last Admin: 11/20/16 09:14 Dose: 20 mg Hydrocortisone Sodium Succinate (Solu-Cortef) 50 mg IV Q8H [facility] Last Admin: 11/20/16 05:19 Dose: 50 mg Cefepime HCl 1 gm/ Dextrose 50 mls @ 100 mls/hr IVPB Q12H [facility] Last Admin: 11/20/16 06:33 Dose: 100 mls/hr Pantoprazole Sodium (Protonix Inj) 40 mg IVP DAILY [facility] Last Admin: 11/20/16 09:14 Dose: 40 mg - Labs Labs: 11/20/16 06:30 11/20/16 06:30 PT 13.7 SECONDS (9.7-12.2) H 11/17/16 06:33 INR 1.2 11/17/16 06:33 APTT 37 SECONDS (21-34) H 11/17/16 06:33 - Constitutional Appears: Well - Head Exam Head Exam: ATRAUMATIC, NORMAL INSPECTION, NORMOCEPHALIC - Eye Exam Eye Exam: EOMI, Normal appearance, PERRL Pupil Exam: NORMAL ACCOMODATION, PERRL - ENT Exam ENT Exam: Mucous Membranes Moist, Normal Exam - Neck Exam Neck Exam: Full ROM, Normal Inspection. absent: Lymphadenopathy - Respiratory Exam Respiratory Exam: Decreased Breath Sounds - Cardiovascular Exam Cardiovascular Exam: REGULAR RHYTHM, +S1, +S2 - GI/Abdominal Exam GI & Abdominal Exam: Soft, Diminished Bowel Sounds - Rectal Exam Rectal Exam: Deferred
[2016-11-20] MEDS ORDERED: Potassium Chloride 10 mEq ER Tab PO STA (14:44)
[2016-11-20] MEDS ORDERED: Potassium Chloride 20 mEq ER Tab PO ONE (15:15)
[2016-11-20] MEDS ORDERED: Potassium Chloride 20 mEq/15 ml LIQ UD PO ONE (18:30)
--- NOTE | 2016-11-20 19:29 | RAD ---
PROCEDURE: CHEST RADIOGRAPH, 1 VIEW HISTORY: ff up pneumothorax COMPARISON: None available. FINDINGS: LUNGS: In situ ETT, tip of which lies approximately 4.8 cm above homa. NGT is present, tip of which has not been included on this film though distal aspect does lie below EG junction. Right IJ central venous line with tip in the SVC unchanged. . Small of pigtail chest tube catheter overlying the left lung base unchanged as well. Suspect mild bibasilar atelectasis. Previously noted tiny left basilar pneumothorax appears to have resolved. PLEURA: As above CARDIOVASCULAR: Normal. OSSEOUS STRUCTURES: No significant abnormalities. VISUALIZED UPPER ABDOMEN: Normal. OTHER FINDINGS: None. IMPRESSION: Support lines and tubes as above. Small of pigtail chest tube catheter overlying the left lung base unchanged as well. Suspect mild bibasilar atelectasis. Previously noted tiny left basilar pneumothorax appears to have resolved.
[2016-11-21 05:57] LABS: HEMATOCRIT 34.5 % (35.0-51.0); MEAN CELL VOLUME 90.9 fL (80.0-94.0); MEAN PLATELET VOLUME 8.9 fL (7.2-11.7); WHITE BLOOD COUNT 7.9 K/uL (4.8-10.8)
[2016-11-21 06:28] LABS: CHLORIDE 96 mmol/L (98-107); POTASSIUM 3.9 mmol/L (3.6-5.2); SODIUM 128 mmol/L (132-148)
[2016-11-21 06:30] LABS: BILIRUBIN,TOTAL 0.5 mg/dL (0.2-1.3); GFR AFRICAN-AMERICAN > 60
[2016-11-21 06:31] LABS: ALB/GLOB RATIO 0.8 (1.0-2.1); ALKALINE PHOSPHATASE 188 U/L (38-126); ALT/SGPT 17 U/L (21-72); AST/SGOT 21 U/L (17-59); BLOOD UREA NITROGEN 17 mg/dL (9-20); CARBON DIOXIDE 28 mmol/L (22-30); GLUCOSE,RANDOM 99 mg/dL (75-110); PHOSPHOROUS 1.6 mg/dL (2.5-4.5); TOTAL PROTEIN 5.3 g/dL (6.3-8.3)
[2016-11-21 06:32] LABS: MAGNESIUM 1.9 mg/dL (1.6-2.3)
[2016-11-21] MEDS ORDERED: Dextrose 50% SYRINGE Inj (50 ml) IV STA (08:10)
[2016-11-21] MEDS ORDERED: Dextrose 50% SYRINGE Inj (50 ml) ONE (08:13)
[2016-11-21] MEDS ORDERED: Sodium Phosphate 15 MMOLE in Sodium Chloride 0.9% 250 ML IVPB ONE (08:20)
[2016-11-21] MEDS: Enoxaparin 40 mg Syringe SC SCH (09:32)
--- NOTE | 2016-11-21 09:52 | PCM.URO ---
Urology Progress Note - General General: Tolerating Diet - Subjective Abdominal Pain: No Flank Pain: No Nausea: No Voiding Well: No (URINE OUTPUT VIA NT) - Objective Lab Studies: Reviewed Lab Results Last 24 Hours: Laboratory Results - last 24 hr 11/20/16 11/20/16 11/20/16 06:30 12:00 16:45 WBC RBC Hgb Hct MCV MCH MCHC RDW Plt Count MPV Sodium Potassium Chloride Carbon Dioxide Anion Gap BUN Creatinine Est GFR ( Amer) Est GFR (Non-Af Amer) POC Glucose (mg/dL) 124 H 79 Random Glucose Calcium Phosphorus Magnesium Total Bilirubin AST ALT Alkaline Phosphatase Total Protein Albumin Globulin Albumin/Globulin Ratio Procalcitonin 0.27 11/20/16 11/21/16 11/21/16 20:48 00:03 04:56 WBC RBC Hgb Hct MCV MCH MCHC RDW Plt Count MPV Sodium Potassium Chloride Carbon Dioxide Anion Gap BUN Creatinine Est GFR ( Amer) Est GFR (Non-Af Amer) POC Glucose (mg/dL) 112 H 123 H 95 Random Glucose Calcium Phosphorus Magnesium Total Bilirubin AST ALT Alkaline Phosphatase Total Protein Albumin Globulin Albumin/Globulin Ratio Procalcitonin 11/21/16 11/21/16 11/21/16 05:49 05:49 08:08 WBC 7.9 RBC 3.80 L Hgb 11.4 L Hct 34.5 L MCV 90.9 MCH 30.0 MCHC 33.0 RDW 17.0 H Plt Count 158 MPV 8.9 Sodium 128 L Potassium 3.9 Chloride 96 L Carbon Dioxide 28 Anion Gap 8 L BUN 17 Creatinine 0.5 L Est GFR ( Amer) > 60 Est GFR (Non-Af Amer) > 60 POC Glucose (mg/dL) 39 L Random Glucose 99 Calcium 7.0 L Phosphorus 1.6 L Magnesium 1.9 Total Bilirubin 0.5 AST 21 ALT 17 L Alkaline Phosphatase 188 H Total Protein 5.3 L Albumin 2.3 L Globulin 3.0 Albumin/Globulin Ratio 0.8 L Procalcitonin 11/21/16 08:38 WBC RBC Hgb Hct MCV MCH MCHC RDW Plt Count MPV Sodium Potassium Chloride Carbon Dioxide Anion Gap BUN Creatinine Est GFR ( Amer) Est GFR (Non-Af Amer) POC Glucose (mg/dL) 122 H Random Glucose Calcium Phosphorus Magnesium Total Bilirubin AST ALT Alkaline Phosphatase Total Protein Albumin Globulin Albumin/Globulin Ratio Procalcitonin Intake & Output: Intake & Output 11/20/16 11/21/16 11/21/16 18:59 06:59 18:59 Intake Total 970 530 80 Output Total 2180 1580 200 Balance -1210 -1050 -120 Weight 142 lb 13.753 oz Intake: Intake, IV Amount 150 50 0 Right Proximal Port 150 50 0 Internal Jugular Tube Feeding 460 480 80 Other 360 Output: Chest Tube Drainage 130 130 Left Mid-Axillary Chest 130 130 Drainage 2050 1450 200 Right Nephrostomy Tube 2050 1450 200 Other: # Bowel Movements 1 0 0 Vital Signs: Vital Signs - 24 hr 11/20/16 11/20/16 11/20/16 10:46 11:46 12:00 Temperature 97.5 F L Pulse Rate 103 H 105 H Respiratory 17 17 Rate Blood Pressure 123/92 H 122/94 H O2 Sat by Pulse 97 98 Oximetry 11/20/16 11/20/16 11/20/16 12:46 13:46 14:46 Temperature Pulse Rate 107 H 107 H 98 H Respiratory 19 18 17 Rate Blood Pressure 125/86 124/77 121/70 O2 Sat by Pulse 92 L 93 L 100 Oximetry 11/20/16 11/20/16 11/20/16 15:46 16:00 16:46 Temperature 97.6 F Pulse Rate 94 H 97 H Respiratory 19 19 Rate Blood Pressure 117/72 132/78 O2 Sat by Pulse 100 99 Oximetry 11/20/16 11/20/16 11/20/16 17:00 17:46 18:00 Temperature Pulse Rate 91 H 102 H 101 H Respiratory 18 18 18 Rate Blood Pressure 123/81 O2 Sat by Pulse 100 99 100 Oximetry 11/20/16 11/20/16 11/20/16 18:46 19:46 20:00 Temperature 97.8 F Pulse Rate 88 101 H 97 H Respiratory 17 17 18 Rate Blood Pressure 125/72 129/74 129/74 O2 Sat by Pulse 100 100 99 Oximetry 11/20/16 11/20/16 11/20/16 20:46 21:00 21:34 Temperature Pulse Rate 100 H 99 H Respiratory 17 14 Rate Blood Pressure 121/75 121/75 O2 Sat by Pulse 100 100 Oximetry 11/20/16 11/20/16 11/20/16 21:46 22:00 22:46 Temperature Pulse Rate 96 H 100 H 98 H Respiratory 17 17 19 Rate Blood Pressure 116/53 L 118/72 O2 Sat by Pulse 100 100 100 Oximetry 11/20/16 11/20/16 11/21/16 23:00 23:46 00:00 Temperature 97.1 F L Pulse Rate 105 H 103 H 100 H Respiratory 20 18 17 Rate Blood Pressure 103/63 103/63 O2 Sat by Pulse 97 100 100 Oximetry 11/21/16 11/21/16 11/21/16 00:03 00:45 01:00 Temperature Pulse Rate 101 H 100 H 99 H Respiratory 14 18 17 Rate Blood Pressure 125/73 O2 Sat by Pulse 100 99 99 Oximetry 11/21/16 11/21/16 11/21/16 01:46 02:00 02:45 Temperature Pulse Rate 99 H 98 H 90 Respiratory 16 15 16 Rate Blood Pressure 99/64 L 125/69 O2 Sat by Pulse 100 97 100 Oximetry 11/21/16 11/21/16 11/21/16 03:00 03:46 04:00 Temperature 97.7 F Pulse Rate 94 H 92 H 92 H Respiratory 18 17 18 Rate Blood Pressure 103/68 117/69 O2 Sat by Pulse 100 100 100 Oximetry 11/21/16 11/21/16 11/21/16 04:46 05:00 05:46 Temperature Pulse Rate 90 92 H 98 H Respiratory 18 17 20 Rate Blood Pressure 117/69 98/68 L O2 Sat by Pulse 100 98 99 Oximetry 11/21/16 11/21/16 11/21/16 06:00 06:45 07:00 Temperature Pulse Rate 92 H 98 H 98 H Respiratory 15 15 17 Rate Blood Pressure 103/73 O2 Sat by Pulse 100 91 L 100 Oximetry 11/21/16 11/21/16 11/21/16 07:46 08:00 09:31 Temperature 97.4 F L Pulse Rate 86 Respiratory 20 Rate Blood Pressure 118/76 113/73 O2 Sat by Pulse 100 Oximetry - Physical Exam Abdominal Exam: Soft, Non-Tender, Non-Distended Back: No CVA Tenderness Urine Color: Yellow - Plan Additional Information: IMP: PROSTATE CA. PLEURAL EFFUSIONS. R NEPHROSTOMY TUBE IN PLACE. UTI. REC/PLAN: PSA. T. POSS HORMONAL RX. DISCUSSED W REPRODUCTIVE ENDOCRINOLOGIST - Date & Time of Note Date: 11/21/16 Time: 09:52
[2016-11-21 11:41] LABS: TESTOSTERONE < 4.90 ng/mL
--- NOTE | 2016-11-21 11:44 | PN ---
DATE: 11/21/2016 ENDO FOLLOWUP NOTE In ICU, room 12 SUBJECTIVE: This is a 61-year-old male with metastatic prostate CA and developed acute respiratory f ailure, and currently endotracheally intubated with supervening septic shock and also hypotension and marked hypoglycemic episodes, and currently now underwent a thoracentesis for bilateral pleural effu noam. He is currently extubated at this time and continues to have very nil oral intake with NG tube feedin g in place. He also had a prior nephrostomy tube placement with underlying bilateral hydronephrosis as noted. LABORATORY DATA: His latest chemistry showed a BUN of 17, sodium 128, potassium 3.9, chloride 96, CO 2 of 28, glucose 99, and creatinine 0.5. His glucose values are quite fluctuating ranging from 39-95 and 122 mg/dL. His cortisol level was re ported as 19.5 mcg/dL, and a TSH value of 2.86. So at this time, we will slowly taper down his hydrocortisone to 50 mg IV piggyback b.i.d. as ordered to start today. We will obtain serial chemistries and supplement accordingly as needed. We will al so obtain serial cortisol levels and adjust his dose regimen accordingly. We will follow. Keira Dolan MD cc: [id number] TT: 11/21/2016 11:44:10 Confirmation # [id number] Dictation # [id number] loreto
--- NOTE | 2016-11-21 12:28 | CP.PCM.PN ---
Subjective - Date & Time of Evaluation Date of Evaluation: 11/21/16 Objective - Vital Signs/Intake and Output Vital Signs (last 24 hours): Temp Pulse Resp BP Pulse Ox 97.4 F L 94 H 16 125/68 99 11/21/16 08:00 11/21/16 11:46 11/21/16 11:46 11/21/16 11:46 11/21/16 11:46 Intake and Output: 11/21/16 11/21/16 06:59 18:59 Intake Total 530 250 Output Total 1580 500 Balance -1050 -250 - Medications Medications: Current Medications Enoxaparin Sodium (Lovenox) 40 mg SC DAILY [facility] Last Admin: 11/21/16 09:32 Dose: 40 mg Furosemide (Lasix) 20 mg IVP Q12 [facility] Last Admin: 11/21/16 09:31 Dose: 20 mg Hydrocortisone Sodium Succinate (Solu-Cortef) 50 mg IV BID [facility] Last Admin: 11/21/16 09:30 Dose: 50 mg Cefepime HCl 1 gm/ Dextrose 50 mls @ 100 mls/hr IVPB Q12H [facility] Last Admin: 11/21/16 07:09 Dose: 100 mls/hr Sodium Phosphate 15 mmole/ (Sodium Chloride) 255 mls @ 50 mls/hr IVPB .Q5H6M ONE Stop: 11/21/16 13:25 Last Admin: 11/21/16 09:42 Dose: 50 mls/hr Pantoprazole Sodium (Protonix Inj) 40 mg IVP DAILY [facility] Last Admin: 11/21/16 09:30 Dose: 40 mg - Labs Labs: 11/21/16 05:49 11/21/16 05:49 PT 13.7 SECONDS (9.7-12.2) H 11/17/16 06:33 INR 1.2 11/17/16 06:33 APTT 37 SECONDS (21-34) H 11/17/16 06:33 Assessment and Plan - Assessment and Plan (Free Text) Plan: clinically same xtubated oniv antibiotic pt wantso go t rehab asapand only e ants to go to rehab awaiting onco work up
[2016-11-21 13:03] LABS: PROSTATE SPECIFIC ANTIGEN 1520 ng/mL (0.00-4.0)
--- NOTE | 2016-11-21 15:11 | CP.PCM.PN ---
Subjective - Date & Time of Evaluation Date of Evaluation: 11/21/16 Time of Evaluation: 07:00 - Subjective Subjective: urine + MDRO sens to [place] consider changing PCN tube Objective - Vital Signs/Intake and Output Vital Signs (last 24 hours): Temp Pulse Resp BP Pulse Ox 97.6 F 90 17 116/81 98 11/21/16 12:00 11/21/16 13:46 11/21/16 13:46 11/21/16 13:46 11/21/16 13:46 Intake and Output: 11/21/16 11/21/16 06:59 18:59 Intake Total 530 330 Output Total 1580 1150 Balance -1050 -820 - Medications Medications: Current Medications Enoxaparin Sodium (Lovenox) 40 mg SC DAILY [facility] Last Admin: 11/21/16 09:32 Dose: 40 mg Furosemide (Lasix) 20 mg IVP Q12 [facility] Last Admin: 11/21/16 09:31 Dose: 20 mg Hydrocortisone Sodium Succinate (Solu-Cortef) 50 mg IV BID [facility] Last Admin: 11/21/16 09:30 Dose: 50 mg Cefepime HCl 1 gm/ Dextrose 50 mls @ 100 mls/hr IVPB Q12H [facility] Last Admin: 11/21/16 07:09 Dose: 100 mls/hr Pantoprazole Sodium (Protonix Inj) 40 mg IVP DAILY [facility] Last Admin: 11/21/16 09:30 Dose: 40 mg - Labs Labs: 11/21/16 05:49 11/21/16 05:49 PT 13.7 SECONDS (9.7-12.2) H 11/17/16 06:33 INR 1.2 11/17/16 06:33 APTT 37 SECONDS (21-34) H 11/17/16 06:33 - Constitutional Appears: Non-toxic - Head Exam Head Exam: NORMOCEPHALIC - Eye Exam Eye Exam: absent: Scleral icterus - ENT Exam ENT Exam: Mucous Membranes Dry - Neck Exam Neck Exam: absent: Lymphadenopathy - Respiratory Exam Respiratory Exam: Decreased Breath Sounds - Cardiovascular Exam Cardiovascular Exam: REGULAR RHYTHM - GI/Abdominal Exam GI & Abdominal Exam: Distended, Soft - Rectal Exam Rectal Exam: Deferred - Exam Exam: NORMAL INSPECTION Assessment and Plan (1) Hypotension Status: Acute (2) Abdominal pain Status: Acute (3) Abnormal PSA Status: Acute
--- NOTE | 2016-11-21 18:04 | RAD ---
HISTORY: Bilateral pleural effusion COMPARISON: Comparison made with prior chest radiograph 11/20/2016 FINDINGS: LUNGS: Right IJ central venous line with tip in the SVC again noted. In situ NGT is present which exhibits a tortuous course with tip in the left upper quadrant of the abdomen. Left sided pigtail chest tube catheter again noted. Hazy appearance of the mid to lower lung sibley could represent layering effusions and atelectasis. No evidence of residual left-sided pneumothorax so far as can be seen. Central pulmonary vasculature is slightly congested in appearance. PLEURA: No significant pleural effusion identified, no pneumothorax apparent. CARDIOVASCULAR: Normal. OSSEOUS STRUCTURES: Re- demonstrated is levoscoliosis VISUALIZED UPPER ABDOMEN: Normal. OTHER FINDINGS: None. IMPRESSION: Support lines and tubes as above. Hazy appearance of the mid to lower lung sibley could represent some combination of layering effusions and bilateral lower lobe atelectasis. No definitive radial graphic evidence of residual left-sided pneumothorax. . The slightly congested appearance of the central pulmonary vasculature
--- NOTE | 2016-11-21 22:22 | CP.CCUPN ---
CCU Subjective - Physician Review Events Since Last Encounter (Free Text): 11/21/16 22:20 Is a 61-year-old male with history of hypertension chronic renal insufficiency bilateral hydronephrosis, status post nephrostomy tube, prostate cancer metastasis, complicated multiple times with the sepsis. Patient admitted to the hospital in the intensive care unit with portable, intubated. Patient developed a septic shock, severe hypertensive shock and hypoglycemia. Patient markedly improved in her condition. Now he is extubated, he is awake and responding. He is moving all 4 extremities. Leg swelling noted. Patient has a bilateral pleural effusion, and had a pigtail catheter on the left side. Large amount of thoracentesis was done yesterday. Now clinically he is stable otherwise. He has no chest pain, cough noted, poor intake noted, patient has a NG tube. On examination: Vital signs reviewed Chest bilateral rales and wheezing noted Regular heart sound, abdomen nontender extended is edema noted. Left-sided pigtail catheter noted, right-sided TLC noted Labs reviewed in Chest x-ray showing improvement in the CHF, as well as fluid. Pigtail noted, and a TLC on the right side noted The patient is feeling much better today. He denies any chest pain. Cough noted. Patient is having some appetite. He wants to drink. He can only able to swallow soft diet at this time. CCU Objective - Vital Signs / Intake & Output Vital Signs (Last 4 hours): Vital Signs Pulse Resp BP Pulse Ox 11/21/16 19:17 105 H 16 100/70 98 Intake and Output (Last 8hrs): Intake & Output 11/21/16 11/21/16 11/21/16 06:59 14:59 22:59 Intake Total 370 720 310 Output Total 1330 1150 410 Balance -960 -430 -100 Weight 142 lb 13.753 oz Intake: Intake, IV Amount 50 250 50 Right Proximal Port 50 250 50 Internal Jugular Tube Feeding 320 320 160 Other 150 100 Output: Chest Tube Drainage 130 110 Left Mid-Axillary Chest 130 110 Drainage 1200 1150 300 Right Nephrostomy Tube 1200 1150 300 Other: # Bowel Movements 0 0 Vital signs reviewed No neck vein distention noted Chest good air entry bilaterally, no wheezing or rales noted CVS regular heart sound, no murmur noted nephrostomy tube, left-sided chest tube, NG tube. - Physical Exam Head: Positive for: Atraumatic, Normocephalic Pupils: Positive for: PERRL Mouth: Positive for: Moist Mucous Membranes Respiratory/Chest: Positive for: Clear to Auscultation, Good Air Exchange, Other (On vent) Cardiovascular: Positive for: Normal S1, S2 Abdomen: Positive for: Normal Bowel Sounds. Negative for: Tenderness, Distention Upper Extremity: Positive for: NORMAL PULSES Lower Extremity: Positive for: NORMAL PULSES Neurological: Positive for: Motor Func Grossly Intact Skin: Positive for: Warm, Dry Psychiatric: Positive for: Alert, Other (intubated) - Medications Active Medications: Active Medications Generic Name Dose Route Start Last Admin Trade Name Freq PRN Reason Stop Dose Admin Enoxaparin Sodium 40 mg 11/13/16 10:00 11/21/16 09:32 Lovenox SC 40 mg DAILY [facility] Administration Furosemide 20 mg 11/20/16 08:33 11/21/16 09:31 Lasix IVP 20 mg Q12 [facility] Administration Hydrocortisone Sodium Succinate 50 mg 11/21/16 10:00 11/21/16 18:18 Solu-Cortef IV 50 mg BID [facility] Administration Cefepime HCl 1 gm/ Dextrose 50 mls @ 100 mls/hr 11/17/16 19:00 11/21/16 18:18 IVPB 100 mls/hr Q12H [facility] Administration Colistimethate Sodium 150 mg/ 100 mls @ 200 mls/hr 11/21/16 15:15 11/21/16 15 :50 Sodium Chloride IV 200 mls/hr Q12H [facility] Administration Pantoprazole Sodium 40 mg 11/17/16 10:00 11/21/16 09:30 Protonix Inj IVP 40 mg DAILY [facility] Administration - Patient Studies Lab Studies: Microbiology Studies 11/19/16 Unknown Urine Culture - Final Urine,Kidney Pseudomonas Aeruginosa 11/19/16 14:00 Gram Stain - Final Pleural Fluid Body Fluid Culture - Preliminary NO GROWTH AFTER 2 DAYS 11/17/16 Unknown Urine Culture - Final Urine,Kidney Pseudomonas Aeruginosa Lab Studies 11/21/16 11/21/16 11/21/16 Range/Units 19:58 15:59 11:44 WBC (4.8-10.8) K/uL RBC (4.40-5.90) Mil/uL Hgb (12.0-18.0) g/dL Hct (35.0-51.0) % MCV (80.0-94.0) fL MCH (27.0-31.0) pg MCHC (33.0-37.0) g/dL RDW (11.5-14.5) % Plt Count (130-400) K/uL MPV (7.2-11.7) fL Sodium (132-148) mmol/L Potassium (3.6-5.2) mmol/L Chloride (98-107) mmol/L Carbon Dioxide (22-30) mmol/L Anion Gap (10-20) BUN (9-20) mg/dL Creatinine (0.8-1.5) MG/DL Est GFR ( Amer) Est GFR (Non-Af Amer) POC Glucose (mg/dL) 93 114 H 71 (65-110) mg/dL Random Glucose (75-110) mg/dL Calcium (8.6-10.4) mg/dl Phosphorus (2.5-4.5) mg/dL Magnesium (1.6-2.3) mg/dL Total Bilirubin (0.2-1.3) mg/dL AST (17-59) U/L ALT (21-72) U/L Alkaline Phosphatase (38-126) U/L Total Protein (6.3-8.3) g/dL Albumin (3.5-5.0) g/dL Globulin (2.2-3.9) gm/dL Albumin/Globulin Ratio (1.0-2.1) Prostate Specific Ag (0.00-4.0) ng/mL Testosterone Level ng/mL 11/21/16 11/21/16 11/21/16 Range/Units 08:38 08:08 05:49 WBC (4.8-10.8) K/uL RBC (4.40-5.90) Mil/uL Hgb (12.0-18.0) g/dL Hct (35.0-51.0) % MCV (80.0-94.0) fL MCH (27.0-31.0) pg MCHC (33.0-37.0) g/dL RDW (11.5-14.5) % Plt Count (130-400) K/uL MPV (7.2-11.7) fL Sodium 128 L (132-148) mmol/L Potassium 3.9 (3.6-5.2) mmol/L Chloride 96 L (98-107) mmol/L Carbon Dioxide 28 (22-30) mmol/L Anion Gap 8 L (10-20) BUN 17 (9-20) mg/dL Creatinine 0.5 L (0.8-1.5) MG/DL Est GFR ( Amer) > 60 Est GFR (Non-Af Amer) > 60 POC Glucose (mg/dL) 122 H 39 L (65-110) mg/dL Random Glucose 99 (75-110) mg/dL Calcium 7.0 L (8.6-10.4) mg/dl Phosphorus 1.6 L (2.5-4.5) mg/dL Magnesium 1.9 (1.6-2.3) mg/dL Total Bilirubin 0.5 (0.2-1.3) mg/dL AST 21 (17-59) U/L ALT 17 L (21-72) U/L Alkaline Phosphatase 188 H (38-126) U/L Total Protein 5.3 L (6.3-8.3) g/dL Albumin 2.3 L (3.5-5.0) g/dL Globulin 3.0 (2.2-3.9) gm/dL Albumin/Globulin Ratio 0.8 L (1.0-2.1) Prostate Specific Ag 1520 H (0.00-4.0) ng/mL Testosterone Level < 4.90 ng/mL 11/21/16 11/21/16 11/21/16 Range/Units 05:49 04:56 00:03 WBC 7.9 (4.8-10.8) K/uL RBC 3.80 L (4.40-5.90) Mil/uL Hgb 11.4 L (12.0-18.0) g/dL Hct 34.5 L (35.0-51.0) % MCV 90.9 (80.0-94.0) fL MCH 30.0 (27.0-31.0) pg MCHC 33.0 (33.0-37.0) g/dL RDW 17.0 H (11.5-14.5) % Plt Count 158 (130-400) K/uL MPV 8.9 (7.2-11.7) fL Sodium (132-148) mmol/L Potassium (3.6-5.2) mmol/L Chloride (98-107) mmol/L Carbon Dioxide (22-30) mmol/L Anion Gap (10-20) BUN (9-20) mg/dL Creatinine (0.8-1.5) MG/DL Est GFR ( Amer) Est GFR (Non-Af Amer) POC Glucose (mg/dL) 95 123 H (65-110) mg/dL Random Glucose (75-110) mg/dL Calcium (8.6-10.4) mg/dl Phosphorus (2.5-4.5) mg/dL Magnesium (1.6-2.3) mg/dL Total Bilirubin (0.2-1.3) mg/dL AST (17-59) U/L ALT (21-72) U/L Alkaline Phosphatase (38-126) U/L Total Protein (6.3-8.3) g/dL Albumin (3.5-5.0) g/dL Globulin (2.2-3.9) gm/dL Albumin/Globulin Ratio (1.0-2.1) Prostate Specific Ag (0.00-4.0) ng/mL Testosterone Level ng/mL Laboratory Results - last 24 hr 11/21/16 11/21/16 11/21/16 00:03 04:56 05:49 WBC 7.9 RBC 3.80 L Hgb 11.4 L Hct 34.5 L MCV 90.9 MCH 30.0 MCHC 33.0 RDW 17.0 H Plt Count 158 MPV 8.9 Sodium Potassium Chloride Carbon Dioxide Anion Gap BUN Creatinine Est GFR ( Amer) Est GFR (Non-Af Amer) POC Glucose (mg/dL) 123 H 95 Random Glucose Calcium Phosphorus Magnesium Total Bilirubin AST ALT Alkaline Phosphatase Total Protein Albumin Globulin Albumin/Globulin Ratio Prostate Specific Ag Testosterone Level 11/21/16 11/21/16 11/21/16 05:49 08:08 08:38 WBC RBC Hgb Hct MCV MCH MCHC RDW Plt Count MPV Sodium 128 L Potassium 3.9 Chloride 96 L Carbon Dioxide 28 Anion Gap 8 L BUN 17 Creatinine 0.5 L Est GFR ( Amer) > 60 Est GFR (Non-Af Amer) > 60 POC Glucose (mg/dL) 39 L 122 H Random Glucose 99 Calcium 7.0 L Phosphorus 1.6 L Magnesium 1.9 Total Bilirubin 0.5 AST 21 ALT 17 L Alkaline Phosphatase 188 H Total Protein 5.3 L Albumin 2.3 L Globulin 3.0 Albumin/Globulin Ratio 0.8 L Prostate Specific Ag 1520 H Testosterone Level < 4.90 11/21/16 11/21/16 11/21/16 11:44 15:59 19:58 WBC RBC Hgb Hct MCV MCH MCHC RDW Plt Count MPV Sodium Potassium Chloride Carbon Dioxide Anion Gap BUN Creatinine Est GFR ( Amer) Est GFR (Non-Af Amer) POC Glucose (mg/dL) 71 114 H 93 Random Glucose Calcium Phosphorus Magnesium Total Bilirubin AST ALT Alkaline Phosphatase Total Protein Albumin Globulin Albumin/Globulin Ratio Prostate Specific Ag Testosterone Level Fingerstick Blood Sugar Results: 114 Assessment/Plan (1) Septic shock Assessment and plan: Patient with metastatic prostate cancer, bilateral hydronephrosis status post a stent history of multiple septic shock in the past admitted with hypertensive shock, respiratory failure, cardiac arrest intubated and extubated. Patient is currently having left-sided pleural effusion, status post a pigtail catheter insertion. Currently patient is awake and responding. We will continue to currently monitor the patient. Output monitoring. Intake monitoring. Physical therapy. If the patient is stable possible discharge plan to the floor. Will follow the patient we'll possibly remove the chest tube in the morning. Continue the antibiotic. Possible transfer tomorrow Current Visit: Yes Status: Acute (2) Dehydration Current Visit: No Status: Acute Priority: Low
[2016-11-22 06:58] LABS: CHLORIDE 101 mmol/L (98-107); POTASSIUM 3.3 mmol/L (3.6-5.2); SODIUM 133 mmol/L (132-148)
[2016-11-22 07:00] LABS: AST/SGOT 17 U/L (17-59); BILIRUBIN,TOTAL 0.5 mg/dL (0.2-1.3); CARBON DIOXIDE 28 mmol/L (22-30); GFR AFRICAN-AMERICAN > 60
[2016-11-22 07:01] LABS: ALB/GLOB RATIO 0.7 (1.0-2.1); ALKALINE PHOSPHATASE 154 U/L (38-126); ALT/SGPT 21 U/L (21-72); BLOOD UREA NITROGEN 19 mg/dL (9-20); CALCIUM 6.1 mg/dl (8.6-10.4); GLUCOSE,RANDOM 86 mg/dL (75-110); TOTAL PROTEIN 4.8 g/dL (6.3-8.3)
[2016-11-22 07:30] LABS: CORTISOL AM 13.5 ug/dL (4.46-22.7)
[2016-11-22] MEDS ORDERED: Magnesium Sulfate 1 gm in D5W 1 GM/100 ML BAG IVPB ONE (07:51)
[2016-11-22] MEDS ORDERED: Sodium Phosphate 15 MMOLE in Sodium Chloride 0.9% 250 ML IVPB ONE (07:51)
[2016-11-22] MEDS ORDERED: Potassium Chloride 20 mEq ER Tab PO ONE (07:55)
--- NOTE | 2016-11-22 08:31 | RAD ---
Chest x-ray single frontal view History: Pleural effusions. Comparison: 11/21/2016 Findings: Lines and tubes stable position. Persistent small bilateral pleural effusions with bibasilar airspace opacities. Biapical pleural thickening with upper lobe granulomatous changes. Venous congestion. Enlarged ectatic aorta. Mild cardiomegaly. Scoliotic curvature of the spine with prominent degenerative changes. Degenerative changes in the shoulders. Impression: No significant interval change.
[2016-11-22] MEDS: Enoxaparin 40 mg Syringe SC SCH (09:08)
--- NOTE | 2016-11-22 09:14 | CON ---
DATE: 11/19/2016 HISTORY OF PRESENT ILLNESS: A 61-year-old male with metastatic prostate carcinoma and was admitted h ere from the retirement for evaluation of progressively worsening shortness of breath and superveni ng hypotension. and actually became unresponsive and and currently endotracheally intuba rika at this time. He is being referred now for persistent hypoglycemia, the lowest glucose of which was 33 mg/dL. He is currently on a D10W infusion and received multiple doses of D50 bolus injections as noted. PAST MEDICAL HISTORY: History of type 2 diabetes, currently on glycemic therapy at this time, history of hypertension and dyslipidemia, history of prostate carcinoma with bony metastases as noted . Currently has a rostomy in place. tube feeding as noted. FAMILY HISTORY: Positive for hypertension and heart disease. SOCIAL HISTORY: The patient has a supportive family and is a retirement resident. Has a previous history of smoking noted. REVIEW OF SYSTEMS: Not possible at this time, but the chart has been medical management . PHYSICAL EXAMINATION: GENERAL: A male currently endotracheally intubated. VITAL SIGNS: Blood pressure of , heart rate 100 beats per minute, temperature 99, respirations as per ventilator , height is 5 feet 5 inches, weight is 151 pounds. HEENT: Head is normocephalic, . [place] conjunctivae. Fundoscopy not possible at this time. EAR S, NOSE AND THROAT: CARDIOVASCULAR: adynamic precordium, S1, S2, . ABDOMEN: bilaterally. LABORATORY DATA: Today showed a BUN of 14, sodium 122, potassium 3.8, , CO2 of 23, , creatinine 0.7, glucose levels have ranged from 105-182 today as noted. ASSESSMENT: A 61-year-old respiratory failure and supervening hypotension and endotrache al evaluation of persistent etiology end stage and terminal prostate carcinoma ____ _ krista ____ glycogenolysis of hypoglycemia etiology at this time would be that the pat ient was already IV b.i.d. so far being withheld with this admission as note d with supervening symptomatic hypoglycemia as noted thereof. tube feedings as noted. The deirdre gs continue the dextro for now and, if the glucose levels remain persistently above 140-1 80, then we eventually may switch him over to normal saline infusion accordingly. Will start him als o empirically on a maintenance dose of hydrocortisone given as 50 mg IV every 8 hours as given and or dered. He received stress doses of IV steroids yesterday as per the medical historian as noted. Will obta in a serum cortisol and ACTH level with a TSH value and serial chemistries for the morning and will s upplement accordingly as needed. We will follow and advise accordingly. Keira Dolan MD cc: [id number] TT: 11/19/2016 16:12:47 Confirmation # [id number] Dictation # [id number] [place]
[2016-11-22] MEDS ORDERED: Dextrose 50% SYRINGE Inj (50 ml) IV ONE (10:00)
[2016-11-22] MEDS ORDERED: Potassium Chloride 20 mEq/15 ml LIQ UD PO ONE (10:00)
--- NOTE | 2016-11-22 13:04 | CP.CCUPN ---
CCU Subjective - Physician Review Subjective (Free Text): 11/22/16 13:00 Patient seen and examined at the bedside. No acute events overnight. No acute distress. Nursing staff reports no issues. The patient is sating well on venti mask this morning. No complaints. Patient requesting to return to [facility]. Patient states that nothing is wrong and that he is fine to go today. Patient denies fever, chills, headache, chest pain, shortness of breath , abdominal pain, N/V/D/C, changes in bowel/bladder, and extremity paresthesias. Today on rounds, the patient's potassium, phosphorous, and magnesium were replaced and the patient was given 1amp of D50 due to hypoglycemia. Critical Care Time Spent (in minutes): 90 CCU Objective - Vital Signs / Intake & Output Vital Signs (Last 4 hours): Vital Signs Pulse Resp BP Pulse Ox 11/22/16 12:00 107 H 18 83 L 11/22/16 11:07 90 20 112/73 100 11/22/16 11:00 90 14 100 11/22/16 10:08 83 17 104/65 100 11/22/16 10:00 92 H 16 97 11/22/16 09:08 114/73 11/22/16 09:07 88 13 114/73 97 Intake and Output (Last 8hrs): Intake & Output 11/21/16 11/22/16 11/22/16 22:59 06:59 14:59 Intake Total 470 470 560 Output Total 910 940 900 Balance -440 -470 -340 Weight 64.864 kg Intake: Intake, IV Amount 50 150 200 Right Proximal Port 50 150 200 Internal Jugular Tube Feeding 320 320 240 Other 100 120 Output: Chest Tube Drainage 110 140 Left Mid-Axillary Chest 110 140 Drainage 800 800 900 Right Nephrostomy Tube 800 800 900 Stool 0 - Physical Exam Head: Positive for: Atraumatic, Normocephalic Pupils: Positive for: PERRL Extroacular Muscles: Positive for: EOMI Conjunctiva: Positive for: Normal. Negative for: Injected Mouth: Positive for: Moist Mucous Membranes. Negative for: Drooling Nose (External): Positive for: Atraumatic Neck: Positive for: Normal Range of Motion. Negative for: JVD, Lymphadenopathy , Bruit Respiratory/Chest: Positive for: Clear to Auscultation, Good Air Exchange, Rales (bibasilar R > L). Negative for: Respiratory Distress, Accessory Muscle Use, Wheezes, Retracting, Rhonchi Cardiovascular: Positive for: Regular Rate and Rhythm, Normal S1, S2, Peripheal Pulses Present. Negative for: Murmurs Abdomen: Positive for: Normal Bowel Sounds. Negative for: Tenderness, Distention, Peritoneal Signs, Rebound, Guarding Back: Positive for: Normal Inspection. Negative for: CVA Tenderness Upper Extremity: Positive for: Normal Inspection, Normal ROM, NORMAL PULSES, Neurovascularly Intact. Negative for: Cyanosis, Edema Lower Extremity: Positive for: Normal Inspection, NORMAL PULSES, Neurovascularly Intact. Negative for: Edema, CALF TENDERNESS Neurological: Positive for: CN II-XII Intact, Speech Normal, Motor Func Grossly Intact, Normal Sensory Function Skin: Positive for: Warm, Dry, Normal Color. Negative for: Rashes Psychiatric: Positive for: Alert, Oriented x 3 - Medications Active Medications: Active Medications Generic Name Dose Route Start Last Admin Trade Name Freq PRN Reason Stop Dose Admin Enoxaparin Sodium 40 mg 11/13/16 10:00 11/22/16 09:08 Lovenox SC 40 mg DAILY [facility] Administration Furosemide 20 mg 11/20/16 08:33 11/22/16 09:08 Lasix IVP 20 mg Q12 [facility] Administration Hydrocortisone Sodium Succinate 50 mg 11/21/16 10:00 11/22/16 09:07 Solu-Cortef IV 50 mg BID [facility] Administration Cefepime HCl 1 gm/ Dextrose 50 mls @ 100 mls/hr 11/17/16 19:00 11/22/16 06:00 IVPB 100 mls/hr Q12H [facility] Administration Colistimethate Sodium 150 mg/ 100 mls @ 200 mls/hr 11/21/16 15:15 11/22/16 03 :20 Sodium Chloride IV 200 mls/hr Q12H [facility] Administration Pantoprazole Sodium 40 mg 11/17/16 10:00 11/22/16 09:07 Protonix Inj IVP 40 mg DAILY [facility] Administration - Patient Studies Lab Studies: Microbiology Studies 11/19/16 14:00 Gram Stain - Final Pleural Fluid Body Fluid Culture - Preliminary NO GROWTH AFTER 3 DAYS 11/19/16 Unknown Urine Culture - Final Urine,Kidney Pseudomonas Aeruginosa Lab Studies 11/22/16 11/22/16 11/22/16 Range/Units 12:05 10:24 09:49 Sodium (132-148) mmol/L Potassium (3.6-5.2) mmol/L Chloride (98-107) mmol/L Carbon Dioxide (22-30) mmol/L Anion Gap (10-20) BUN (9-20) mg/dL Creatinine (0.8-1.5) MG/DL Est GFR ( Amer) Est GFR (Non-Af Amer) POC Glucose (mg/dL) 102 228 H 33 L* (65-110) mg/dL Random Glucose (75-110) mg/dL Hemoglobin A1c (4.2-6.5) % Calcium (8.6-10.4) mg/dl Total Bilirubin (0.2-1.3) mg/dL AST (17-59) U/L ALT (21-72) U/L Alkaline Phosphatase (38-126) U/L Total Protein (6.3-8.3) g/dL Albumin (3.5-5.0) g/dL Globulin (2.2-3.9) gm/dL Albumin/Globulin Ratio (1.0-2.1) Prostate Specific Ag (0.00-4.0) ng/mL Cortisol AM Sample (4.46-22.7) ug/dL 11/22/16 11/22/16 11/21/16 Range/Units 06:47 03:44 23:59 Sodium 133 (132-148) mmol/L Potassium 3.3 L (3.6-5.2) mmol/L Chloride 101 (98-107) mmol/L Carbon Dioxide 28 (22-30) mmol/L Anion Gap 7 L (10-20) BUN 19 (9-20) mg/dL Creatinine 0.7 L (0.8-1.5) MG/DL Est GFR ( Amer) > 60 Est GFR (Non-Af Amer) > 60 POC Glucose (mg/dL) 116 H 110 (65-110) mg/dL Random Glucose 86 (75-110) mg/dL Hemoglobin A1c (4.2-6.5) % Calcium 6.1 L (8.6-10.4) mg/dl Total Bilirubin 0.5 (0.2-1.3) mg/dL AST 17 (17-59) U/L ALT 21 D (21-72) U/L Alkaline Phosphatase 154 H (38-126) U/L Total Protein 4.8 L (6.3-8.3) g/dL Albumin 2.0 L (3.5-5.0) g/dL Globulin 2.8 (2.2-3.9) gm/dL Albumin/Globulin Ratio 0.7 L (1.0-2.1) Prostate Specific Ag (0.00-4.0) ng/mL Cortisol AM Sample 13.5 (4.46-22.7) ug/dL 11/21/16 11/21/16 11/21/16 Range/Units 19:58 15:59 05:49 Sodium (132-148) mmol/L Potassium (3.6-5.2) mmol/L Chloride (98-107) mmol/L Carbon Dioxide (22-30) mmol/L Anion Gap (10-20) BUN (9-20) mg/dL Creatinine (0.8-1.5) MG/DL Est GFR ( Amer) Est GFR (Non-Af Amer) POC Glucose (mg/dL) 93 114 H (65-110) mg/dL Random Glucose (75-110) mg/dL Hemoglobin A1c (4.2-6.5) % Calcium (8.6-10.4) mg/dl Total Bilirubin (0.2-1.3) mg/dL AST (17-59) U/L ALT (21-72) U/L Alkaline Phosphatase (38-126) U/L Total Protein (6.3-8.3) g/dL Albumin (3.5-5.0) g/dL Globulin (2.2-3.9) gm/dL Albumin/Globulin Ratio (1.0-2.1) Prostate Specific Ag 1520 H (0.00-4.0) ng/mL Cortisol AM Sample (4.46-22.7) ug/dL 11/20/16 Range/Units 06:30 Sodium (132-148) mmol/L Potassium (3.6-5.2) mmol/L Chloride (98-107) mmol/L Carbon Dioxide (22-30) mmol/L Anion Gap (10-20) BUN (9-20) mg/dL Creatinine (0.8-1.5) MG/DL Est GFR ( Amer) Est GFR (Non-Af Amer) POC Glucose (mg/dL) (65-110) mg/dL Random Glucose (75-110) mg/dL Hemoglobin A1c 5.4 (4.2-6.5) % Calcium (8.6-10.4) mg/dl Total Bilirubin (0.2-1.3) mg/dL AST (17-59) U/L ALT (21-72) U/L Alkaline Phosphatase (38-126) U/L Total Protein (6.3-8.3) g/dL Albumin (3.5-5.0) g/dL Globulin (2.2-3.9) gm/dL Albumin/Globulin Ratio (1.0-2.1) Prostate Specific Ag (0.00-4.0) ng/mL Cortisol AM Sample (4.46-22.7) ug/dL Laboratory Results - last 24 hr 11/20/16 11/21/16 11/21/16 06:30 05:49 15:59 Sodium Potassium Chloride Carbon Dioxide Anion Gap BUN Creatinine Est GFR ( Amer) Est GFR (Non-Af Amer) POC Glucose (mg/dL) 114 H Random Glucose Hemoglobin A1c 5.4 Calcium Total Bilirubin AST ALT Alkaline Phosphatase Total Protein Albumin Globulin Albumin/Globulin Ratio Prostate Specific Ag 1520 H Cortisol AM Sample 11/21/16 11/21/16 11/22/16 19:58 23:59 03:44 Sodium Potassium Chloride Carbon Dioxide Anion Gap BUN Creatinine Est GFR ( Amer) Est GFR (Non-Af Amer) POC Glucose (mg/dL) 93 110 116 H Random Glucose Hemoglobin A1c Calcium Total Bilirubin AST ALT Alkaline Phosphatase Total Protein Albumin Globulin Albumin/Globulin Ratio Prostate Specific Ag Cortisol AM Sample 11/22/16 11/22/16 11/22/16 06:47 09:49 10:24 Sodium 133 Potassium 3.3 L Chloride 101 Carbon Dioxide 28 Anion Gap 7 L BUN 19 Creatinine 0.7 L Est GFR ( Amer) > 60 Est GFR (Non-Af Amer) > 60 POC Glucose (mg/dL) 33 L* 228 H Random Glucose 86 Hemoglobin A1c Calcium 6.1 L Total Bilirubin 0.5 AST 17 ALT 21 D Alkaline Phosphatase 154 H Total Protein 4.8 L Albumin 2.0 L Globulin 2.8 Albumin/Globulin Ratio 0.7 L Prostate Specific Ag Cortisol AM Sample 13.5 11/22/16 12:05 Sodium Potassium Chloride Carbon Dioxide Anion Gap BUN Creatinine Est GFR ( Amer) Est GFR (Non-Af Amer) POC Glucose (mg/dL) 102 Random Glucose Hemoglobin A1c Calcium Total Bilirubin AST ALT Alkaline Phosphatase Total Protein Albumin Globulin Albumin/Globulin Ratio Prostate Specific Ag Cortisol AM Sample Fingerstick Blood Sugar Results: 33 Review of Systems - Constitutional Constitutional: absent: Fever, Chills - EENT Eyes: absent: Blind Spots, Change in Vision Ears: absent: Decreased Hearing, Tinnitus Nose/Mouth/Throat: absent: Nose Pain, Facial Pain, Neck Pain - Cardiovascular Cardiovascular: absent: Chest Pain, Palpitations, Syncope - Respiratory Respiratory: absent: Cough, Dyspnea, Dyspnea on Exertion - Gastrointestinal Gastrointestinal: absent: Abdominal Pain, Constipation, Diarrhea, Nausea, Vomiting - Genitourinary Genitourinary: absent: Change in Urinary Stream, Difficulty Urinating - Musculoskeletal Musculoskeletal: absent: Radiating Pain into Limb, Stiffness, Tingling - Integumentary Integumentary: absent: Lesions, Rash, Wounds - Neurological Neurological: absent: Frequent Falls, Memory Loss, Sensory Deficit, Syncope, Tingling, Tremor, Vertigo, Weakness - Endocrine Endocrine: absent: Cold Intolorance, Heat Intolorance Critical Care Progress Note - Extremities/Vascular Insertion Site: Right PICC (right) Does the Patient need a Central Venous Catheter?: Yes - Restraints Justification for Restraints: High risk for removing IV access - Prophylaxis GI Prophylaxis GI: PPI - Prophylaxis DVT Prophylaxis DVT: Lovenox Assessment/Plan (1) Septic shock Current Visit: Yes Status: Acute - Assessment and Plan (Free Text) Plan: Patient Status: Stable transfer to medical floor Neuro: -AO x 3 -No acute issues Cardiovascular: -Hemodynamically stable -No issues -11/12/16 EKG- NSR, normal axis, normal MO interval and QRS duration, prolonged QTc, nonspecific ST/T wave changes Pulmonary: -Sating well -Continue Rocephin 1g IV q12, Colistimethate 150mg IV q12 -Pigtail Catheter in Place: 250mL output today -Imaging : 11/22/16 CXR- No significant interval change. : 11/21/16 CXR- Support lines and tubes as above. Hazy appearance of the mid to lower lung sibley could represent some combination of layering effusions and bilateral lower lobe atelectasis. No definitive radial graphic evidence of residual left-sided pneumothorax. . The slightly congested appearance of the central pulmonary vasculature : 11/20/16 CXR- Small of pigtail chest tube catheter overlying the left lung base unchanged as well. Suspect mild bibasilar atelectasis. Previously noted tiny left basilar pneumothorax appears to have resolved. Gastrointestinal: No acute complaints Swallow eval today- Puree solids and honey thick liquids for pleasure feeds only -Imaging : 11/12/16 CT A/P- no evidence of bowel obstruction. Suspicious for omental mass and mediastinal soft tissue density/nodes. Biliary dilation. Left hydronephrosis. Right nephrouterostomy. Hematology: -No acute issues -Stable anemia Endocrine: -No issues Renal: -Hypomagnesemia- replaced with 1g mag IV -Hypokalemia- replaced with k-dur 40meq PO -Hypophosphatemia- replaced with sodium phosphate IV -Nephrostomy tube in place : 2750mL output 11/22 -Monitor I&Os Musculoskeletal: -PT Eval and Treat Genitourinary: -No issues -Voiding well Infectious Disease: -Rocephin 1g IV q12- Day 6 -Colistimethate 150mg IV q12- Day 2 GI Prophylaxis: Protonix 40mg IV daily DVT Prophylaxis: Lovenox 40mg SC Daily Case Discussed with Dr. Sherice Ramirez PGY1 - Date & Time Date: 11/22/16 Time: 13:09
--- NOTE | 2016-11-22 17:09 | PN ---
DATE: 11/22/2016 LOCATION: ICU room 12. SUBJECTIVE: This is a 61-year-old male with recent acute respiratory failure, currently extubated, o n high oxygen delivery currently and also had bilateral pleural effusion with a recent thoracentesis undertaken thereof. He has a pigtail catheter on the left side of his chest wall following a thorace ntesis undertaken yesterday. He also has significant history of metastatic prostate carcinoma presen ting here with acute respiratory failure and septic shock and supervening symptomatic hypoglycemic ep isodes as noted thereof. He also has possible secondary hypoadrenalism and has been started back on the low dose IV steroid therapy as given. His glucose values once again have dropped to 33 mg/dL tod ay and subsequent levels have ranged from 82-102 and 228 mg/dL. His chemistries showed a BUN of 19, sodium 133, potassium 3.3, chloride 101, CO2 of 28, glucose 86 and creatinine 0.7. So, at this time, we will once again titrate his hydrocortisone to be given as 100 mg b.i.d. to start tonight as order ed. We will titrate incrementally as indicated to optimize metabolic control. We will obtain serial chemistries and supplement accordingly as needed. We will also obtain serial cortisol levels and ti trate and adjust his dose regimen accordingly. We will follow. Keira Dolan MD cc: [phone] TT: 11/22/2016 17:08:47 Confirmation # [id number] Dictation # [id number] ivon
--- NOTE | 2016-11-22 17:36 | CP.PCM.PN ---
Subjective - Date & Time of Evaluation Date of Evaluation: 11/22/16 Time of Evaluation: 12:20 - Subjective Subjective: clinically same Objective - Vital Signs/Intake and Output Vital Signs (last 24 hours): Temp Pulse Resp BP Pulse Ox 97 F L 104 H 18 112/72 100 11/22/16 16:00 11/22/16 16:00 11/22/16 16:00 11/22/16 15:08 11/22/16 16:00 Intake and Output: 11/22/16 11/22/16 06:59 18:59 Intake Total 630 870 Output Total 1440 900 Balance -810 -30 - Medications Medications: Current Medications Enoxaparin Sodium (Lovenox) 40 mg SC DAILY [facility] Last Admin: 11/22/16 09:08 Dose: 40 mg Furosemide (Lasix) 20 mg IVP Q12 [facility] Last Admin: 11/22/16 09:08 Dose: 20 mg Hydrocortisone Sodium Succinate (Solu-Cortef) 100 mg IV Q12H [facility] Last Admin: 11/22/16 16:52 Dose: 100 mg Cefepime HCl 1 gm/ Dextrose 50 mls @ 100 mls/hr IVPB Q12H [facility] Last Admin: 11/22/16 06:00 Dose: 100 mls/hr Colistimethate Sodium 150 mg/ (Sodium Chloride) 100 mls @ 200 mls/hr IV Q12H [facility] Last Admin: 11/22/16 14:29 Dose: 200 mls/hr Pantoprazole Sodium (Protonix Inj) 40 mg IVP DAILY [facility] Last Admin: 11/22/16 09:07 Dose: 40 mg - Labs Labs: 11/21/16 05:49 11/22/16 06:47 PT 13.7 SECONDS (9.7-12.2) H 11/17/16 06:33 INR 1.2 11/17/16 06:33 APTT 37 SECONDS (21-34) H 11/17/16 06:33 - Constitutional Appears: Well - Head Exam Head Exam: ATRAUMATIC, NORMAL INSPECTION, NORMOCEPHALIC - Eye Exam Eye Exam: EOMI, Normal appearance, PERRL Pupil Exam: NORMAL ACCOMODATION, PERRL - ENT Exam ENT Exam: Mucous Membranes Moist, Normal Exam - Neck Exam Neck Exam: Full ROM, Normal Inspection. absent: Lymphadenopathy - Respiratory Exam Respiratory Exam: Decreased Breath Sounds - Cardiovascular Exam Cardiovascular Exam: REGULAR RHYTHM, +S1, +S2 - GI/Abdominal Exam GI & Abdominal Exam: Soft, Diminished Bowel Sounds - Rectal Exam Rectal Exam: Deferred
[2016-11-23 06:38] LABS: BASO % 0.2 % (0.0-2.0); EOS % 0.3 % (0.0-4.0); LYMPH # 0.4 K/uL (1.0-4.3); LYMPH % 5.9 % (20.0-40.0); MEAN CELL VOLUME 91.7 fL (80.0-94.0); MEAN CORPUSCULAR HEMOGLOBIN 30.2 pg (27.0-31.0); MEAN PLATELET VOLUME 8.5 fL (7.2-11.7); MONO # 0.3 K/uL (0.0-0.8); PLATELET COUNT 115 K/uL (130-400); RED CELL DISTRIBUTION WIDTH 16.8 % (11.5-14.5); WHITE BLOOD COUNT 7.2 K/uL (4.8-10.8)
[2016-11-23 06:54] LABS: CHLORIDE 97 mmol/L (98-107)
[2016-11-23 06:55] LABS: POTASSIUM 3.8 mmol/L (3.6-5.2); SODIUM 132 mmol/L (132-148)
[2016-11-23 06:57] LABS: BILIRUBIN,TOTAL 0.5 mg/dL (0.2-1.3); CARBON DIOXIDE 30 mmol/L (22-30); GFR AFRICAN-AMERICAN > 60
[2016-11-23 06:58] LABS: ALB/GLOB RATIO 0.8 (1.0-2.1); ALKALINE PHOSPHATASE 170 U/L (38-126); ALT/SGPT 16 U/L (21-72); AST/SGOT 20 U/L (17-59); BLOOD UREA NITROGEN 20 mg/dL (9-20); CALCIUM 7.2 mg/dl (8.6-10.4); GLUCOSE,RANDOM 82 mg/dL (75-110); TOTAL PROTEIN 5.5 g/dL (6.3-8.3)
[2016-11-23 06:59] LABS: MAGNESIUM 1.9 mg/dL (1.6-2.3); PHOSPHOROUS 1.7 mg/dL (2.5-4.5)
[2016-11-23 07:28] LABS: CORTISOL AM 17.6 ug/dL (4.46-22.7)
--- NOTE | 2016-11-23 07:51 | RAD ---
Chest x-ray single frontal view History: Chest tube of suction. Comparison: 11/22/2016 Findings: NG tube extending into the stomach. Left chest tube in stable position. Left apical pleural thickening. Consolidative changes at the left base. Persistent opacification in the right mid to lower lung zone with a suggestion of a small right pleural effusion. Right peritracheal prominence likely represents prominent vasculature. Scoliotic curvature of the spine. Mild cardiomegaly. Impression: Left chest tube in stable position. Left apical pleural thickening. Consolidative changes at the left base. Persistent opacification in the right mid to lower lung zone with a suggestion of a small right pleural effusion.
[2016-11-23 08:13] LABS: NEUTROPHIL 86 % (50-75); TOTAL CELLS COUNTED 100
[2016-11-23] MEDS: Enoxaparin 40 mg Syringe SC SCH (09:59)
--- NOTE | 2016-11-23 11:02 | CP.PCM.PN ---
Subjective - Date & Time of Evaluation Date of Evaluation: 11/23/16 Time of Evaluation: 09:00 - Subjective Subjective: weak/ lethargic iv rx in progress for mdro urine Objective - Vital Signs/Intake and Output Vital Signs (last 24 hours): Temp Pulse Resp BP Pulse Ox 97.7 F 111 H 18 100/72 97 11/23/16 08:00 11/23/16 08:00 11/23/16 08:00 11/23/16 10:05 11/23/16 08:00 Intake and Output: 11/23/16 11/23/16 06:59 18:59 Intake Total 770 Output Total 1350 Balance -580 - Medications Medications: Current Medications Enoxaparin Sodium (Lovenox) 40 mg SC DAILY [facility] Last Admin: 11/23/16 09:59 Dose: 40 mg Furosemide (Lasix) 20 mg IVP Q12 [facility] Last Admin: 11/23/16 10:05 Dose: 20 mg Hydrocortisone Sodium Succinate (Solu-Cortef) 100 mg IV Q12H [facility] Last Admin: 11/23/16 04:44 Dose: 100 mg Cefepime HCl 1 gm/ Dextrose 50 mls @ 100 mls/hr IVPB Q12H [facility] Last Admin: 11/23/16 06:10 Dose: 100 mls/hr Colistimethate Sodium 150 mg/ (Sodium Chloride) 100 mls @ 200 mls/hr IV Q12H [facility] Last Admin: 11/23/16 02:31 Dose: 200 mls/hr Pantoprazole Sodium (Protonix Inj) 40 mg IVP DAILY [facility] Last Admin: 11/23/16 09:59 Dose: 40 mg - Labs Labs: 11/23/16 06:25 11/23/16 06:26 PT 11.9 SECONDS (9.7-12.2) 11/23/16 06:28 INR 1.0 11/23/16 06:28 APTT 34 SECONDS (21-34) 11/23/16 06:28 - Constitutional Appears: Non-toxic, Cachectic, Chronically Ill - Head Exam Head Exam: ATRAUMATIC, NORMAL INSPECTION, NORMOCEPHALIC - Eye Exam Eye Exam: PERRL. absent: Scleral icterus - ENT Exam ENT Exam: Mucous Membranes Dry - Neck Exam Neck Exam: absent: Lymphadenopathy - Respiratory Exam Respiratory Exam: Decreased Breath Sounds, Clear to Ausculation Bilateral - Cardiovascular Exam Cardiovascular Exam: REGULAR RHYTHM, +S1, +S2 - GI/Abdominal Exam GI & Abdominal Exam: Distended, Soft. absent: Tenderness - Rectal Exam Rectal Exam: Deferred - Exam Exam: NORMAL INSPECTION - Extremities Exam Extremities Exam: absent: Pedal Edema - Neurological Exam Neurological Exam: Alert, Awake - Psychiatric Exam Psychiatric exam: Normal Mood Assessment and Plan (1) Hypotension Status: Acute (2) Abdominal pain Status: Acute (3) Abnormal PSA Status: Acute
--- NOTE | 2016-11-23 15:44 | PN ---
DATE: 11/23/2016 ROOM: ICU, room 12. This is a 61-year-old male with recent acute respiratory failure and concomitant bilateral pleural ef fusion with thoracentesis undertaken thereof and is also now being followed closely for metabolic man agement ____ initial presentation of symptomatic hypoglycemia as noted thereof. ____ prostate carcin shonda ____. He has been started on IV cortisone because of prior steroid dependence to oral steroid th erapy even before this hospital admission. His latest chemistries showed a BUN of 20, sodium 132, potassium 3.8, chloride 97, CO2 of 30, glucose ____. His calcium level is 7.2 and magnesium level is ____. His glucose values have ranged from 10 5-121 and 151 mg/dL with repeat cortisol levels being 17.6 mcg/dL. So at this time, will continue the hydrocortisone given as 100 mg IV every 12 hours as needed, given at 10 a.m. and 10 p.m. daily as given. Will obtain serial chemistries and serial cortisol levels and adjust his dose regimen accordingly. Will follow up. Keira Dolan MD cc: [phone] TT: 11/23/2016 15:43:26 Confirmation # [id number] Dictation # [id number] mn
--- NOTE | 2016-11-23 16:19 | CP.PCM.PN ---
Subjective - Date & Time of Evaluation Date of Evaluation: 11/23/16 Time of Evaluation: 12:00 - Subjective Subjective: clinically same Objective - Vital Signs/Intake and Output Vital Signs (last 24 hours): Temp Pulse Resp BP Pulse Ox 97.7 F 110 H 18 96/62 L 96 11/23/16 08:15 11/23/16 08:15 11/23/16 15:50 11/23/16 15:50 11/23/16 15:50 Intake and Output: 11/23/16 11/23/16 06:59 18:59 Intake Total 770 470 Output Total 1350 940 Balance -580 -470 - Medications Medications: Current Medications Enoxaparin Sodium (Lovenox) 40 mg SC DAILY [facility] Last Admin: 11/23/16 09:59 Dose: 40 mg Furosemide (Lasix) 20 mg IVP Q12 [facility] Last Admin: 11/23/16 10:05 Dose: 20 mg Hydrocortisone Sodium Succinate (Solu-Cortef) 100 mg IV Q12H [facility] Last Admin: 11/23/16 04:44 Dose: 100 mg Cefepime HCl 1 gm/ Dextrose 50 mls @ 100 mls/hr IVPB Q12H [facility] Last Admin: 11/23/16 06:10 Dose: 100 mls/hr Colistimethate Sodium 150 mg/ (Sodium Chloride) 100 mls @ 200 mls/hr IV Q12H [facility] Last Admin: 11/23/16 02:31 Dose: 200 mls/hr Pantoprazole Sodium (Protonix Inj) 40 mg IVP DAILY [facility] Last Admin: 11/23/16 09:59 Dose: 40 mg - Labs Labs: 11/23/16 06:25 11/23/16 06:26 PT 11.9 SECONDS (9.7-12.2) 11/23/16 06:28 INR 1.0 11/23/16 06:28 APTT 34 SECONDS (21-34) 11/23/16 06:28 - Constitutional Appears: Well - Head Exam Head Exam: ATRAUMATIC, NORMAL INSPECTION, NORMOCEPHALIC - Eye Exam Eye Exam: EOMI, Normal appearance, PERRL Pupil Exam: NORMAL ACCOMODATION, PERRL - ENT Exam ENT Exam: Mucous Membranes Moist, Normal Exam - Neck Exam Neck Exam: Full ROM, Normal Inspection. absent: Lymphadenopathy - Respiratory Exam Respiratory Exam: Decreased Breath Sounds - Cardiovascular Exam Cardiovascular Exam: REGULAR RHYTHM, +S1, +S2 - GI/Abdominal Exam GI & Abdominal Exam: Soft, Diminished Bowel Sounds - Rectal Exam Rectal Exam: Deferred
--- NOTE | 2016-11-24 09:50 | CP.PCM.CON ---
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 While being worked up he suffered a cardiac arrest requiring ACLS with 2 rounds of epinephrine and subsequent ROSC. He was intubated at that time and moved to the ICU for ongoing care. He has also required left sided thoracentesis and has a chest tube for pleural effusion. The patient has continued to recover and was stepped down to the medical floor from ICU yesterday. Recent CT of the A/P does reveal rectal thickening concerning for mass lesion and thus our service was consulted. He denies any rectal pain, constipation, change in stool, hematochezia or melena. He denies any prior colonoscopy. PMHx: See HPI PSHx: Denies FHx: Denies any history of GI malignancies Social: Denies tobacco, EtOH or illicit drug use Endo: Jun 2015 - Dilation and placement of duodenal stent due to external compression Review of Systems - Constitutional Constitutional: Anorexia, Weight Loss. absent: Chills, Fever - EENT Eyes: absent: Change in Vision Nose/Mouth/Throat: absent: Sore Throat - Cardiovascular Cardiovascular: absent: Chest Pain, Dyspnea, Edema - Respiratory Respiratory: Cough, Dyspnea, Excessive Mucous Production - Gastrointestinal Gastrointestinal: absent: Abdominal Pain, Bloating, Constipation, Cramping, Diarrhea, Hematemesis, Hematochezia, Nausea, Temesmus, Vomiting - Genitourinary Genitourinary: absent: Dysuria, Urinary Frequency, Urinary Urgency - Musculoskeletal Musculoskeletal: Back Pain. absent: Neck Pain - Integumentary Integumentary: absent: New Lesions, Rash - Neurological Neurological: absent: Dizziness, Numbness, Focal Weakness - Psychiatric Psychiatric: absent: Anxiety, Depression - Endocrine Endocrine: absent: Polydipsia, Polyphagia, Polyuria - Hematologic/Lymphatic Hematologic: absent: Easy Bleeding, Easy Bruising, Lymphadenopathy Past Patient History - Infectious Disease Hx of Infectious Diseases: None - Past Medical History & Family History Past Medical History?: Yes - Past Social History Smoking Status: Current Some Days Smoker - CARDIAC Hx Hypertension: Yes - PULMONARY Hx Respiratory Disorders: No - NEUROLOGICAL Hx Neurological Disorder: No Hx Paralysis: No - HEENT Hx HEENT Problems: No - RENAL Hx Chronic Kidney Disease: Yes - ENDOCRINE/METABOLIC Hx Endocrine Disorders: Yes Hx Diabetes Mellitus Type 2: Yes (pt denies.) - HEMATOLOGICAL/ONCOLOGICAL Hx Blood Disorders: Yes Hx Blood Transfusions: Yes Hx Blood Transfusion Reaction: No Hx Cancer: Yes (Prostate, Stomach.) - INTEGUMENTARY Hx Dermatological Problems: No - MUSCULOSKELETAL/RHEUMATOLOGICAL Hx Falls: No - GASTROINTESTINAL Hx Gastrointestinal Disorders: Yes Other/Comment: Stomach Ca. - GENITOURINARY/GYNECOLOGICAL Hx Genitourinary Disorders: Yes Hx Prostate Cancer: Yes Hx Prostate Problems: Yes - PSYCHIATRIC Hx Substance Use: No - SURGICAL HISTORY Hx Surgeries: Yes Other/Comment: nephrostomy tube. - ANESTHESIA Hx Anesthesia: Yes Hx Anesthesia Reactions: No Hx Malignant Hyperthermia: No Meds Allergies/Adverse Reactions: Allergies Allergy/AdvReac Type Severity Reaction Status Date / Time No Known Allergies Allergy Verified 10/06/16 10:16 - Medications Medications: Current Medications Enoxaparin Sodium (Lovenox) 40 mg SC DAILY [facility] Last Admin: 11/23/16 09:59 Dose: 40 mg Furosemide (Lasix) 20 mg IVP Q12 [facility] Last Admin: 11/23/16 21:48 Dose: Not Given Hydrocortisone Sodium Succinate (Solu-Cortef) 100 mg IV Q12H [facility] Last Admin: 11/24/16 05:15 Dose: 100 mg Cefepime HCl 1 gm/ Dextrose 50 mls @ 100 mls/hr IVPB Q12H [facility] Last Admin: 11/24/16 07:12 Dose: 100 mls/hr Colistimethate Sodium 150 mg/ (Sodium Chloride) 100 mls @ 200 mls/hr IV Q12H [facility] Last Admin: 11/24/16 02:22 Dose: 200 mls/hr Pantoprazole Sodium (Protonix Inj) 40 mg IVP DAILY [facility] Last Admin: 11/23/16 09:59 Dose: 40 mg Physical Exam - Constitutional Appears: Agitated, Cachectic - Eye Exam Eye Exam: EOMI, PERRL - ENT Exam ENT Exam: Mucous Membranes Dry Additional comments: NGT in place - Respiratory Exam Respiratory Exam: Decreased Breath Sounds, Rales. absent: Clear to Auscultation Bilateral, Rhonchi, Wheezes - Cardiovascular Exam Cardiovascular Exam: Tachycardia, REGULAR RHYTHM, +S1, +S2 - GI/Abdominal Exam GI & Abdominal Exam: Normal Bowel Sounds, Soft. absent: Distended, Firm, Guarding, Rigid, Tenderness - Rectal Exam Additional comments: Patient refused - Extremities Exam Additional comments: cachectic - Neurological Exam Neurological exam: Alert, Oriented x3 - Psychiatric Exam Psychiatric exam: Agitated - Skin Skin Exam: Dry, Warm Results - Vital Signs Recent Vital Signs: Last Vital Signs Temp 97.7 F 11/24/16 08:00 Pulse 96 H 11/24/16 08:00 Resp 18 11/24/16 08:00 BP 100/72 11/24/16 08:00 Pulse Ox 98 11/24/16 08:00 - Labs Result Diagrams: 11/23/16 06:25 11/23/16 06:26 Labs: Laboratory Results - last 24 hr 11/23/16 11/23/16 11/23/16 11:19 16:17 19:52 POC Glucose (mg/dL) 151 H 90 88 11/23/16 11/24/16 23:25 04:08 POC Glucose (mg/dL) 126 H 110 Assessment & Plan - Assessment and Plan (Free Text) Assessment: Patient is a 61yo male with PMHx significant for 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 He subsequently suffered cardiac arrest while in house requiring ACLS. -S/P cardiac arrest with ACLS on 11/16- -Stage 4 prostate cancer with metastatic disease despite previous therapy with chronic steroids and Zytiga -Rectal thickening on CT -Duodenal stent in place since 06/2015 Plan: -Patient refusing rectal examination -Given advanced stage cancer, the identification of whether or not his rectal lesion represents a new primary or metastatic disease likely will not alter the course of treatment -As noted by oncology in their recent consultation on 11/17/16 prior to the discovery of rectal thickening on CT, the patient has a very poor prognosis and is appropriate for palliation; I agree with this assessment -Goals of care must be defined; palliative/hospice care has seen this patient but decisions unclear -Patient stating he wishes to return home at this time -Regarding his duodenal stent; CT does show distention of the stomach however patency cannot be determined in this image -Would consider evaluation/removal of stent if feasible - Date & Time Date: 11/24/16 Time: 07:10 <Lenore Barfield - Last Filed: 11/24/16 13:34> Meds - Medications Medications: Current Medications Enoxaparin Sodium (Lovenox) 40 mg SC DAILY [facility] Last Admin: 11/24/16 10:21 Dose: 40 mg Furosemide (Lasix) 20 mg IVP Q12 [facility] Last Admin: 11/24/16 10:21 Dose: 20 mg Hydrocortisone Sodium Succinate (Solu-Cortef) 100 mg IV Q12H [facility] Last Admin: 11/24/16 05:15 Dose: 100 mg Cefepime HCl 1 gm/ Dextrose 50 mls @ 100 mls/hr IVPB Q12H [facility] Last Admin: 11/24/16 07:12 Dose: 100 mls/hr Colistimethate Sodium 150 mg/ (Sodium Chloride) 100 mls @ 200 mls/hr IV Q12H [facility] Last Admin: 11/24/16 02:22 Dose: 200 mls/hr Pantoprazole Sodium (Protonix Inj) 40 mg IVP DAILY [facility] Last Admin: 11/24/16 10:21 Dose: 40 mg Results - Vital Signs Recent Vital Signs: Last Vital Signs Temp 97.7 F 11/24/16 08:00 Pulse 96 H 11/24/16 08:00 Resp 18 11/24/16 08:00 BP 110/72 11/24/16 10:21 Pulse Ox 98 11/24/16 11:45 - Labs Result Diagrams: 11/23/16 06:25 11/23/16 06:26 Labs: Laboratory Results - last 24 hr 11/23/16 11/23/16 11/23/16 16:17 19:52 23:25 POC Glucose (mg/dL) 90 88 126 H 11/24/16 04:08 POC Glucose (mg/dL) 110 Attending/Attestation - Attestation I have personally seen and examined this patient.: Yes I have fully participated in the care of the patient.: Yes I have reviewed all pertinent clinical information: Yes Notes (Text): Patient seen and examined with GI fellow. Agree with his note as documented above with the following additions/exceptions. This is a 61yo male with PMHx significant for widely metastatic prostate cancer, prior duodenal obstruction s/ p stent placement due to malignant external compression, CKD with nephrostomy tube in place, HTN who is admitted with hypotension/sepsis s/p cardiac arrest. We are consulted for evaluation of possible rectal mass seen on CT. He is having BM, refusing rectal examination. As there is no evidence of significant bleeding or obstruction at present, no urgency for luminal examination, and this may not change his overall management. He is reportedly tolerating tube feeding, would advance diet as tolerated. Continue antibiotics as per infectious disease. Overall prognosis is poor, recommend continued conservative management. Recommend palliative care discussions/addressing overall goals of care. 11/24/16 13:31
[2016-11-24] MEDS: Enoxaparin 40 mg Syringe SC SCH (10:21)
--- NOTE | 2016-11-24 14:32 | CP.PCM.PN ---
Subjective - Date & Time of Evaluation Date of Evaluation: 11/24/16 Time of Evaluation: 09:40 - Subjective Subjective: clinically same Objective - Vital Signs/Intake and Output Vital Signs (last 24 hours): Temp Pulse Resp BP Pulse Ox 97.5 F L 98 H 16 85/63 L 100 11/24/16 12:00 11/24/16 12:00 11/24/16 12:00 11/24/16 12:00 11/24/16 12:00 Intake and Output: 11/24/16 11/24/16 06:59 18:59 Intake Total 520 Output Total 570 Balance -50 - Medications Medications: Current Medications Enoxaparin Sodium (Lovenox) 40 mg SC DAILY [facility] Last Admin: 11/24/16 10:21 Dose: 40 mg Furosemide (Lasix) 20 mg IVP Q12 [facility] Last Admin: 11/24/16 10:21 Dose: 20 mg Hydrocortisone Sodium Succinate (Solu-Cortef) 100 mg IV Q12H [facility] Last Admin: 11/24/16 05:15 Dose: 100 mg Cefepime HCl 1 gm/ Dextrose 50 mls @ 100 mls/hr IVPB Q12H [facility] Last Admin: 11/24/16 07:12 Dose: 100 mls/hr Colistimethate Sodium 150 mg/ (Sodium Chloride) 100 mls @ 200 mls/hr IV Q12H [facility] Last Admin: 11/24/16 02:22 Dose: 200 mls/hr Pantoprazole Sodium (Protonix Inj) 40 mg IVP DAILY [facility] Last Admin: 11/24/16 10:21 Dose: 40 mg - Labs Labs: 11/23/16 06:25 11/23/16 06:26 PT 11.9 SECONDS (9.7-12.2) 11/23/16 06:28 INR 1.0 11/23/16 06:28 APTT 34 SECONDS (21-34) 11/23/16 06:28 - Constitutional Appears: Well - Head Exam Head Exam: ATRAUMATIC, NORMAL INSPECTION, NORMOCEPHALIC - Eye Exam Eye Exam: EOMI, Normal appearance, PERRL Pupil Exam: NORMAL ACCOMODATION, PERRL - ENT Exam ENT Exam: Mucous Membranes Moist, Normal Exam - Neck Exam Neck Exam: Full ROM, Normal Inspection. absent: Lymphadenopathy - Respiratory Exam Respiratory Exam: Decreased Breath Sounds - Cardiovascular Exam Cardiovascular Exam: REGULAR RHYTHM, +S1, +S2 - Rectal Exam Rectal Exam: Deferred
--- NOTE | 2016-11-24 16:19 | PN ---
DATE: 11/24/2016 ROOM: 552 This is a 61-year-old male with recent acute respiratory failure and supervening symptomatic bouts of hypoglycemia and associated neuroglycopenic and hyperadrenergic manifestations of the same and is no w being followed closely for metabolic management. His glycemic levels are fluctuating, but much improved at this time and the latest glucose levels hav e ranged from 88-90 and 110 and 126 mg/dL. His latest chemistries include a BUN of 20, sodium 132, p otassium 3.8, chloride 97, CO2 30, glucose 82 and creatinine 0.6. He also has secondary hypoadrenali sm and currently on IV steroid therapy as given. The latest cortisol level has been reported at 17.6 mcg/dL. So at this time, we will continue the same dosing of the hydrocortisone given as 100 mg IV every 12 h ours as ordered. We will obtain serial chemistries and supplement accordingly as needed. We will al so obtain serial cortisol levels and adjust his dose regimen accordingly. We will follow. Keira Dolan MD cc: [id number] TT: 11/24/2016 16:18:11 Confirmation # [id number] Dictation # [id number] en
--- NOTE | 2016-11-25 09:05 | CP.PCM.PN ---
<Rich Lilly - Last Filed: 11/25/16 09:01> Subjective - Date & Time of Evaluation Date of Evaluation: 11/25/16 Time of Evaluation: 06:30 - Subjective Subjective: PGY4 GI Fellow Progress Note Patient seen and examined bedside this morning. The patient is eager to return home. No events overnight. Still with discomfort at site of left chest tube. 12 system ROS performed and negative except where stated. Objective - Vital Signs/Intake and Output Vital Signs (last 24 hours): Temp Pulse Resp BP Pulse Ox 97.8 F 107 H 20 97/65 L 96 11/25/16 08:19 11/25/16 08:19 11/25/16 08:19 11/25/16 08:19 11/25/16 08:19 Intake and Output: 11/25/16 11/25/16 06:59 18:59 Intake Total 890 Output Total 3053 Balance -2163 - Medications Medications: Current Medications Enoxaparin Sodium (Lovenox) 40 mg SC DAILY [facility] Last Admin: 11/24/16 10:21 Dose: 40 mg Furosemide (Lasix) 20 mg IVP Q12 [facility] Last Admin: 11/24/16 21:47 Dose: 20 mg Hydrocortisone Sodium Succinate (Solu-Cortef) 100 mg IV Q12H [facility] Last Admin: 11/25/16 03:57 Dose: 100 mg Cefepime HCl 1 gm/ Dextrose 50 mls @ 100 mls/hr IVPB Q12H [facility] Last Admin: 11/25/16 06:02 Dose: 100 mls/hr Colistimethate Sodium 150 mg/ (Sodium Chloride) 100 mls @ 200 mls/hr IV Q12H [facility] Last Admin: 11/25/16 03:53 Dose: 200 mls/hr Pantoprazole Sodium (Protonix Inj) 40 mg IVP DAILY [facility] Last Admin: 11/24/16 10:21 Dose: 40 mg - Labs Labs: 11/23/16 06:25 11/23/16 06:26 PT 11.9 SECONDS (9.7-12.2) 11/23/16 06:28 INR 1.0 11/23/16 06:28 APTT 34 SECONDS (21-34) 11/23/16 06:28 - Constitutional Appears: No Acute Distress, Cachectic - Eye Exam Eye Exam: EOMI, PERRL - ENT Exam ENT Exam: Mucous Membranes Dry Additional comments: NGT in place - Respiratory Exam Respiratory Exam: Decreased Breath Sounds, Rales. absent: Clear to Ausculation Bilateral, Rhonchi, Wheezes - Cardiovascular Exam Cardiovascular Exam: RRR, +S1, +S2 - GI/Abdominal Exam GI & Abdominal Exam: Soft, Normal Bowel Sounds. absent: Distended, Firm, Guarding, Rigid, Tenderness, Organomegaly - Rectal Exam Additional comments: Refused - Extremities Exam Extremities Exam: Normal Inspection. 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 He subsequently suffered cardiac arrest while in house requiring ACLS. -S/P cardiac arrest with ACLS on 11/16- -Stage 4 prostate cancer with metastatic disease despite previous therapy with chronic steroids and Zytiga -Rectal thickening on CT -Duodenal stent in place since 06/2015 Plan: -No further GI work up planned at this juncture; patient refusing rectal examination -Identification of a new rectal malignancy would be unlikely to change medical plan -Agree with oncology in stating that, overall, the patient has a very poor prognosis and is appropriate for palliation -Recommend clarification of goals of care -Remove NGT and stop tube feedings -Continue puree/honey thick diet -No further recommendations at this time <Sp Denson - Last Filed: 11/25/16 18:53> Objective - Vital Signs/Intake and Output Vital Signs (last 24 hours): Temp Pulse Resp BP Pulse Ox 97.9 F 101 H 20 113/72 96 11/25/16 16:08 11/25/16 16:08 11/25/16 16:08 11/25/16 16:08 11/25/16 16:08 Intake and Output: 11/25/16 11/25/16 06:59 18:59 Intake Total 890 Output Total 3053 Balance -2163 - Medications Medications: Current Medications Enoxaparin Sodium (Lovenox) 40 mg SC DAILY [facility] Last Admin: 11/25/16 10:36 Dose: 40 mg Furosemide (Lasix) 20 mg IVP Q12 [facility] Last Admin: 11/25/16 10:37 Dose: 20 mg Hydrocortisone Sodium Succinate (Solu-Cortef) 50 mg IV Q12H [facility] Cefepime HCl 1 gm/ Dextrose 50 mls @ 100 mls/hr IVPB Q12H [facility] Last Admin: 11/25/16 18:01 Dose: 100 mls/hr Colistimethate Sodium 150 mg/ (Sodium Chloride) 100 mls @ 200 mls/hr IV Q12H [facility] Last Admin: 11/25/16 14:27 Dose: 200 mls/hr Pantoprazole Sodium (Protonix Inj) 40 mg IVP DAILY [facility] Last Admin: 11/25/16 10:36 Dose: 40 mg - Labs Labs: 11/23/16 06:25 11/23/16 06:26 PT 11.9 SECONDS (9.7-12.2) 11/23/16 06:28 INR 1.0 11/23/16 06:28 APTT 34 SECONDS (21-34) 11/23/16 06:28 Attending/Attestation - Attestation I have personally seen and examined this patient.: Yes I have fully participated in the care of the patient.: Yes I have reviewed all pertinent clinical information, including history, physical exam and plan: Yes Notes (Text): 11/25/16 18:49 I have seen and examined patient with GI fellow. No acute events overnight. He complains of mild discomfort at chest tube site, but otherwise he is requesting diet to be advanced and hospital discharge. He denies nausea, vomiting, fever/chills. Tolerating PO puree diet without difficulty. Stage IV prostate cancer Duodenal obstruction s/p palliative stent placement CKD with nephrostomy HTN Recent cardiac arrest Abnormal CT imaging suggestive of possible rectal mass - Patient refusing rectal examination and any further workup of potential rectal lesion - Suggest removal of NGT and advancing diet as per speech/swallow recommendations - H/H stable, continue to monitor - Continue with antibiotics as per ID - No further GI intervention planned, patient currently refusing additional invasive workup which is not unreasonable given overall medical condition. Will sign off case, please reconsult as necessary thank you.
[2016-11-25] MEDS: Enoxaparin 40 mg Syringe SC SCH (10:36)
--- NOTE | 2016-11-25 16:38 | PN ---
DATE: 11/25/2016 LOCATION: Room 552. SUBJECTIVE: This is a 61-year-old male with recent acute respiratory failure and has since then been extubated and has improved clinically and hemodynamically as noted thereof. LABORATORY DATA: His initial hypoglycemic episodes have improved accordingly and the latest glucose levels have ranged from 107 to 110 and 115 and 134 mg/dL. He had 1 bout of hypoglycemia at 6:00 this morning with a glucose level of 70 mg/dL. His latest serum cortisol level has been reported as 17.6 mcg/dL. ASSESSMENT AND PLAN: So, at this time, will lower once again and taper down his hydrocortisone down to 50 mg IV every 12 hours as ordered. Will obtain serial cortisol levels and switch him over to ora l steroid therapy as indicated. Will lower the hydrocortisone now to 50 IV q. 12 as ordered to start at 10 a.m. tomorrow morning. Will obtain serial chemistries and supplement accordingly as needed. Will follow. Keira Dolan MD cc: [phone] TT: 11/25/2016 16:38:27 Confirmation # [id number] Dictation # [id number] kristine
--- NOTE | 2016-11-25 18:26 | CP.PCM.PN ---
Subjective - Date & Time of Evaluation Date of Evaluation: 11/25/16 Objective - Vital Signs/Intake and Output Vital Signs (last 24 hours): Temp Pulse Resp BP Pulse Ox 97.9 F 101 H 20 113/72 96 11/25/16 16:08 11/25/16 16:08 11/25/16 16:08 11/25/16 16:08 11/25/16 16:08 Intake and Output: 11/25/16 11/25/16 06:59 18:59 Intake Total 890 Output Total 3053 Balance -2163 - Medications Medications: Current Medications Enoxaparin Sodium (Lovenox) 40 mg SC DAILY [facility] Last Admin: 11/25/16 10:36 Dose: 40 mg Furosemide (Lasix) 20 mg IVP Q12 [facility] Last Admin: 11/25/16 10:37 Dose: 20 mg Hydrocortisone Sodium Succinate (Solu-Cortef) 50 mg IV Q12H [facility] Cefepime HCl 1 gm/ Dextrose 50 mls @ 100 mls/hr IVPB Q12H [facility] Last Admin: 11/25/16 18:01 Dose: 100 mls/hr Colistimethate Sodium 150 mg/ (Sodium Chloride) 100 mls @ 200 mls/hr IV Q12H [facility] Last Admin: 11/25/16 14:27 Dose: 200 mls/hr Pantoprazole Sodium (Protonix Inj) 40 mg IVP DAILY [facility] Last Admin: 11/25/16 10:36 Dose: 40 mg - Labs Labs: 11/23/16 06:25 11/23/16 06:26 PT 11.9 SECONDS (9.7-12.2) 11/23/16 06:28 INR 1.0 11/23/16 06:28 APTT 34 SECONDS (21-34) 11/23/16 06:28
--- NOTE | 2016-11-26 01:07 | CON ---
DATE: 11/25/2016 REQUESTING PHYSICIAN: Dr. Gonzalez. REASON FOR CONSULTATION: Hoarseness. HISTORY OF PRESENT ILLNESS: This is a 61-year-old male with a 2-day history of hoarseness and no arnulfo n, is constant, moderate in intensity. PAST MEDICAL HISTORY: As noted in the chart by me. MEDICATIONS: As noted in the chart by me. PHYSICAL EXAMINATION: HEAD: Atraumatic, normocephalic. FACE: Good facial movements bilaterally. CONSTITUTIONAL: The patient is emaciated and cachectic. COMMUNICATION: Communicates very appropriately. EXTERNAL NOSE AND EARS: No masses. No lesions. No erythema. No edema. INTERNAL NOSE: Deviated septum. No masses. No lesions. No erythema. No edema. ORAL CAVITY AND OROPHARYNX: No masses. No lesions. No erythema. No edema. NECK: Supple. THYROID: No thyromegaly. No goiter. LYMPH NODES: No lymphadenopathy of the neck. ASSESSMENT: 1. Hoarseness. 2. Deviated septum. PLAN: To do a flexible laryngoscopy; however, the patient refuses flexible laryngoscopy. Therefore, we will obtain a CAT scan of the neck with contrast. Michel Boston MD cc: [phone] TT: 11/26/2016 01:06:59 Confirmation # [id number] Dictation # [id number] tn
[2016-11-26 08:28] LABS: ALB/GLOB RATIO 0.7 (1.0-2.1); ALKALINE PHOSPHATASE 133 U/L (38-126); ALT/SGPT 21 U/L (21-72); AST/SGOT 27 U/L (17-59); BILIRUBIN,TOTAL 0.5 mg/dL (0.2-1.3); BLOOD UREA NITROGEN 30 mg/dL (9-20); CALCIUM 6.7 mg/dl (8.6-10.4); CARBON DIOXIDE 28 mmol/L (22-30); CHLORIDE 101 mmol/L (98-107); GFR AFRICAN-AMERICAN > 60; GLUCOSE,RANDOM 52 mg/dL (75-110); SODIUM 135 mmol/L (132-148); TOTAL PROTEIN 4.9 g/dL (6.3-8.3)
[2016-11-26 08:34] LABS: POTASSIUM 2.2 mmol/L (3.6-5.2)
[2016-11-26 08:42] LABS: CORTISOL AM 5.3 ug/dL (4.46-22.7)
[2016-11-26] MEDS ORDERED: Iodixanol 320 MG/ML 100 ML BOTTLE IV ONE (09:05)
[2016-11-26] MEDS: Enoxaparin 40 mg Syringe SC SCH (10:07)
[2016-11-26 10:08] LABS: MAGNESIUM 1.1 mg/dL (1.6-2.3); PHOSPHOROUS 2.1 mg/dL (2.5-4.5)
--- NOTE | 2016-11-26 10:36 | CT ---
PROCEDURE: CT scan neck dated 11/26/2016. Correlation made with CT scan chest 11/19/2014. HISTORY: Hoarseness TECHNIQUE: CT of the neck with intravenous contrast. Coronal and sagittal reformats generated. . Intravenous contrast dose: 100 cc Visipaque 320 contrast material. Radiation dose: DLP 119.7 mGy-cm This CT exam was performed using one or more of the following dose reduction techniques: Automated exposure control, adjustment of the mA and/or kV according to patient size, and/or use of iterative reconstruction technique. FINDINGS: Findings: Current study reveals a large heterogeneous mediastinal mass which extends superiorly more so on left side than right. Lesion circumferential the surrounds the abdominal aorta proximal great vessels. Great vessels are somewhat splayed in appearance. Lesion partially surrounds the anterior and right and left lateral borders of trachea. Lesion also abuts the left lobe of the esophagus. The trachea is and esophagus are markedly displaced posteriorly and to the right. The trachea appears patent. There does appear to be narrowing at the level of the homa. Air fluid present within the esophagus. . This large heterogeneous masses of uncertain etiology however differential diagnosis would include thymoma, lymphoma or teratoma. . Metastatic deposit lesion to be excluded. Clinic correlation recommended. The thyroid gland appears compressed, particularly the left lobe. There is also deviation of the thyroid to the right-side. Areas of low attenuation seen in the anterior margins of both thyroid lobes and isthmus which could be due to some streak and beam hardening artifact however a discrete thyroid lesion not excluded. Consider followup thyroid ultrasound. The visualized parotid and submandibular glands are not well delineated due to cachexia and what appears represent some anasarca. Visualized common carotid arteries, carotid bifurcations and internal carotid arteries are patent though there are some minor calcification changes seen along distal posterior marked left common carotid artery/bifurcation junction however no significant stenosis. The are petrous , cavernous and supraclinoid segments are patent as well. No obvious large oral mass or collection. [place] tonsils are normal in size. Vallecula is relatively well-aerated symmetric. Free margin of the epiglottis unremarkable. Large right and smaller left-sided effusions are present. Sclerotic lesions are seen throughout most of the T2 and to a lesser degree L3 segments consistent with metastatic disease. No acute compression fractures. Multilevel degenerative spondylosis. There is mild kyphotic angulation deformity of the cervical spine centered at the C4-C5 level with straightening of the normal cervical lordosis above and below this level. Impression: Large heterogeneous mediastinal mass of uncertain etiology. Rule out thymoma lymphoma or teratoma. Other malignancy with metastasis not excluded. Clinical correlation recommended. The large mass lesion exerts considerable mass effect with compression and displacement of the trachea and esophagus posteriorly to the right. There is also compression of the thyroid gland measures displaced to the right side as well. Probable metastatic lesions within the T2 and T3 segments. See above discussion for additional findings and details.
[2016-11-26] MEDS: Potassium Chloride 20 mEq ER Tab PO SCH (10:53)
[2016-11-26] MEDS ORDERED: Magnesium Sulfate 1 gm in D5W 1 GM/100 ML BAG IVPB SCH (13:00)
[2016-11-26] MEDS: Magnesium Sulfate 1 gm in D5W 1 GM/100 ML BAG IVPB SCH ×2 (15:00→15:51)
--- NOTE | 2016-11-26 15:46 | CP.PCM.PN ---
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 He subsequently suffered cardiac arrest while in house requiring ACLS. -S/P cardiac arrest with ACLS on 11/16- -Stage 4 prostate cancer with metastatic disease despite previous therapy with chronic steroids and Zytiga -Rectal thickening on CT -Duodenal stent in place since 06/2015 Objective - Vital Signs/Intake and Output Vital Signs (last 24 hours): Temp Pulse Resp BP Pulse Ox 97.9 F 103 H 18 98/69 L 96 11/26/16 08:29 11/26/16 08:29 11/26/16 08:29 11/26/16 10:06 11/26/16 08:29 Intake and Output: 11/26/16 11/26/16 06:59 18:59 Output Total 475 Balance -475 - Medications Medications: Current Medications Enoxaparin Sodium (Lovenox) 40 mg SC DAILY [facility] Last Admin: 11/26/16 10:07 Dose: 40 mg Furosemide (Lasix) 20 mg IVP DAILY [facility] Hydrocortisone Sodium Succinate (Solu-Cortef) 50 mg IV Q12H [facility] Last Admin: 11/26/16 09:59 Dose: 50 mg Colistimethate Sodium 150 mg/ (Sodium Chloride) 100 mls @ 200 mls/hr IV Q12H [facility] Last Admin: 11/26/16 03:10 Dose: 200 mls/hr Magnesium Sulfate/Dextrose (Magnesium Sulfate 1 Gm/100 Ml D5w) 1 gm in 100 mls @ 200 mls/hr IVPB Q30M [facility] Stop: 11/26/16 15:59 Last Admin: 11/26/16 15:00 Dose: 200 mls/hr Pantoprazole Sodium (Protonix Inj) 40 mg IVP DAILY [facility] Last Admin: 11/26/16 09:59 Dose: 40 mg Potassium Chloride (K-Dur 20 Meq Er Tab) 40 meq PO DAILY [facility] Last Admin: 11/26/16 10:53 Dose: 40 meq - Labs Labs: 11/23/16 06:25 11/26/16 07:18 PT 11.9 SECONDS (9.7-12.2) 11/23/16 06:28 INR 1.0 11/23/16 06:28 APTT 34 SECONDS (21-34) 11/23/16 06:28 - Constitutional Appears: Non-toxic, Cachectic, Chronically Ill - Head Exam Head Exam: NORMOCEPHALIC - Eye Exam Eye Exam: PERRL. absent: Scleral icterus - ENT Exam ENT Exam: Mucous Membranes Dry - Respiratory Exam Respiratory Exam: Decreased Breath Sounds - Cardiovascular Exam Cardiovascular Exam: REGULAR RHYTHM - GI/Abdominal Exam GI & Abdominal Exam: Distended Assessment and Plan (1) Hypotension Status: Acute (2) Abdominal pain Status: Acute (3) Abnormal PSA Status: Acute
--- NOTE | 2016-11-26 16:38 | CP.PCM.PN ---
Subjective - Date & Time of Evaluation Date of Evaluation: 11/26/16 Time of Evaluation: 16:37 - Subjective Subjective: ct results noted patient refuses flexible laryngoscopy Objective - Vital Signs/Intake and Output Vital Signs (last 24 hours): Temp Pulse Resp BP Pulse Ox 98.5 F 112 H 20 87/60 L 96 11/26/16 15:00 11/26/16 15:00 11/26/16 15:00 11/26/16 15:00 11/26/16 08:29 Intake and Output: 11/26/16 11/26/16 06:59 18:59 Output Total 475 Balance -475 - Medications Medications: Current Medications Enoxaparin Sodium (Lovenox) 40 mg SC DAILY [facility] Last Admin: 11/26/16 10:07 Dose: 40 mg Furosemide (Lasix) 20 mg IVP DAILY [facility] Hydrocortisone Sodium Succinate (Solu-Cortef) 50 mg IV Q12H [facility] Last Admin: 11/26/16 09:59 Dose: 50 mg Colistimethate Sodium 150 mg/ (Sodium Chloride) 100 mls @ 200 mls/hr IV Q12H [facility] Last Admin: 11/26/16 03:10 Dose: 200 mls/hr Pantoprazole Sodium (Protonix Inj) 40 mg IVP DAILY [facility] Last Admin: 11/26/16 09:59 Dose: 40 mg Potassium Chloride (K-Dur 20 Meq Er Tab) 40 meq PO DAILY [facility] Last Admin: 11/26/16 10:53 Dose: 40 meq - Labs Labs: 11/23/16 06:25 11/26/16 07:18 PT 11.9 SECONDS (9.7-12.2) 11/23/16 06:28 INR 1.0 11/23/16 06:28 APTT 34 SECONDS (21-34) 11/23/16 06:28
--- NOTE | 2016-11-26 16:59 | CP.PCM.PN ---
Subjective - Date & Time of Evaluation Date of Evaluation: 11/26/16 Time of Evaluation: 10:00 - Subjective Subjective: clinically same Objective - Vital Signs/Intake and Output Vital Signs (last 24 hours): Temp Pulse Resp BP Pulse Ox 98.5 F 112 H 20 87/60 L 96 11/26/16 15:00 11/26/16 15:00 11/26/16 15:00 11/26/16 15:00 11/26/16 08:29 Intake and Output: 11/26/16 11/26/16 06:59 18:59 Intake Total 750 Output Total 475 1450 Balance -475 -700 - Medications Medications: Current Medications Enoxaparin Sodium (Lovenox) 40 mg SC DAILY [facility] Last Admin: 11/26/16 10:07 Dose: 40 mg Furosemide (Lasix) 20 mg IVP DAILY [facility] Hydrocortisone Sodium Succinate (Solu-Cortef) 50 mg IV Q12H [facility] Last Admin: 11/26/16 09:59 Dose: 50 mg Colistimethate Sodium 150 mg/ (Sodium Chloride) 100 mls @ 200 mls/hr IV Q12H [facility] Last Admin: 11/26/16 03:10 Dose: 200 mls/hr Pantoprazole Sodium (Protonix Inj) 40 mg IVP DAILY [facility] Last Admin: 11/26/16 09:59 Dose: 40 mg Potassium Chloride (K-Dur 20 Meq Er Tab) 40 meq PO DAILY [facility] Last Admin: 11/26/16 10:53 Dose: 40 meq - Labs Labs: 11/23/16 06:25 11/26/16 07:18 PT 11.9 SECONDS (9.7-12.2) 11/23/16 06:28 INR 1.0 11/23/16 06:28 APTT 34 SECONDS (21-34) 11/23/16 06:28 - Constitutional Appears: Well - Head Exam Head Exam: ATRAUMATIC, NORMAL INSPECTION, NORMOCEPHALIC - Eye Exam Eye Exam: EOMI, Normal appearance, PERRL Pupil Exam: NORMAL ACCOMODATION, PERRL - ENT Exam ENT Exam: Mucous Membranes Moist, Normal Exam - Neck Exam Neck Exam: Full ROM, Normal Inspection. absent: Lymphadenopathy - Respiratory Exam Respiratory Exam: Decreased Breath Sounds - Cardiovascular Exam Cardiovascular Exam: REGULAR RHYTHM, +S1, +S2 - GI/Abdominal Exam GI & Abdominal Exam: Soft, Diminished Bowel Sounds - Rectal Exam Rectal Exam: Deferred
--- NOTE | 2016-11-26 20:33 | PN ---
DATE: 11/26/2016 LOCATION: Room 552. 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 His latest chemistries showed a BUN of 30, sodium 135, potassium 2.2, chloride 101, CO2 of 28, g lucose 52 and creatinine 0.9. He once again has episodic bouts of hypoglycemic episodes as noted the reof. His latest cortisol level has been reported as 5.3 mg/dL, which is actually low normal consid ering that he is actually on high dose steroid therapy as given. So at this time, will once again in crease his IV steroid therapy to hydrocortisone given as 50 mg IV q.8 hours as ordered. Will obtain serial chemistries and supplement accordingly as needed and also obtain serial cortisol levels and ad just his dose regimen accordingly. Will follow. Kiera Dolan MD cc: [id number] TT: 11/26/2016 20:32:30 Confirmation # [id number] Dictation # [id number] [email or web address]
[2016-11-26] MEDS ORDERED: Dextrose 50% SYRINGE Inj (50 ml) ONE (21:25)
[2016-11-26] MEDS ORDERED: Dextrose 50% SYRINGE Inj (50 ml) IV STA (21:32)
--- NOTE | 2016-11-26 21:39 | CARD ---
APPROVED REPORT EKG Measurement Heart [id number] <Conclusion> Sinus tachycardia Nonspecific T wave abnormality Abnormal ECG
[2016-11-26] MEDS ORDERED: Sodium Chloride 0.9% 500 ML IV ONE (23:42)
[2016-11-27] MEDS ORDERED: Dextrose 50% SYRINGE Inj (50 ml) IV STA (00:12)
[2016-11-27] MEDS ORDERED: Dextrose 50% SYRINGE Inj (50 ml) ONE (00:17)
[2016-11-27 07:50] LABS: CHLORIDE 95 mmol/L (98-107); SODIUM 130 mmol/L (132-148)
[2016-11-27 07:53] LABS: BLOOD UREA NITROGEN 41 mg/dL (9-20); CARBON DIOXIDE 26 mmol/L (22-30); GFR AFRICAN-AMERICAN > 60
[2016-11-27 07:54] LABS: CALCIUM 7.5 mg/dl (8.6-10.4); GLUCOSE,RANDOM 63 mg/dL (75-110); MAGNESIUM 1.6 mg/dL (1.6-2.3); PHOSPHOROUS 3.8 mg/dL (2.5-4.5)
[2016-11-27 08:03] LABS: POTASSIUM 4.2 mmol/L (3.6-5.2)
--- NOTE | 2016-11-27 10:00 | PN ---
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 He has been evaluated to h ave secondary hypoadrenalism and has been placed back on a higher dose of IV steroid therapy because of persistent hypoglycemic episodes as noted overnight. His glucose values today have ranged from 72 to 87 mg/dL. His latest chemistry showed a BUN of 41, sodium 130, potassium 4.2, chloride 95, CO2 2 6, glucose 63 and creatinine 1.0. The serum cortisol level is still pending as noted. So at this ti me, we will continue the same IV steroids given at the higher dose titration of hydrocortisone given as 50 mg IV q. 8 hours as ordered. We will obtain serial chemistries and supplement accordingly as needed. We will follow and advise accordingly. Keira Dolan MD cc: [id number] TT: 11/27/2016 09:59:42 Confirmation # [id number] Dictation # [id number] jn
[2016-11-27] MEDS: Enoxaparin 40 mg Syringe SC SCH (10:58)
[2016-11-27] MEDS: Potassium Chloride 20 mEq ER Tab PO SCH (10:58)
--- NOTE | 2016-11-27 12:46 | CP.PCM.PN ---
Subjective - Date & Time of Evaluation Date of Evaluation: 11/27/16 Time of Evaluation: 10:00 - Subjective Subjective: clinically same Objective - Vital Signs/Intake and Output Vital Signs (last 24 hours): Temp Pulse Resp BP Pulse Ox 97.4 F L 99 H 18 92/60 L 97 11/27/16 07:02 11/27/16 11:01 11/27/16 07:02 11/27/16 11:01 11/27/16 07:02 Intake and Output: 11/27/16 11/27/16 06:59 18:59 Intake Total 400 Output Total 700 Balance -300 - Medications Medications: Current Medications Enoxaparin Sodium (Lovenox) 40 mg SC DAILY [facility] Last Admin: 11/27/16 10:58 Dose: 40 mg Furosemide (Lasix) 20 mg IVP DAILY [facility] Last Admin: 11/27/16 11:00 Dose: Not Given Hydrocortisone Sodium Succinate (Solu-Cortef) 50 mg IV Q8H [facility] Last Admin: 11/27/16 06:34 Dose: 50 mg Colistimethate Sodium 150 mg/ (Sodium Chloride) 100 mls @ 200 mls/hr IV Q12H [facility] Last Admin: 11/27/16 02:58 Dose: 200 mls/hr Dextrose (Dextrose 10% In Water) 500 mls @ 25 mls/hr IV .Q20H [facility] Last Admin: 11/26/16 23:42 Dose: 25 mls/hr Pantoprazole Sodium (Protonix Inj) 40 mg IVP DAILY [facility] Last Admin: 11/27/16 10:58 Dose: 40 mg Potassium Chloride (K-Dur 20 Meq Er Tab) 40 meq PO DAILY [facility] Last Admin: 11/27/16 10:58 Dose: 40 meq - Labs Labs: 11/23/16 06:25 11/27/16 07:20 PT 11.9 SECONDS (9.7-12.2) 11/23/16 06:28 INR 1.0 11/23/16 06:28 APTT 34 SECONDS (21-34) 11/23/16 06:28 - Constitutional Appears: Well - Head Exam Head Exam: ATRAUMATIC, NORMAL INSPECTION, NORMOCEPHALIC - Eye Exam Eye Exam: EOMI, Normal appearance, PERRL Pupil Exam: NORMAL ACCOMODATION, PERRL - ENT Exam ENT Exam: Mucous Membranes Moist, Normal Exam - Neck Exam Neck Exam: Full ROM, Normal Inspection. absent: Lymphadenopathy - Respiratory Exam Respiratory Exam: Decreased Breath Sounds - Cardiovascular Exam Cardiovascular Exam: REGULAR RHYTHM, +S1, +S2 - GI/Abdominal Exam GI & Abdominal Exam: Soft, Diminished Bowel Sounds - Rectal Exam Rectal Exam: Deferred
[2016-11-27] MEDS: Megestrol Acetate 40 mg/ml Cup PO SCH (17:26)
[2016-11-27] MEDS: HYDROmorphone 0.5 mg/0.5 ml ISec IVP PRN (21:49)
[2016-11-28] MEDS ORDERED: Sodium Chloride 0.9% 500 ML IV ONE (01:12)
[2016-11-28] MEDS: Enoxaparin 40 mg Syringe SC SCH (11:40)
[2016-11-28] MEDS: Potassium Chloride 20 mEq ER Tab PO SCH (11:40)
[2016-11-28] MEDS: Megestrol Acetate 40 mg/ml Cup PO SCH (11:40)
--- NOTE | 2016-11-28 13:47 | CP.PCM.PN ---
Subjective - Date & Time of Evaluation Date of Evaluation: 11/28/16 Time of Evaluation: 09:00 - Subjective Subjective: URINE NOW GROWING VRE MAY BE COLONIZED REMAINS WEAK AND LETHARGIC WBC WNL AND NO FEVER Objective - Vital Signs/Intake and Output Vital Signs (last 24 hours): Temp Pulse Resp BP Pulse Ox 97.9 F 100 H 20 98/66 L 100 11/28/16 08:00 11/28/16 11:38 11/28/16 08:00 11/28/16 11:39 11/28/16 08:00 Intake and Output: 11/28/16 11/28/16 06:59 18:59 Intake Total 200 920 Output Total 350 250 Balance -150 670 - Medications Medications: Current Medications Enoxaparin Sodium (Lovenox) 40 mg SC DAILY [facility] Last Admin: 11/28/16 11:40 Dose: 40 mg Furosemide (Lasix) 20 mg IVP DAILY [facility] Last Admin: 11/28/16 11:39 Dose: Not Given Hydrocortisone Sodium Succinate (Solu-Cortef) 50 mg IV Q8H [facility] Last Admin: 11/28/16 13:31 Dose: 50 mg Hydromorphone HCl (Dilaudid) 0.5 mg IVP Q6H PRN PRN Reason: Pain, moderate (4-7) Last Admin: 11/27/16 21:49 Dose: 0.5 mg Colistimethate Sodium 150 mg/ (Sodium Chloride) 100 mls @ 200 mls/hr IV Q12H [facility] Last Admin: 11/28/16 03:51 Dose: 200 mls/hr Dextrose (Dextrose 10% In Water) 500 mls @ 25 mls/hr IV .Q20H [facility] Last Admin: 11/27/16 21:11 Dose: Not Given Megestrol Acetate (Megace) 400 mg PO DAILY [facility] Last Admin: 11/28/16 11:40 Dose: 400 mg Pantoprazole Sodium (Protonix Inj) 40 mg IVP DAILY [facility] Last Admin: 11/28/16 11:40 Dose: 40 mg Potassium Chloride (K-Dur 20 Meq Er Tab) 40 meq PO DAILY [facility] Last Admin: 11/28/16 11:40 Dose: 40 meq - Labs Labs: 11/23/16 06:25 11/27/16 07:20 PT 11.9 SECONDS (9.7-12.2) 11/23/16 06:28 INR 1.0 11/23/16 06:28 APTT 34 SECONDS (21-34) 11/23/16 06:28 - Constitutional Appears: Non-toxic, Chronically Ill - Head Exam Head Exam: NORMOCEPHALIC - Eye Exam Eye Exam: PERRL. absent: Scleral icterus - ENT Exam ENT Exam: Mucous Membranes Dry - Neck Exam Neck Exam: absent: Lymphadenopathy - Respiratory Exam Respiratory Exam: Decreased Breath Sounds, Rhonchi - Cardiovascular Exam Cardiovascular Exam: REGULAR RHYTHM - GI/Abdominal Exam GI & Abdominal Exam: Distended, Soft Assessment and Plan (1) Hypotension Status: Acute (2) Abdominal pain Status: Acute (3) Abnormal PSA Status: Acute
--- NOTE | 2016-11-28 14:39 | CP.PCM.PN ---
Subjective - Date & Time of Evaluation Date of Evaluation: 11/28/16 Time of Evaluation: 08:00 Objective - Vital Signs/Intake and Output Vital Signs (last 24 hours): Temp Pulse Resp BP Pulse Ox 97.9 F 100 H 20 98/66 L 100 11/28/16 08:00 11/28/16 11:38 11/28/16 08:00 11/28/16 11:39 11/28/16 08:00 Intake and Output: 11/28/16 11/28/16 06:59 18:59 Intake Total 200 920 Output Total 350 250 Balance -150 670 - Medications Medications: Current Medications Enoxaparin Sodium (Lovenox) 40 mg SC DAILY [facility] Last Admin: 11/28/16 11:40 Dose: 40 mg Furosemide (Lasix) 20 mg IVP DAILY [facility] Last Admin: 11/28/16 11:39 Dose: Not Given Hydrocortisone Sodium Succinate (Solu-Cortef) 50 mg IV Q8H [facility] Last Admin: 11/28/16 13:31 Dose: 50 mg Hydromorphone HCl (Dilaudid) 0.5 mg IVP Q6H PRN PRN Reason: Pain, moderate (4-7) Last Admin: 11/27/16 21:49 Dose: 0.5 mg Colistimethate Sodium 150 mg/ (Sodium Chloride) 100 mls @ 200 mls/hr IV Q12H [facility] Last Admin: 11/28/16 03:51 Dose: 200 mls/hr Dextrose (Dextrose 10% In Water) 500 mls @ 25 mls/hr IV .Q20H [facility] Last Admin: 11/27/16 21:11 Dose: Not Given Megestrol Acetate (Megace) 400 mg PO DAILY [facility] Last Admin: 11/28/16 11:40 Dose: 400 mg Pantoprazole Sodium (Protonix Inj) 40 mg IVP DAILY [facility] Last Admin: 11/28/16 11:40 Dose: 40 mg Potassium Chloride (K-Dur 20 Meq Er Tab) 40 meq PO DAILY [facility] Last Admin: 11/28/16 11:40 Dose: 40 meq - Labs Labs: 11/23/16 06:25 11/27/16 07:20 PT 11.9 SECONDS (9.7-12.2) 11/23/16 06:28 INR 1.0 11/23/16 06:28 APTT 34 SECONDS (21-34) 11/23/16 06:28 - Constitutional Appears: Well - Head Exam Head Exam: ATRAUMATIC, NORMAL INSPECTION, NORMOCEPHALIC - Eye Exam Eye Exam: EOMI, Normal appearance, PERRL Pupil Exam: NORMAL ACCOMODATION, PERRL - ENT Exam ENT Exam: Mucous Membranes Moist, Normal Exam - Neck Exam Neck Exam: Full ROM, Normal Inspection. absent: Lymphadenopathy - Respiratory Exam Respiratory Exam: Decreased Breath Sounds, Rales - Cardiovascular Exam Cardiovascular Exam: REGULAR RHYTHM, +S1 - GI/Abdominal Exam GI & Abdominal Exam: Soft, Diminished Bowel Sounds - Rectal Exam Rectal Exam: Deferred Assessment and Plan - Assessment and Plan (Free Text) Plan: jane wiht antibitoic as per dr. jeong pt ahs vre in urine adn dr. jeong notified coti same electrolyets better pt is refusing all tretment including colono adn other biopsy with given possible cancer spoke to dr. bear few ties adn he thinks pt has rectal ca with mets to mentum jane as ordered septic wokr up uro logy consultatio
[2016-11-28] MEDS: HYDROmorphone 0.5 mg/0.5 ml ISec IVP PRN ×2 (15:22→21:24)
[2016-11-28 16:09] LABS: BASO % 0.1 % (0.0-2.0); EOS % 0.1 % (0.0-4.0); HEMATOCRIT 26.7 % (35.0-51.0); LYMPH # 0.3 K/uL (1.0-4.3); LYMPH % 3.8 % (20.0-40.0); MEAN CELL VOLUME 91.6 fL (80.0-94.0); MEAN CORPUSCULAR HEMOGLOBIN 30.3 pg (27.0-31.0); MEAN PLATELET VOLUME 9.1 fL (7.2-11.7); MONO # 0.4 K/uL (0.0-0.8); MONO % 4.2 % (0.0-10.0); PLATELET COUNT 153 K/uL (130-400); RED CELL DISTRIBUTION WIDTH 17.6 % (11.5-14.5); WHITE BLOOD COUNT 8.7 K/uL (4.8-10.8)
--- NOTE | 2016-11-28 16:11 | PN ---
DATE: 11/28/2016 ROOM: 552 This is a 61-year-old male with recent symptomatic bouts of hypoglycemia and has since then improved clinically and metabolically as noted thereof. His glucose values today have ranged from 115-150 and 169 mg/dL. His latest chemistries include a BU N of 41, sodium 130, potassium 4.2, chloride 95, CO2 26, glucose 63 and creatinine 1.0. His latest c ortisol level has been reported as 5.3 mcg/dL. So at this time, we will continue the low-dose hydrocortisone given IV piggyback at a dose of 50 mg I V q. 8 hours as ordered. We will continue also the serial chemistries and supplement accordingly as needed. We will repeat the serum cortisol level tomorrow morning and adjust his hydrocortisone dose accordingly. We will also continue the IV hydration as given. We will follow. Keira Dolan MD cc: [id number] TT: 11/28/2016 16:11:06 Confirmation # [id number] Dictation # [id number] en
[2016-11-28 16:19] LABS: CHLORIDE 94 mmol/L (98-107); POTASSIUM 3.1 mmol/L (3.6-5.2); SODIUM 131 mmol/L (132-148)
[2016-11-28 16:21] LABS: BILIRUBIN,TOTAL 0.5 mg/dL (0.2-1.3); GFR AFRICAN-AMERICAN > 60
[2016-11-28 16:22] LABS: ALB/GLOB RATIO 0.7 (1.0-2.1); ALKALINE PHOSPHATASE 134 U/L (38-126); ALT/SGPT 25 U/L (21-72); AST/SGOT 18 U/L (17-59); BLOOD UREA NITROGEN 39 mg/dL (9-20); CARBON DIOXIDE 28 mmol/L (22-30); GLUCOSE,RANDOM 99 mg/dL (75-110); TOTAL PROTEIN 5.3 g/dL (6.3-8.3)
[2016-11-28 16:23] LABS: CALCIUM 6.9 mg/dl (8.6-10.4); MAGNESIUM 1.1 mg/dL (1.6-2.3)
[2016-11-28 17:03] LABS: NEUTROPHIL 92 % (50-75); TOTAL CELLS COUNTED 100
[2016-11-28] MEDS: Magnesium Sulfate 1 gm in D5W 1 GM/100 ML BAG IVPB SCH ×3 (19:52→22:03)
[2016-11-29 07:55] LABS: BASO % 0.1 % (0.0-2.0); HEMATOCRIT 28.1 % (35.0-51.0); LYMPH # 0.3 K/uL (1.0-4.3); LYMPH % 4.3 % (20.0-40.0); MEAN CELL VOLUME 91.2 fL (80.0-94.0); MEAN CORPUSCULAR HEMOGLOBIN 30.5 pg (27.0-31.0); MEAN CORPUSCULAR HGB CONC 33.5 g/dL (33.0-37.0); MONO # 0.3 K/uL (0.0-0.8); MONO % 3.6 % (0.0-10.0); PLATELET COUNT 145 K/uL (130-400); RED CELL DISTRIBUTION WIDTH 17.1 % (11.5-14.5); WHITE BLOOD COUNT 7.6 K/uL (4.8-10.8)
[2016-11-29 08:14] LABS: CHLORIDE 99 mmol/L (98-107)
[2016-11-29 08:16] LABS: POTASSIUM 3.9 mmol/L (3.6-5.2); SODIUM 132 mmol/L (132-148)
[2016-11-29 08:17] LABS: GFR AFRICAN-AMERICAN > 60
[2016-11-29 08:18] LABS: ALB/GLOB RATIO 0.8 (1.0-2.1); ALKALINE PHOSPHATASE 139 U/L (38-126); ALT/SGPT 21 U/L (21-72); AST/SGOT 21 U/L (17-59); BILIRUBIN,TOTAL 0.5 mg/dL (0.2-1.3); BLOOD UREA NITROGEN 35 mg/dL (9-20); CALCIUM 6.8 mg/dl (8.6-10.4); CARBON DIOXIDE 26 mmol/L (22-30); GLUCOSE,RANDOM 98 mg/dL (75-110); MAGNESIUM 1.7 mg/dL (1.6-2.3); TOTAL PROTEIN 5.4 g/dL (6.3-8.3)
[2016-11-29 08:38] LABS: RBC URINE 8 /hpf (0-3); URINE BACTERIA RARE (<OCC); URINE BILIRUBIN NEGATIVE (NEGATIVE); URINE BLOOD NEGATIVE (NEGATIVE); URINE COLOR Yellow (YELLOW); URINE GLUCOSE (UA) NORMAL (Normal); URINE KETONE NEGATIVE (NEGATIVE); URINE LEUKOCYTE ESTERASE 1+ Leu/uL (Negative); URINE PROTEIN 2+ mg/dL (NEGATIVE); URINE UROBILINOGEN NORMAL mg/dL (0.2-1.0); WBC URINE 27 /hpf (0-5)
[2016-11-29 09:03] LABS: NEUTROPHIL 94 % (50-75); TOTAL CELLS COUNTED 100
[2016-11-29] MEDS: Calcium-Vit D 250 mg-125 Units Tab UD PO SCH ×2 (10:11→17:00)
[2016-11-29] MEDS: Sodium Chloride 0.9% 1,000 ML IV SCH (10:11)
[2016-11-29] MEDS: Megestrol Acetate 40 mg/ml Cup PO SCH (10:12)
[2016-11-29] MEDS: Potassium Chloride 20 mEq ER Tab PO SCH (10:12)
[2016-11-29] MEDS: Enoxaparin 40 mg Syringe SC SCH (10:13)
--- NOTE | 2016-11-29 11:04 | CP.PCM.PN ---
Subjective - Date & Time of Evaluation Date of Evaluation: 11/29/16 Time of Evaluation: 06:00 - Subjective Subjective: iv rx in progress Objective - Vital Signs/Intake and Output Vital Signs (last 24 hours): Temp Pulse Resp BP Pulse Ox 97.7 F 99 H 20 100/69 96 11/29/16 07:15 11/29/16 07:15 11/29/16 07:15 11/29/16 10:12 11/29/16 07:15 Intake and Output: 11/29/16 11/29/16 06:59 18:59 Intake Total 1100 Output Total 275 Balance 825 - Medications Medications: Current Medications Calcium/Vitamin D (Oscal-D 250 Mg-125 Units Tab) 1 tab PO BIDCC [facility] Last Admin: 11/29/16 10:11 Dose: 1 tab Enoxaparin Sodium (Lovenox) 40 mg SC DAILY [facility] Last Admin: 11/29/16 10:13 Dose: 40 mg Furosemide (Lasix) 20 mg IVP DAILY [facility] Last Admin: 11/29/16 10:12 Dose: Not Given Hydrocortisone Sodium Succinate (Solu-Cortef) 50 mg IV Q8H [facility] Last Admin: 11/29/16 05:24 Dose: 50 mg Hydromorphone HCl (Dilaudid) 0.5 mg IVP Q6H PRN PRN Reason: Pain, moderate (4-7) Last Admin: 11/28/16 21:24 Dose: 0.5 mg Colistimethate Sodium 150 mg/ (Sodium Chloride) 100 mls @ 200 mls/hr IV Q12H [facility] Last Admin: 11/29/16 02:15 Dose: 200 mls/hr Sodium Chloride (Sodium Chloride 0.9%) 1,000 mls @ 60 mls/hr IV .[id number] [facility] Last Admin: 11/29/16 10:11 Dose: 60 mls/hr Megestrol Acetate (Megace) 400 mg PO DAILY [facility] Last Admin: 11/29/16 10:12 Dose: 400 mg Pantoprazole Sodium (Protonix Inj) 40 mg IVP DAILY [facility] Last Admin: 11/29/16 10:12 Dose: 40 mg Potassium Chloride (K-Dur 20 Meq Er Tab) 40 meq PO DAILY [facility] Last Admin: 11/29/16 10:12 Dose: 40 meq - Labs Labs: 11/29/16 07:43 06/12/17 07:43 PT 11.9 SECONDS (9.7-12.2) 11/23/16 06:28 INR 1.0 11/23/16 06:28 APTT 34 SECONDS (21-34) 11/23/16 06:28 Assessment and Plan (1) Hypotension Status: Acute (2) Abdominal pain Status: Acute (3) Abnormal PSA Status: Acute
--- NOTE | 2016-11-29 16:34 | PN ---
DATE: 11/29/2016 ROOM: 552 This is a 61-year-old male with recurrent symptomatic hypoglycemia and was actually on a D10 dextrose infusion all along and has had episodic bouts of hypoglycemic episodes, but over the last 48 hours, has had near optimal metabolic control as noted thereof. He is also being managed for secondary hypo adrenalism and currently on IV steroid therapy as ordered. His latest glucose values have ranged from 86-116 and 136 mg/dL. His latest chemistries include a BU N of 35, sodium 132, potassium 3.9, chloride 99, CO2 26, glucose 98 and creatinine 1.1. His serum co rtisol level done today is now 141.0. So at this time, we will discontinue the high-dose IV steroids and switch him over to a once daily do sing of the hydrocortisone given as 50 mg IV once daily as ordered. We will titrate incrementally as indicated to optimize metabolic control. If his serum cortisol levels remain above 50 mcg/dL tomorr ow, then we will switch him over to oral prednisone therapy as indicated. We will also discontinue d extrose infusion as ordered and observe his glycemic fluctuations thereof. We will follow. Keira Dolan MD cc: [phone] TT: 11/29/2016 16:33:42 Confirmation # [id number] Dictation # [id number] en
--- NOTE | 2016-11-29 17:24 | CP.PCM.PN ---
Subjective - Date & Time of Evaluation Date of Evaluation: 11/29/16 Time of Evaluation: 09:40 - Subjective Subjective: clinically same Objective - Vital Signs/Intake and Output Vital Signs (last 24 hours): Temp Pulse Resp BP Pulse Ox 97.4 F L 112 H 18 104/75 95 11/29/16 15:00 11/29/16 15:00 11/29/16 15:00 11/29/16 15:00 11/29/16 15:00 Intake and Output: 11/29/16 11/29/16 06:59 18:59 Intake Total 1100 Output Total 275 450 Balance 825 -450 - Medications Medications: Current Medications Calcium/Vitamin D (Oscal-D 250 Mg-125 Units Tab) 1 tab PO BIDCC [facility] Last Admin: 11/29/16 10:11 Dose: 1 tab Enoxaparin Sodium (Lovenox) 40 mg SC DAILY [facility] Last Admin: 11/29/16 10:13 Dose: 40 mg Furosemide (Lasix) 20 mg IVP DAILY [facility] Last Admin: 11/29/16 10:12 Dose: Not Given Hydrocortisone Sodium Succinate (Solu-Cortef) 50 mg IV DAILY [facility] Hydromorphone HCl (Dilaudid) 0.5 mg IVP Q6H PRN PRN Reason: Pain, moderate (4-7) Last Admin: 11/28/16 21:24 Dose: 0.5 mg Colistimethate Sodium 150 mg/ (Sodium Chloride) 100 mls @ 200 mls/hr IV Q12H [facility] Last Admin: 11/29/16 14:59 Dose: 200 mls/hr Sodium Chloride (Sodium Chloride 0.9%) 1,000 mls @ 60 mls/hr IV .[id number] [facility] Last Admin: 11/29/16 10:11 Dose: 60 mls/hr Megestrol Acetate (Megace) 400 mg PO DAILY [facility] Last Admin: 11/29/16 10:12 Dose: 400 mg Pantoprazole Sodium (Protonix Inj) 40 mg IVP DAILY [facility] Last Admin: 11/29/16 10:12 Dose: 40 mg Potassium Chloride (K-Dur 20 Meq Er Tab) 40 meq PO DAILY [facility] Last Admin: 11/29/16 10:12 Dose: 40 meq - Labs Labs: 11/29/16 07:43 11/29/16 07:43 PT 11.9 SECONDS (9.7-12.2) 11/23/16 06:28 INR 1.0 11/23/16 06:28 APTT 34 SECONDS (21-34) 11/23/16 06:28 - Constitutional Appears: Well - Head Exam Head Exam: ATRAUMATIC, NORMAL INSPECTION, NORMOCEPHALIC - Eye Exam Eye Exam: EOMI, Normal appearance, PERRL Pupil Exam: NORMAL ACCOMODATION, PERRL - ENT Exam ENT Exam: Mucous Membranes Moist, Normal Exam - Neck Exam Neck Exam: Full ROM, Normal Inspection. absent: Lymphadenopathy - Respiratory Exam Respiratory Exam: Decreased Breath Sounds - Cardiovascular Exam Cardiovascular Exam: REGULAR RHYTHM, +S1, +S2 - GI/Abdominal Exam GI & Abdominal Exam: Soft, Diminished Bowel Sounds - Rectal Exam Rectal Exam: Deferred
[2016-11-30] MEDS: Sodium Chloride 0.9% 1,000 ML IV SCH ×3 (01:00→21:57)
[2016-11-30 07:36] LABS: BASO % 0.1 % (0.0-2.0); EOS % 0.2 % (0.0-4.0); HEMATOCRIT 32.5 % (35.0-51.0); LYMPH # 0.6 K/uL (1.0-4.3); LYMPH % 5.4 % (20.0-40.0); MEAN CELL VOLUME 92.4 fL (80.0-94.0); MEAN CORPUSCULAR HEMOGLOBIN 30.1 pg (27.0-31.0); MEAN CORPUSCULAR HGB CONC 32.6 g/dL (33.0-37.0); MEAN PLATELET VOLUME 8.9 fL (7.2-11.7); MONO # 0.5 K/uL (0.0-0.8); MONO % 4.4 % (0.0-10.0); PLATELET COUNT 170 K/uL (130-400); RED CELL DISTRIBUTION WIDTH 17.4 % (11.5-14.5)
[2016-11-30 07:38] LABS: CHLORIDE 97 mmol/L (98-107)
[2016-11-30 07:39] LABS: POTASSIUM 3.2 mmol/L (3.6-5.2); SODIUM 131 mmol/L (132-148)
[2016-11-30 07:41] LABS: ALB/GLOB RATIO 0.8 (1.0-2.1); AST/SGOT 32 U/L (17-59); BILIRUBIN,TOTAL 0.6 mg/dL (0.2-1.3); CARBON DIOXIDE 26 mmol/L (22-30); GFR AFRICAN-AMERICAN > 60; TOTAL PROTEIN 5.6 g/dL (6.3-8.3)
[2016-11-30 07:42] LABS: ALKALINE PHOSPHATASE 136 U/L (38-126); ALT/SGPT 21 U/L (21-72); BLOOD UREA NITROGEN 33 mg/dL (9-20); CALCIUM 6.3 mg/dl (8.6-10.4); GLUCOSE,RANDOM 74 mg/dL (75-110)
--- NOTE | 2016-11-30 08:04 | PN ---
DATE: 11/20/2016 ICU, Room ____ ____ This is a [id number]-male who ____ being followed closely for metabolic management for possibl e secondary hypoadrenalism or ____ . He also has ____ The latest chemistry showed a BUN of 14, sodi um 123, potassium 3.8, ____ CO2 of ____, glucose 161, and creatinine 0.7. So at this time we will c obinnainue ____ as ordered. ____ Keira Dolan MD cc: [id number] TT: 11/20/2016 10:50:38 Confirmation # [id number] Dictation # [id number] jn
[2016-11-30 08:17] LABS: CORTISOL AM 28.1 ug/dL (4.46-22.7)
--- NOTE | 2016-11-30 10:21 | CP.PCM.PN ---
Subjective - Date & Time of Evaluation Date of Evaluation: 11/30/16 Time of Evaluation: 07:00 - Subjective Subjective: iv rx reordered no new complaints Objective - Vital Signs/Intake and Output Vital Signs (last 24 hours): Temp Pulse Resp BP Pulse Ox 97.5 F L 105 H 18 99/67 L 95 11/30/16 08:00 11/30/16 08:00 11/30/16 08:00 11/30/16 08:00 11/30/16 08:00 Intake and Output: 11/30/16 11/30/16 06:59 18:59 Output Total 750 Balance -750 - Medications Medications: Current Medications Calcium/Vitamin D (Oscal-D 250 Mg-125 Units Tab) 1 tab PO BIDCC [facility] Last Admin: 11/29/16 17:00 Dose: 1 tab Enoxaparin Sodium (Lovenox) 40 mg SC DAILY [facility] Last Admin: 11/29/16 10:13 Dose: 40 mg Furosemide (Lasix) 20 mg IVP DAILY [facility] Last Admin: 11/29/16 10:12 Dose: Not Given Hydrocortisone Sodium Succinate (Solu-Cortef) 50 mg IV DAILY [facility] Hydromorphone HCl (Dilaudid) 0.5 mg IVP Q6H PRN PRN Reason: Pain, moderate (4-7) Last Admin: 11/28/16 21:24 Dose: 0.5 mg Colistimethate Sodium 150 mg/ (Sodium Chloride) 100 mls @ 200 mls/hr IV Q12H [facility] Last Admin: 11/30/16 02:15 Dose: 200 mls/hr Sodium Chloride (Sodium Chloride 0.9%) 1,000 mls @ 60 mls/hr IV .[id number] [facility] Last Admin: 11/30/16 01:00 Dose: Not Given Megestrol Acetate (Megace) 400 mg PO DAILY [facility] Last Admin: 11/29/16 10:12 Dose: 400 mg Pantoprazole Sodium (Protonix Inj) 40 mg IVP DAILY [facility] Last Admin: 11/29/16 10:12 Dose: 40 mg Potassium Chloride (K-Dur 20 Meq Er Tab) 40 meq PO DAILY [facility] Last Admin: 11/29/16 10:12 Dose: 40 meq - Labs Labs: 11/30/16 07:12 11/30/16 07:12 PT 11.9 SECONDS (9.7-12.2) 11/23/16 06:28 INR 1.0 11/23/16 06:28 APTT 34 SECONDS (21-34) 11/23/16 06:28 - Constitutional Appears: Cachectic, Chronically Ill - Head Exam Head Exam: NORMOCEPHALIC - Eye Exam Eye Exam: PERRL. absent: Scleral icterus - ENT Exam ENT Exam: Mucous Membranes Dry - Neck Exam Neck Exam: absent: Lymphadenopathy - Respiratory Exam Respiratory Exam: Decreased Breath Sounds, Rhonchi - Cardiovascular Exam Cardiovascular Exam: REGULAR RHYTHM - GI/Abdominal Exam GI & Abdominal Exam: Soft - Rectal Exam Rectal Exam: Deferred - Exam Exam: NORMAL INSPECTION Assessment and Plan (1) Hypotension Status: Acute (2) Abdominal pain Status: Acute (3) Abnormal PSA Status: Acute
[2016-11-30] MEDS: Megestrol Acetate 40 mg/ml Cup PO SCH (10:35)
[2016-11-30] MEDS: Enoxaparin 40 mg Syringe SC SCH (10:35)
[2016-11-30] MEDS: Calcium-Vit D 250 mg-125 Units Tab UD PO SCH ×2 (10:35→18:04)
[2016-11-30] MEDS: Potassium Chloride 20 mEq ER Tab PO SCH (10:35)
[2016-11-30 10:42] LABS: METAMYELOCYTE 1 % (0-0); NEUTROPHIL 87 % (50-75); TOTAL CELLS COUNTED 100
--- NOTE | 2016-11-30 13:41 | CP.PCM.PN ---
Subjective - Date & Time of Evaluation Date of Evaluation: 11/30/16 Time of Evaluation: 10:00 - Subjective Subjective: clinically same Objective - Vital Signs/Intake and Output Vital Signs (last 24 hours): Temp Pulse Resp BP Pulse Ox 97.5 F L 105 H 18 98/70 L 95 11/30/16 08:00 11/30/16 08:00 11/30/16 08:00 11/30/16 10:36 11/30/16 08:00 Intake and Output: 11/30/16 11/30/16 06:59 18:59 Output Total 750 350 Balance -750 -350 - Medications Medications: Current Medications Calcium/Vitamin D (Oscal-D 250 Mg-125 Units Tab) 1 tab PO BIDCC [facility] Last Admin: 11/30/16 10:35 Dose: 1 tab Enoxaparin Sodium (Lovenox) 40 mg SC DAILY [facility] Last Admin: 11/30/16 10:35 Dose: 40 mg Furosemide (Lasix) 20 mg IVP DAILY [facility] Last Admin: 11/30/16 10:36 Dose: Not Given Hydrocortisone Sodium Succinate (Solu-Cortef) 50 mg IV DAILY [facility] Last Admin: 11/30/16 10:35 Dose: 50 mg Hydromorphone HCl (Dilaudid) 0.5 mg IVP Q6H PRN PRN Reason: Pain, moderate (4-7) Last Admin: 11/28/16 21:24 Dose: 0.5 mg Colistimethate Sodium 150 mg/ (Sodium Chloride) 100 mls @ 200 mls/hr IV Q12H [facility] Last Admin: 11/30/16 02:15 Dose: 200 mls/hr Sodium Chloride (Sodium Chloride 0.9%) 1,000 mls @ 60 mls/hr IV .[id number] [facility] Last Admin: 11/30/16 10:42 Dose: 60 mls/hr Megestrol Acetate (Megace) 400 mg PO DAILY [facility] Last Admin: 11/30/16 10:35 Dose: 400 mg Pantoprazole Sodium (Protonix Inj) 40 mg IVP DAILY [facility] Last Admin: 11/30/16 10:35 Dose: 40 mg Potassium Chloride (K-Dur 20 Meq Er Tab) 40 meq PO DAILY [facility] Last Admin: 11/30/16 10:35 Dose: 40 meq - Labs Labs: 11/30/16 07:12 11/30/16 07:12 PT 11.9 SECONDS (9.7-12.2) 11/23/16 06:28 INR 1.0 11/23/16 06:28 APTT 34 SECONDS (21-34) 11/23/16 06:28 - Constitutional Appears: Well - Head Exam Head Exam: ATRAUMATIC, NORMAL INSPECTION, NORMOCEPHALIC - Eye Exam Eye Exam: EOMI, Normal appearance, PERRL Pupil Exam: NORMAL ACCOMODATION, PERRL - ENT Exam ENT Exam: Mucous Membranes Moist, Normal Exam - Neck Exam Neck Exam: Full ROM, Normal Inspection. absent: Lymphadenopathy - Respiratory Exam Respiratory Exam: Decreased Breath Sounds - Cardiovascular Exam Cardiovascular Exam: REGULAR RHYTHM, +S1, +S2 - GI/Abdominal Exam GI & Abdominal Exam: Soft, Diminished Bowel Sounds - Rectal Exam Rectal Exam: Deferred Assessment and Plan - Assessment and Plan (Free Text) Plan: Patient needs cholestyramine till Tuesday patient wants to go to the rehab patient refuses all workup for a possible colon CA with metastases to the omentum as per Dr. Mejia IV antibiotic ID consult Spoke to the [facility] was planned and ask discuss the patient's refusal constant refusal behavior
--- NOTE | 2016-11-30 15:13 | PN ---
DATE: 11/30/2016 ROOM: 552 This is a 61-year-old male with recent secondary adrenal insufficiency now being followed closely for metabolic management. He has also had episodic bouts of symptomatic hypoglycemia, and the latest gl ucose levels today have ranged from 74-88 mg/dL. He has since then been taken off the dextrose D10 i nfusion as noted and ordered. His latest chemistry showed a BUN of 33, sodium 131, potassium 3.2, c hloride 97, CO2 of 26, glucose 74, and creatinine 1.1. His latest cortisol level is 28.1 mcg/dL. So at this time, will continue the once daily IV hydrocortisone given as 50 mg every 10 a.m. daily as ordered and will repeat the serum cortisol level tomorrow. If the levels are still within acceptable range, then may switch him over to oral steroid therapy as indicated. Will follow and advise zurdo [id number]. Keira Dolan MD cc: [id number] TT: 11/30/2016 15:12:55 Confirmation # [id number] Dictation # [id number] odilia
[2016-11-30] MEDS: HYDROmorphone 0.5 mg/0.5 ml ISec IVP PRN (18:05)
[2016-12-01] MEDS ORDERED: Dextrose 50% SYRINGE Inj (50 ml) IV STA (08:07)
[2016-12-01] MEDS: Calcium-Vit D 250 mg-125 Units Tab UD PO SCH ×2 (08:21→17:45)
--- NOTE | 2016-12-01 09:14 | CP.PCM.PN ---
Subjective - Date & Time of Evaluation Date of Evaluation: 12/01/16 Time of Evaluation: 10:00 - Subjective Subjective: Dr. Gonzalez service: Patient seen and examined in room. He has a very sctatchy voice is diffacult to understand. He says he came to the hospital because he passed out last week , he does not remember how or when or for how long has passed out for. He complainings of weakness and fatigue. Objective - Vital Signs/Intake and Output Vital Signs (last 24 hours): Temp Pulse Resp BP Pulse Ox 97.8 F 108 H 20 95/61 L 98 12/01/16 00:00 12/01/16 00:00 12/01/16 00:00 12/01/16 00:00 12/01/16 00:00 Intake and Output: 12/01/16 12/01/16 06:59 18:59 Output Total 250 450 Balance -250 -450 - Medications Medications: Current Medications Calcium/Vitamin D (Oscal-D 250 Mg-125 Units Tab) 1 tab PO BIDCC [facility] Last Admin: 12/01/16 08:21 Dose: 1 tab Enoxaparin Sodium (Lovenox) 40 mg SC DAILY [facility] Last Admin: 11/30/16 10:35 Dose: 40 mg Furosemide (Lasix) 20 mg IVP DAILY [facility] Last Admin: 11/30/16 10:36 Dose: Not Given Hydrocortisone Sodium Succinate (Solu-Cortef) 50 mg IV DAILY [facility] Last Admin: 11/30/16 10:35 Dose: 50 mg Hydromorphone HCl (Dilaudid) 0.5 mg IVP Q6H PRN PRN Reason: Pain, moderate (4-7) Last Admin: 11/30/16 18:05 Dose: 0.5 mg Colistimethate Sodium 150 mg/ (Sodium Chloride) 100 mls @ 200 mls/hr IV Q12H [facility] Last Admin: 12/01/16 02:58 Dose: 200 mls/hr Dextrose/Sodium Chloride (Dextrose 5%-0.45% Ns 500 Ml) 500 mls @ 60 mls/hr IV .Q8H20M ONE Stop: 12/01/16 16:27 Last Admin: 12/01/16 08:22 Dose: 60 mls/hr Megestrol Acetate (Megace) 400 mg PO DAILY [facility] Last Admin: 11/30/16 10:35 Dose: 400 mg Pantoprazole Sodium (Protonix Inj) 40 mg IVP DAILY [facility] Last Admin: 11/30/16 10:35 Dose: 40 mg Potassium Chloride (K-Dur 20 Meq Er Tab) 40 meq PO DAILY [facility] Last Admin: 11/30/16 10:35 Dose: 40 meq - Labs Labs: 11/30/16 07:12 11/30/16 07:12 PT 11.9 SECONDS (9.7-12.2) 11/23/16 06:28 INR 1.0 11/23/16 06:28 APTT 34 SECONDS (21-34) 11/23/16 06:28 - Constitutional Appears: Chronically Ill - Head Exam Head Exam: NORMAL INSPECTION - ENT Exam ENT Exam: Mucous Membranes Dry - Respiratory Exam Respiratory Exam: Clear to Ausculation Bilateral. absent: Rales, Rhonchi, Wheezes - Cardiovascular Exam Cardiovascular Exam: REGULAR RHYTHM, RRR, +S1, +S2. absent: Gallop, Rubs - GI/Abdominal Exam GI & Abdominal Exam: Soft, Normal Bowel Sounds. absent: Tenderness - Extremities Exam Extremities Exam: absent: Pedal Edema - Skin Skin Exam: Dry (very dry) Assessment and Plan (1) UTI (urinary tract infection) Assessment & Plan: Patient is on Colistin, Dr. Garrison consulted. IV Colistin for 10 days now. Follow up with Dr. Garrison if we need repeat urine culture. Patient looks very dry, IV fluids for now. Status: Acute (2) Hypomagnesemia Assessment & Plan: Mag today is 0.9, given 3 gm of mag, replace as needed. His phos is also very low as well. CA is 6.0 but corrected it is 7.3 Status: Acute (3) Hypokalemia Assessment & Plan: K is 3.3, 40 meq through IV fluids Status: Acute (4) CHF (congestive heart failure) Assessment & Plan: Echo from last Jul shows EF of around 45%, hold lasix for now. Status: Acute (5) Hypotension Assessment & Plan: IV fluids, continue to monitor patient, Dr. Keira Dolan consulted. for the hypotention and also low electrlytes. Status: Acute (6) Prophylactic measure Assessment & Plan: Protonix and Lovenox Status: Acute
--- NOTE | 2016-12-01 11:18 | CP.PCM.PN ---
Subjective - Date & Time of Evaluation Date of Evaluation: 12/01/16 Time of Evaluation: 09:40 - Subjective Subjective: clinically same Objective - Vital Signs/Intake and Output Vital Signs (last 24 hours): Temp Pulse Resp BP Pulse Ox 97.4 F L 106 H 20 94/68 L 96 12/01/16 07:00 12/01/16 07:00 12/01/16 07:00 12/01/16 07:00 12/01/16 07:00 Intake and Output: 12/01/16 12/01/16 06:59 18:59 Output Total 250 450 Balance -250 -450 - Medications Medications: Current Medications Calcium/Vitamin D (Oscal-D 250 Mg-125 Units Tab) 1 tab PO BIDCC [facility] Last Admin: 12/01/16 08:21 Dose: 1 tab Enoxaparin Sodium (Lovenox) 40 mg SC DAILY [facility] Last Admin: 11/30/16 10:35 Dose: 40 mg Furosemide (Lasix) 20 mg IVP DAILY [facility] Last Admin: 11/30/16 10:36 Dose: Not Given Hydrocortisone Sodium Succinate (Solu-Cortef) 50 mg IV DAILY [facility] Last Admin: 11/30/16 10:35 Dose: 50 mg Hydromorphone HCl (Dilaudid) 0.5 mg IVP Q6H PRN PRN Reason: Pain, moderate (4-7) Last Admin: 11/30/16 18:05 Dose: 0.5 mg Colistimethate Sodium 150 mg/ (Sodium Chloride) 100 mls @ 200 mls/hr IV Q12H [facility] Last Admin: 12/01/16 02:58 Dose: 200 mls/hr Dextrose/Sodium Chloride (Dextrose 5%-0.45% Ns 500 Ml) 500 mls @ 60 mls/hr IV .Q8H20M ONE Stop: 12/01/16 16:27 Last Admin: 12/01/16 08:22 Dose: 60 mls/hr Megestrol Acetate (Megace) 400 mg PO DAILY [facility] Last Admin: 11/30/16 10:35 Dose: 400 mg Pantoprazole Sodium (Protonix Inj) 40 mg IVP DAILY [facility] Last Admin: 11/30/16 10:35 Dose: 40 mg Potassium Chloride (K-Dur 20 Meq Er Tab) 40 meq PO DAILY [facility] Last Admin: 11/30/16 10:35 Dose: 40 meq - Labs Labs: 11/30/16 07:12 11/30/16 07:12 PT 11.9 SECONDS (9.7-12.2) 11/23/16 06:28 INR 1.0 11/23/16 06:28 APTT 34 SECONDS (21-34) 11/23/16 06:28 - Constitutional Appears: Well - Head Exam Head Exam: ATRAUMATIC, NORMAL INSPECTION, NORMOCEPHALIC - Eye Exam Eye Exam: EOMI, Normal appearance, PERRL Pupil Exam: NORMAL ACCOMODATION, PERRL - ENT Exam ENT Exam: Mucous Membranes Moist, Normal Exam - Neck Exam Neck Exam: Full ROM, Normal Inspection. absent: Lymphadenopathy - Respiratory Exam Respiratory Exam: Decreased Breath Sounds - Cardiovascular Exam Cardiovascular Exam: REGULAR RHYTHM, +S1, +S2 - GI/Abdominal Exam GI & Abdominal Exam: Soft, Diminished Bowel Sounds - Rectal Exam Rectal Exam: Deferred
[2016-12-01] MEDS: Megestrol Acetate 40 mg/ml Cup PO SCH (11:25)
[2016-12-01] MEDS: Enoxaparin 40 mg Syringe SC SCH (11:26)
[2016-12-01] MEDS ORDERED: DEXTROSE IV ONE (12:00)
[2016-12-01] MEDS ORDERED: [UNRECOGNIZED DRUG - OTHER] IV ONE (12:00)
[2016-12-01] MEDS ORDERED: POTASSIUM CHLORIDE IV ONE (12:00)
--- NOTE | 2016-12-01 16:40 | PN ---
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 He has si nce then been taken off the dextrose infusion as given and currently has recurrent bouts of hypoglyce kaitlynn with the latest glucose levels ranging from 75-116 mg/dL. He had a brief bout early this morning of glucose values dipping down to 57 mg/dL. His latest chemistries showed a BUN of 33, sodium 131, potassium 3.2, chloride 97, CO2 of 26, glucose 74, and creatinine 1.1. So, at this time we will titr ate once again his hydrocortisone to 50 mg IV every 12 hours as ordered to start today. We will titr ate incrementally as indicated to optimize metabolic control. We will also obtain serial cortisol le vels and adjust his dose regimen accordingly. We will follow and advise accordingly. Keira Dolan MD cc: [phone] TT: 12/01/2016 16:39:48 Confirmation # [id number] Dictation # [id number] ivon
[2016-12-01] MEDS: HYDROmorphone 0.5 mg/0.5 ml ISec IVP PRN (17:44)
[2016-12-01 18:36] LABS: EOS % 0.4 % (0.0-4.0); HEMATOCRIT 31.4 % (35.0-51.0); LYMPH # 0.6 K/uL (1.0-4.3); LYMPH % 5.8 % (20.0-40.0); MEAN CELL VOLUME 92.4 fL (80.0-94.0); MEAN CORPUSCULAR HEMOGLOBIN 29.9 pg (27.0-31.0); MEAN CORPUSCULAR HGB CONC 32.4 g/dL (33.0-37.0); MEAN PLATELET VOLUME 8.8 fL (7.2-11.7); MONO # 0.5 K/uL (0.0-0.8); MONO % 4.9 % (0.0-10.0); PLATELET COUNT 173 K/uL (130-400); RED CELL DISTRIBUTION WIDTH 17.5 % (11.5-14.5); WHITE BLOOD COUNT 9.8 K/uL (4.8-10.8)
[2016-12-01 18:40] LABS: CHLORIDE 100 mmol/L (98-107)
[2016-12-01 18:41] LABS: POTASSIUM 3.3 mmol/L (3.6-5.2); SODIUM 133 mmol/L (132-148)
[2016-12-01 18:43] LABS: AST/SGOT 25 U/L (17-59); BILIRUBIN,TOTAL 0.6 mg/dL (0.2-1.3); CARBON DIOXIDE 25 mmol/L (22-30); GFR AFRICAN-AMERICAN > 60
[2016-12-01 18:44] LABS: ALB/GLOB RATIO 0.8 (1.0-2.1); ALKALINE PHOSPHATASE 114 U/L (38-126); ALT/SGPT 27 U/L (21-72); BLOOD UREA NITROGEN 31 mg/dL (9-20); GLUCOSE,RANDOM 68 mg/dL (75-110); PHOSPHOROUS 1.9 mg/dL (2.5-4.5); TOTAL PROTEIN 5.5 g/dL (6.3-8.3)
[2016-12-01 18:46] LABS: MAGNESIUM 0.9 mg/dL (1.6-2.3)
[2016-12-01] MEDS: Magnesium Sulfate 1 gm in D5W 1 GM/100 ML BAG IVPB SCH ×3 (19:22→21:58)
[2016-12-01 19:28] LABS: NEUTROPHIL 94 % (50-75); TOTAL CELLS COUNTED 100
[2016-12-01] MEDS ORDERED: Sodium Phosphate 15 MMOLE in Sodium Chloride 0.9% 250 ML IVPB ONE (19:32)
[2016-12-02] MEDS: HYDROmorphone 0.5 mg/0.5 ml ISec IVP PRN ×3 (05:26→19:05)
[2016-12-02] MEDS: Calcium-Vit D 250 mg-125 Units Tab UD PO SCH ×2 (08:41→18:13)
[2016-12-02 08:49] LABS: CHLORIDE 102 mmol/L (98-107); POTASSIUM 3.9 mmol/L (3.6-5.2); SODIUM 133 mmol/L (132-148)
[2016-12-02 08:51] LABS: BILIRUBIN,TOTAL 0.4 mg/dL (0.2-1.3); CARBON DIOXIDE 23 mmol/L (22-30); GFR AFRICAN-AMERICAN > 60
[2016-12-02 08:52] LABS: ALB/GLOB RATIO 0.8 (1.0-2.1); ALKALINE PHOSPHATASE 105 U/L (38-126); ALT/SGPT 20 U/L (21-72); AST/SGOT 22 U/L (17-59); BLOOD UREA NITROGEN 27 mg/dL (9-20); GLUCOSE,RANDOM 76 mg/dL (75-110); MAGNESIUM 1.3 mg/dL (1.6-2.3); PHOSPHOROUS 2.6 mg/dL (2.5-4.5); TOTAL PROTEIN 5.1 g/dL (6.3-8.3)
[2016-12-02 09:07] LABS: CALCIUM 5.5 mg/dl (8.6-10.4)
[2016-12-02 09:23] LABS: CORTISOL AM 34.5 ug/dL (4.46-22.7)
[2016-12-02] MEDS: Enoxaparin 40 mg Syringe SC SCH (10:46)
[2016-12-02] MEDS: Magnesium Sulfate 1 gm in D5W 1 GM/100 ML BAG IVPB SCH ×2 (10:46→13:16)
[2016-12-02] MEDS: Megestrol Acetate 40 mg/ml Cup PO SCH (10:46)
[2016-12-02] MEDS ORDERED: Calcium Chloride 1000 mg/10 ml Syringe IV ONE (15:42)
[2016-12-02] MEDS ORDERED: Albumin Human 25% (12.5 gm/50 ml) IV SCH (15:45)
--- NOTE | 2016-12-02 15:45 | CP.PCM.PN ---
Subjective - Date & Time of Evaluation Date of Evaluation: 12/02/16 Time of Evaluation: 08:40 - Subjective Subjective: Dr. Gonzalez service: Patient seen and examined in room. Patient reports a history of spreading prostate CA but refuses colonoscopy. Patient wants to be home in time for his grandkids visiting tomorrow. Patient denies fever, chills, SOB, chest pain. Objective - Vital Signs/Intake and Output Vital Signs (last 24 hours): Temp Pulse Resp BP Pulse Ox 98 F 108 H 20 90/64 L 95 12/02/16 15:27 12/02/16 15:27 12/02/16 15:27 12/02/16 15:27 12/02/16 15:27 Intake and Output: 12/02/16 12/02/16 06:59 18:59 Output Total 600 Balance -600 - Medications Medications: Current Medications Calcitriol (Rocaltrol) 0.25 mcg PO DAILY [facility] Last Admin: 12/02/16 10:46 Dose: 0.25 mcg Calcium/Vitamin D (Oscal-D 250 Mg-125 Units Tab) 1 tab PO BIDCC [facility] Last Admin: 12/02/16 08:41 Dose: 1 tab Hydrocortisone Sodium Succinate (Solu-Cortef) 50 mg IV DAILY [facility] Hydromorphone HCl (Dilaudid) 0.5 mg IVP Q6H PRN PRN Reason: Pain, moderate (4-7) Last Admin: 12/02/16 13:16 Dose: 0.5 mg Colistimethate Sodium 150 mg/ (Sodium Chloride) 100 mls @ 200 mls/hr IV Q12H [facility] Last Admin: 12/02/16 15:33 Dose: 200 mls/hr Megestrol Acetate (Megace) 400 mg PO DAILY [facility] Last Admin: 12/02/16 10:46 Dose: 400 mg Pantoprazole Sodium (Protonix Inj) 40 mg IVP DAILY [facility] Last Admin: 12/02/16 10:46 Dose: 40 mg - Labs Labs: 12/01/16 18:20 12/02/16 08:20 PT 11.9 SECONDS (9.7-12.2) 11/23/16 06:28 INR 1.0 11/23/16 06:28 APTT 34 SECONDS (21-34) 11/23/16 06:28 - Constitutional Appears: No Acute Distress, Cachectic, Chronically Ill - Head Exam Head Exam: NORMAL INSPECTION - Eye Exam Eye Exam: EOMI - ENT Exam ENT Exam: Mucous Membranes Dry - Respiratory Exam Respiratory Exam: Clear to Ausculation Bilateral, NORMAL BREATHING PATTERN. absent: Rales, Rhonchi, Wheezes - Cardiovascular Exam Cardiovascular Exam: REGULAR RHYTHM, +S1, +S2 - GI/Abdominal Exam GI & Abdominal Exam: Soft, Normal Bowel Sounds. absent: Tenderness - Extremities Exam Extremities Exam: absent: Pedal Edema - Back Exam Additional comments: right sided nephrostomy tube draining urine - Neurological Exam Neurological Exam: Alert, Awake, Oriented x3 - Psychiatric Exam Psychiatric exam: Normal Affect, Normal Mood - Skin Skin Exam: Normal Color, Warm Assessment and Plan - Assessment and Plan (Free Text) Assessment: UTI (urinary tract infection) Assessment & Plan: Urine culture 11/17/16 and 11/19/16 positive for pseudomonas aeruginosa Urine culture 11/25/16 VRE Patient is on Colistin, Dr. Garrison consulted. IV Colistin for 10 days now. Status: Acute Hypomagnesemia Assessment & Plan: 12/02: Mg 1.3, replaced with 2 bags of 1gm Mg Sulfate IVPB 12/01: Mag today is 0.9, given 3 gm of mag, replace as needed. His phos is also very low as well. CA is 6.0 but corrected it is 7.3 Status: Acute Hypokalemia Assessment & Plan: resolved Status: Acute CHF (congestive heart failure) Assessment & Plan: Echo from last Jul shows EF of around 45%, hold lasix for now. Status: Acute Hypotension Assessment & Plan: IV fluids, continue to monitor patient, Dr. Keira Dolan consulted. for the hypotention and also low electrlytes. Status: Acute Perry's disease Assessment & Plan: IV fluids. Racaltrol 0.025mg PO daily IV Albumin 25% Q8H Calcium shloride 10% in 10ml over 30 minutes Status: Acute Prophylactic measure Assessment & Plan: Protonix and Lovenox Status: Acute
--- NOTE | 2016-12-02 17:15 | CP.PCM.PN ---
Subjective - Date & Time of Evaluation Date of Evaluation: 12/02/16 Time of Evaluation: 08:40 - Subjective Subjective: clinically same Objective - Vital Signs/Intake and Output Vital Signs (last 24 hours): Temp Pulse Resp BP Pulse Ox 98 F 108 H 20 90/64 L 95 12/02/16 15:27 12/02/16 15:27 12/02/16 15:27 12/02/16 15:27 12/02/16 15:27 Intake and Output: 12/02/16 12/02/16 06:59 18:59 Output Total 600 800 Balance -600 -800 - Medications Medications: Current Medications Calcitriol (Rocaltrol) 0.25 mcg PO DAILY [facility] Last Admin: 12/02/16 10:46 Dose: 0.25 mcg Calcium/Vitamin D (Oscal-D 250 Mg-125 Units Tab) 1 tab PO BIDCC [facility] Last Admin: 12/02/16 08:41 Dose: 1 tab Hydrocortisone Sodium Succinate (Solu-Cortef) 50 mg IV DAILY [facility] Hydromorphone HCl (Dilaudid) 0.5 mg IVP Q6H PRN PRN Reason: Pain, moderate (4-7) Last Admin: 12/02/16 13:16 Dose: 0.5 mg Colistimethate Sodium 150 mg/ (Sodium Chloride) 100 mls @ 200 mls/hr IV Q12H [facility] Last Admin: 12/02/16 15:33 Dose: 200 mls/hr Calcium Chloride 1,000 mg/ (Sodium Chloride) 110 mls @ 220 mls/hr IV ONCE ONE Stop: 12/02/16 17:29 Albumin Human (Albumin Human 25% (12.5 Gm/50 Ml)) 50 mls @ 50 mls/hr IV Q8H [facility] Megestrol Acetate (Megace) 400 mg PO DAILY [facility] Last Admin: 12/02/16 10:46 Dose: 400 mg Pantoprazole Sodium (Protonix Inj) 40 mg IVP DAILY [facility] Last Admin: 12/02/16 10:46 Dose: 40 mg - Labs Labs: 12/01/16 18:20 12/02/16 08:20 PT 11.9 SECONDS (9.7-12.2) 11/23/16 06:28 INR 1.0 11/23/16 06:28 APTT 34 SECONDS (21-34) 11/23/16 06:28 - Constitutional Appears: Well - Head Exam Head Exam: ATRAUMATIC, NORMAL INSPECTION, NORMOCEPHALIC - Eye Exam Eye Exam: EOMI, Normal appearance, PERRL Pupil Exam: NORMAL ACCOMODATION, PERRL - ENT Exam ENT Exam: Mucous Membranes Moist, Normal Exam - Neck Exam Neck Exam: Full ROM, Normal Inspection. absent: Lymphadenopathy - Respiratory Exam Respiratory Exam: Decreased Breath Sounds - Cardiovascular Exam Cardiovascular Exam: REGULAR RHYTHM, +S1, +S2 - GI/Abdominal Exam GI & Abdominal Exam: Soft, Diminished Bowel Sounds - Rectal Exam Rectal Exam: Deferred
--- NOTE | 2016-12-02 19:04 | CP.PCM.PN ---
Subjective - Date & Time of Evaluation Date of Evaluation: 12/02/16 Time of Evaluation: 09:00 - Subjective Subjective: + c diff colistin held IV rx in progress discussed with Dr Lilia Gonzalez Objective - Vital Signs/Intake and Output Vital Signs (last 24 hours): Temp Pulse Resp BP Pulse Ox 98 F 108 H 20 90/64 L 95 12/02/16 15:27 12/02/16 15:27 12/02/16 15:27 12/02/16 15:27 12/02/16 15:27 Intake and Output: 12/02/16 12/03/16 18:59 06:59 Intake Total 320 Output Total 1100 Balance -780 - Medications Medications: Current Medications Calcitriol (Rocaltrol) 0.25 mcg PO DAILY [facility] Last Admin: 12/02/16 10:46 Dose: 0.25 mcg Calcium/Vitamin D (Oscal-D 250 Mg-125 Units Tab) 1 tab PO BIDCC [facility] Last Admin: 12/02/16 18:13 Dose: 1 tab Hydrocortisone Sodium Succinate (Solu-Cortef) 50 mg IV DAILY [facility] Hydromorphone HCl (Dilaudid) 0.5 mg IVP Q6H PRN PRN Reason: Pain, moderate (4-7) Last Admin: 12/02/16 13:16 Dose: 0.5 mg Albumin Human (Albumin Human 25% (12.5 Gm/50 Ml)) 50 mls @ 50 mls/hr IV Q8H [facility] Last Admin: 12/02/16 19:02 Dose: 50 mls/hr Metronidazole (Flagyl) 500 mg in 100 mls @ 100 mls/hr IVPB Q8 [facility] Megestrol Acetate (Megace) 400 mg PO DAILY [facility] Last Admin: 12/02/16 10:46 Dose: 400 mg Pantoprazole Sodium (Protonix Inj) 40 mg IVP DAILY [facility] Last Admin: 12/02/16 10:46 Dose: 40 mg Vancomycin HCl (Vancocin (Oral Or Rectal Use)) 125 mg PO QID [facility] - Labs Labs: 12/01/16 18:20 12/02/16 08:20 PT 11.9 SECONDS (9.7-12.2) 11/23/16 06:28 INR 1.0 11/23/16 06:28 APTT 34 SECONDS (21-34) 11/23/16 06:28 - Constitutional Appears: Cachectic, Chronically Ill - Head Exam Head Exam: ATRAUMATIC - Eye Exam Eye Exam: PERRL. absent: Scleral icterus - ENT Exam ENT Exam: Mucous Membranes Dry - Neck Exam Neck Exam: absent: Lymphadenopathy - Respiratory Exam Respiratory Exam: Decreased Breath Sounds, Clear to Ausculation Bilateral - Cardiovascular Exam Cardiovascular Exam: REGULAR RHYTHM, +S1, +S2 - GI/Abdominal Exam GI & Abdominal Exam: Distended, Soft. absent: Tenderness - Rectal Exam Rectal Exam: Deferred Assessment and Plan (1) Hypotension Status: Acute (2) Abdominal pain Status: Acute (3) Abnormal PSA Status: Acute
[2016-12-02] MEDS: metroNIDAZOLE IV 500 mg/100 ml 500 MG/100 ML BAG IVPB SCH ×2 (20:35→22:24)
[2016-12-02] MEDS: Vancomycin 125 MG/5 ML SOLN (ORAL/RECTAL) PO SCH (22:24)
[2016-12-03] MEDS: metroNIDAZOLE IV 500 mg/100 ml 500 MG/100 ML BAG IVPB SCH ×2 (05:01→14:43)
[2016-12-03] MEDS: HYDROmorphone 0.5 mg/0.5 ml ISec IVP PRN ×2 (05:01→11:12)
[2016-12-03 07:45] LABS: BASO % 0.1 % (0.0-2.0); EOS # 0.1 K/uL (0.0-0.7); EOS % 0.9 % (0.0-4.0); HEMATOCRIT 25.2 % (35.0-51.0); LYMPH # 0.6 K/uL (1.0-4.3); LYMPH % 6.6 % (20.0-40.0); MEAN CELL VOLUME 92.4 fL (80.0-94.0); MEAN CORPUSCULAR HEMOGLOBIN 30.6 pg (27.0-31.0); MEAN CORPUSCULAR HGB CONC 33.2 g/dL (33.0-37.0); MEAN PLATELET VOLUME 8.8 fL (7.2-11.7); MONO # 0.4 K/uL (0.0-0.8); PLATELET COUNT 130 K/uL (130-400); RED CELL DISTRIBUTION WIDTH 17.7 % (11.5-14.5); WHITE BLOOD COUNT 9.2 K/uL (4.8-10.8)
[2016-12-03 07:54] VITALS: BP 92/61; PULSE 103; RESP 19; TEMP 97.8; O2SAT 94
--- NOTE | 2016-12-03 08:34 | PN ---
DATE: 12/02/2016 The patient is in room 552. This is a 61-year-old male with secondary hypoadrenalism, currently with episodic bouts of symptomatic hypoglycemia and still on IV steroid therapy as noted. He is being fol lowed closely for metabolic management. His latest chemistries today showed a BUN of 27, sodium 133, potassium 3.9, chloride 102, , glucose 76, creatinine 0.9. His glucose values have ranged from 77 to 97 . The latest level is taper down once more the hydrocortisone to 50 mg IV once daily . If his cortisol levels remain near optimal by tomorrow, we will to oral ____ _. Keira Dolan MD cc: [id number] TT: 12/02/2016 16:09:28 Confirmation # [id number] Dictation # [id number]
[2016-12-03] MEDS: Calcium-Vit D 250 mg-125 Units Tab UD PO SCH (08:52)
[2016-12-03 09:50] LABS: CHLORIDE 97 mmol/L (98-107)
[2016-12-03 09:51] LABS: SODIUM 132 mmol/L (132-148)
[2016-12-03 09:53] LABS: BILIRUBIN,TOTAL 0.6 mg/dL (0.2-1.3); GFR AFRICAN-AMERICAN > 60
[2016-12-03 09:54] LABS: ALB/GLOB RATIO 0.8 (1.0-2.1); ALKALINE PHOSPHATASE 107 U/L (38-126); ALT/SGPT 24 U/L (21-72); AST/SGOT 23 U/L (17-59); BLOOD UREA NITROGEN 29 mg/dL (9-20); CARBON DIOXIDE 26 mmol/L (22-30); GLUCOSE,RANDOM 58 mg/dL (75-110); TOTAL PROTEIN 5.1 g/dL (6.3-8.3)
[2016-12-03 09:59] LABS: METAMYELOCYTE 1 % (0-0); NEUTROPHIL 88 % (50-75); TOTAL CELLS COUNTED 100
[2016-12-03 10:49] LABS: CALCIUM 5.5 mg/dl (8.6-10.4)
[2016-12-03] MEDS: Megestrol Acetate 40 mg/ml Cup PO SCH (11:11)
[2016-12-03] MEDS: Vancomycin 125 MG/5 ML SOLN (ORAL/RECTAL) PO SCH ×2 (11:12→14:43)
--- NOTE | 2016-12-03 11:40 | CP.PCM.PN ---
Subjective - Date & Time of Evaluation Date of Evaluation: 12/03/16 Time of Evaluation: 08:10 - Subjective Subjective: Dr. Gonzalez service: Patient seen and examined in room. Patient very excited to go home to [place] today to see grandkids who are visiting today. Patient denies fever, chills, SOB, chest pain, diarrhea. Objective - Vital Signs/Intake and Output Vital Signs (last 24 hours): Temp Pulse Resp BP Pulse Ox 97.8 F 103 H 19 92/61 L 94 L 12/03/16 07:53 12/03/16 07:53 12/03/16 07:53 12/03/16 07:53 12/03/16 07:53 Intake and Output: 12/03/16 12/03/16 06:59 18:59 Intake Total 250 Output Total 550 Balance -300 - Medications Medications: Current Medications Calcitriol (Rocaltrol) 0.25 mcg PO DAILY [facility] Last Admin: 12/03/16 11:11 Dose: 0.25 mcg Calcium/Vitamin D (Oscal-D 250 Mg-125 Units Tab) 1 tab PO BIDCC [facility] Last Admin: 12/03/16 08:52 Dose: 1 tab Hydrocortisone Sodium Succinate (Solu-Cortef) 50 mg IV DAILY [facility] Last Admin: 12/03/16 11:11 Dose: 50 mg Hydromorphone HCl (Dilaudid) 0.5 mg IVP Q6H PRN PRN Reason: Pain, moderate (4-7) Last Admin: 12/03/16 11:12 Dose: 0.5 mg Albumin Human (Albumin Human 25% (12.5 Gm/50 Ml)) 50 mls @ 50 mls/hr IV Q8H [facility] Last Admin: 12/03/16 08:52 Dose: 50 mls/hr Metronidazole (Flagyl) 500 mg in 100 mls @ 100 mls/hr IVPB Q8 [facility] Last Admin: 12/03/16 05:01 Dose: 100 mls/hr Megestrol Acetate (Megace) 400 mg PO DAILY [facility] Last Admin: 12/03/16 11:11 Dose: 400 mg Potassium Chloride (K-Dur 20 Meq Er Tab) 40 meq PO Q2H [facility] Stop: 12/03/16 13:46 Vancomycin HCl (Vancocin (Oral Or Rectal Use)) 125 mg PO QID [facility] Last Admin: 12/03/16 11:12 Dose: 125 mg - Labs Labs: 12/03/16 07:28 12/03/16 09:17 PT 11.9 SECONDS (9.7-12.2) 11/23/16 06:28 INR 1.0 11/23/16 06:28 APTT 34 SECONDS (21-34) 11/23/16 06:28 - Constitutional Appears: Non-toxic, No Acute Distress - Head Exam Head Exam: NORMAL INSPECTION - Eye Exam Eye Exam: EOMI - ENT Exam ENT Exam: Mucous Membranes Moist - Respiratory Exam Respiratory Exam: Clear to Ausculation Bilateral, NORMAL BREATHING PATTERN. absent: Rales, Rhonchi, Wheezes - Cardiovascular Exam Cardiovascular Exam: REGULAR RHYTHM, +S1, +S2. absent: Gallop, Rubs, Murmur - GI/Abdominal Exam GI & Abdominal Exam: Soft, Normal Bowel Sounds. absent: Tenderness - Extremities Exam Extremities Exam: absent: Pedal Edema - Neurological Exam Neurological Exam: Alert, Awake, Oriented x3 - Psychiatric Exam Psychiatric exam: Normal Affect, Normal Mood - Skin Skin Exam: Normal Color, Warm Assessment and Plan - Assessment and Plan (Free Text) Assessment: UTI (urinary tract infection) Assessment & Plan: Urine culture 11/17/16 and 11/19/16 positive for pseudomonas aeruginosa Urine culture 11/25/16 VRE Patient is on Colistin, Dr. Garrison consulted. IV Colistin for 10 days now. - stopped secondary to C diff Status: Acute Clostridium Difficile positive Assessment & Plan: Vanco PO and Flagyl PO for a total of 14 days Status: Acute Hypomagnesemia Assessment & Plan: 12/02: Mg 1.3, replaced with 2 bags of 1gm Mg Sulfate IVPB 12/01: Mag today is 0.9, given 3 gm of mag, replace as needed. His phos is also very low as well. CA is 6.0 but corrected it is 7.3 Status: Acute Hypokalemia Assessment & Plan: 3.0 today - replaced with K-Dur 40 mEq Q2H x 2 doses Status: Acute CHF (congestive heart failure) Assessment & Plan: Echo from last Jul shows EF of around 45%, hold lasix for now. Status: Acute Hypotension Assessment & Plan: IV fluids, continue to monitor patient, Dr. Keira Dolan consulted. for the hypotention and also low electrlytes. Status: Acute [place]'s disease Assessment & Plan: IV fluids. Racaltrol 0.025mg PO daily IV Albumin 25% Q8H Calcium chloride 10% in 10ml over 30 minutes D/C to [facility] Status: Acute Prophylactic measure Assessment & Plan: Protonix and Lovenox Status: Acute
--- NOTE | 2016-12-03 12:27 | CP.PCM.PN ---
Subjective - Date & Time of Evaluation Date of Evaluation: 12/03/16 Time of Evaluation: 09:20 - Subjective Subjective: clinically same Objective - Vital Signs/Intake and Output Vital Signs (last 24 hours): Temp Pulse Resp BP Pulse Ox 97.8 F 103 H 19 92/61 L 94 L 12/03/16 07:53 12/03/16 07:53 12/03/16 07:53 12/03/16 07:53 12/03/16 07:53 Intake and Output: 12/03/16 12/03/16 06:59 18:59 Intake Total 250 Output Total 550 Balance -300 - Medications Medications: Current Medications Calcitriol (Rocaltrol) 0.25 mcg PO DAILY [facility] Last Admin: 12/03/16 11:11 Dose: 0.25 mcg Calcium/Vitamin D (Oscal-D 250 Mg-125 Units Tab) 1 tab PO BIDCC [facility] Last Admin: 12/03/16 08:52 Dose: 1 tab Hydrocortisone Sodium Succinate (Solu-Cortef) 50 mg IV DAILY [facility] Last Admin: 12/03/16 11:11 Dose: 50 mg Hydromorphone HCl (Dilaudid) 0.5 mg IVP Q6H PRN PRN Reason: Pain, moderate (4-7) Last Admin: 12/03/16 11:12 Dose: 0.5 mg Albumin Human (Albumin Human 25% (12.5 Gm/50 Ml)) 50 mls @ 50 mls/hr IV Q8H [facility] Last Admin: 12/03/16 08:52 Dose: 50 mls/hr Metronidazole (Flagyl) 500 mg in 100 mls @ 100 mls/hr IVPB Q8 [facility] Last Admin: 12/03/16 05:01 Dose: 100 mls/hr Megestrol Acetate (Megace) 400 mg PO DAILY [facility] Last Admin: 12/03/16 11:11 Dose: 400 mg Potassium Chloride (K-Dur 20 Meq Er Tab) 40 meq PO Q2H [facility] Stop: 12/03/16 13:46 Vancomycin HCl (Vancocin (Oral Or Rectal Use)) 125 mg PO QID [facility] Last Admin: 12/03/16 11:12 Dose: 125 mg - Labs Labs: 12/03/16 07:28 12/03/16 09:17 PT 11.9 SECONDS (9.7-12.2) 11/23/16 06:28 INR 1.0 11/23/16 06:28 APTT 34 SECONDS (21-34) 11/23/16 06:28 - Constitutional Appears: Well - Head Exam Head Exam: ATRAUMATIC, NORMAL INSPECTION, NORMOCEPHALIC - Eye Exam Eye Exam: EOMI, Normal appearance, PERRL Pupil Exam: NORMAL ACCOMODATION, PERRL - ENT Exam ENT Exam: Mucous Membranes Moist, Normal Exam - Neck Exam Neck Exam: Full ROM, Normal Inspection. absent: Lymphadenopathy - Respiratory Exam Respiratory Exam: Decreased Breath Sounds - Cardiovascular Exam Cardiovascular Exam: REGULAR RHYTHM, +S1, +S2 - GI/Abdominal Exam GI & Abdominal Exam: Soft, Diminished Bowel Sounds - Rectal Exam Rectal Exam: Deferred
[2016-12-03] MEDS: Potassium Chloride 20 mEq ER Tab PO SCH ×2 (12:32→14:43)
[2016-12-03] MEDS ORDERED: HYDROmorphone 0.5 mg/0.5 ml ISec IVP ONE (15:30)
--- NOTE | 2016-12-03 22:08 | PN ---
DATE: 12/03/2016 ROOM: 552 SUBJECTIVE: This is a 61-year-old male with recent secondary hypoadrenalism and was started on IV st eroid therapy with frequent and recurrent symptomatic hypoglycemic episodes as noted thereof. His gl ucose values have ranged from 78 to 84 and 90 mg/dL. The latest chemistries today showed a BUN of 29 , sodium 132, potassium 3.0, chloride 97, CO2 of 26, glucose 58, and creatinine 1.1. His last serum cortisol level was 34.5. So at this time, would recommend that we discontinue the IV steroids today after the last dosing given this morning as noted. We will switch him over to oral steroids given as prednisone 5 mg once daily as ordered. He is scheduled for discharge today as noted. Keira Dolan MD cc: [id number] TT: 12/03/2016 22:08:09 Confirmation # [id number] Dictation # [id number]
== END 2016-12-03 16:00 | DRG 552 ==
LOC: C.ER 11:28 → C.9E 13:15 → C.6T 14:01 → C.9I 11-17 05:12 → C.5T 11-24 04:58
PROVIDERS: ADMIT Internal Medicine Nephrology; ATTEND Internal Medicine Nephrology
PROC: 5A1955Z Respiratory Ventilation, Greater than 96 Consecutive Hours (ICD-10-PCS; principal; 2016-11-17)
PROC: 0BH17EZ Insertion of Endotracheal Airway into Trachea, Via Natural or Artificial Opening (ICD-10-PCS; 2016-11-17)
PROC: 02HV33Z Insertion of Infusion Device into Superior Vena Cava, Percutaneous Approach (ICD-10-PCS; 2016-11-17)
PROC: 0CJS8ZZ Inspection of Larynx, Via Natural or Artificial Opening Endoscopic (ICD-10-PCS; 2016-11-17)
PROC: 0W993ZZ Drainage of Right Pleural Cavity, Percutaneous Approach (ICD-10-PCS; 2016-11-19)
PROC: 0W9B3ZZ Drainage of Left Pleural Cavity, Percutaneous Approach (ICD-10-PCS; 2016-11-19)
PROC: 0W9930Z Drainage of Right Pleural Cavity with Drainage Device, Percutaneous Approach (ICD-10-PCS; 2016-11-19)
DX: C78.6 Secondary malignant neoplasm of retroperitoneum and peritoneum (principal); A41.9 Sepsis, unspecified organism; J96.00 Acute respiratory failure, unspecified whether with hypoxia or hypercapnia; R65.21 Severe sepsis with septic shock; J90 Pleural effusion, not elsewhere classified; R64 Cachexia; C79.51 Secondary malignant neoplasm of bone; I46.9 Cardiac arrest, cause unspecified; J93.9 Pneumothorax, unspecified; C77.2 Secondary and unspecified malignant neoplasm of intra-abdominal lymph nodes; E87.2 Acidosis; N18.4 Chronic kidney disease, stage 4 (severe); N13.30 Unspecified hydronephrosis; E11.649 Type 2 diabetes mellitus with hypoglycemia without coma; E11.22 Type 2 diabetes mellitus with diabetic chronic kidney disease; E27.49 Other adrenocortical insufficiency; E87.1 Hypo-osmolality and hyponatremia; E87.70 Fluid overload, unspecified; N39.0 Urinary tract infection, site not specified; E86.0 Dehydration; I12.9 Hypertensive chronic kidney disease with stage 1 through stage 4 chronic kidney disease, or unspecified chronic kidney disease; G89.29 Other chronic pain; F17.210 Nicotine dependence, cigarettes, uncomplicated; D64.9 Anemia, unspecified; Z85.46 Personal history of malignant neoplasm of prostate; Z51.5 Encounter for palliative care; Z93.6 Other artificial openings of urinary tract status; Z85.07 Personal history of malignant neoplasm of pancreas; Z82.49 Family history of ischemic heart disease and other diseases of the circulatory system; E78.5 Hyperlipidemia, unspecified; E88.09 Other disorders of plasma-protein metabolism, not elsewhere classified; Z79.52 Long term (current) use of systemic steroids; Z85.028 Personal history of other malignant neoplasm of stomach; Z87.891 Personal history of nicotine dependence

== ENCOUNTER 2016-12-06 11:20 | Inpatient (IN) | payer MEDICAID ==
--- NOTE | 2016-12-06 12:00 | C.PDOC ---
History Of Present Illness 61 y/o M BIBEMS s/p cardiac arrest. Patient at [facility], recently admitted for UTI sepsis was noted to be lethargic at [facility] and when staff returned to his room, he was noted to be unresponsive. EMS reports patient down for about 2 hours, initially in PEA, then with vfib, obtained ROSC, and about 5 minutes prior to ER arrival, in PEA again. Patient was found to be hypoglycemic during EMS evaluation and given amp of dextrose with FS now showing 70s. Epi x 7 given. Jesus LT placed by EMS. Time Seen by Provider: 12/06/16 11:54 Chief Complaint (Nursing): Cardiac Arrest Past Medical History Vital Signs: Last Vital Signs Temp 92.2 F L 12/06/16 12:15 Pulse 77 12/06/16 12:15 Resp 18 12/06/16 12:15 BP 66/39 L 12/06/16 12:15 Pulse Ox 100 12/06/16 12:59 - Medical History PMH: Back Problems, HTN, Malignancy (Prostate, Pancreatic), Chronic Kidney Disease, Chronic Pain (Back) Denies: Peripheral Edema Surgical History: Denies: Pacemaker - [facility] Procedures CHANGE DRAINAGE DEVICE IN KIDNEY, EXTERNAL APPROACH (10/06/16) CYSTOSCOPY NEC (11/08/14) DILATION OF DUODENUM, ENDO (06/12/15) DILATION OF RIGHT URETER WITH INTRALUMINAL DEVICE, ENDO (06/12/15) DX ULTRASOUND NEC (10/22/14) INSERTION OF ENDOTRACHEAL AIRWAY INTO TRACHEA, VIA OPENING (08/30/15) INSERTION OF INFUSION DEV INTO SUP VENA CAVA, PERC APPROACH (08/30/15) INTRODUCTION OF NUTRITIONAL INTO PERIPH VEIN, PERC APPROACH (06/12/15) LYMPHATIC STRUCT BIOPSY (11/08/14) PERCU NEPHROSTM W/O FRAG (11/08/14) PERCUTAN NEEDLE BIOPSY OF PROSTATE (11/08/14) PERCUTANEOUS PYELOGRAM (01/18/15) PLAIN RADIOGRAPHY OF RIGHT KIDNEY (10/06/16) REMOVE VAD RESERVOIR FROM UP EXTREM SUBCU/FASCIA, PERC (08/30/15) RESPIRATORY VENTILATION, GREATER THAN 96 CONSECUTIVE HOURS (08/30/15) TRANSFUSE NONAUT RED BLOOD CELLS IN PERIPH VEIN, PERC (06/12/15) URETERAL CATHETERIZATION (01/18/15) VACCINATION NEC (10/22/14) Family History: States: Unknown Family Hx - Social History Hx Tobacco Use: Yes Hx Alcohol Use: No Hx Substance Use: No - Immunization History Hx Tetanus Toxoid Vaccination: No Hx Influenza Vaccination: No Hx Pneumococcal Vaccination: No Review Of Systems Review Of Systems: ROS cannot be obtained secondary to pt's inabilty to answer questions. Physical Exam - Physical Exam Additional Physical Exam Comments: Constitutional: Unresponsive. Head: Atraumatic. Eyes: Pupils not reactive. ENT: Jesus LT in place. Neck: Supple. Cardiovascular: On arrival, CPR stopped and with femoral pulse 2+. Chest: Bull II in place. Respiratory: Bilateral breath sounds with BVM. GI: Soft. Asymmetrical swelling. Musculoskeletal: No swelling of extremities. Skin: Cold to touch. Neurologic: Unresponsive. ED Course And Treatment - Laboratory Results Result Diagrams: 12/06/16 12:32 12/06/16 12:32 O2 Sat by Pulse Oximetry: 100 Medical Decision Making Medical Decision Making: Shortly after patient's arrival, femoral pulse palpated. Patient down for 2 hours, not candidate for hypothermia. Blood pressure and HR initially mild hypertension and normal HR. During evaluation, patient lost pulse, CPR reinitiated and epi administered, patient was in PEA. Definitive airway placed without sedative or paralytic with 1st pass success using 7-0 tube undirect laryngoscope with color change, misting of tube, and confirmed by XR. Pulse returned on next pulse check. Patient began becoming hypotensive. Dopamine initiated. Bedside US shows no tension pneumo or pericardial tamponade. Lungs do show B lines. CXR shows venous congestion. Dr. Smiley accepts patient to ICU. Dr. Gonzalez accepts patient for admission. Disposition - Disposition Disposition: HOSPITALIZED Disposition Time: 13:23 Condition: CRITICAL - Clinical Impression Clinical Impression: Cardiac arrest, Hypoglycemia Critical Care Time - Critical Care Note Total Time (in mins): 60 Comments: Required my immediate attention, constant reassessments, rapid interventions, complex decision making, multiple provider phone calls. Documented critical care: time excludes all time spent performing seperately billable procedures.
[2016-12-06] MEDS ORDERED: DOPamine 400mg/250ml D5W 400 MG/250 ML BAG IV ONE (12:13)
--- NOTE | 2016-12-06 12:13 | RAD ---
Chest x-ray single frontal view History: Endotracheal tube placement. Comparison: None available. Findings: Markedly limited study with multiple external devices and tubing. Removal is recommended. Endotracheal tube extending into the midthoracic trachea. Moderate to severe venous congestion with bibasilar airspace opacities. Left lung base is not well visualized and underlying pathology at that level can't be excluded. Enlarged ectatic aorta. Mild cardiomegaly. Degenerative changes in the spine and shoulders. Impression: Limited nondiagnostic evaluation of the chest given suboptimal technique and multiple external overlying objects.
[2016-12-06 12:38] LABS: EOS % 0.8 % (0.0-4.0); HEMATOCRIT 27.2 % (35.0-51.0); LYMPH # 1.5 K/uL (1.0-4.3); LYMPH % 34.3 % (20.0-40.0); MEAN CORPUSCULAR HEMOGLOBIN 30.3 pg (27.0-31.0); MEAN PLATELET VOLUME 7.8 fL (7.2-11.7); NRBC % 0.1 % (0.0-2.0); RED CELL DISTRIBUTION WIDTH 18.3 % (11.5-14.5)
[2016-12-06 12:41] LABS: MEAN CELL VOLUME 97.5 fL (80.0-94.0); WHITE BLOOD COUNT 4.5 K/uL (4.8-10.8)
[2016-12-06] MEDS ORDERED: DOPamine 400mg/250ml D5W 400 MG/250 ML BAG IV PRN ×2 (12:45→20:18)
[2016-12-06 12:48] LABS: CHLORIDE 101 mmol/L (98-107); SODIUM 131 mmol/L (132-148)
[2016-12-06 12:49] LABS: INR 1.9
[2016-12-06 12:50] LABS: CARBON DIOXIDE 14 mmol/L (22-30); GFR AFRICAN-AMERICAN > 60; POTASSIUM 4.4 mmol/L (3.6-5.2)
[2016-12-06 12:51] LABS: ALB/GLOB RATIO 0.7 (1.0-2.1); ALKALINE PHOSPHATASE 141 U/L (38-126); BLOOD UREA NITROGEN 31 mg/dL (9-20); PHOSPHOROUS 10.1 mg/dL (2.5-4.5)
[2016-12-06 12:52] LABS: MAGNESIUM 1.6 mg/dL (1.6-2.3)
[2016-12-06 13:18] LABS: ALT/SGPT 3168 U/L (21-72); CALCIUM 5.2 mg/dl (8.6-10.4); GLUCOSE,RANDOM 33 mg/dL (75-110)
[2016-12-06] MEDS ORDERED: Dextrose 50% SYRINGE Inj (50 ml) ONE ×2 (13:24→13:52)
[2016-12-06 13:26] LABS: AST/SGOT 6560 U/L (17-59)
[2016-12-06 13:31] LABS: ABG ALLEN TEST A; ABG MECHANICAL RATE 14; ARTERIAL BLOOD HGB O2 SAT 97.4 % (95.0-98.0); ATERIAL BLOOD GAS PEEP 5; CARBOXYHEMOGLOBIN 1.3 % (0.5-1.5); DRAW SITE LR; METHEMOGLOBIN 1.3 % (0.0-3.0)
[2016-12-06 13:32] LABS: RBC URINE 29 /hpf (0-3); URINE BACTERIA OCC (<OCC); URINE BILIRUBIN NEGATIVE (NEGATIVE); URINE BLOOD 2+ (NEGATIVE); URINE COLOR Amber (YELLOW); URINE GLUCOSE (UA) NORMAL (Normal); URINE KETONE NEGATIVE (NEGATIVE); URINE LEUKOCYTE ESTERASE 3+ Leu/uL (Negative); URINE PROTEIN 2+ mg/dL (NEGATIVE); URINE UROBILINOGEN NORMAL mg/dL (0.2-1.0); WBC URINE 109 /hpf (0-5)
[2016-12-06] MEDS ORDERED: Dextrose 50% SYRINGE Inj (50 ml) IV STA ×3 (15:24→16:41)
[2016-12-06 16:22] VITALS: BMI 18.2
[2016-12-06] MEDS ORDERED: MethylPREDNISolone 40 mg Vial IVP STA (17:02)
--- NOTE | 2016-12-06 17:30 | CP.PCM.HP ---
Past Patient History - Infectious Disease Hx of Infectious Diseases: None - Past Medical History & Family History Past Medical History?: Yes - Past Social History Smoking Status: Former Smoker - CARDIAC Hx Cardiac Disorders: Yes Hx Hypertension: Yes Hx Pacemaker: No Hx Peripheral Edema: No - PULMONARY Hx Respiratory Disorders: No - NEUROLOGICAL Hx Neurological Disorder: No Hx Paralysis: No - HEENT Hx HEENT Problems: No - RENAL Hx Chronic Kidney Disease: Yes Other/Comment: NEPHROSTOMY TUBE - ENDOCRINE/METABOLIC Hx Endocrine Disorders: Yes Hx Diabetes Mellitus Type 2: Yes (pt denies.) - HEMATOLOGICAL/ONCOLOGICAL Hx Blood Disorders: Yes Hx Blood Transfusions: Yes Hx Blood Transfusion Reaction: No Hx Cancer: Yes (Prostate, Stomach.) Hx Metastesis: Yes - INTEGUMENTARY Hx Dermatological Problems: No - MUSCULOSKELETAL/RHEUMATOLOGICAL Hx Musculoskeletal Disorders: No Hx Falls: No - GASTROINTESTINAL Hx Gastrointestinal Disorders: Yes Hx Clostridium Difficile: Yes Other/Comment: Stomach Ca. - GENITOURINARY/GYNECOLOGICAL Hx Genitourinary Disorders: Yes Hx Prostate Cancer: Yes Hx Prostate Problems: Yes Hx Urinary Tract Infection: Yes - PSYCHIATRIC Hx Psychophysiologic Disorder: No Hx Substance Use: No - SURGICAL HISTORY Hx Surgeries: Yes Other/Comment: nephrostomy tube. - ANESTHESIA Hx Anesthesia: Yes Hx Anesthesia Reactions: No Hx Malignant Hyperthermia: No Meds Allergies/Adverse Reactions: Allergies Allergy/AdvReac Type Severity Reaction Status Date / Time No Known Allergies Allergy Verified 10/06/16 10:16 Physical Exam - Constitutional Appears: Well - Head Exam Head Exam: ATRAUMATIC, NORMAL INSPECTION, NORMOCEPHALIC - Eye Exam Eye Exam: EOMI, Normal appearance, PERRL Pupil Exam: NORMAL ACCOMODATION, PERRL - ENT Exam ENT Exam: Mucous Membranes Moist, Normal Exam - Neck Exam Neck exam: Positive for: Normal Inspection - Respiratory Exam Respiratory Exam: Decreased Breath Sounds - Cardiovascular Exam Cardiovascular Exam: REGULAR RHYTHM, +S1, +S2 - GI/Abdominal Exam GI & Abdominal Exam: Diminished Bowel Sounds, Soft - Rectal Exam Rectal Exam: Deferred Results - Vital Signs Recent Vital Signs: Last Vital Signs Temp 94 F L 12/06/16 15:10 Pulse 108 H 12/06/16 15:40 Resp 12 12/06/16 15:40 BP 89/64 L 12/06/16 15:40 Pulse Ox 100 12/06/16 15:20 - Labs Result Diagrams: 12/06/16 12:32 12/06/16 12:32 Labs: Laboratory Results - last 24 hr 12/06/16 12/06/16 12/06/16 13:22 13:26 13:50 POC Glucose (mg/dL) < 20 L* 39 L Urine Color Agnes Urine Clarity Hazy Urine pH 6.0 Ur Specific [place] 1.014 Urine Protein 2+ H Urine Glucose (UA) Normal Urine Ketones Negative Urine Blood 2+ H Urine Nitrate Positive H Urine Bilirubin Negative Urine Urobilinogen Normal Ur Leukocyte Esterase 3+ H Urine WBC (Auto) 109 H Urine RBC (Auto) 29 H Ur Squamous Epith Cells < 1 Urine Bacteria Occ H 12/06/16 12/06/16 12/06/16 14:25 16:14 16:43 POC Glucose (mg/dL) 115 H 39 L 149 H Urine Color Urine Clarity Urine pH Ur Specific [place] Urine Protein Urine Glucose (UA) Urine Ketones Urine Blood Urine Nitrate Urine Bilirubin Urine Urobilinogen Ur Leukocyte Esterase Urine WBC (Auto) Urine RBC (Auto) Ur Squamous Epith Cells Urine Bacteria
--- NOTE | 2016-12-06 19:02 | CP.PCM.CON ---
History of Present Illness - History of Present Illness History of Present Illness: 61-year-old male with a history of metastatic prostate cancer, bilateral hydronephrosis, nephrostomy tube, recurrent sepsis and septic shock, multiorgan failure multiple times. Patient had a cardiac arrest last time also intubated and extubated. Patient came to the emergency room today from care home after he sustained a cardiac arrest in the care home. After a prolonged CPR patient got pulse back. And brought to the emergency room. In the emergency room patient had another episode of brief asystolic arrest, given epinephrine. Patient is now on ventilator, comatose to. Nonresponsive. Poor gag reflex. Patient is not a DNR. Past medical history: Metastatic prostatic cancer, hydronephrosis, renal insufficiency, recurrent sepsis. Allergy: No known drug allergy Personal history nonsmoker. But patient is somewhat condition getting worse recently. Review of system noted from the chart and examination: Vital signs reviewed in Chest bilateral wheezing and rales noted regular heart sound. Abdomen distention noted. Edema bilaterally in the legs noted Labs reviewed Chest x-ray clear lungs noted. ET tube is slightly on the high side. Assessment and recommendation: 61-year-old male with history of metastatic prostate cancer, complicated with bilateral hydronephrosis renal insufficiency recurrent sepsis and septic shock admitted with cardiac arrest. Patient is currently asystolic cardiac arrest. On ventilator. Poor prognosis. Critical condition. Continue the supportive care. On antibiotic IV fluid resuscitation. Severe hypoglycemia likely secondary to sepsis. Patient also had hypocortisolism will start the patient on corticosteroids. Palliative care suggested Past Patient History - Infectious Disease Hx of Infectious Diseases: None - Past Medical History & Family History Past Medical History?: Yes - Past Social History Smoking Status: Former Smoker - CARDIAC Hx Cardiac Disorders: Yes Hx Hypertension: Yes Hx Pacemaker: No Hx Peripheral Edema: No - PULMONARY Hx Respiratory Disorders: No - NEUROLOGICAL Hx Neurological Disorder: No Hx Paralysis: No - HEENT Hx HEENT Problems: No - RENAL Hx Chronic Kidney Disease: Yes Other/Comment: NEPHROSTOMY TUBE - ENDOCRINE/METABOLIC Hx Endocrine Disorders: Yes Hx Diabetes Mellitus Type 2: Yes (pt denies.) - HEMATOLOGICAL/ONCOLOGICAL Hx Blood Disorders: Yes Hx Blood Transfusions: Yes Hx Blood Transfusion Reaction: No Hx Cancer: Yes (Prostate, Stomach.) Hx Metastesis: Yes - INTEGUMENTARY Hx Dermatological Problems: No - MUSCULOSKELETAL/RHEUMATOLOGICAL Hx Musculoskeletal Disorders: No Hx Falls: No - GASTROINTESTINAL Hx Gastrointestinal Disorders: Yes Hx Clostridium Difficile: Yes Other/Comment: Stomach Ca. - GENITOURINARY/GYNECOLOGICAL Hx Genitourinary Disorders: Yes Hx Prostate Cancer: Yes Hx Prostate Problems: Yes Hx Urinary Tract Infection: Yes - PSYCHIATRIC Hx Psychophysiologic Disorder: No Hx Substance Use: No - SURGICAL HISTORY Hx Surgeries: Yes Other/Comment: nephrostomy tube. - ANESTHESIA Hx Anesthesia: Yes Hx Anesthesia Reactions: No Hx Malignant Hyperthermia: No Meds Allergies/Adverse Reactions: Allergies Allergy/AdvReac Type Severity Reaction Status Date / Time No Known Allergies Allergy Verified 10/06/16 10:16 - Medications Medications: Current Medications Enoxaparin Sodium (Lovenox) 40 mg SC DAILY [facility] Dopamine HCl/Dextrose (Dopamine 400mg/250ml D5w) 400 mg in 250 mls @ 5.103 mls/ hr IV .Q24H PRN; Protocol; 2 MCG/KG/MIN PRN Reason: TITRATE PER MD ORDER Last Titration: 12/06/16 16:20 Dose: 20 mcg/kg/min, 51.029 mls/hr Dextrose (Dextrose 10% In Water) 1,000 mls @ 70 mls/hr IV .[id number] [facility] Last Admin: 12/06/16 17:33 Dose: 70 mls/hr Imipenem/Cilastatin Sodium 250 (mg/ Sodium Chloride) 100 mls @ 100 mls/hr IVPB Q8 [facility] Vancomycin HCl 1 gm/ Sodium (Chloride) 250 mls @ 166.7 mls/hr IVPB Q24H [facility] Results - Vital Signs Recent Vital Signs: Last Vital Signs Temp 98.5 F 12/06/16 17:10 Pulse 112 H 12/06/16 18:20 Resp 15 12/06/16 18:20 BP 104/69 12/06/16 18:07 Pulse Ox 100 12/06/16 18:20 - Labs Result Diagrams: 12/06/16 12:32 12/06/16 12:32 Labs: Laboratory Results - last 24 hr 12/06/16 12/06/16 12/06/16 13:22 13:26 13:50 POC Glucose (mg/dL) < 20 L* 39 L Urine Color Agnes Urine Clarity Hazy Urine pH 6.0 Ur Specific [place] 1.014 Urine Protein 2+ H Urine Glucose (UA) Normal Urine Ketones Negative Urine Blood 2+ H Urine Nitrate Positive H Urine Bilirubin Negative Urine Urobilinogen Normal Ur Leukocyte Esterase 3+ H Urine WBC (Auto) 109 H Urine RBC (Auto) 29 H Ur Squamous Epith Cells < 1 Urine Bacteria Occ H 12/06/16 12/06/16 12/06/16 14:25 16:14 16:43 POC Glucose (mg/dL) 115 H 39 L 149 H Urine Color Urine Clarity Urine pH Ur Specific [place] Urine Protein Urine Glucose (UA) Urine Ketones Urine Blood Urine Nitrate Urine Bilirubin Urine Urobilinogen Ur Leukocyte Esterase Urine WBC (Auto) Urine RBC (Auto) Ur Squamous Epith Cells Urine Bacteria
[2016-12-06] MEDS ORDERED: Sodium Chloride 0.9% 500 ML IV SCH (19:29)
[2016-12-06] MEDS: MethylPREDNISolone 40 mg Vial IVP SCH (21:51)
--- NOTE | 2016-12-06 21:56 | CP.PCM.CON ---
History of Present Illness - History of Present Illness History of Present Illness: 61-year-old male with a history of metastatic prostate cancer, bilateral hydronephrosis, nephrostomy tube, recurrent sepsis and septic shock, multiorgan failure multiple times. Patient had a cardiac arrest last time also intubated and extubated. [facility] after he sustained a cardiac arrest in the [facility]. After a prolonged CPR patient got pulse back. And brought to the emergency room. In the emergency room patient had another episode of brief asystolic arrest, given epinephrine. Patient is now on ventilator, comatose to. Nonresponsive. Poor gag reflex. Patient is not a DNR. Past medical history: Metastatic prostatic cancer, hydronephrosis, renal insufficiency, recurrent sepsis. Allergy: No known drug allergy Personal history nonsmoker. But patient is somewhat condition getting worse recently. Review of system noted from the chart and examination: Vital signs reviewed in Chest bilateral wheezing and rales noted regular heart sound. Abdomen distention noted. Edema bilaterally in the legs noted Labs reviewed Chest x-ray clear lungs noted. ET tube is slightly on the high side. Assessment and recommendation: 61-year-old male with history of metastatic prostate cancer, complicated with bilateral hydronephrosis renal insufficiency recurrent sepsis and septic shock admitted with cardiac arrest. Patient is currently asystolic cardiac arrest. On ventilator. Poor prognosis. Critical condition. Continue the supportive care. On antibiotic IV fluid resuscitation. Severe hypoglycemia likely secondary to sepsis. Patient also had hypocortisolism will start the patient on corticosteroids. Palliative care suggested Past Patient History - Infectious Disease Hx of Infectious Diseases: None - Past Medical History & Family History Past Medical History?: Yes - Past Social History Smoking Status: Former Smoker - CARDIAC Hx Cardiac Disorders: Yes Hx Hypertension: Yes Hx Pacemaker: No Hx Peripheral Edema: No - PULMONARY Hx Respiratory Disorders: No - NEUROLOGICAL Hx Neurological Disorder: No Hx Paralysis: No - HEENT Hx HEENT Problems: No - RENAL Hx Chronic Kidney Disease: Yes Other/Comment: NEPHROSTOMY TUBE - ENDOCRINE/METABOLIC Hx Endocrine Disorders: Yes Hx Diabetes Mellitus Type 2: Yes (pt denies.) - HEMATOLOGICAL/ONCOLOGICAL Hx Blood Disorders: Yes Hx Blood Transfusions: Yes Hx Blood Transfusion Reaction: No Hx Cancer: Yes (Prostate, Stomach.) Hx Metastesis: Yes - INTEGUMENTARY Hx Dermatological Problems: No - MUSCULOSKELETAL/RHEUMATOLOGICAL Hx Musculoskeletal Disorders: No Hx Falls: No - GASTROINTESTINAL Hx Gastrointestinal Disorders: Yes Hx Clostridium Difficile: Yes Other/Comment: Stomach Ca. - GENITOURINARY/GYNECOLOGICAL Hx Genitourinary Disorders: Yes Hx Prostate Cancer: Yes Hx Prostate Problems: Yes Hx Urinary Tract Infection: Yes - PSYCHIATRIC Hx Psychophysiologic Disorder: No Hx Substance Use: No - SURGICAL HISTORY Hx Surgeries: Yes Other/Comment: nephrostomy tube. - ANESTHESIA Hx Anesthesia: Yes Hx Anesthesia Reactions: No Hx Malignant Hyperthermia: No Meds Allergies/Adverse Reactions: Allergies Allergy/AdvReac Type Severity Reaction Status Date / Time No Known Allergies Allergy Verified 10/06/16 10:16 - Medications Medications: Current Medications Enoxaparin Sodium (Lovenox) 40 mg SC DAILY [facility] Dextrose (Dextrose 10% In Water) 1,000 mls @ 70 mls/hr IV .[id number] [facility] Last Admin: 12/06/16 17:33 Dose: 70 mls/hr Imipenem/Cilastatin Sodium 250 (mg/ Sodium Chloride) 100 mls @ 100 mls/hr IVPB Q8 [facility] Vancomycin HCl 1 gm/ Sodium (Chloride) 250 mls @ 166.7 mls/hr IVPB Q24H [facility] Last Admin: 12/06/16 19:57 Dose: 166.7 mls/hr Dopamine HCl/Dextrose (Dopamine 400mg/250ml D5w) 400 mg in 250 mls @ 40.823 mls /hr IV .Q6H8M PRN; Protocol; 20 MCG/KG/MIN PRN Reason: TITRATE PER MD ORDER Last Admin: 12/06/16 20:30 Dose: 20 mcg/kg/min, 40.823 mls/hr Tigecycline 100 mg/ Sodium (Chloride) 100 mls @ 100 mls/hr IVPB ONCE ONE Stop: 12/06/16 22:21 Last Admin: 12/06/16 21:50 Dose: 100 mls/hr Tigecycline 50 mg/ Sodium (Chloride) 100 mls @ 100 mls/hr IVPB Q12H [facility] Methylprednisolone (Solu-Medrol) 40 mg IVP Q8 [facility] Last Admin: 12/06/16 21:51 Dose: 40 mg Results - Vital Signs Recent Vital Signs: Last Vital Signs Temp 97.5 F L 12/06/16 20:00 Pulse 117 H 12/06/16 20:58 Resp 15 12/06/16 20:58 BP 90/56 L 12/06/16 20:58 Pulse Ox 99 12/06/16 20:58 - Labs Result Diagrams: 12/07/16 03:53 12/07/16 03:53 Labs: Laboratory Results - last 24 hr 12/06/16 12/06/16 12/06/16 13:22 13:26 13:50 POC Glucose (mg/dL) < 20 L* 39 L Urine Color Agnes Urine Clarity Hazy Urine pH 6.0 Ur Specific Patriot 1.014 Urine Protein 2+ H Urine Glucose (UA) Normal Urine Ketones Negative Urine Blood 2+ H Urine Nitrate Positive H Urine Bilirubin Negative Urine Urobilinogen Normal Ur Leukocyte Esterase 3+ H Urine WBC (Auto) 109 H Urine RBC (Auto) 29 H Ur Squamous Epith Cells < 1 Urine Bacteria Occ H 12/06/16 12/06/16 12/06/16 14:25 16:14 16:43 POC Glucose (mg/dL) 115 H 39 L 149 H Urine Color Urine Clarity Urine pH Ur Specific Patriot Urine Protein Urine Glucose (UA) Urine Ketones Urine Blood Urine Nitrate Urine Bilirubin Urine Urobilinogen Ur Leukocyte Esterase Urine WBC (Auto) Urine RBC (Auto) Ur Squamous Epith Cells Urine Bacteria 12/06/16 21:23 POC Glucose (mg/dL) 105 Urine Color Urine Clarity Urine pH Ur Specific Patriot Urine Protein Urine Glucose (UA) Urine Ketones Urine Blood Urine Nitrate Urine Bilirubin Urine Urobilinogen Ur Leukocyte Esterase Urine WBC (Auto) Urine RBC (Auto) Ur Squamous Epith Cells Urine Bacteria
[2016-12-06] MEDS ORDERED: MethylPREDNISolone 40 mg Vial IVP SCH (22:00)
[2016-12-06] MEDS: Imipenem/Cilastatin 250 MG in Sodium Chloride 100 ML IVPB SCH (22:31)
[2016-12-07 03:58] LABS: BASO # 0.1 K/uL (0.0-0.2); BASO % 0.5 % (0.0-2.0); EOS % 0.2 % (0.0-4.0); HEMATOCRIT 29.8 % (35.0-51.0); LYMPH # 0.3 K/uL (1.0-4.3); LYMPH % 1.4 % (20.0-40.0); MEAN CELL VOLUME 92.8 fL (80.0-94.0); MEAN CORPUSCULAR HEMOGLOBIN 29.9 pg (27.0-31.0); MEAN CORPUSCULAR HGB CONC 32.2 g/dL (33.0-37.0); MONO # 0.3 K/uL (0.0-0.8); MONO % 1.4 % (0.0-10.0); PLATELET COUNT 175 K/uL (130-400); RED CELL DISTRIBUTION WIDTH 18.7 % (11.5-14.5); WHITE BLOOD COUNT 21.6 K/uL (4.8-10.8)
[2016-12-07 04:06] LABS: POTASSIUM 3.8 mmol/L (3.6-5.2)
[2016-12-07 04:09] LABS: ALB/GLOB RATIO 0.7 (1.0-2.1); BILIRUBIN,TOTAL 2.7 mg/dL (0.2-1.3); TOTAL PROTEIN 5.3 g/dL (6.3-8.3)
[2016-12-07 04:10] LABS: PHOSPHOROUS 4.8 mg/dL (2.5-4.5)
[2016-12-07 04:17] LABS: MAGNESIUM 0.8 mg/dL (1.6-2.3)
[2016-12-07] MEDS ORDERED: Calcium Chloride 1000 mg/10 ml Syringe IV ONE (04:22)
[2016-12-07] MEDS: Magnesium Sulfate 1 gm in D5W 1 GM/100 ML BAG IVPB SCH ×4 (04:38→05:51)
[2016-12-07 05:06] LABS: NEUTROPHIL 87 % (50-75); TOTAL CELLS COUNTED 100
[2016-12-07 05:46] LABS: ABG MECHANICAL RATE 14; ARTERIAL BLOOD HGB O2 SAT 95.7 % (95.0-98.0); ATERIAL BLOOD GAS PEEP 5; CARBOXYHEMOGLOBIN 1.2 % (0.5-1.5); DRAW SITE L BRACH; HHB 0.3 % (0.0-5.0); METHEMOGLOBIN 2.8 % (0.0-3.0)
[2016-12-07] MEDS: MethylPREDNISolone 40 mg Vial IVP SCH ×2 (05:52→13:09)
[2016-12-07] MEDS: Imipenem/Cilastatin 250 MG in Sodium Chloride 100 ML IVPB SCH (05:52)
--- NOTE | 2016-12-07 08:23 | RAD ---
Chest x-ray single frontal view History: Ventilator. Comparison: 12/06/2016 Findings: Endotracheal tube extending into the mid thoracic trachea. Multiple overlying external wires and devices. Mild venous congestion. Right midlung atelectasis. Biapical pleural thickening with upper lobe granulomatous changes. Patchy increased markings at the left lung base. Heart size within normal limits. Scoliotic curvature of the spine. Degenerative changes in the bilateral shoulders. Impression: Endotracheal tube extending into the mid thoracic trachea. Multiple overlying external wires and devices. Mild venous congestion. Right midlung atelectasis. Biapical pleural thickening with upper lobe granulomatous changes. Patchy increased markings at the left lung base.
--- NOTE | 2016-12-07 08:54 | CP.CCUPN ---
CCU Subjective - Physician Review Subjective (Free Text): 12/07/16 14:54 Patient seen and examined at bedside. Patient was intubated on vent (14, 50, 450, 5) Patient is comatose and unresponsive with poor gag reflex [facility] palliative care spoke to sister at bedside regarding poor prognosis and critical condition It was decided that patient is to be terminally extubated this afternoon. CCU Objective - Vital Signs / Intake & Output Vital Signs (Last 4 hours): Vital Signs Pulse Resp BP Pulse Ox 12/07/16 08:30 123 H 19 97 12/07/16 08:15 109 H 14 96 12/07/16 08:10 123 H 19 87/59 L 96 12/07/16 08:00 123 H 20 95 12/07/16 07:45 115 H 18 97 12/07/16 07:10 121 H 16 90/61 L 98 12/07/16 07:00 121 H 19 98 12/07/16 06:30 113 H 19 99 12/07/16 06:01 122 H 19 92/63 L 96 12/07/16 05:46 116 H 18 91/61 L 97 12/07/16 05:31 125 H 20 93/62 L 97 12/07/16 05:16 125 H 21 94/65 L 97 12/07/16 05:01 128 H 20 102/69 96 Intake and Output (Last 8hrs): Intake & Output 12/06/16 12/07/16 12/07/16 22:59 06:59 14:59 Intake Total 970.4 1426.1 204 Output Total 100 0 30 Balance 870.4 1426.1 174 Weight 120 lb 117 lb 6.4 oz Intake: IV 133 117.1 Intake, IV Amount 837.4 1309.0 204 Right Distal Port PICC 120 546.5 Right PICC 107.4 202.5 64 Rt PICC 610 560 140 Oral 0 Output: Drainage 100 0 30 Right Nephrostomy Tube 100 0 30 - Physical Exam Head: Positive for: Atraumatic, Normocephalic Pupils: Positive for: Non-Reactive Conjunctiva: Positive for: Normal. Negative for: Injected, Icteric Respiratory/Chest: Positive for: Wheezes, Rales Cardiovascular: Positive for: Regular Rate and Rhythm, Normal S1, S2 Abdomen: Positive for: Distention Lower Extremity: Positive for: Edema Neurological: Positive for: Other (nonresponsive; poor gag reflex; comatose). Negative for: GCS=15, CN II-XII Intact, Speech Normal, Motor Func Grossly Intact , Normal Sensory Function, Normal Cerebellar Funct Skin: Positive for: Warm, Dry, Normal Color Psychiatric: Negative for: Alert, Oriented x 3, Normal Insight, Normal Concentration - Medications Active Medications: Active Medications Generic Name Dose Route Start Last Admin Trade Name Freq PRN Reason Stop Dose Admin Enoxaparin Sodium 40 mg 12/07/16 10:00 Lovenox SC DAILY PAOLA Dextrose 1,000 mls @ 70 mls/hr 12/06/16 17:02 12/06/16 17:33 Dextrose 10% In Water IV 70 mls/hr .[id number] PAOLA Administration Imipenem/Cilastatin Sodium 250 100 mls @ 100 mls/hr 12/06/16 22:00 12/07/16 05:52 mg/ Sodium Chloride IVPB 100 mls/hr Q8 PAOLA Administration Vancomycin HCl 1 gm/ Sodium 250 mls @ 166.7 mls/hr 12/06/16 20:00 12/06/16 19 :57 Chloride IVPB 166.7 mls/hr Q24H PAOLA Administration Dopamine HCl/Dextrose 400 mg in 250 mls @ 40.823 mls/hr 12/06/16 20:18 00:30 Dopamine 400mg/250ml D5w IV 5 mcg/kg/min .Q6H8M PRN 10.206 mls/hr TITRATE PER MD ORDER Titration Protocol 20 MCG/KG/MIN Tigecycline 50 mg/ Sodium 100 mls @ 100 mls/hr 12/07/16 10:00 Chloride IVPB Q12H PAOLA Norepinephrine Bitartrate 8 mg 258 mls @ 7.74 mls/hr 12/06/16 22:09 12/07/16 02:30 / Dextrose IV 17 mcg/min .Q24H PRN 32.89 mls/hr TITRATE PER MD ORDER Titration Protocol 4 MCG/MIN Methylprednisolone 40 mg 12/06/16 22:00 12/07/16 05:52 Solu-Medrol IVP 40 mg Q8 PAOLA Administration - Patient Studies Lab Studies: Lab Studies 12/07/16 12/07/16 12/07/16 Range/Units 07:24 07:00 05:07 WBC (4.8-10.8) K/uL RBC (4.40-5.90) Mil/uL Hgb (12.0-18.0) g/dL Hct (35.0-51.0) % MCV (80.0-94.0) fL MCH (27.0-31.0) pg MCHC (33.0-37.0) g/dL RDW (11.5-14.5) % Plt Count (130-400) K/uL MPV (7.2-11.7) fL Neut % (Auto) (50.0-75.0) % Lymph % (Auto) (20.0-40.0) % [place] % (Auto) (0.0-10.0) % Eos % (Auto) (0.0-4.0) % Baso % (Auto) (0.0-2.0) % Neut # (1.8-7.0) K/uL Lymph # (1.0-4.3) K/uL [place] # (0.0-0.8) K/uL Eos # (0.0-0.7) K/uL Baso # (0.0-0.2) K/uL Neutrophils % (Manual) (50-75) % Band Neutrophils % (0-2) % Lymphocytes % (Manual) (20-40) % Monocytes % (Manual) (0-10) % Platelet Estimate (NORMAL) Poikilocytosis (manual Anisocytosis (manual) Puncture Site L brach pCO2 25 L (35-45) mm/Hg pO2 213 H (80-100) mm/Hg HCO3 15.3 L (21-28) mmol/L ABG pH 7.31 L (7.35-7.45) ABG Total CO2 13.4 L (22-28) mmol/L ABG O2 Saturation 99.7 H (95-98) % ABG Base Excess -12.3 L (-2.0-3.0) mmol/L ABG Hemoglobin 9.2 L (11.7-17.4) g/dL ABG Carboxyhemoglobin 1.2 (0.5-1.5) % POC ABG HHb (Measured) 0.3 (0.0-5.0) % ABG Methemoglobin 2.8 (0.0-3.0) % Josh Test Na A-a O2 Difference 112.0 mm/Hg Respiratory Index 0.5 Hgb O2 Saturation 95.7 (95.0-98.0) % Mechanical Rate 14 FiO2 50.0 % Tidal Volume 450 PEEP 5 Sodium (132-148) mmol/L Potassium (3.6-5.2) mmol/L Chloride (98-107) mmol/L Carbon Dioxide (22-30) mmol/L Anion Gap (10-20) BUN (9-20) mg/dL Creatinine (0.8-1.5) MG/DL Est GFR ( Amer) Est GFR (Non-Af Amer) POC Glucose (mg/dL) 127 H (65-110) mg/dL Random Glucose (75-110) mg/dL Lactic Acid 5.0 H* (0.7-2.1) mmol/L Calcium (8.6-10.4) mg/dl Phosphorus (2.5-4.5) mg/dL Magnesium (1.6-2.3) mg/dL Total Bilirubin (0.2-1.3) mg/dL AST (17-59) U/L ALT (21-72) U/L Alkaline Phosphatase (38-126) U/L Total Protein (6.3-8.3) g/dL Albumin (3.5-5.0) g/dL Globulin (2.2-3.9) gm/dL Albumin/Globulin Ratio (1.0-2.1) Urine Color (YELLOW) Urine Clarity (Clear) Urine pH (5.0-8.0) Ur Specific [place] (1.003-1.030) Urine Protein (NEGATIVE) mg/dL Urine Glucose (UA) (Normal) mg/dL Urine Ketones (NEGATIVE) mg/dL Urine Blood (NEGATIVE) Urine Nitrate (NEGATIVE) Urine Bilirubin (NEGATIVE) Urine Urobilinogen (0.2-1.0) mg/dL Ur Leukocyte Esterase (Negative) Veronique/uL Urine WBC (Auto) (0-5) /hpf Urine RBC (Auto) (0-3) /hpf Ur Squamous Epith Cells (0-5) /hpf Urine Bacteria (<OCC) 12/07/16 12/07/16 12/07/16 Range/Units 03:53 03:53 00:12 WBC 21.6 H D (4.8-10.8) K/uL RBC 3.21 L (4.40-5.90) Mil/uL Hgb 9.6 L (12.0-18.0) g/dL Hct 29.8 L (35.0-51.0) % MCV 92.8 D (80.0-94.0) fL MCH 29.9 (27.0-31.0) pg MCHC 32.2 L (33.0-37.0) g/dL RDW 18.7 H (11.5-14.5) % Plt Count 175 (130-400) K/uL MPV 9.0 (7.2-11.7) fL Neut % (Auto) 96.5 H (50.0-75.0) % Lymph % (Auto) 1.4 L (20.0-40.0) % [place] % (Auto) 1.4 (0.0-10.0) % Eos % (Auto) 0.2 (0.0-4.0) % Baso % (Auto) 0.5 (0.0-2.0) % Neut # 20.9 H (1.8-7.0) K/uL Lymph # 0.3 L (1.0-4.3) K/uL [place] # 0.3 (0.0-0.8) K/uL Eos # 0.0 (0.0-0.7) K/uL Baso # 0.1 (0.0-0.2) K/uL Neutrophils % (Manual) 87 H (50-75) % Band Neutrophils % 11 H* (0-2) % Lymphocytes % (Manual) 1 L (20-40) % Monocytes % (Manual) 1 (0-10) % Platelet Estimate Normal (NORMAL) Poikilocytosis (manual Slight Anisocytosis (manual) Moderate Puncture Site pCO2 (35-45) mm/Hg pO2 (80-100) mm/Hg HCO3 (21-28) mmol/L ABG pH (7.35-7.45) ABG Total CO2 (22-28) mmol/L ABG O2 Saturation (95-98) % ABG Base Excess (-2.0-3.0) mmol/L ABG Hemoglobin (11.7-17.4) g/dL ABG Carboxyhemoglobin (0.5-1.5) % POC ABG HHb (Measured) (0.0-5.0) % ABG Methemoglobin (0.0-3.0) % Josh Test A-a O2 Difference mm/Hg Respiratory Index Hgb O2 Saturation (95.0-98.0) % Mechanical Rate FiO2 % Tidal Volume PEEP Sodium 130 L (132-148) mmol/L Potassium 3.8 (3.6-5.2) mmol/L Chloride 98 (98-107) mmol/L Carbon Dioxide 15 L (22-30) mmol/L Anion Gap 21 H (10-20) BUN 37 H (9-20) mg/dL Creatinine 1.8 H (0.8-1.5) MG/DL Est GFR ( Amer) 47 Est GFR (Non-Af Amer) 39 POC Glucose (mg/dL) 186 H (65-110) mg/dL Random Glucose 194 H (75-110) mg/dL Lactic Acid (0.7-2.1) mmol/L Calcium 5.0 L* (8.6-10.4) mg/dl Phosphorus 4.8 H (2.5-4.5) mg/dL Magnesium 0.8 L* D (1.6-2.3) mg/dL Total Bilirubin 2.7 H (0.2-1.3) mg/dL AST 9391 H (17-59) U/L ALT 2977 H (21-72) U/L Alkaline Phosphatase 233 H D (38-126) U/L Total Protein 5.3 L (6.3-8.3) g/dL Albumin 2.2 L (3.5-5.0) g/dL Globulin 3.1 (2.2-3.9) gm/dL Albumin/Globulin Ratio 0.7 L (1.0-2.1) Urine Color (YELLOW) Urine Clarity (Clear) Urine pH (5.0-8.0) Ur Specific [place] (1.003-1.030) Urine Protein (NEGATIVE) mg/dL Urine Glucose (UA) (Normal) mg/dL Urine Ketones (NEGATIVE) mg/dL Urine Blood (NEGATIVE) Urine Nitrate (NEGATIVE) Urine Bilirubin (NEGATIVE) Urine Urobilinogen (0.2-1.0) mg/dL Ur Leukocyte Esterase (Negative) Veronique/uL Urine WBC (Auto) (0-5) /hpf Urine RBC (Auto) (0-3) /hpf Ur Squamous Epith Cells (0-5) /hpf Urine Bacteria (<OCC) 12/06/16 12/06/16 12/06/16 Range/Units 21:23 16:43 16:14 WBC (4.8-10.8) K/uL RBC (4.40-5.90) Mil/uL Hgb (12.0-18.0) g/dL Hct (35.0-51.0) % MCV (80.0-94.0) fL MCH (27.0-31.0) pg MCHC (33.0-37.0) g/dL RDW (11.5-14.5) % Plt Count (130-400) K/uL MPV (7.2-11.7) fL Neut % (Auto) (50.0-75.0) % Lymph % (Auto) (20.0-40.0) % [place] % (Auto) (0.0-10.0) % Eos % (Auto) (0.0-4.0) % Baso % (Auto) (0.0-2.0) % Neut # (1.8-7.0) K/uL Lymph # (1.0-4.3) K/uL [place] # (0.0-0.8) K/uL Eos # (0.0-0.7) K/uL Baso # (0.0-0.2) K/uL Neutrophils % (Manual) (50-75) % Band Neutrophils % (0-2) % Lymphocytes % (Manual) (20-40) % Monocytes % (Manual) (0-10) % Platelet Estimate (NORMAL) Poikilocytosis (manual Anisocytosis (manual) Puncture Site pCO2 (35-45) mm/Hg pO2 (80-100) mm/Hg HCO3 (21-28) mmol/L ABG pH (7.35-7.45) ABG Total CO2 (22-28) mmol/L ABG O2 Saturation (95-98) % ABG Base Excess (-2.0-3.0) mmol/L ABG Hemoglobin (11.7-17.4) g/dL ABG Carboxyhemoglobin (0.5-1.5) % POC ABG HHb (Measured) (0.0-5.0) % ABG Methemoglobin (0.0-3.0) % Josh Test A-a O2 Difference mm/Hg Respiratory Index Hgb O2 Saturation (95.0-98.0) % Mechanical Rate FiO2 % Tidal Volume PEEP Sodium (132-148) mmol/L Potassium (3.6-5.2) mmol/L Chloride (98-107) mmol/L Carbon Dioxide (22-30) mmol/L Anion Gap (10-20) BUN (9-20) mg/dL Creatinine (0.8-1.5) MG/DL Est GFR ( Amer) Est GFR (Non-Af Amer) POC Glucose (mg/dL) 105 149 H 39 L (65-110) mg/dL Random Glucose (75-110) mg/dL Lactic Acid (0.7-2.1) mmol/L Calcium (8.6-10.4) mg/dl Phosphorus (2.5-4.5) mg/dL Magnesium (1.6-2.3) mg/dL Total Bilirubin (0.2-1.3) mg/dL AST (17-59) U/L ALT (21-72) U/L Alkaline Phosphatase (38-126) U/L Total Protein (6.3-8.3) g/dL Albumin (3.5-5.0) g/dL Globulin (2.2-3.9) gm/dL Albumin/Globulin Ratio (1.0-2.1) Urine Color (YELLOW) Urine Clarity (Clear) Urine pH (5.0-8.0) Ur Specific [place] (1.003-1.030) Urine Protein (NEGATIVE) mg/dL Urine Glucose (UA) (Normal) mg/dL Urine Ketones (NEGATIVE) mg/dL Urine Blood (NEGATIVE) Urine Nitrate (NEGATIVE) Urine Bilirubin (NEGATIVE) Urine Urobilinogen (0.2-1.0) mg/dL Ur Leukocyte Esterase (Negative) Veronique/uL Urine WBC (Auto) (0-5) /hpf Urine RBC (Auto) (0-3) /hpf Ur Squamous Epith Cells (0-5) /hpf Urine Bacteria (<OCC) 12/06/16 12/06/16 12/06/16 Range/Units 14:25 13:50 13:26 WBC (4.8-10.8) K/uL RBC (4.40-5.90) Mil/uL Hgb (12.0-18.0) g/dL Hct (35.0-51.0) % MCV (80.0-94.0) fL MCH (27.0-31.0) pg MCHC (33.0-37.0) g/dL RDW (11.5-14.5) % Plt Count (130-400) K/uL MPV (7.2-11.7) fL Neut % (Auto) (50.0-75.0) % Lymph % (Auto) (20.0-40.0) % [place] % (Auto) (0.0-10.0) % Eos % (Auto) (0.0-4.0) % Baso % (Auto) (0.0-2.0) % Neut # (1.8-7.0) K/uL Lymph # (1.0-4.3) K/uL [place] # (0.0-0.8) K/uL Eos # (0.0-0.7) K/uL Baso # (0.0-0.2) K/uL Neutrophils % (Manual) (50-75) % Band Neutrophils % (0-2) % Lymphocytes % (Manual) (20-40) % Monocytes % (Manual) (0-10) % Platelet Estimate (NORMAL) Poikilocytosis (manual Anisocytosis (manual) Puncture Site pCO2 (35-45) mm/Hg pO2 (80-100) mm/Hg HCO3 (21-28) mmol/L ABG pH (7.35-7.45) ABG Total CO2 (22-28) mmol/L ABG O2 Saturation (95-98) % ABG Base Excess (-2.0-3.0) mmol/L ABG Hemoglobin (11.7-17.4) g/dL ABG Carboxyhemoglobin (0.5-1.5) % POC ABG HHb (Measured) (0.0-5.0) % ABG Methemoglobin (0.0-3.0) % Josh Test A-a O2 Difference mm/Hg Respiratory Index Hgb O2 Saturation (95.0-98.0) % Mechanical Rate FiO2 % Tidal Volume PEEP Sodium (132-148) mmol/L Potassium (3.6-5.2) mmol/L Chloride (98-107) mmol/L Carbon Dioxide (22-30) mmol/L Anion Gap (10-20) BUN (9-20) mg/dL Creatinine (0.8-1.5) MG/DL Est GFR ( Amer) Est GFR (Non-Af Amer) POC Glucose (mg/dL) 115 H 39 L < 20 L* (65-110) mg/dL Random Glucose (75-110) mg/dL Lactic Acid (0.7-2.1) mmol/L Calcium (8.6-10.4) mg/dl Phosphorus (2.5-4.5) mg/dL Magnesium (1.6-2.3) mg/dL Total Bilirubin (0.2-1.3) mg/dL AST (17-59) U/L ALT (21-72) U/L Alkaline Phosphatase (38-126) U/L Total Protein (6.3-8.3) g/dL Albumin (3.5-5.0) g/dL Globulin (2.2-3.9) gm/dL Albumin/Globulin Ratio (1.0-2.1) Urine Color (YELLOW) Urine Clarity (Clear) Urine pH (5.0-8.0) Ur Specific [place] (1.003-1.030) Urine Protein (NEGATIVE) mg/dL Urine Glucose (UA) (Normal) mg/dL Urine Ketones (NEGATIVE) mg/dL Urine Blood (NEGATIVE) Urine Nitrate (NEGATIVE) Urine Bilirubin (NEGATIVE) Urine Urobilinogen (0.2-1.0) mg/dL Ur Leukocyte Esterase (Negative) Veronique/uL Urine WBC (Auto) (0-5) /hpf Urine RBC (Auto) (0-3) /hpf Ur Squamous Epith Cells (0-5) /hpf Urine Bacteria (<OCC) 12/06/16 Range/Units 13:22 WBC (4.8-10.8) K/uL RBC (4.40-5.90) Mil/uL Hgb (12.0-18.0) g/dL Hct (35.0-51.0) % MCV (80.0-94.0) fL MCH (27.0-31.0) pg MCHC (33.0-37.0) g/dL RDW (11.5-14.5) % Plt Count (130-400) K/uL MPV (7.2-11.7) fL Neut % (Auto) (50.0-75.0) % Lymph % (Auto) (20.0-40.0) % [place] % (Auto) (0.0-10.0) % Eos % (Auto) (0.0-4.0) % Baso % (Auto) (0.0-2.0) % Neut # (1.8-7.0) K/uL Lymph # (1.0-4.3) K/uL [place] # (0.0-0.8) K/uL Eos # (0.0-0.7) K/uL Baso # (0.0-0.2) K/uL Neutrophils % (Manual) (50-75) % Band Neutrophils % (0-2) % Lymphocytes % (Manual) (20-40) % Monocytes % (Manual) (0-10) % Platelet Estimate (NORMAL) Poikilocytosis (manual Anisocytosis (manual) Puncture Site pCO2 (35-45) mm/Hg pO2 (80-100) mm/Hg HCO3 (21-28) mmol/L ABG pH (7.35-7.45) ABG Total CO2 (22-28) mmol/L ABG O2 Saturation (95-98) % ABG Base Excess (-2.0-3.0) mmol/L ABG Hemoglobin (11.7-17.4) g/dL ABG Carboxyhemoglobin (0.5-1.5) % POC ABG HHb (Measured) (0.0-5.0) % ABG Methemoglobin (0.0-3.0) % Josh Test A-a O2 Difference mm/Hg Respiratory Index Hgb O2 Saturation (95.0-98.0) % Mechanical Rate FiO2 % Tidal Volume PEEP Sodium (132-148) mmol/L Potassium (3.6-5.2) mmol/L Chloride (98-107) mmol/L Carbon Dioxide (22-30) mmol/L Anion Gap (10-20) BUN (9-20) mg/dL Creatinine (0.8-1.5) MG/DL Est GFR ( Amer) Est GFR (Non-Af Amer) POC Glucose (mg/dL) (65-110) mg/dL Random Glucose (75-110) mg/dL Lactic Acid (0.7-2.1) mmol/L Calcium (8.6-10.4) mg/dl Phosphorus (2.5-4.5) mg/dL Magnesium (1.6-2.3) mg/dL Total Bilirubin (0.2-1.3) mg/dL AST (17-59) U/L ALT (21-72) U/L Alkaline Phosphatase (38-126) U/L Total Protein (6.3-8.3) g/dL Albumin (3.5-5.0) g/dL Globulin (2.2-3.9) gm/dL Albumin/Globulin Ratio (1.0-2.1) Urine Color Agnes (YELLOW) Urine Clarity Hazy (Clear) Urine pH 6.0 (5.0-8.0) Ur Specific [place] 1.014 (1.003-1.030) Urine Protein 2+ H (NEGATIVE) mg/dL Urine Glucose (UA) Normal (Normal) mg/dL Urine Ketones Negative (NEGATIVE) mg/dL Urine Blood 2+ H (NEGATIVE) Urine Nitrate Positive H (NEGATIVE) Urine Bilirubin Negative (NEGATIVE) Urine Urobilinogen Normal (0.2-1.0) mg/dL Ur Leukocyte Esterase 3+ H (Negative) Veronique/uL Urine WBC (Auto) 109 H (0-5) /hpf Urine RBC (Auto) 29 H (0-3) /hpf Ur Squamous Epith Cells < 1 (0-5) /hpf Urine Bacteria Occ H (<OCC) Laboratory Results - last 24 hr 12/06/16 12/06/16 12/06/16 13:22 13:26 13:50 WBC RBC Hgb Hct MCV MCH MCHC RDW Plt Count MPV Neut % (Auto) Lymph % (Auto) [place] % (Auto) Eos % (Auto) Baso % (Auto) Neut # Lymph # [place] # Eos # Baso # Neutrophils % (Manual) Band Neutrophils % Lymphocytes % (Manual) Monocytes % (Manual) Platelet Estimate Poikilocytosis (manual Anisocytosis (manual) Puncture Site pCO2 pO2 HCO3 ABG pH ABG Total CO2 ABG O2 Saturation ABG Base Excess ABG Hemoglobin ABG Carboxyhemoglobin POC ABG HHb (Measured) ABG Methemoglobin Josh Test A-a O2 Difference Respiratory Index Hgb O2 Saturation Mechanical Rate FiO2 Tidal Volume PEEP Sodium Potassium Chloride Carbon Dioxide Anion Gap BUN Creatinine Est GFR ( Amer) Est GFR (Non-Af Amer) POC Glucose (mg/dL) < 20 L* 39 L Random Glucose Lactic Acid Calcium Phosphorus Magnesium Total Bilirubin AST ALT Alkaline Phosphatase Total Protein Albumin Globulin Albumin/Globulin Ratio Urine Color Agnes Urine Clarity Hazy Urine pH 6.0 Ur Specific [place] 1.014 Urine Protein 2+ H Urine Glucose (UA) Normal Urine Ketones Negative Urine Blood 2+ H Urine Nitrate Positive H Urine Bilirubin Negative Urine Urobilinogen Normal Ur Leukocyte Esterase 3+ H Urine WBC (Auto) 109 H Urine RBC (Auto) 29 H Ur Squamous Epith Cells < 1 Urine Bacteria Occ H 12/06/16 12/06/16 12/06/16 14:25 16:14 16:43 WBC RBC Hgb Hct MCV MCH MCHC RDW Plt Count MPV Neut % (Auto) Lymph % (Auto) [place] % (Auto) Eos % (Auto) Baso % (Auto) Neut # Lymph # [place] # Eos # Baso # Neutrophils % (Manual) Band Neutrophils % Lymphocytes % (Manual) Monocytes % (Manual) Platelet Estimate Poikilocytosis (manual Anisocytosis (manual) Puncture Site pCO2 pO2 HCO3 ABG pH ABG Total CO2 ABG O2 Saturation ABG Base Excess ABG Hemoglobin ABG Carboxyhemoglobin POC ABG HHb (Measured) ABG Methemoglobin Josh Test A-a O2 Difference Respiratory Index Hgb O2 Saturation Mechanical Rate FiO2 Tidal Volume PEEP Sodium Potassium Chloride Carbon Dioxide Anion Gap BUN Creatinine Est GFR ( Amer) Est GFR (Non-Af Amer) POC Glucose (mg/dL) 115 H 39 L 149 H Random Glucose Lactic Acid Calcium Phosphorus Magnesium Total Bilirubin AST ALT Alkaline Phosphatase Total Protein Albumin Globulin Albumin/Globulin Ratio Urine Color Urine Clarity Urine pH Ur Specific [place] Urine Protein Urine Glucose (UA) Urine Ketones Urine Blood Urine Nitrate Urine Bilirubin Urine Urobilinogen Ur Leukocyte Esterase Urine WBC (Auto) Urine RBC (Auto) Ur Squamous Epith Cells Urine Bacteria 12/06/16 12/07/16 12/07/16 21:23 00:12 03:53 WBC 21.6 H D RBC 3.21 L Hgb 9.6 L Hct 29.8 L MCV 92.8 D MCH 29.9 MCHC 32.2 L RDW 18.7 H Plt Count 175 MPV 9.0 Neut % (Auto) 96.5 H Lymph % (Auto) 1.4 L [place] % (Auto) 1.4 Eos % (Auto) 0.2 Baso % (Auto) 0.5 Neut # 20.9 H Lymph # 0.3 L [place] # 0.3 Eos # 0.0 Baso # 0.1 Neutrophils % (Manual) 87 H Band Neutrophils % 11 H* Lymphocytes % (Manual) 1 L Monocytes % (Manual) 1 Platelet Estimate Normal Poikilocytosis (manual Slight Anisocytosis (manual) Moderate Puncture Site pCO2 pO2 HCO3 ABG pH ABG Total CO2 ABG O2 Saturation ABG Base Excess ABG Hemoglobin ABG Carboxyhemoglobin POC ABG HHb (Measured) ABG Methemoglobin Josh Test A-a O2 Difference Respiratory Index Hgb O2 Saturation Mechanical Rate FiO2 Tidal Volume PEEP Sodium Potassium Chloride Carbon Dioxide Anion Gap BUN Creatinine Est GFR ( Amer) Est GFR (Non-Af Amer) POC Glucose (mg/dL) 105 186 H Random Glucose Lactic Acid Calcium Phosphorus Magnesium Total Bilirubin AST ALT Alkaline Phosphatase Total Protein Albumin Globulin Albumin/Globulin Ratio Urine Color Urine Clarity Urine pH Ur Specific [place] Urine Protein Urine Glucose (UA) Urine Ketones Urine Blood Urine Nitrate Urine Bilirubin Urine Urobilinogen Ur Leukocyte Esterase Urine WBC (Auto) Urine RBC (Auto) Ur Squamous Epith Cells Urine Bacteria 12/07/16 12/07/16 12/07/16 03:53 05:07 07:00 WBC RBC Hgb Hct MCV MCH MCHC RDW Plt Count MPV Neut % (Auto) Lymph % (Auto) [place] % (Auto) Eos % (Auto) Baso % (Auto) Neut # Lymph # [place] # Eos # Baso # Neutrophils % (Manual) Band Neutrophils % Lymphocytes % (Manual) Monocytes % (Manual) Platelet Estimate Poikilocytosis (manual Anisocytosis (manual) Puncture Site L brach pCO2 25 L pO2 213 H HCO3 15.3 L ABG pH 7.31 L ABG Total CO2 13.4 L ABG O2 Saturation 99.7 H ABG Base Excess -12.3 L ABG Hemoglobin 9.2 L ABG Carboxyhemoglobin 1.2 POC ABG HHb (Measured) 0.3 ABG Methemoglobin 2.8 Josh Test Na A-a O2 Difference 112.0 Respiratory Index 0.5 Hgb O2 Saturation 95.7 Mechanical Rate 14 FiO2 50.0 Tidal Volume 450 PEEP 5 Sodium 130 L Potassium 3.8 Chloride 98 Carbon Dioxide 15 L Anion Gap 21 H BUN 37 H Creatinine 1.8 H Est GFR ( Amer) 47 Est GFR (Non-Af Amer) 39 POC Glucose (mg/dL) Random Glucose 194 H Lactic Acid 5.0 H* Calcium 5.0 L* Phosphorus 4.8 H Magnesium 0.8 L* D Total Bilirubin 2.7 H AST 9391 H ALT 2977 H Alkaline Phosphatase 233 H D Total Protein 5.3 L Albumin 2.2 L Globulin 3.1 Albumin/Globulin Ratio 0.7 L Urine Color Urine Clarity Urine pH Ur Specific [place] Urine Protein Urine Glucose (UA) Urine Ketones Urine Blood Urine Nitrate Urine Bilirubin Urine Urobilinogen Ur Leukocyte Esterase Urine WBC (Auto) Urine RBC (Auto) Ur Squamous Epith Cells Urine Bacteria 12/07/16 07:24 WBC RBC Hgb Hct MCV MCH MCHC RDW Plt Count MPV Neut % (Auto) Lymph % (Auto) [place] % (Auto) Eos % (Auto) Baso % (Auto) Neut # Lymph # [place] # Eos # Baso # Neutrophils % (Manual) Band Neutrophils % Lymphocytes % (Manual) Monocytes % (Manual) Platelet Estimate Poikilocytosis (manual Anisocytosis (manual) Puncture Site pCO2 pO2 HCO3 ABG pH ABG Total CO2 ABG O2 Saturation ABG Base Excess ABG Hemoglobin ABG Carboxyhemoglobin POC ABG HHb (Measured) ABG Methemoglobin Josh Test A-a O2 Difference Respiratory Index Hgb O2 Saturation Mechanical Rate FiO2 Tidal Volume PEEP Sodium Potassium Chloride Carbon Dioxide Anion Gap BUN Creatinine Est GFR ( Amer) Est GFR (Non-Af Amer) POC Glucose (mg/dL) 127 H Random Glucose Lactic Acid Calcium Phosphorus Magnesium Total Bilirubin AST ALT Alkaline Phosphatase Total Protein Albumin Globulin Albumin/Globulin Ratio Urine Color Urine Clarity Urine pH Ur Specific [place] Urine Protein Urine Glucose (UA) Urine Ketones Urine Blood Urine Nitrate Urine Bilirubin Urine Urobilinogen Ur Leukocyte Esterase Urine WBC (Auto) Urine RBC (Auto) Ur Squamous Epith Cells Urine Bacteria EKG/Cardiology Studies: Cardiology / EKG Studies 12/06/16 11:32 EKG [ELECTROCARDIOGRAM] Stat Comment: Mode Of Transportation: BED Reason For Exam: cardiac arrest Isolation: Contact 12/06/16 16:07 EKG [ELECTROCARDIOGRAM] Stat Comment: Mode Of Transportation: BED Reason For Exam: cp Isolation: Contact Fingerstick Blood Sugar Results: 127 Review of Systems - Review of Systems Systems not reviewed;Unavailable: Acuity of Condition Critical Care Progress Note - Nutrition Nutrition: Nutrition Category Date Time Status NPO Diet [DIET] Diets 12/06/16 Breakfast Active Assessment/Plan - Assessment and Plan (Free Text) Assessment: 61-year-old male with history of metastatic prostate cancer, complicated with bilateral hydronephrosis renal insufficiency recurrent sepsis and septic shock admitted with cardiac arrest Plan: Patient was terminally extubated as per family wishes
[2016-12-07] MEDS ORDERED: Enoxaparin 40 mg Syringe SC SCH (10:00)
--- NOTE | 2016-12-07 10:56 | CP.PCM.CON ---
Past Patient History - Infectious Disease Hx of Infectious Diseases: None - Past Medical History & Family History Past Medical History?: Yes - Past Social History Smoking Status: Former Smoker - CARDIAC Hx Cardiac Disorders: Yes Hx Hypertension: Yes Hx Pacemaker: No Hx Peripheral Edema: No - PULMONARY Hx Respiratory Disorders: No - NEUROLOGICAL Hx Neurological Disorder: No Hx Paralysis: No - HEENT Hx HEENT Problems: No - RENAL Hx Chronic Kidney Disease: Yes Other/Comment: NEPHROSTOMY TUBE - ENDOCRINE/METABOLIC Hx Endocrine Disorders: Yes Hx Diabetes Mellitus Type 2: Yes (pt denies.) - HEMATOLOGICAL/ONCOLOGICAL Hx Blood Disorders: Yes Hx Blood Transfusions: Yes Hx Blood Transfusion Reaction: No Hx Cancer: Yes (Prostate, Stomach.) Hx Metastesis: Yes - INTEGUMENTARY Hx Dermatological Problems: No - MUSCULOSKELETAL/RHEUMATOLOGICAL Hx Musculoskeletal Disorders: No Hx Falls: No - GASTROINTESTINAL Hx Gastrointestinal Disorders: Yes Hx Clostridium Difficile: Yes Other/Comment: Stomach Ca. - GENITOURINARY/GYNECOLOGICAL Hx Genitourinary Disorders: Yes Hx Prostate Cancer: Yes Hx Prostate Problems: Yes Hx Urinary Tract Infection: Yes - PSYCHIATRIC Hx Psychophysiologic Disorder: No Hx Substance Use: No - SURGICAL HISTORY Hx Surgeries: Yes Other/Comment: nephrostomy tube. - ANESTHESIA Hx Anesthesia: Yes Hx Anesthesia Reactions: No Hx Malignant Hyperthermia: No Meds Allergies/Adverse Reactions: Allergies Allergy/AdvReac Type Severity Reaction Status Date / Time No Known Allergies Allergy Verified 10/06/16 10:16 - Medications Medications: Current Medications Enoxaparin Sodium (Lovenox) 40 mg SC DAILY [facility] Last Admin: 12/07/16 10:26 Dose: 40 mg Dextrose (Dextrose 10% In Water) 1,000 mls @ 70 mls/hr IV .[id number] [facility] Last Admin: 12/07/16 08:00 Dose: 70 mls/hr Imipenem/Cilastatin Sodium 250 (mg/ Sodium Chloride) 100 mls @ 100 mls/hr IVPB Q8 [facility] Last Admin: 12/07/16 05:52 Dose: 100 mls/hr Vancomycin HCl 1 gm/ Sodium (Chloride) 250 mls @ 166.7 mls/hr IVPB Q24H [facility] Last Admin: 12/06/16 19:57 Dose: 166.7 mls/hr Dopamine HCl/Dextrose (Dopamine 400mg/250ml D5w) 400 mg in 250 mls @ 40.823 mls /hr IV .Q6H8M PRN; Protocol; 20 MCG/KG/MIN PRN Reason: TITRATE PER MD ORDER Last Titration: 12/07/16 00:30 Dose: 5 mcg/kg/min, 10.206 mls/hr Tigecycline 50 mg/ Sodium (Chloride) 100 mls @ 100 mls/hr IVPB Q12H [facility] Last Admin: 12/07/16 10:25 Dose: 100 mls/hr Norepinephrine Bitartrate 8 mg (/ Dextrose) 258 mls @ 7.74 mls/hr IV .Q24H PRN ; Protocol; 4 MCG/MIN PRN Reason: TITRATE PER MD ORDER Last Admin: 12/07/16 09:00 Dose: 17 mcg/min, 32.89 mls/hr Methylprednisolone (Solu-Medrol) 40 mg IVP Q8 [facility] Last Admin: 12/07/16 05:52 Dose: 40 mg Pantoprazole Sodium (Protonix Inj) 40 mg IVP DAILY [facility] Results - Vital Signs Recent Vital Signs: Last Vital Signs Temp 98 F 12/07/16 04:00 Pulse 126 H 12/07/16 09:40 Resp 15 12/07/16 09:40 BP 93/60 L 12/07/16 09:40 Pulse Ox 96 12/07/16 09:40 - Labs Result Diagrams: 12/07/16 03:53 12/07/16 03:53 Labs: Laboratory Results - last 24 hr 12/06/16 12/06/16 12/06/16 13:22 13:26 13:50 WBC RBC Hgb Hct MCV MCH MCHC RDW Plt Count MPV Neut % (Auto) Lymph % (Auto) [place] % (Auto) Eos % (Auto) Baso % (Auto) Neut # Lymph # [place] # Eos # Baso # Neutrophils % (Manual) Band Neutrophils % Lymphocytes % (Manual) Monocytes % (Manual) Platelet Estimate Poikilocytosis (manual Anisocytosis (manual) Puncture Site pCO2 pO2 HCO3 ABG pH ABG Total CO2 ABG O2 Saturation ABG Base Excess ABG Hemoglobin ABG Carboxyhemoglobin POC ABG HHb (Measured) ABG Methemoglobin Josh Test A-a O2 Difference Respiratory Index Hgb O2 Saturation Mechanical Rate FiO2 Tidal Volume PEEP Sodium Potassium Chloride Carbon Dioxide Anion Gap BUN Creatinine Est GFR ( Amer) Est GFR (Non-Af Amer) POC Glucose (mg/dL) < 20 L* 39 L Random Glucose Lactic Acid Calcium Phosphorus Magnesium Total Bilirubin AST ALT Alkaline Phosphatase Total Protein Albumin Globulin Albumin/Globulin Ratio Urine Color Agnes Urine Clarity Hazy Urine pH 6.0 Ur Specific [place] 1.014 Urine Protein 2+ H Urine Glucose (UA) Normal Urine Ketones Negative Urine Blood 2+ H Urine Nitrate Positive H Urine Bilirubin Negative Urine Urobilinogen Normal Ur Leukocyte Esterase 3+ H Urine WBC (Auto) 109 H Urine RBC (Auto) 29 H Ur Squamous Epith Cells < 1 Urine Bacteria Occ H 12/06/16 12/06/16 12/06/16 14:25 16:14 16:43 WBC RBC Hgb Hct MCV MCH MCHC RDW Plt Count MPV Neut % (Auto) Lymph % (Auto) [place] % (Auto) Eos % (Auto) Baso % (Auto) Neut # Lymph # [place] # Eos # Baso # Neutrophils % (Manual) Band Neutrophils % Lymphocytes % (Manual) Monocytes % (Manual) Platelet Estimate Poikilocytosis (manual Anisocytosis (manual) Puncture Site pCO2 pO2 HCO3 ABG pH ABG Total CO2 ABG O2 Saturation ABG Base Excess ABG Hemoglobin ABG Carboxyhemoglobin POC ABG HHb (Measured) ABG Methemoglobin Josh Test A-a O2 Difference Respiratory Index Hgb O2 Saturation Mechanical Rate FiO2 Tidal Volume PEEP Sodium Potassium Chloride Carbon Dioxide Anion Gap BUN Creatinine Est GFR ( Amer) Est GFR (Non-Af Amer) POC Glucose (mg/dL) 115 H 39 L 149 H Random Glucose Lactic Acid Calcium Phosphorus Magnesium Total Bilirubin AST ALT Alkaline Phosphatase Total Protein Albumin Globulin Albumin/Globulin Ratio Urine Color Urine Clarity Urine pH Ur Specific [place] Urine Protein Urine Glucose (UA) Urine Ketones Urine Blood Urine Nitrate Urine Bilirubin Urine Urobilinogen Ur Leukocyte Esterase Urine WBC (Auto) Urine RBC (Auto) Ur Squamous Epith Cells Urine Bacteria 12/06/16 12/07/16 12/07/16 21:23 00:12 03:53 WBC 21.6 H D RBC 3.21 L Hgb 9.6 L Hct 29.8 L MCV 92.8 D MCH 29.9 MCHC 32.2 L RDW 18.7 H Plt Count 175 MPV 9.0 Neut % (Auto) 96.5 H Lymph % (Auto) 1.4 L [place] % (Auto) 1.4 Eos % (Auto) 0.2 Baso % (Auto) 0.5 Neut # 20.9 H Lymph # 0.3 L [place] # 0.3 Eos # 0.0 Baso # 0.1 Neutrophils % (Manual) 87 H Band Neutrophils % 11 H* Lymphocytes % (Manual) 1 L Monocytes % (Manual) 1 Platelet Estimate Normal Poikilocytosis (manual Slight Anisocytosis (manual) Moderate Puncture Site pCO2 pO2 HCO3 ABG pH ABG Total CO2 ABG O2 Saturation ABG Base Excess ABG Hemoglobin ABG Carboxyhemoglobin POC ABG HHb (Measured) ABG Methemoglobin Josh Test A-a O2 Difference Respiratory Index Hgb O2 Saturation Mechanical Rate FiO2 Tidal Volume PEEP Sodium Potassium Chloride Carbon Dioxide Anion Gap BUN Creatinine Est GFR ( Amer) Est GFR (Non-Af Amer) POC Glucose (mg/dL) 105 186 H Random Glucose Lactic Acid Calcium Phosphorus Magnesium Total Bilirubin AST ALT Alkaline Phosphatase Total Protein Albumin Globulin Albumin/Globulin Ratio Urine Color Urine Clarity Urine pH Ur Specific [place] Urine Protein Urine Glucose (UA) Urine Ketones Urine Blood Urine Nitrate Urine Bilirubin Urine Urobilinogen Ur Leukocyte Esterase Urine WBC (Auto) Urine RBC (Auto) Ur Squamous Epith Cells Urine Bacteria 12/07/16 12/07/16 12/07/16 03:53 05:07 07:00 WBC RBC Hgb Hct MCV MCH MCHC RDW Plt Count MPV Neut % (Auto) Lymph % (Auto) [place] % (Auto) Eos % (Auto) Baso % (Auto) Neut # Lymph # [place] # Eos # Baso # Neutrophils % (Manual) Band Neutrophils % Lymphocytes % (Manual) Monocytes % (Manual) Platelet Estimate Poikilocytosis (manual Anisocytosis (manual) Puncture Site L brach pCO2 25 L pO2 213 H HCO3 15.3 L ABG pH 7.31 L ABG Total CO2 13.4 L ABG O2 Saturation 99.7 H ABG Base Excess -12.3 L ABG Hemoglobin 9.2 L ABG Carboxyhemoglobin 1.2 POC ABG HHb (Measured) 0.3 ABG Methemoglobin 2.8 Josh Test Na A-a O2 Difference 112.0 Respiratory Index 0.5 Hgb O2 Saturation 95.7 Mechanical Rate 14 FiO2 50.0 Tidal Volume 450 PEEP 5 Sodium 130 L Potassium 3.8 Chloride 98 Carbon Dioxide 15 L Anion Gap 21 H BUN 37 H Creatinine 1.8 H Est GFR ( Amer) 47 Est GFR (Non-Af Amer) 39 POC Glucose (mg/dL) Random Glucose 194 H Lactic Acid 5.0 H* Calcium 5.0 L* Phosphorus 4.8 H Magnesium 0.8 L* D Total Bilirubin 2.7 H AST 9391 H ALT 2977 H Alkaline Phosphatase 233 H D Total Protein 5.3 L Albumin 2.2 L Globulin 3.1 Albumin/Globulin Ratio 0.7 L Urine Color Urine Clarity Urine pH Ur Specific [place] Urine Protein Urine Glucose (UA) Urine Ketones Urine Blood Urine Nitrate Urine Bilirubin Urine Urobilinogen Ur Leukocyte Esterase Urine WBC (Auto) Urine RBC (Auto) Ur Squamous Epith Cells Urine Bacteria 12/07/16 07:24 WBC RBC Hgb Hct MCV MCH MCHC RDW Plt Count MPV Neut % (Auto) Lymph % (Auto) [place] % (Auto) Eos % (Auto) Baso % (Auto) Neut # Lymph # [place] # Eos # Baso # Neutrophils % (Manual) Band Neutrophils % Lymphocytes % (Manual) Monocytes % (Manual) Platelet Estimate Poikilocytosis (manual Anisocytosis (manual) Puncture Site pCO2 pO2 HCO3 ABG pH ABG Total CO2 ABG O2 Saturation ABG Base Excess ABG Hemoglobin ABG Carboxyhemoglobin POC ABG HHb (Measured) ABG Methemoglobin Josh Test A-a O2 Difference Respiratory Index Hgb O2 Saturation Mechanical Rate FiO2 Tidal Volume PEEP Sodium Potassium Chloride Carbon Dioxide Anion Gap BUN Creatinine Est GFR ( Amer) Est GFR (Non-Af Amer) POC Glucose (mg/dL) 127 H Random Glucose Lactic Acid Calcium Phosphorus Magnesium Total Bilirubin AST ALT Alkaline Phosphatase Total Protein Albumin Globulin Albumin/Globulin Ratio Urine Color Urine Clarity Urine pH Ur Specific [place] Urine Protein Urine Glucose (UA) Urine Ketones Urine Blood Urine Nitrate Urine Bilirubin Urine Urobilinogen Ur Leukocyte Esterase Urine WBC (Auto) Urine RBC (Auto) Ur Squamous Epith Cells Urine Bacteria Assessment & Plan - Assessment and Plan (Free Text) Assessment: prostate ca hydronephrosis s/p cardiac arrest - Date & Time Date: 12/07/16 Time: 10:56
--- NOTE | 2016-12-07 11:26 | CP.PCM.CON ---
History of Present Illness - History of Present Illness History of Present Illness: 61-year-old male with a history of metastatic prostate cancer, bilateral hydronephrosis, nephrostomy tube, recurrent sepsis and septic shock, multiorgan failure multiple times. Patient had a cardiac arrest last time also intubated and extubated. recently treated here for UTI with MDRO- developed c diff then demanded to be transferered back to [place] Patient came to the emergency room today from [facility] after he sustained a cardiac arrest in the [facility]. After a prolonged CPR patient got pulse back. Patient is now on ventilator, comatose . Past medical history: Metastatic prostatic cancer, hydronephrosis, renal insufficiency, recurrent sepsis. Allergy: No known drug allergy Personal history nonsmoker. Review of Systems - Review of Systems Systems not reviewed;Unavailable: Altered Mental Status - Constitutional Constitutional: As Per HPI - EENT Eyes: absent: As Per HPI, Blind Spots, Blurred Vision, Change in Vision, Decreased Night Vision, Diplopia, Discharge, Dry Eye, Exophthalmos, Floaters, Irritation, Itchy Eyes, Loss of Peripheral Vision, Pain, Photophobia, Requires Corrective Lenses, Sees Flashes, Spots in Vision, Tunnel Vision, Other Visual Disturbances, Loss of Vision, Other Ears: absent: As Per HPI, Decreased Hearing, Ear Discharge, Ear Pain, Tinnitus, Abnormal Hearing, Disequilibrium, Dizziness, Other Nose/Mouth/Throat: absent: As Per HPI, Epistaxis, Nasal Congestion, Nasal Discharge, Nasal Obstruction, Nasal Trauma, Nose Pain, Post Nasal Drip, Sinus Pain, Sinus Pressure, Bleeding Gums, Change in Voice, Dental Pain, Dry Mouth, Dysphagia, Halitosis, Hoarsness, Lip Swelling, Mouth Lesions, Mouth Pain, Odynophagia, Sore Throat, Throat Swelling, Tongue Swelling, Facial Pain, Neck Pain, Neck Mass, Other - Cardiovascular Cardiovascular: As Per HPI - Respiratory Respiratory: As Per HPI - Gastrointestinal Gastrointestinal: As Per HPI - Genitourinary Genitourinary: As Per HPI - Musculoskeletal Musculoskeletal: As Per HPI - Integumentary Integumentary: As Per HPI - Neurological Neurological: As Per HPI - Psychiatric Psychiatric: As Per HPI - Endocrine Endocrine: As Per HPI - Hematologic/Lymphatic Hematologic: As Per HPI Past Patient History - Infectious Disease Hx of Infectious Diseases: None - Past Medical History & Family History Past Medical History?: Yes - Past Social History Smoking Status: Former Smoker - CARDIAC Hx Cardiac Disorders: Yes Hx Hypertension: Yes Hx Pacemaker: No Hx Peripheral Edema: No - PULMONARY Hx Respiratory Disorders: No - NEUROLOGICAL Hx Neurological Disorder: No Hx Paralysis: No - HEENT Hx HEENT Problems: No - RENAL Hx Chronic Kidney Disease: Yes Other/Comment: NEPHROSTOMY TUBE - ENDOCRINE/METABOLIC Hx Endocrine Disorders: Yes Hx Diabetes Mellitus Type 2: Yes (pt denies.) - HEMATOLOGICAL/ONCOLOGICAL Hx Blood Disorders: Yes Hx Blood Transfusions: Yes Hx Blood Transfusion Reaction: No Hx Cancer: Yes (Prostate, Stomach.) Hx Metastesis: Yes - INTEGUMENTARY Hx Dermatological Problems: No - MUSCULOSKELETAL/RHEUMATOLOGICAL Hx Musculoskeletal Disorders: No Hx Falls: No - GASTROINTESTINAL Hx Gastrointestinal Disorders: Yes Hx Clostridium Difficile: Yes Other/Comment: Stomach Ca. - GENITOURINARY/GYNECOLOGICAL Hx Genitourinary Disorders: Yes Hx Prostate Cancer: Yes Hx Prostate Problems: Yes Hx Urinary Tract Infection: Yes - PSYCHIATRIC Hx Psychophysiologic Disorder: No Hx Substance Use: No - SURGICAL HISTORY Hx Surgeries: Yes Other/Comment: nephrostomy tube. - ANESTHESIA Hx Anesthesia: Yes Hx Anesthesia Reactions: No Hx Malignant Hyperthermia: No Meds Allergies/Adverse Reactions: Allergies Allergy/AdvReac Type Severity Reaction Status Date / Time No Known Allergies Allergy Verified 10/06/16 10:16 - Medications Medications: Current Medications Enoxaparin Sodium (Lovenox) 40 mg SC DAILY [facility] Last Admin: 12/07/16 10:26 Dose: 40 mg Famotidine (Pepcid) 20 mg PEG DAILY [facility] Dextrose (Dextrose 10% In Water) 1,000 mls @ 70 mls/hr IV .[id number] [facility] Last Admin: 12/07/16 08:00 Dose: 70 mls/hr Imipenem/Cilastatin Sodium 250 (mg/ Sodium Chloride) 100 mls @ 100 mls/hr IVPB Q8 [facility] Last Admin: 12/07/16 05:52 Dose: 100 mls/hr Vancomycin HCl 1 gm/ Sodium (Chloride) 250 mls @ 166.7 mls/hr IVPB Q24H [facility] Last Admin: 12/06/16 19:57 Dose: 166.7 mls/hr Dopamine HCl/Dextrose (Dopamine 400mg/250ml D5w) 400 mg in 250 mls @ 40.823 mls /hr IV .Q6H8M PRN; Protocol; 20 MCG/KG/MIN PRN Reason: TITRATE PER MD ORDER Last Titration: 12/07/16 00:30 Dose: 5 mcg/kg/min, 10.206 mls/hr Tigecycline 50 mg/ Sodium (Chloride) 100 mls @ 100 mls/hr IVPB Q12H [facility] Last Admin: 12/07/16 10:25 Dose: 100 mls/hr Norepinephrine Bitartrate 8 mg (/ Dextrose) 258 mls @ 7.74 mls/hr IV .Q24H PRN ; Protocol; 4 MCG/MIN PRN Reason: TITRATE PER MD ORDER Last Admin: 12/07/16 09:00 Dose: 17 mcg/min, 32.89 mls/hr Methylprednisolone (Solu-Medrol) 40 mg IVP Q8 [facility] Last Admin: 12/07/16 05:52 Dose: 40 mg Physical Exam - Constitutional Appears: Confused, Cachectic, Chronically Ill - Head Exam Head Exam: NORMOCEPHALIC Additional comments: intubated orally - Eye Exam Eye Exam: absent: Scleral icterus - ENT Exam ENT Exam: Mucous Membranes Dry, Normal External Ear Exam - Neck Exam Neck exam: Negative for: Lymphadenopathy - Respiratory Exam Respiratory Exam: Decreased Breath Sounds, Rhonchi - Cardiovascular Exam Cardiovascular Exam: Tachycardia, REGULAR RHYTHM, +S1, +S2 - GI/Abdominal Exam GI & Abdominal Exam: Diminished Bowel Sounds, Distended, Hypoactive Bowel Sounds , Soft Additional comments: nephrostomy in place - Rectal Exam Rectal Exam: Deferred - Exam Exam: absent: NORMAL INSPECTION, Testicular Tenderness - Extremities Exam Extremities exam: Negative for: calf tenderness, pedal edema, tenderness, pedal pulses present - Back Exam Back exam: absent: CVA tenderness (L), CVA tenderness (R) - Neurological Exam Neurological exam: Altered - Psychiatric Exam Psychiatric exam: Depressed Results - Vital Signs Recent Vital Signs: Last Vital Signs Temp 98 F 12/07/16 04:00 Pulse 126 H 12/07/16 09:40 Resp 15 12/07/16 09:40 BP 93/60 L 12/07/16 09:40 Pulse Ox 96 12/07/16 09:40 - Labs Result Diagrams: 12/07/16 03:53 12/07/16 03:53 Labs: Laboratory Results - last 24 hr 12/06/16 12/06/1612/06/17 13:22 13:26 13:50 WBC RBC Hgb Hct MCV MCH MCHC RDW Plt Count MPV Neut % (Auto) Lymph % (Auto) [place] % (Auto) Eos % (Auto) Baso % (Auto) Neut # Lymph # [place] # Eos # Baso # Neutrophils % (Manual) Band Neutrophils % Lymphocytes % (Manual) Monocytes % (Manual) Platelet Estimate Poikilocytosis (manual Anisocytosis (manual) Puncture Site pCO2 pO2 HCO3 ABG pH ABG Total CO2 ABG O2 Saturation ABG Base Excess ABG Hemoglobin ABG Carboxyhemoglobin POC ABG HHb (Measured) ABG Methemoglobin Josh Test A-a O2 Difference Respiratory Index Hgb O2 Saturation Mechanical Rate FiO2 Tidal Volume PEEP Sodium Potassium Chloride Carbon Dioxide Anion Gap BUN Creatinine Est GFR ( Amer) Est GFR (Non-Af Amer) POC Glucose (mg/dL) < 20 L* 39 L Random Glucose Lactic Acid Calcium Phosphorus Magnesium Total Bilirubin AST ALT Alkaline Phosphatase Total Protein Albumin Globulin Albumin/Globulin Ratio Urine Color [place]nes Urine Clarity Hazy Urine pH 6.0 Ur Specific [place] 1.014 Urine Protein 2+ H Urine Glucose (UA) Normal Urine Ketones Negative Urine Blood 2+ H Urine Nitrate Positive H Urine Bilirubin Negative Urine Urobilinogen Normal Ur Leukocyte Esterase 3+ H Urine WBC (Auto) 109 H Urine RBC (Auto) 29 H Ur Squamous Epith Cells < 1 Urine Bacteria Occ H 12/06/16 12/06/16 12/06/16 14:25 16:14 16:43 WBC RBC Hgb Hct MCV MCH MCHC RDW Plt Count MPV Neut % (Auto) Lymph % (Auto) [place] % (Auto) Eos % (Auto) Baso % (Auto) Neut # Lymph # [place] # Eos # Baso # Neutrophils % (Manual) Band Neutrophils % Lymphocytes % (Manual) Monocytes % (Manual) Platelet Estimate Poikilocytosis (manual Anisocytosis (manual) Puncture Site pCO2 pO2 HCO3 ABG pH ABG Total CO2 ABG O2 Saturation ABG Base Excess ABG Hemoglobin ABG Carboxyhemoglobin POC ABG HHb (Measured) ABG Methemoglobin Josh Test A-a O2 Difference Respiratory Index Hgb O2 Saturation Mechanical Rate FiO2 Tidal Volume PEEP Sodium Potassium Chloride Carbon Dioxide Anion Gap BUN Creatinine Est GFR ( Amer) Est GFR (Non-Af Amer) POC Glucose (mg/dL) 115 H 39 L 149 H Random Glucose Lactic Acid Calcium Phosphorus Magnesium Total Bilirubin AST ALT Alkaline Phosphatase Total Protein Albumin Globulin Albumin/Globulin Ratio Urine Color Urine Clarity Urine pH Ur Specific [place] Urine Protein Urine Glucose (UA) Urine Ketones Urine Blood Urine Nitrate Urine Bilirubin Urine Urobilinogen Ur Leukocyte Esterase Urine WBC (Auto) Urine RBC (Auto) Ur Squamous Epith Cells Urine Bacteria 12/06/16 12/07/16 12/07/16 21:23 00:12 03:53 WBC 21.6 H D RBC 3.21 L Hgb 9.6 L Hct 29.8 L MCV 92.8 D MCH 29.9 MCHC 32.2 L RDW 18.7 H Plt Count 175 MPV 9.0 Neut % (Auto) 96.5 H Lymph % (Auto) 1.4 L [place] % (Auto) 1.4 Eos % (Auto) 0.2 Baso % (Auto) 0.5 Neut # 20.9 H Lymph # 0.3 L [place] # 0.3 Eos # 0.0 Baso # 0.1 Neutrophils % (Manual) 87 H Band Neutrophils % 11 H* Lymphocytes % (Manual) 1 L Monocytes % (Manual) 1 Platelet Estimate Normal Poikilocytosis (manual Slight Anisocytosis (manual) Moderate Puncture Site pCO2 pO2 HCO3 ABG pH ABG Total CO2 ABG O2 Saturation ABG Base Excess ABG Hemoglobin ABG Carboxyhemoglobin POC ABG HHb (Measured) ABG Methemoglobin Josh Test A-a O2 Difference Respiratory Index Hgb O2 Saturation Mechanical Rate FiO2 Tidal Volume PEEP Sodium Potassium Chloride Carbon Dioxide Anion Gap BUN Creatinine Est GFR ( Amer) Est GFR (Non-Af Amer) POC Glucose (mg/dL) 105 186 H Random Glucose Lactic Acid Calcium Phosphorus Magnesium Total Bilirubin AST ALT Alkaline Phosphatase Total Protein Albumin Globulin Albumin/Globulin Ratio Urine Color Urine Clarity Urine pH Ur Specific [place] Urine Protein Urine Glucose (UA) Urine Ketones Urine Blood Urine Nitrate Urine Bilirubin Urine Urobilinogen Ur Leukocyte Esterase Urine WBC (Auto) Urine RBC (Auto) Ur Squamous Epith Cells Urine Bacteria 12/07/16 12/07/16 12/07/16 03:53 05:07 07:00 WBC RBC Hgb Hct MCV MCH MCHC RDW Plt Count MPV Neut % (Auto) Lymph % (Auto) [place] % (Auto) Eos % (Auto) Baso % (Auto) Neut # Lymph # [place] # Eos # Baso # Neutrophils % (Manual) Band Neutrophils % Lymphocytes % (Manual) Monocytes % (Manual) Platelet Estimate Poikilocytosis (manual Anisocytosis (manual) Puncture Site L brach pCO2 25 L pO2 213 H HCO3 15.3 L ABG pH 7.31 L ABG Total CO2 13.4 L ABG O2 Saturation 99.7 H ABG Base Excess -12.3 L ABG Hemoglobin 9.2 L ABG Carboxyhemoglobin 1.2 POC ABG HHb (Measured) 0.3 ABG Methemoglobin 2.8 Josh Test Na A-a O2 Difference 112.0 Respiratory Index 0.5 Hgb O2 Saturation 95.7 Mechanical Rate 14 FiO2 50.0 Tidal Volume 450 PEEP 5 Sodium 130 L Potassium 3.8 Chloride 98 Carbon Dioxide 15 L Anion Gap 21 H BUN 37 H Creatinine 1.8 H Est GFR ( Amer) 47 Est GFR (Non-Af Amer) 39 POC Glucose (mg/dL) Random Glucose 194 H Lactic Acid 5.0 H* Calcium 5.0 L* Phosphorus 4.8 H Magnesium 0.8 L* D Total Bilirubin 2.7 H AST 9391 H ALT 2977 H Alkaline Phosphatase 233 H D Total Protein 5.3 L Albumin 2.2 L Globulin 3.1 Albumin/Globulin Ratio 0.7 L Urine Color Urine Clarity Urine pH Ur Specific [place] Urine Protein Urine Glucose (UA) Urine Ketones Urine Blood Urine Nitrate Urine Bilirubin Urine Urobilinogen Ur Leukocyte Esterase Urine WBC (Auto) Urine RBC (Auto) Ur Squamous Epith Cells Urine Bacteria 12/07/16 07:24 WBC RBC Hgb Hct MCV MCH MCHC RDW Plt Count MPV Neut % (Auto) Lymph % (Auto) [place] % (Auto) Eos % (Auto) Baso % (Auto) Neut # Lymph # [place] # Eos # Baso # Neutrophils % (Manual) Band Neutrophils % Lymphocytes % (Manual) Monocytes % (Manual) Platelet Estimate Poikilocytosis (manual Anisocytosis (manual) Puncture Site pCO2 pO2 HCO3 ABG pH ABG Total CO2 ABG O2 Saturation ABG Base Excess ABG Hemoglobin ABG Carboxyhemoglobin POC ABG HHb (Measured) ABG Methemoglobin Josh Test A-a O2 Difference Respiratory Index Hgb O2 Saturation Mechanical Rate FiO2 Tidal Volume PEEP Sodium Potassium Chloride Carbon Dioxide Anion Gap BUN Creatinine Est GFR ( Amer) Est GFR (Non-Af Amer) POC Glucose (mg/dL) 127 H Random Glucose Lactic Acid Calcium Phosphorus Magnesium Total Bilirubin AST ALT Alkaline Phosphatase Total Protein Albumin Globulin Albumin/Globulin Ratio Urine Color Urine Clarity Urine pH Ur Specific [place] Urine Protein Urine Glucose (UA) Urine Ketones Urine Blood Urine Nitrate Urine Bilirubin Urine Urobilinogen Ur Leukocyte Esterase Urine WBC (Auto) Urine RBC (Auto) Ur Squamous Epith Cells Urine Bacteria Assessment & Plan (1) Cardiac arrest Status: Acute (2) CHF (congestive heart failure) Status: Acute (3) Hypotension Status: Acute (4) Nephrostomy status Status: Acute (5) Prostate cancer Status: Chronic Priority: Medium - Assessment and Plan (Free Text) Assessment: advanced metastatic ca s/p cardiac arrest r/o sepsis hx c diff hx recurrent uti;s with mdro's Plan: poor prognosis
--- NOTE | 2016-12-07 11:28 | CT ---
PROCEDURE: CT HEAD WITHOUT CONTRAST. HISTORY: intra cranial bleed Vs stroke COMPARISON: None available. TECHNIQUE: Axial computed tomography images were obtained through the head/brain without intravenous contrast. Radiation dose: Total exam DLP = 1394 mGy-cm. This CT exam was performed using one or more of the following dose reduction techniques: Automated exposure control, adjustment of the mA and/or kV according to patient size, and/or use of iterative reconstruction technique. FINDINGS: HEMORRHAGE: No intracranial hemorrhage. BRAIN: No mass effect or edema. Mild age related cerebral atrophy. Minimal small vessel changes in the white matter tracts. Posterior fossa is unremarkable. No subdural hematoma is seen. There are small areas of hypodensity seen in both basal ganglia or internal capsule regions which may suggest some small chronic lacunar infarcts. VENTRICLES: Unremarkable. No hydrocephalus. CALVARIUM: Unremarkable. PARANASAL SINUSES: There is a small air-fluid level seen in the left maxillary sinus. Minor mucosal changes are seen elsewhere in the ethmoid air cells. Mastoid air cells are well aerated. On the lateral referral manager view patient is intubated. MASTOID AIR CELLS: Unremarkable as visualized. No inflammatory changes. OTHER FINDINGS: There is a large area of calcification along the anterior frontal parasagittal falx more than likely representing calcification. A thin calcified meningioma would be considered less likely. IMPRESSION: No evidence of intracranial hemorrhage or recent infarct. Small areas of subtle hypodensity in the basal ganglia possibly representing small chronic lacunar infarcts. Mild small vessel changes elsewhere.
--- NOTE | 2016-12-07 11:59 | CON ---
DATE: 12/07/2016 ATTENDING PHYSICIAN: Geneva Gonzalez MD The patient is in room #ICU bed 18. REASON FOR CONSULTATION: Unresponsiveness status post cardiac arrest. CHIEF COMPLAINT: The patient was brought in from the intermediate with the history of found him unre sponsive with prolonged cardiopulmonary arrest. The resuscitation took a long time for him to retrie ve his pulse. He was brought in to [facility] and again he had a similar episode. Then we trie d with pressor support and resuscitation. From a neurological point of view, I was called in to temitope mccrayte him for further management. HISTORY OF PRESENT ILLNESS: The patient is a 61-year-old right-handed thinly built male brought in from the intermediate, who was found in the intermediate with low sugar and unrespons iveness for a prolonged time. He did undergo prolonged CPR to get his pulse back brought him to [facility] for further evaluation. The patient was placed on a ventilator and he was comatose befor e they brought him to [facility]. He did have another episode of cardiopulmonary arrest and he did have resuscitation to get his pulse back. The patient has no history of a fall, no history of tr auma, no history of involuntary movements during the course of the resuscitation before or after the procedure. PAST MEDICAL HISTORY: Significant for prostate cancer, hydronephrosis, chronic renal failure, recurr ent sepsis. Recently, he was discharged for urinary tract infection from the hospital. PERSONAL HISTORY: He denies smoking or alcohol use. ALLERGIES: No known allergies. REVIEW OF SYSTEMS: As per H and P. MEDICATIONS: IV fluids, dopamine, imipenem, Lovenox, norepinephrine on titration, methylprednisolone , , tigecycline. PHYSICAL EXAMINATION: VITAL SIGNS: Blood pressure 92/62 with a mean arterial pressure of 74, respiratory rate 19, pulse ra te 123, sinus. EYES: The patient's eyes are open. EXTREMITIES: Both legs externally rotated. HEART: Sounds are regular and tachycardia. No murmur. ABDOMEN: Distended. NEUROLOGIC: The patient unresponsive verbally as well as noxious stimuli. Eyes are open. Cornea is dry. Pupil 2.5 mm, pinpoint pupil on both sides. No corneal reflex, no oculocephalic reflexes note d. the ET tube, the patient does not show any gag response. All 4 extremities are flaccid and no deep tendon reflexes are elicited. The plantars are mute. Both legs are externally rotated. Th e patient does not respond to pain or stimuli. Gait and coordination are deferred, due to the above description. CONCLUSION: Upon reviewing his history and neurological examination, the patient unfortunately prese nting with global cerebral as well as brainstem dysfunction. This is all related to his anoxic insul t as per the history and prolonged resuscitation. On the current presentation now the overall progno sis is poor. Other neurological causes, such as nonconvulsive status should be ruled out. BLOOD WORKUP: WBC 21.6, hemoglobin 9.6, hematocrit 29.8, platelet 175. PT 21.7, INR 1.9, PTT is 79. Blood gases: PH is 7.31, pO2 of 213, pCO2 of 25, oxygen saturation is 99.7. Sodium 130, potassium 3.8, chloride 98, bicarbonate 15, BUN 37, creatinine 1.8. Glucose initially was 33, brought up to 1 94. Calcium 5.0, phosphorus 4.8, magnesium 0.8. RECOMMENDATIONS: 1. CT of the head to be done to rule out any intracranial acute pathology. 2. EEG to rule out nonconvulsive status. 3. Carotid Doppler and transcranial Doppler to assess the cerebral blood flow. 4. Correct all electrolytes and keep the mean arterial pressure around 100. 5. Keep the head in elevation. The patient will be followed closely with you. Bill Fallon MD cc: [id number] TT: 12/07/2016 11:58:13 Confirmation # [id number] Dictation # [id number] mn
[2016-12-07 12:08] VITALS: TEMP 98.1
--- NOTE | 2016-12-07 13:52 | CP.PCM.CON ---
History of Present Illness - History of Present Illness History of Present Illness: Palliative consult Requested by Anuj SHARMA Reason: Goals of care discussion Patient is a 61 yo male known to me from the previous admission. Patient was just recently discharged from [facility] ([facility]) where he was treated for septic shock. After recovering, patient was discharged to [place]. At the MI patient complained of dizziness and was lethargic. The second time staff rounded on him, patient found unresponsive in his room. The EMS calld, the CPR performed, patient was in PEA, than A Fib with very low blood suggar of 50. After Dextrose Iv blood sugar karol to 70. 7 rounds of Epi were given. As per EMS, it is estimated that patient was down for about 2 hr. Patient's condition has not improved despite all reasonable measures applied. The chest CT scan upon admission was significant for granulomatous changes PMH: metastatic prostate cancer disease, B/L hydronephrosis, nephrostomy tube, septic shock, assistance of MV Soc. hx: single, lives alone, sister Tiffany is closest relative Fam Hx: parents , unknown cause Review of Systems - Review of Systems Systems not reviewed;Unavailable: Intubated Review of Systems: Neuro exam suggests GCS of 3. All other systems reviewed and significant of severe brain damage influence. Patient on full life support without expected recovery.. Past Patient History - Infectious Disease Hx of Infectious Diseases: None - Past Medical History & Family History Past Medical History?: Yes - Past Social History Smoking Status: Former Smoker - CARDIAC Hx Cardiac Disorders: Yes Hx Hypertension: Yes Hx Pacemaker: No Hx Peripheral Edema: No - PULMONARY Hx Respiratory Disorders: No - NEUROLOGICAL Hx Neurological Disorder: No Hx Paralysis: No - HEENT Hx HEENT Problems: No - RENAL Hx Chronic Kidney Disease: Yes Other/Comment: NEPHROSTOMY TUBE - ENDOCRINE/METABOLIC Hx Endocrine Disorders: Yes Hx Diabetes Mellitus Type 2: Yes (pt denies.) - HEMATOLOGICAL/ONCOLOGICAL Hx Blood Disorders: Yes Hx Blood Transfusions: Yes Hx Blood Transfusion Reaction: No Hx Cancer: Yes (Prostate, Stomach.) Hx Metastesis: Yes - INTEGUMENTARY Hx Dermatological Problems: No - MUSCULOSKELETAL/RHEUMATOLOGICAL Hx Musculoskeletal Disorders: No Hx Falls: No - GASTROINTESTINAL Hx Gastrointestinal Disorders: Yes Hx Clostridium Difficile: Yes Other/Comment: Stomach Ca. - GENITOURINARY/GYNECOLOGICAL Hx Genitourinary Disorders: Yes Hx Prostate Cancer: Yes Hx Prostate Problems: Yes Hx Urinary Tract Infection: Yes - PSYCHIATRIC Hx Psychophysiologic Disorder: No Hx Substance Use: No - SURGICAL HISTORY Hx Surgeries: Yes Other/Comment: nephrostomy tube. - ANESTHESIA Hx Anesthesia: Yes Hx Anesthesia Reactions: No Hx Malignant Hyperthermia: No Meds Allergies/Adverse Reactions: Allergies Allergy/AdvReac Type Severity Reaction Status Date / Time No Known Allergies Allergy Verified 10/06/16 10:16 - Medications Medications: Current Medications Enoxaparin Sodium (Lovenox) 40 mg SC DAILY [facility] Last Admin: 12/07/16 10:26 Dose: 40 mg Famotidine (Pepcid) 20 mg PEG DAILY [facility] Dextrose (Dextrose 10% In Water) 1,000 mls @ 70 mls/hr IV .[id number] [facility] Last Admin: 12/07/16 08:00 Dose: 70 mls/hr Dopamine HCl/Dextrose (Dopamine 400mg/250ml D5w) 400 mg in 250 mls @ 40.823 mls /hr IV .Q6H8M PRN; Protocol; 20 MCG/KG/MIN PRN Reason: TITRATE PER MD ORDER Last Titration: 12/07/16 00:30 Dose: 5 mcg/kg/min, 10.206 mls/hr Tigecycline 50 mg/ Sodium (Chloride) 100 mls @ 100 mls/hr IVPB Q12H [facility] Last Admin: 12/07/16 10:25 Dose: 100 mls/hr Norepinephrine Bitartrate 8 mg (/ Dextrose) 258 mls @ 7.74 mls/hr IV .Q24H PRN ; Protocol; 4 MCG/MIN PRN Reason: TITRATE PER MD ORDER Last Admin: 12/07/16 09:00 Dose: 17 mcg/min, 32.89 mls/hr Amikacin Sulfate 500 mg/ (Sodium Chloride) 102 mls @ 102 mls/hr IVPB Q24H [facility] Last Admin: 12/07/16 12:46 Dose: 102 mls/hr Methylprednisolone (Solu-Medrol) 40 mg IVP Q8 [facility] Last Admin: 12/07/16 13:09 Dose: 40 mg Physical Exam - Constitutional Appears: Chronically Ill - Head Exam Head Exam: ATRAUMATIC, NORMAL INSPECTION, NORMOCEPHALIC - Eye Exam Pupil Exam: Fixed - ENT Exam ENT Exam: Mucous Membranes Dry Additional comments: ETT and EGT in place - Neck Exam Neck exam: Positive for: Normal Inspection - Respiratory Exam Respiratory Exam: Decreased Breath Sounds Additional comments: On full MV support - Cardiovascular Exam Cardiovascular Exam: REGULAR RHYTHM Additional comments: On Epinephrin - GI/Abdominal Exam GI & Abdominal Exam: Diminished Bowel Sounds - Rectal Exam Rectal Exam: Deferred - Exam Additional comments: Turcios cath - Extremities Exam Extremities exam: Positive for: normal inspection - Back Exam Back exam: NORMAL INSPECTION - Neurological Exam Neurological exam: Motor Sensory Deficit - Psychiatric Exam Psychiatric exam: Flat Affect - Skin Skin Exam: Normal Color Results - Vital Signs Recent Vital Signs: Last Vital Signs Temp 98.1 F 12/07/16 12:00 Pulse 124 H 12/07/16 13:15 Resp 17 12/07/16 13:15 BP 84/46 L 12/07/16 13:10 Pulse Ox 99 12/07/16 13:15 - Labs Result Diagrams: 12/07/16 03:53 12/07/16 03:53 Labs: Laboratory Results - last 24 hr 12/06/16 12/06/16 12/06/16 13:50 14:25 16:14 WBC RBC Hgb Hct MCV MCH MCHC RDW Plt Count MPV Neut % (Auto) Lymph % (Auto) [place] % (Auto) Eos % (Auto) Baso % (Auto) Neut # Lymph # [place] # Eos # Baso # Neutrophils % (Manual) Band Neutrophils % Lymphocytes % (Manual) Monocytes % (Manual) Platelet Estimate Poikilocytosis (manual Anisocytosis (manual) Puncture Site pCO2 pO2 HCO3 ABG pH ABG Total CO2 ABG O2 Saturation ABG Base Excess ABG Hemoglobin ABG Carboxyhemoglobin POC ABG HHb (Measured) ABG Methemoglobin Josh Test A-a O2 Difference Respiratory Index Hgb O2 Saturation Mechanical Rate FiO2 Tidal Volume PEEP Sodium Potassium Chloride Carbon Dioxide Anion Gap BUN Creatinine Est GFR ( Amer) Est GFR (Non-Af Amer) POC Glucose (mg/dL) 39 L 115 H 39 L Random Glucose Lactic Acid Calcium Phosphorus Magnesium Total Bilirubin AST ALT Alkaline Phosphatase Total Protein Albumin Globulin Albumin/Globulin Ratio 12/06/16 12/06/16 12/07/16 16:43 21:23 00:12 WBC RBC Hgb Hct MCV MCH MCHC RDW Plt Count MPV Neut % (Auto) Lymph % (Auto) [place] % (Auto) Eos % (Auto) Baso % (Auto) Neut # Lymph # [place] # Eos # Baso # Neutrophils % (Manual) Band Neutrophils % Lymphocytes % (Manual) Monocytes % (Manual) Platelet Estimate Poikilocytosis (manual Anisocytosis (manual) Puncture Site pCO2 pO2 HCO3 ABG pH ABG Total CO2 ABG O2 Saturation ABG Base Excess ABG Hemoglobin ABG Carboxyhemoglobin POC ABG HHb (Measured) ABG Methemoglobin Josh Test A-a O2 Difference Respiratory Index Hgb O2 Saturation Mechanical Rate FiO2 Tidal Volume PEEP Sodium Potassium Chloride Carbon Dioxide Anion Gap BUN Creatinine Est GFR ( Amer) Est GFR (Non-Af Amer) POC Glucose (mg/dL) 149 H 105 186 H Random Glucose Lactic Acid Calcium Phosphorus Magnesium Total Bilirubin AST ALT Alkaline Phosphatase Total Protein Albumin Globulin Albumin/Globulin Ratio 12/07/16 12/07/16 12/07/16 03:53 03:53 05:07 WBC 21.6 H D RBC 3.21 L Hgb 9.6 L Hct 29.8 L MCV 92.8 D MCH 29.9 MCHC 32.2 L RDW 18.7 H Plt Count 175 MPV 9.0 Neut % (Auto) 96.5 H Lymph % (Auto) 1.4 L [place] % (Auto) 1.4 Eos % (Auto) 0.2 Baso % (Auto) 0.5 Neut # 20.9 H Lymph # 0.3 L [place] # 0.3 Eos # 0.0 Baso # 0.1 Neutrophils % (Manual) 87 H Band Neutrophils % 11 H* Lymphocytes % (Manual) 1 L Monocytes % (Manual) 1 Platelet Estimate Normal Poikilocytosis (manual Slight Anisocytosis (manual) Moderate Puncture Site L brach pCO2 25 L pO2 213 H HCO3 15.3 L ABG pH 7.31 L ABG Total CO2 13.4 L ABG O2 Saturation 99.7 H ABG Base Excess -12.3 L ABG Hemoglobin 9.2 L ABG Carboxyhemoglobin 1.2 POC ABG HHb (Measured) 0.3 ABG Methemoglobin 2.8 Josh Test Na A-a O2 Difference 112.0 Respiratory Index 0.5 Hgb O2 Saturation 95.7 Mechanical Rate 14 FiO2 50.0 Tidal Volume 450 PEEP 5 Sodium 130 L Potassium 3.8 Chloride 98 Carbon Dioxide 15 L Anion Gap 21 H BUN 37 H Creatinine 1.8 H Est GFR ( Amer) 47 Est GFR (Non-Af Amer) 39 POC Glucose (mg/dL) Random Glucose 194 H Lactic Acid Calcium 5.0 L* Phosphorus 4.8 H Magnesium 0.8 L* D Total Bilirubin 2.7 H AST 9391 H ALT 2977 H Alkaline Phosphatase 233 H D Total Protein 5.3 L Albumin 2.2 L Globulin 3.1 Albumin/Globulin Ratio 0.7 L 12/07/16 12/07/16 12/07/16 07:00 07:24 12:05 WBC RBC Hgb Hct MCV MCH MCHC RDW Plt Count MPV Neut % (Auto) Lymph % (Auto) [place] % (Auto) Eos % (Auto) Baso % (Auto) Neut # Lymph # [place] # Eos # Baso # Neutrophils % (Manual) Band Neutrophils % Lymphocytes % (Manual) Monocytes % (Manual) Platelet Estimate Poikilocytosis (manual Anisocytosis (manual) Puncture Site pCO2 pO2 HCO3 ABG pH ABG Total CO2 ABG O2 Saturation ABG Base Excess ABG Hemoglobin ABG Carboxyhemoglobin POC ABG HHb (Measured) ABG Methemoglobin Josh Test A-a O2 Difference Respiratory Index Hgb O2 Saturation Mechanical Rate FiO2 Tidal Volume PEEP Sodium Potassium Chloride Carbon Dioxide Anion Gap BUN Creatinine Est GFR ( Amer) Est GFR (Non-Af Amer) POC Glucose (mg/dL) 127 H 135 H Random Glucose Lactic Acid 5.0 H* Calcium Phosphorus Magnesium Total Bilirubin AST ALT Alkaline Phosphatase Total Protein Albumin Globulin Albumin/Globulin Ratio Assessment & Plan - Assessment and Plan (Free Text) Assessment: Palliative consult Code status Full Code prior to consult, PPS 0%, ROS unobtainable due to acquity of condition. ROS obtained from nursing, patient remains with motor sensory deficit. I reviewed medical records, all diagnostic studies, examined patient in the bed , attended ICU rounds and held family meeting attended by patient's sister Tiffany and his brother Brian who was on the speaker. Patient is unresponsive to stimuli with motor sensory deficit. Pupils are fixed. Eyes wide open with glaze. Muscle flaccid. Skin cool to touch. BP 89/54, HR 118. Epinephrin on board. With Ms. Allen I reviewed patient's clinical presentation and suggested that meaningful recovery was not expected. I help Mrs. Allen understand the consequences of anoxic brain injury. She agreed that her brother has been fighting disease for a long time and lately she noticed huge decline in her brother's condition. Ms. Allen was very clear stating, that if her brother could talk he would not want to be kept alive under these circumstances. Patient's brother Mr. Torres over the speaker concurred this statement. The common goal for this patient was peaceful . I reviewed the terminal extubation protocol and steps taken until patient dies peacefully. They both agreed. POLST signed by the sister. DNR /DNI This was communicated to Doctor Anuj and Doctor Chichi. The process took place at 2 :50 pm. Bereavement tray was offered for the sister. I offered her emotional support. Doctor sophia bee made aware of. Impression * This is a very sick patient with cardiac arrest and severe anoxic injury to the brain * Family advocates for the promotion of natural with out life support measures * POLST discussed and signed Suggestion * Agree with allowing peaceful * POLST on chart
--- NOTE | 2016-12-07 15:10 | CP.PCM.PRO ---
Pronouncement of Note - Clinical Findings Physical Exam: No Response Verbal/Painful Stimuli, Absent Peripheral Pulses{ Carotid & Femoral}, Absent Heart & Breath Sounds, No Pupillary Light Reflex, No Corneal Reflex, Pupils Fixed & Dilated, Absence of Vital Signs - Pronouncement Time Time of Pronouncement of : 15:00 - Notifications Pronouncement Notifications: Family Notified, Atending Notified [employer] Turb[employer] Mechanical Engineer Notified: No - Autopsy Autopsy Requested: No - [place] Certificate Additional Comments: Patient was terminally extubated as per family wishes
[2016-12-07 15:18] VITALS: BP 46/26; PULSE 73; RESP 0; O2SAT 99
--- NOTE | 2016-12-07 16:31 | CP.PCM.PN ---
Subjective - Date & Time of Evaluation Date of Evaluation: 12/07/16 Time of Evaluation: 13:20 - Subjective Subjective: clinically same Objective - Vital Signs/Intake and Output Vital Signs (last 24 hours): Temp Pulse Resp BP Pulse Ox 98.1 F 73 0 L 46/26 L 99 12/07/16 12:00 12/07/16 14:45 12/07/16 15:15 12/07/16 14:41 12/07/16 14:30 Intake and Output: 12/07/16 12/07/16 06:59 18:59 Intake Total 2292.9 1206.7 Output Total 0 30 Balance 2292.9 1176.7 - Medications Medications: Current Medications Enoxaparin Sodium (Lovenox) 40 mg SC DAILY [facility] Last Admin: 12/07/16 10:26 Dose: 40 mg Famotidine (Pepcid) 20 mg PEG DAILY [facility] Dextrose (Dextrose 10% In Water) 1,000 mls @ 70 mls/hr IV .[id number] [facility] Last Admin: 12/07/16 08:00 Dose: 70 mls/hr Tigecycline 50 mg/ Sodium (Chloride) 100 mls @ 100 mls/hr IVPB Q12H [facility] Last Admin: 12/07/16 10:25 Dose: 100 mls/hr Amikacin Sulfate 500 mg/ (Sodium Chloride) 102 mls @ 102 mls/hr IVPB Q24H [facility] Last Admin: 12/07/16 12:46 Dose: 102 mls/hr Methylprednisolone (Solu-Medrol) 40 mg IVP Q8 [facility] Last Admin: 12/07/16 13:09 Dose: 40 mg - Labs Labs: 12/07/16 03:53 12/07/16 03:53 PT 21.7 SECONDS (9.7-12.2) H 12/06/16 12:32 INR 1.9 12/06/16 12:32 APTT 79 SECONDS (21-34) H 12/06/16 12:32 - Constitutional Appears: Well - Head Exam Head Exam: ATRAUMATIC, NORMAL INSPECTION, NORMOCEPHALIC - Eye Exam Eye Exam: EOMI, Normal appearance, PERRL Pupil Exam: NORMAL ACCOMODATION, PERRL - ENT Exam ENT Exam: Mucous Membranes Moist, Normal Exam - Neck Exam Neck Exam: Full ROM, Normal Inspection. absent: Lymphadenopathy - Respiratory Exam Respiratory Exam: Decreased Breath Sounds - Cardiovascular Exam Cardiovascular Exam: REGULAR RHYTHM, +S1, +S2 - GI/Abdominal Exam GI & Abdominal Exam: Soft, Diminished Bowel Sounds - Rectal Exam Rectal Exam: Deferred
--- NOTE | 2016-12-08 12:35 | CP.PCM.CON ---
History of Present Illness - History of Present Illness History of Present Illness: 61-year-old male with a history of metastatic prostate cancer, bilateral hydronephrosis, nephrostomy tube, recurrent sepsis and septic shock, multiorgan failure multiple times. Patient had a cardiac arrest last time also intubated and extubated. Patient came to the emergency room today from shelter after he sustained a cardiac arrest in the shelter. After a prolonged CPR patient got pulse back. And brought to the emergency room. In the emergency room patient had another episode of brief asystolic arrest, given epinephrine. Patient is now on ventilator, comatose to. Nonresponsive. Poor gag reflex. Patient is not a DNR. Past medical history: Metastatic prostatic cancer, hydronephrosis, renal insufficiency, recurrent sepsis. Allergy: No known drug allergy Personal history nonsmoker. But patient is somewhat condition getting worse recently. Review of system noted from the chart and examination: Vital signs reviewed in Chest bilateral wheezing and rales noted regular heart sound. Abdomen distention noted. Edema bilaterally in the legs noted Labs reviewed Chest x-ray clear lungs noted. ET tube is slightly on the high side. Assessment and recommendation: 61-year-old male with history of metastatic prostate cancer, complicated with bilateral hydronephrosis renal insufficiency recurrent sepsis and septic shock admitted with cardiac arrest. Patient is currently asystolic cardiac arrest. On ventilator. Poor prognosis. Critical condition. Continue the supportive care. On antibiotic IV fluid resuscitation. Severe hypoglycemia likely secondary to sepsis. Patient also had hypocortisolism will start the patient on corticosteroids. Palliative care suggested Past Patient History - Infectious Disease Hx of Infectious Diseases: None - Past Medical History & Family History Past Medical History?: Yes - Past Social History Smoking Status: Former Smoker - CARDIAC Hx Cardiac Disorders: Yes Hx Hypertension: Yes Hx Pacemaker: No Hx Peripheral Edema: No - PULMONARY Hx Respiratory Disorders: No - NEUROLOGICAL Hx Neurological Disorder: No Hx Paralysis: No - HEENT Hx HEENT Problems: No - RENAL Hx Chronic Kidney Disease: Yes Other/Comment: NEPHROSTOMY TUBE - ENDOCRINE/METABOLIC Hx Endocrine Disorders: Yes Hx Diabetes Mellitus Type 2: Yes (pt denies.) - HEMATOLOGICAL/ONCOLOGICAL Hx Blood Disorders: Yes Hx Blood Transfusions: Yes Hx Blood Transfusion Reaction: No Hx Cancer: Yes (Prostate, Stomach.) Hx Metastesis: Yes - INTEGUMENTARY Hx Dermatological Problems: No - MUSCULOSKELETAL/RHEUMATOLOGICAL Hx Musculoskeletal Disorders: No Hx Falls: No - GASTROINTESTINAL Hx Gastrointestinal Disorders: Yes Hx Clostridium Difficile: Yes Other/Comment: Stomach Ca. - GENITOURINARY/GYNECOLOGICAL Hx Genitourinary Disorders: Yes Hx Prostate Cancer: Yes Hx Prostate Problems: Yes Hx Urinary Tract Infection: Yes - PSYCHIATRIC Hx Psychophysiologic Disorder: No Hx Substance Use: No - SURGICAL HISTORY Hx Surgeries: Yes Other/Comment: nephrostomy tube. - ANESTHESIA Hx Anesthesia: Yes Hx Anesthesia Reactions: No Hx Malignant Hyperthermia: No Meds Allergies/Adverse Reactions: Allergies Allergy/AdvReac Type Severity Reaction Status Date / Time No Known Allergies Allergy Verified 10/06/16 10:16 Results - Vital Signs Recent Vital Signs: Last Vital Signs Temp 98.1 F 12/07/16 12:00 Pulse 73 12/07/16 14:45 Resp 0 L 12/07/16 15:15 BP 46/26 L 12/07/16 14:41 Pulse Ox 99 12/07/16 14:30 - Labs Result Diagrams: 12/07/16 03:53 12/07/16 03:53
--- NOTE | 2016-12-08 16:33 | VASCLAB ---
PROCEDURE: HISTORY: assess cerebral blood flow COMPARISON: None available. TECHNIQUE: Grayscale and duplex Doppler evaluation of the cervical carotid and vertebral arteries were performed. The common carotid, carotid bifurcations and cervical Internal Carotid Artery (ICA) and proximal External Carotid Artery (ECA) were evaluated. The vertebral arteries were evaluated for gross patency and flow direction. Report prepared by Earl Graham, BS, RVT FINDINGS: RIGHT CAROTID ARTERIES: 1. Common Carotid Artery: No significant focal plaque formation of the right common carotid artery. Maximum Peak Systolic velocity: 96 cm/sec: End-diastolic velocity 46 cm/sec. 2. Carotid Bifurcation: plaque formation. Maximum Peak Systolic velocity: 114 cm/sec: End-diastolic velocity 40 cm/sec. 3. Internal Carotid Artery: Plaque description: 3.1. Proximal Segment: Peak systolic velocity 88 cm/sec: End-diastolic velocity 35 cm/sec - % stenosis 0-15% 3.2. Middle Segment: Peak systolic velocity 59 cm/sec: End-diastolic velocity 32 cm/sec - % stenosis 0-15% 3.3. Distal Segment: Peak systolic velocity 54 cm/sec: End-diastolic velocity 30 cm/sec - % stenosis 0-15% 4. External Carotid Artery: No significant focal plaque formation. Peak systolic velocity 122 cm/sec 5. ICA/CCA Ratio: 1.2 LEFT CAROTID ARTERIES: 1. Common Carotid Artery: No significant focal plaque formation of the left common carotid artery. Maximum Peak Systolic velocity: 85 cm/sec: End-diastolic velocity 38 cm/sec. 2. Carotid Bifurcation: plaque formation. Maximum Peak Systolic velocity: 80 cm/sec: End-diastolic velocity 34 cm/sec. 3. Internal Carotid Artery: Plaque description: 3.1. Proximal Segment: Peak systolic velocity 75 cm/sec: End-diastolic velocity 36 cm/sec - % stenosis 0-15% 3.2. Middle Segment: Peak systolic velocity 68 cm/sec: End-diastolic velocity 39 cm/sec - % stenosis 0-15% 3.3. Distal Segment: Peak systolic velocity 61 cm/sec: End-diastolic velocity 36 cm/sec - % stenosis 0-15% 4. External Carotid Artery: No significant focal plaque formation. Peak systolic velocity 75 cm/sec 5. ICA/CCA Ratio: 0.9 VERTEBRAL ARTERIES: 1. Right Vertebral Artery: The right vertebral artery flow direction is antegrade. 2. Left Vertebral Artery: The left vertebral artery flow direction is antegrade. OTHER FINDINGS: 1. Right Brachial Blood pressure: mmHg. 2. Left Brachial Blood pressure: mmHg. IMPRESSION: RIGHT: Duplex scan does not suggest hemodynamically significant stenosis of the right extracranial carotid arteries. LEFT: Duplex scan does not suggest hemodynamically significant stenosis of the left extracranial carotid arteries.
--- NOTE | 2016-12-09 00:53 | CARD ---
APPROVED REPORT EKG Measurement Heart [id number] <Conclusion> Normal sinus rhythm Right bundle branch block T wave abnormality, consider mario-lateral ischemia Abnormal ECG
--- NOTE | 2016-12-09 01:33 | CON ---
DATE: 12/07/2016 Urology consultation is requested by Dr. Geneva Gonzalez. Urology consultation is filled by Dr. Emilie Williamson. REASON FOR CONSULTATION: History of prostate cancer. Hydronephrosis. HISTORY OF PRESENT ILLNESS: The patient is a 61-year-old male who was readmitted to the hospital aft er cardiac arrest. The patient has history of previous urinary tract infections. He has had previous sepsis. The patie nt had previous respiratory failure. He previously was in the ICU. The patient was readmitted yesterday after cardiac arrest. The patient had resuscitation. He is now intubated. The patient is in the ICU. He is unresponsive. The chart is reviewed. The patient is examined. There is history of prostate carcinoma. There is history of hydronephrosis. The patient has a right nephrostomy tube in place. The patient had a CT scan performed this morning. LABORATORY DATA: Reviewed as well. PHYSICAL EXAMINATION: GENERAL: The patient is well-developed, well-nourished male appearing his stated age. The patient i s intubated on respirator. The patient does not respond to my questions or to examination. ABDOMEN: Soft, nontender, nondistended. BACK: Right nephrostomy tube in place draining louis urine. GENITALIA: Without inflammation. IMPRESSION: Prostate cancer. Right nephrostomy tube in place. History of right hydronephrosis. St atus post cardiac arrest. Neurologic impairment. Poor mental status with comatose state. RECOMMENDATIONS AND PLAN: Obtain urine culture. Possible treatment for urinary tract infection. Ot herwise, ICU care as prescribed. Further therapy to follow according to patient's clinical course. Consider further staging evaluation and management regarding history of prostate carcinoma. Thank you for recommending the patient for urology consultation. Kavitha Durant MD cc: [id number] TT: 12/09/2016 01:33:05 Confirmation # [id number] Dictation # [id number]
== END 2016-12-07 15:00 | DRG 584 ==
LOC: C.ER 11:20 → C.9E 13:18 → C.9I 13:52
PROVIDERS: ADMIT Internal Medicine Nephrology; ATTEND Internal Medicine Nephrology
PROC: 5A1935Z Respiratory Ventilation, Less than 24 Consecutive Hours (ICD-10-PCS; principal; 2016-12-06)
PROC: 0BH17EZ Insertion of Endotracheal Airway into Trachea, Via Natural or Artificial Opening (ICD-10-PCS; 2016-12-06)
DX: A41.9 Sepsis, unspecified organism (principal); G93.1 Anoxic brain damage, not elsewhere classified; I46.9 Cardiac arrest, cause unspecified; R65.21 Severe sepsis with septic shock; C79.9 Secondary malignant neoplasm of unspecified site; N13.30 Unspecified hydronephrosis; N18.9 Chronic kidney disease, unspecified; I12.9 Hypertensive chronic kidney disease with stage 1 through stage 4 chronic kidney disease, or unspecified chronic kidney disease; E16.2 Hypoglycemia, unspecified; Z85.46 Personal history of malignant neoplasm of prostate; Z87.891 Personal history of nicotine dependence; Z51.5 Encounter for palliative care